=== PATIENT | female | born 1985 | race African-American/Black ===

== ENCOUNTER 2016-08-03 21:44 | Observation (INO) | payer OTHER ==
[2016-08-03] MEDS ORDERED: ALBUTEROL NEBULIZED 2.5 MG/3 ML INHALATION STA (22:07)
[2016-08-03] MEDS ORDERED: methylPREDNISolone SOD SUCCI 125 MG/2 ML VIAL IV STA (22:07)
--- NOTE | 2016-08-03 23:44 | XR ---
EXAMINATION TYPE: XR chest 2V DATE OF EXAM: 08/03/2016 11:31 PM COMPARISON: 06/16/2016 HISTORY: Difficulty breathing TECHNIQUE: Frontal and lateral views of the chest are obtained. FINDINGS: Exam is limited due to positioning. As best as one can tell the lungs are clear. There is no heart failure. There is a thoracic scoliotic deformity. There is no sign of pleural effusion. Trac heostomy tube is noted. IMPRESSION: No active cardiopulmonary disease. No change.
[2016-08-04 00:16] LABS: Anisocytosis Moderate; Basophils # (A) 0.1 k/uL (0-0.2); Basophils % (A) 1 %; CH 30.4; CHCM 34.6; Eosinophils # (A) 0.2 k/uL (0-0.7); Eosinophils % (A) 2 %; HCT 42.4 % (34.0-46.0); HDW 2.98; HGB 15.4 gm/dL (11.4-16.0); Luc # (Auto) 0.17; Luc % (Auto) 2; Lymphocytes # (A) 2.1 k/uL (1.0-4.8); Lymphocytes % (A) 24 %; MCH 32.1 pg (25.0-35.0); MCHC 36.2 g/dL (31.0-37.0); MCV 88.5 fL (80.0-100.0); Mean Platelet Volume 9.2; Monocytes # (A) 0.6 k/uL (0-1.0); Monocytes % (A) 7 %; Neutrophils # (A) 5.6 k/uL (1.3-7.7); Neutrophils % (A) 65 %; RBC 4.79 m/uL (3.80-5.40); RDW 23.1 % (11.5-15.5); WBC 8.6 k/uL (3.8-10.6); WBC (Perox) 8.64
[2016-08-04 00:21] LABS: Anion Gap 19 mmol/L; Calcium 9.8 mg/dL (8.4-10.2); Carbon Dioxide 17 mmol/L (22-30); Chloride 110 mmol/L (98-107); Glucose 101 mg/dL (74-99); Non-African American GFR(MDRD) >60 (>60 ml/min/1.73 sqM); Sodium 146 mmol/L (137-145); Total Bilirubin 0.7 mg/dL (0.2-1.3)
[2016-08-04 00:27] LABS: Blood Urea Nitrogen 8 mg/dL (7-17); Potassium 4.7 mmol/L (3.5-5.1)
[2016-08-04 00:28] LABS: ALT 27 U/L (9-52); AST 29 U/L (14-36); Alkaline Phosphatase 108 U/L (38-126); Total Protein 7.7 g/dL (6.3-8.2)
--- NOTE | 2016-08-04 01:16 | ED ---
SOB HPI - General Chief Complaint: Shortness of Breath Stated Complaint: ANTHONY Time Seen by Provider: 08/03/16 22:01 Source: patient, family, EMS Mode of arrival: EMS Limitations: physical limitation - History of Present Illness Initial Comments: Down being short winded she is trach dependent been breathing faster and mom feels that maybe she has a lung infection and she is concerned that she goes down real fast if there is some sort of infection somewhere him a no fever as such. Denies any runny nose and denies any recent episodes of flu a or flu B area denies any chest pain no pleuritic chest pain eyes any abdominal pain no frequency urgency dysuria - Related Data Home Medications Medication Instructions Recorded Confirmed No Known Home Medications [No 06/15/16 06/16/16 Known Home Medications] Allergies Allergy/AdvReac Type Severity Reaction Status Date / Time No Known Allergies Allergy Verified 06/16/16 14:31 Review of Systems ROS Statement: Those systems with pertinent positive or pertinent negative responses have been documented in the HPI. ROS Other: All systems not noted in ROS Statement are negative. Past Medical History Past Medical History: Asthma, Musculoskeletal Disorder Additional Past Medical History / Comment(s): spina bifida History of Any Multi-Drug Resistant Organisms: None Reported Past Surgical History: Back Surgery Additional Past Surgical History / Comment(s): trach Past Psychological History: No Psychological Hx Reported Smoking Status: Never smoker Past Alcohol Use History: None Reported Past Drug Use History: None Reported General Exam - General Exam Comments Initial Comments: General: The patient is awake and alert, in no distress, and does not appear acutely ill. Skin: Skin is warm and dry and no rashes or lesions are noted. Eye: Pupils are equal, round and reactive to light, extra-ocular movements are intact; there is normal conjunctiva bilaterally. Ears, nose, mouth and throat: There are moist mucous membranes and no oral lesions. Neck: The neck is supple, there is no tenderness , she has a permanent trach Cardiovascular: There is a regular rate and rhythm. No murmur, rub or gallop is appreciated., She has the tachycardia is around [id number]-lpi EKG but when I examine her she was about 150 Respiratory: To auscultation bilateral, no wheezing no rhonchi no distress respiratory maldonado noticed Gastrointestinal: Soft, non-distended, non-tender abdomen without masses or organomegaly noted. There is no rebound or guarding present. Bowel sounds are unremarkable. Back: There is no tenderness to palpation in the midline. There is no obvious deformity. Musculoskeletal: Normal ROM, she is congenitally hand Neurological: CN II-XII intact, Cranial nerves III through XII are intact. There are no obvious motor or sensory deficits. Coordination appears grossly intact. Speech is normal. Psychiatric: Cooperative, appropriate mood & affect, normal judgment. Limitations: physical limitation Course Vital Signs 08/03/16 08/03/16 08/03/16 21:48 22:54 23:02 Temperature 97.9 F Pulse Rate 118 H 121 H 120 H Respiratory 22 Rate Blood Pressure O2 Sat by Pulse 100 Oximetry 08/03/16 23:26 Temperature Pulse Rate 122 H Respiratory 18 Rate Blood Pressure 130/80 O2 Sat by Pulse Oximetry Medical Decision Making - Lab Data Result diagrams: 08/03/16 00:00 08/03/16 00:00 Lab Results 08/03/16 08/03/16 Range/Units 00:00 00:00 WBC 8.6 (3.8-10.6) k/uL RBC 4.79 (3.80-5.40) m/uL Hgb 15.4 (11.4-16.0) gm/dL Hct 42.4 (34.0-46.0) % MCV 88.5 (80.0-100.0) fL MCH 32.1 (25.0-35.0) pg MCHC 36.2 (31.0-37.0) g/dL RDW 23.1 H (11.5-15.5) % Plt Count 295 (150-450) k/uL Neutrophils % 65 % Lymphocytes % 24 % Monocytes % 7 % Eosinophils % 2 % Basophils % 1 % Neutrophils # 5.6 (1.3-7.7) k/uL Lymphocytes # 2.1 (1.0-4.8) k/uL Monocytes # 0.6 (0-1.0) k/uL Eosinophils # 0.2 (0-0.7) k/uL Basophils # 0.1 (0-0.2) k/uL Anisocytosis Moderate Sodium 146 H (137-145) mmol/L Potassium 4.7 (3.5-5.1) mmol/L Chloride 110 H (98-107) mmol/L Carbon Dioxide 17 L (22-30) mmol/L Anion Gap 19 mmol/L BUN 8 (7-17) mg/dL Creatinine 0.30 L (0.52-1.04) mg/dL Est GFR (MDRD) Af Amer >60 (>60 ml/min/1.73 sqM) Est GFR (MDRD) Non-Af >60 (>60 ml/min/1.73 sqM) Glucose 101 H (74-99) mg/dL Calcium 9.8 (8.4-10.2) mg/dL Total Bilirubin 0.7 (0.2-1.3) mg/dL AST 29 (14-36) U/L ALT 27 (9-52) U/L Alkaline Phosphatase 108 (38-126) U/L Total Protein 7.7 (6.3-8.2) g/dL Albumin 4.4 (3.5-5.0) g/dL Disposition Clinical Impression: Tachycardia, Metabolic acidosis Disposition: ADMITTED IP TO THIS HOSP
[2016-08-04] MEDS ORDERED: SODIUM CHLORIDE 0.9% 1,000 ML IV ONE (01:17)
[2016-08-04 01:18] LABS: Creatine Kinase 132 U/L (30-135)
[2016-08-04 02:53] LABS: Glucose,Whole Blood 102 mg/dL (75-99)
[2016-08-04] MEDS: IPRATROPIUM-ALBUTEROL 3 ML NEB INHALATION SCH ×3 (03:11→11:53)
[2016-08-04 03:48] VITALS: BMI 44.7
[2016-08-04] MEDS ORDERED: BUDESONIDE 0.5 MG/2 ML NEBU INHALATION SCH (08:00)
[2016-08-04] MEDS ORDERED: methylPREDNISolone SOD SUCCI 125 MG/2 ML VIAL IV SCH (09:00)
[2016-08-04] MEDS ORDERED: FAMOTIDINE 20 MG/2 ML VIAL IV SCH (09:30)
[2016-08-04] MEDS ORDERED: PNEUMOCOCCAL VACC-PNEUMOVAX 23 25 MCG/0.5 ML VIAL IM ONE (12:00)
--- NOTE | 2016-08-04 12:06 | P.DS ---
Providers Date of admission: 08/04/16 01:16 Expected date of discharge: 08/04/16 Attending physician: Evin Arevalo Consults: 08/04/16 09:05 Consult Physician Routine Consulting Provider: Misa Bear Consult Reason/Comments: Vent mangement Do you want consulting provider notified?: Yes Primary care physician: Evin Arevalo [facility] Course: 30-year-old female who has a history of spina bifida limited mobility wheelchair bedbound presented to the emergency room to be evaluated for a chief complaint of developing shortness of breath different from baseline. Patient has a permanent trach and is vent dependent. Poor historian. Health history has been obtained from talking to the mother and reviewing the emergency room computerized record in the emergency room patient was noted in the emergency room to be tachycardic. Subsequently the patient was admitted a pulmonology consultation obtained patient mother indicated that the patient does have an appointment tomorrow at [facility] with ears nose and throat to be evaluated and worked up unclear of the details the patient reportedly has a home visiting physician and a nurse practitioner that sees the patient. According to the mother the patient was seen by a nurse practitioner last Thursday at home was noted to be a little congested. Patient was initiated on antibiotic and Medrol Dosepak.. Subsequent the patient was admitted placed on mechanical vent support. Pulmonology indicated there is no further pulmonology workup and that the patient would be appropriate to be discharged to keep scheduled appointment at [facility] tomorrow. The tachycardia had resolved the time of discharge patient' s heart rate was in the 110s 120s Impression discharge diagnosis Present on admission shortness of breath with chest x-ray showing no evidence of pneumonia Chronic hypoxic respiratory failure vent dependent suspect due to chronic illness history of spina bifida Permanent tracheotomy Physical debility chronic due to chronic illness spina bifida limited mobility Sinus tachycardic resolving The above dictated assessment and findings were discussed with dr susanne Caro and the plan of care have been dictated as directed. Ivette Ga nurse practitioner acting as a scribe for dr arevalo Plan - Discharge Summary Discharge Medication List Albuterol Sulfate [Accuneb] 1.25 mg INHALATION RT-Q4H PRN 08/04/16 [History] Clarithromycin [Biaxin] 500 mg PO Q12HR 08/04/16 [History] Diltiazem HCl [Cardizem] 90 mg PO TID 08/04/16 [History] Fluticasone Nasal [place] [Flonase Nasal [place]] 2 spr EA NOSTRIL DAILY 08/04/16 [ History] Loratadine [Claritin] 10 mg PO DAILY PRN 08/04/16 [History] Follow up Appointment(s)/Referral(s): Evin Arevalo MD [Primary Care Provider] - 1-2 days Activity/Diet/Wound Care/Special Instructions: Keep scheduled appointment tomorrow on the 05 of August with [facility] clinic Discharge Disposition: HOME SELF-CARE
--- NOTE | 2016-08-04 12:15 | P.CNPUL ---
History of Present Illness Consult date: 08/04/16 Reason for consult: cough Chief complaint: Cough History of present illness: This is a 30-year-old female who has a history of spina bifida and cognitive delay. The patient is chronically on a ventilator at home via tracheostomy. The patient's mother takes care of her and suctions her frequently. The patient 's mother states that she had worsening cough and some sputum production. She also states that the patient refuses to use her cough assist at home. The patient also was refusing to take pills. She had not taken her Cardizem or antibiotics. The patient has been tachycardic in the ICU. The patient will be given her Cardizem. She has an appointment tomorrow at the [facility]. The patient is currently on her baseline ventilator settings. She has not had fevers or chills. Her mental status is at baseline. Review of Systems All systems: negative Past Medical History Past Medical History: Asthma, Musculoskeletal Disorder Additional Past Medical History / Comment(s): spina bifida History of Any Multi-Drug Resistant Organisms: None Reported Past Surgical History: Back Surgery Additional Past Surgical History / Comment(s): trach, urostomy Past Anesthesia/Blood Transfusion Reactions: No Reported Reaction Past Psychological History: No Psychological Hx Reported Smoking Status: Never smoker Past Alcohol Use History: None Reported Past Drug Use History: None Reported Medications and Allergies Home Medications Medication Instructions Recorded Confirmed Type Albuterol Sulfate [Accuneb] 1.25 mg INHALATION RT-Q4H PRN 08/04/16 08/04/16 History Clarithromycin [Biaxin] 500 mg PO Q12HR 08/04/16 08/04/16 History Diltiazem HCl [Cardizem] 90 mg PO TID 08/04/16 08/04/16 History Fluticasone Nasal [place] [Flonase 2 spr EA NOSTRIL DAILY 08/04/16 08/04/16 History Nasal [place]] Loratadine [Claritin] 10 mg PO DAILY PRN 08/04/16 08/04/16 History Allergies Allergy/AdvReac Type Severity Reaction Status Date / Time No Known Allergies Allergy Verified 06/16/16 14:31 Physical Exam Osteopathic Statement: *. No significant issues noted on an osteopathic structural exam other than those noted in the History and Physical/Consult. Vitals: Vital Signs Temp Pulse Resp BP Pulse Ox 08/04/16 11:00 128 H 31 H 138/80 99 08/04/16 10:00 127 H 28 H 130/94 97 08/04/16 09:00 141 H 29 H 104/94 99 08/04/16 08:04 122 H 08/04/16 08:00 98.4 F 132 H 26 H 120/85 99 08/04/16 07:53 118 H 08/04/16 07:00 123 H 20 122/79 98 08/04/16 06:30 124 H 31 H 124/82 98 08/04/16 06:00 118 H 29 H 131/94 98 08/04/16 05:30 126 H 27 H 125/85 97 08/04/16 05:00 122 H 24 118/93 98 08/04/16 04:30 129 H 30 H 139/87 98 08/04/16 04:00 134 H 28 H 113/85 99 08/04/16 03:30 122 H 23 139/110 99 08/04/16 03:18 132 H 08/04/16 03:07 135 H 08/04/16 03:00 99.0 F 121 H 27 H 133/84 97 08/04/16 02:54 108 H 16 128/80 100 Intake and Output 08/03/16 08/04/16 08/04/16 22:59 06:59 14:59 Intake Total 90 30 Balance 90 30 Intake: Oral 90 30 Other: Voiding Method Diaper Diaper Incontinent Incontinent # Voids 1 1 Weight 63.8 kg Gen.: Patient is alert, cognitive delay, pleasant mood Cardiovascular: Tachycardic, regular rate and rhythm Lungs: Scattered expiratory wheezing Abdomen: Soft nontender nondistended positive bowel sounds Extremities no edema Results - Laboratory Findings CBC and BMP: 08/03/16 00:00 08/03/16 00:00 Abnormal lab findings: Abnormal Labs 08/04/16 02:52 POC Glucose (mg/dL) 102 H - Diagnostic Findings Chest x-ray: report reviewed, image reviewed Assessment and Plan Plan: Chronic respiratory failure secondary to musculoskeletal disorder Spina bifida Tracheobronchitis Asthma, unknown type and severity Permanent tracheostomy Physical debility Sinus tachycardia Medical noncompliance Continue patient on home ventilator settings Patient is encouraged to use her cough assist and she states she will do so Okay to discharge with Biaxin and prednisone taper Patient has breathing treatments at home Tracheostomy care with frequent suctioning Patient has an appointment at the [facility] tomorrow Restart patient's home Cardizem for tachycardia
[2016-08-04 13:30] VITALS: BP 140/94; PULSE 124; RESP 25; TEMP 98.1
--- NOTE | 2016-08-04 19:34 | PN ---
DATE OF SERVICE: 08/04/2016 CHIEF COMPLAINT: Shortness of breath. HISTORY OF PRESENT ILLNESS: This is the first known ( ) admission for this 30-year-old mentally and physically debilitated -[place] female. She was brought to the hospital by her mother with concern that she may not be able to breathe. She has had a chronic trach and she has been told that there may need to be a revision around her trach. She was brought in because there was concern that it was not functioning properly. She is severely mentally incapacitated. Review of systems is not obtainable from the patient, but apparently she has had no trouble other than shortness of breath. She has had no fever, cough, vomiting, diarrhea, etc. Past medical history, family history, and personal and social histories reveal that she is NOT ALLERGIC TO ANY MEDICATION. She has had a procedure on her eyes as well as intracardiac shunt revisions. There is no other history available. She had a decompression procedure on her neck in the past and 6 ( ) surgeries and 2 on her eyes. PHYSICAL EXAMINATION: Blood pressure is 106/70 with a pulse of 84. She is afebrile. In general she appears to be overweight and small-statured. 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 Head, ears, eyes, nose, mouth and throat were normal except for the presence of tracheostomy. She is awake and alert. Chest demonstrates good breath sounds on both sides. The cardiac exam seems to be normal. The abdomen is soft and non-tender without any visceromegaly or masses except for PEG tube. She is admitted to the hospital with the diagnoses: 1. Respiratory failure. 2. ? tracheal obstruction or narrowing. 3. Mental disability. PLAN: Consult with ENT. In the meantime keep her on a ventilator until it is sure that she is safe and stable.
--- NOTE | 2016-08-04 19:55 | PN ---
Patient was seen by the nurse practitioner and decision was made that she could be discharged home to her mother's care. She will follow up with her physician in [place]. All of this will be arranged by the nurse practitioner.
[2016-08-04] MEDS ORDERED: FAMOTIDINE 20 MG TAB PO SCH (21:00)
== END 2016-08-04 14:26 | disposition home or self-care (01) ==
LOC: EC 21:44 → 3OBS 08-04 01:16 → 6ICU 08-04 01:52
PROVIDERS: ADMIT Family Medicine; ATTEND Family Medicine
DX: J96.11 Chronic respiratory failure with hypoxia (principal); Q05.9 Spina bifida, unspecified; R00.0 Tachycardia, unspecified; J45.909 Unspecified asthma, uncomplicated; E87.2 Acidosis; J40 Bronchitis, not specified as acute or chronic; Z23 Encounter for immunization; Z93.0 Tracheostomy status; Z99.3 Dependence on wheelchair; Z99.11 Dependence on respirator [ventilator] status; Z95.1 Presence of aortocoronary bypass graft; Z79.899 Other long term (current) drug therapy; Z91.14 Patient's other noncompliance with medication regimen
CPT/HCPCS: 36415; 94640 ×2; 94002; 93005; 80053; 82550; 82553; 85025; 71020; 90732; 99285; 96365; 96375; G0378; G0009; J2930; J0696

== ENCOUNTER → 2017-01-14 | Outpatient (CLI) | payer OTHER ==
[2017-01-14 12:18] LABS: Anisocytosis Moderate; Basophils % (A) 1 %; CH 30.2; CHCM 32.8; Eosinophils # (A) 0.2 k/uL (0-0.7); Eosinophils % (A) 3 %; HCT 48.2 % (34.0-46.0); HDW 2.56; Luc # (Auto) 0.11; Luc % (Auto) 2; Lymphocytes # (A) 2.1 k/uL (1.0-4.8); Lymphocytes % (A) 35 %; MCH 30.7 pg (25.0-35.0); MCHC 33.2 g/dL (31.0-37.0); MCV 92.6 fL (80.0-100.0); Mean Platelet Volume 7.6; Monocytes # (A) 0.3 k/uL (0-1.0); Monocytes % (A) 4 %; Neutrophils # (A) 3.4 k/uL (1.3-7.7); Neutrophils % (A) 56 %; RBC 5.21 m/uL (3.80-5.40); RDW 20.8 % (11.5-15.5); WBC (Perox) 5.75
[2017-01-14 12:37] LABS: ALT 28 U/L (9-52); AST 18 U/L (14-36); Alkaline Phosphatase 116 U/L (38-126); Anion Gap 14 mmol/L; Blood Urea Nitrogen 7 mg/dL (7-17); C Reactive Protein 11.4 mg/L (<10.0); Calcium 9.7 mg/dL (8.4-10.2); Carbon Dioxide 23 mmol/L (22-30); Chloride 106 mmol/L (98-107); Cholesterol 189 mg/dL (<200); Creatine Kinase 90 U/L (30-135); Glucose 70 mg/dL (74-99); HDL Cholesterol 59 mg/dL (40-60); Magnesium 1.8 mg/dL (1.6-2.3); Non-African American GFR(MDRD) >60 (>60 ml/min/1.73 sqM); Phosphorous 3.7 mg/dL (2.5-4.5); Potassium 4.8 mmol/L (3.5-5.1); Sodium 143 mmol/L (137-145); Total Bilirubin 0.5 mg/dL (0.2-1.3); Total Protein 7.4 g/dL (6.3-8.2); Triglycerides 58 mg/dL (<150)
[2017-01-14 13:09] LABS: Erythrocyte Sedimentation Rate 7 mm/hr (0-20)
[2017-01-14 21:53] LABS: Hemoglobin A1C 5.4 % (4.2-6.1)
== END | disposition home or self-care (01) ==
LOC: LABWHC1 11:03
PROVIDERS: ATTEND Internal Medicine
DX: Z00.00 Encounter for general adult medical examination without abnormal findings (principal); E78.5 Hyperlipidemia, unspecified; I10 Essential (primary) hypertension; E55.9 Vitamin D deficiency, unspecified; R32 Unspecified urinary incontinence; D64.9 Anemia, unspecified; Q05.9 Spina bifida, unspecified
CPT/HCPCS: 36415; 80053; 80061; 82306; 82550; 83036; 83735; 83970; 84100; 84439; 84443; 85025; 85652; 86140

== ENCOUNTER → 2017-02-02 | Outpatient (CLI) | payer OTHER ==
--- NOTE | 2017-02-03 10:10 | ECHOF ---
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 This was a technically difficult study with suboptimal views. The left ventricular size is normal. Left ventricular wall thickness is normal. Overall left ventricular systolic function is normal with, an EF between 55 - 60 %. The right ventricle is normal in size and function. The left atrial size is normal. The right atrium was not well visualized. The aortic valve was not well visualized. Mild mitral annular calcification present. Mild mitral regurgitation is present. The tricuspid valve was not well visualized. The pulmonic valve was not well visualized. There is no pulmonic regurgitation present. The aortic root size is normal. There is no pericardial effusion. CONCLUSIONS -------- 1. Sinus rhythm. 2. There is no pulmonic regurgitation present. 3. The aortic root size is normal. 4. There is no pericardial effusion. 5. This was a technically difficult study with suboptimal views. 6. Left ventricular wall thickness is normal. 7. Overall left ventricular systolic function is normal with, an EF between 55 - 60 %. 8. The left atrial size is normal. 9. The right atrium was not well visualized. 10. The aortic valve was not well visualized. 11. Mild mitral regurgitation is present. 12. The tricuspid valve was not well visualized. PROGRAM TECHNICIAN: Alyce Goldsmith RDCS
== END | disposition home or self-care (01) ==
LOC: RADECHMAIN 14:30
PROVIDERS: ATTEND Internal Medicine
DX: I34.0 Nonrheumatic mitral (valve) insufficiency (principal)
CPT/HCPCS: 93306

== ENCOUNTER 2017-10-07 08:56 | Inpatient (IN) | payer OTHER ==
[2017-10-07] MEDS ORDERED: DEXAMETHASONE SOD PHOSPHATE 10 MG/ML 1 ML VIAL IV STA (09:18)
--- NOTE | 2017-10-07 10:06 | XR ---
EXAMINATION TYPE: XR chest 1V portable DATE OF EXAM: 10/07/2017 COMPARISON: 06/16/2016 HISTORY: Concern for pneumonia. TECHNIQUE: Single frontal view of the chest is obtained. FINDINGS: Exam is markedly limited due to distortion by scoliosis and pectus excavatum. The lungs ar e hypoventilatory and cardiomediastinal silhouette is entirely obscured and cannot be evaluated. Midl ine tracheostomy and left ventricular shunt are again seen. The lungs are nearly entirely opacified, left greater than right. This is a change in comparison to the prior of 06/08/2016. Probable skinfold overlies the left lateral hemithorax near the costophrenic angle in a vertical direction with no dis crete pneumothorax. IMPRESSION: Suboptimal exam. Extensive distortion and low lung volumes although the lungs are nearly completely opacified which represents a change from the prior of 06/16/2016. Multifocal pneumonia, e ndobronchial obstruction/mucus plugging, or less likely pleural effusions should be considered.
[2017-10-07 11:00] LABS: Basophils % (A) 0 %; Eosinophils # (A) 0.3 k/uL (0-0.7); Eosinophils % (A) 3 %; HCT 43.1 % (34.0-46.0); HGB 14.7 gm/dL (11.4-16.0); Lymphocytes # (A) 1.1 k/uL (1.0-4.8); Lymphocytes % (A) 14 %; MCHC 34.1 g/dL (31.0-37.0); Mean Platelet Volume 8.5; Monocytes # (A) 0.5 k/uL (0-1.0); Monocytes % (A) 6 %; Neutrophils % (A) 75 %; Platelet Count 225 k/uL (150-450); WBC 8.1 k/uL (3.8-10.6)
[2017-10-07 11:01] LABS: Anion Gap 15 mmol/L; Blood Urea Nitrogen 6 mg/dL (7-17); Calcium 9.5 mg/dL (8.4-10.2); Carbon Dioxide 20 mmol/L (22-30); Chloride 104 mmol/L (98-107); Glucose 107 mg/dL (74-99); Potassium 4.4 mmol/L (3.5-5.1); Sodium 139 mmol/L (137-145)
[2017-10-07] MEDS ORDERED: AZITHROMYCIN 500 MG in SODIUM CHLORIDE 0.9% 250 ML IVPB STA (12:16)
[2017-10-07] MEDS ORDERED: cefTRIAXone IN SWFI 2,000 MG/20 ML SYRINGE IVP STA (12:16)
--- NOTE | 2017-10-07 12:28 | ED ---
General Adult HPI - General Chief complaint: Upper Respiratory Infection Stated complaint: COUGH, CONGESTION, ANTHONY Time Seen by Provider: 10/07/17 09:06 Source: patient, family, EMS Mode of arrival: EMS Limitations: no limitations - History of Present Illness Initial comments: 32 years old male presented with the chronic respiratory problems and congenital deformities she is on a fentanyl at home and she has a trach in place she has been coughing for 2 days and now there was a lot of urine mucus coming out of for a trach and now that caused her shortness of breath he is to cough any sputum no fever no chills she been eating well she been drinking well she denies any chest pain no pleuritic chest pain no abdominal pain no other complaints - Related Data Home Medications Medication Instructions Recorded Confirmed Diltiazem HCl [Cardizem] 90 mg PO BID 08/04/16 10/07/17 Albuterol Nebulized [Ventolin 2.5 mg INHALATION RT-Q4H PRN 10/07/17 10/07/17 Nebulized] Allergies Allergy/AdvReac Type Severity Reaction Status Date / Time No Known Allergies Allergy Verified 10/07/17 09:28 Review of Systems ROS Statement: Those systems with pertinent positive or pertinent negative responses have been documented in the HPI. ROS Other: All systems not noted in ROS Statement are negative. Past Medical History Past Medical History: Asthma, Musculoskeletal Disorder Additional Past Medical History / Comment(s): spina bifida History of Any Multi-Drug Resistant Organisms: None Reported Past Surgical History: Back Surgery Additional Past Surgical History / Comment(s): trach, urostomy Past Anesthesia/Blood Transfusion Reactions: No Reported Reaction Past Psychological History: No Psychological Hx Reported Smoking Status: Never smoker Past Alcohol Use History: None Reported Past Drug Use History: None Reported General Exam - General Exam Comments Initial Comments: General: The patient is awake and alert, in no distress, and does not appear acutely ill. GCS is 15 Skin: Skin is warm and dry and no rashes or lesions are noted. Eye: Pupils are equal, round and reactive to light, extra-ocular movements are intact; there is normal conjunctiva bilaterally. Ears, nose, mouth and throat: There are moist mucous membranes and no oral lesions. Neck: The neck is supple, there is no tenderness or JVD. Cardiovascular: There is a regular rate and rhythm. No murmur, rub or gallop is appreciated. Respiratory: To auscultation bilateral, no wheezing no rhonchi no distress respiratory maldonado noticed Gastrointestinal: Soft, non-distended, non-tender abdomen without masses or organomegaly noted. There is no rebound or guarding present. Bowel sounds are unremarkable. Back: There is no tenderness to palpation in the midline. There is no obvious deformity. Musculoskeletal: Normal ROM, no tenderness, There is no pedal edema. There is no calf tenderness or swelling. No cords were appreciated. Neurological: CN II-XII intact, Cranial nerves III through XII are intact. There are no obvious motor or sensory deficits. Coordination appears grossly intact. Speech is normal. Psychiatric: Cooperative, appropriate mood & affect, normal judgment. Limitations: no limitations Course Vital Signs 10/07/17 10/07/17 10/07/17 08:59 10:53 12:00 Temperature 99.3 F Pulse Rate 118 H 118 H Respiratory 28 H 28 H 28 H Rate Blood Pressure 133/89 143/85 O2 Sat by Pulse 100 100 Oximetry She was reassessed at term 1159, CBC is normal d-dimer is normal, BS metabolic panel is normal she is negative for flu a and B tests x-rays positive for pneumonia, spoke with the Dr. Alvarez staff E he is her primary care doctor and now he said the CT has very complex history as well as complex medical issues she is on a fentanyl 24 hours a day and is chronic and she has a trach in place a pulmonary care has been tried on at [facility] and he preferred to be transferred and [facility] because are most of her pulmonary care has been there, I spoke with the patient she wants me to talk to her mom she's not in the room he was trying to get hold of mom and then will make arrangements for transfer I spoke with the Dr. Gtz at [facility] she is planning to get hold the pulmonary team at the [facility] and then she will call me back, she stated patient would need ICU care considering its is Atrovent at home , and waiting to hear back from her, [facility] from the call me back stating that to the ICU is full and they are unable to help her., Because Dr. Goodson again and Dr. Mancilla electric dolly operator Dr. Scott's accepting her care should be admitted to ICU and [facility] Medical Decision Making - Lab Data Result diagrams: 10/07/17 10:10 10/07/17 10:32 Lab Results 10/07/17 10/07/17 10/07/17 Range/Units 09:45 10:10 10:32 WBC 8.1 (3.8-10.6) k/uL RBC 4.90 (3.80-5.40) m/uL Hgb 14.7 (11.4-16.0) gm/dL Hct 43.1 (34.0-46.0) % MCV 88.0 (80.0-100.0) fL MCH 30.0 (25.0-35.0) pg MCHC 34.1 (31.0-37.0) g/dL RDW 15.0 (11.5-15.5) % Plt Count 225 (150-450) k/uL Neutrophils % 75 % Lymphocytes % 14 % Monocytes % 6 % Eosinophils % 3 % Basophils % 0 % Neutrophils # 6.0 (1.3-7.7) k/uL Lymphocytes # 1.1 (1.0-4.8) k/uL Monocytes # 0.5 (0-1.0) k/uL Eosinophils # 0.3 (0-0.7) k/uL Basophils # 0.0 (0-0.2) k/uL D-Dimer 0.40 (<0.60) mg/L FEU Sodium (137-145) mmol/L Potassium (3.5-5.1) mmol/L Chloride (98-107) mmol/L Carbon Dioxide (22-30) mmol/L Anion Gap mmol/L BUN (7-17) mg/dL Creatinine (0.52-1.04) mg/dL Est GFR (CKD-EPI)AfAm (>60 ml/min/1.73 sqM) Est GFR (CKD-EPI)NonAf (>60 ml/min/1.73 sqM) Glucose (74-99) mg/dL Calcium (8.4-10.2) mg/dL Influenza Type A RNA Not Detected (Not Detectd) Influenza Type B (PCR) Not Detected (Not Detectd) 10/07/17 Range/Units 10:32 WBC (3.8-10.6) k/uL RBC (3.80-5.40) m/uL Hgb (11.4-16.0) gm/dL Hct (34.0-46.0) % MCV (80.0-100.0) fL MCH (25.0-35.0) pg MCHC (31.0-37.0) g/dL RDW (11.5-15.5) % Plt Count (150-450) k/uL Neutrophils % % Lymphocytes % % Monocytes % % Eosinophils % % Basophils % % Neutrophils # (1.3-7.7) k/uL Lymphocytes # (1.0-4.8) k/uL Monocytes # (0-1.0) k/uL Eosinophils # (0-0.7) k/uL Basophils # (0-0.2) k/uL D-Dimer (<0.60) mg/L FEU Sodium 139 (137-145) mmol/L Potassium 4.4 (3.5-5.1) mmol/L Chloride 104 (98-107) mmol/L Carbon Dioxide 20 L (22-30) mmol/L Anion Gap 15 mmol/L BUN 6 L (7-17) mg/dL Creatinine 0.39 L (0.52-1.04) mg/dL Est GFR (CKD-EPI)AfAm >90 (>60 ml/min/1.73 sqM) Est GFR (CKD-EPI)NonAf >90 (>60 ml/min/1.73 sqM) Glucose 107 H (74-99) mg/dL Calcium 9.5 (8.4-10.2) mg/dL Influenza Type A RNA (Not Detectd) Influenza Type B (PCR) (Not Detectd) Disposition Clinical Impression: Pneumonia Disposition: ADMITTED IP TO THIS HOSP Condition: Good Referrals: Isaac Goodson MD [Primary Care Provider] - 1-2 days
[2017-10-07] MEDS ORDERED: PIPERACILLIN-TAZOBACTAM 3.375 GM in DEXTROSE/WATER 1 50ML.BAG IVPB STA (13:30)
[2017-10-07] MEDS ORDERED: VANCOMYCIN IV PER PHARMACY 1 EACH MISC MISCELLANE PRN (13:40)
[2017-10-07] MEDS ORDERED: VANCOMYCIN 750 MG in SODIUM CHLORIDE 0.9% 250 ML IVPB ONE (14:00)
[2017-10-07] MEDS ORDERED: NALOXONE 0.4 MG/ML 1 ML VIAL IV PRN (14:19)
--- NOTE | 2017-10-07 20:23 | P.CNPUL ---
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 Due to absence of a bad in ICU patient is being bordered and emergency department not much data can be opted from the patient and review of the data reveals that patient is on nebulizer therapy at home along with chronic ventilator support, patient has a significant history of spina bifid a multiple spine surgery history of tracheostomy and urostomy Review of Systems ROS unobtainable: due to endotracheal tube (Due to tracheostomy) All systems: negative Past Medical History Past Medical History: Asthma, Musculoskeletal Disorder Additional Past Medical History / Comment(s): spina bifida History of Any Multi-Drug Resistant Organisms: None Reported Past Surgical History: Back Surgery Additional Past Surgical History / Comment(s): trach, urostomy Past Anesthesia/Blood Transfusion Reactions: No Reported Reaction Past Psychological History: No Psychological Hx Reported Smoking Status: Never smoker Past Alcohol Use History: None Reported Past Drug Use History: None Reported Medications and Allergies Home Medications Medication Instructions Recorded Confirmed Type Diltiazem HCl [Cardizem] 90 mg PO BID 08/04/16 10/07/17 History Albuterol Nebulized [Ventolin 2.5 mg INHALATION RT-Q4H PRN 10/07/17 10/07/17 History Nebulized] Allergies Allergy/AdvReac Type Severity Reaction Status Date / Time No Known Allergies Allergy Verified 10/07/17 09:28 Physical Exam Vitals: Vital Signs Temp Pulse Resp BP Pulse Ox 10/07/17 19:24 133 H 30 H 128/85 98 10/07/17 18:16 112 H 28 H 147/99 98 10/07/17 17:45 110 H 126/83 98 10/07/17 17:01 114 H 20 138/97 97 10/07/17 15:21 98.8 F 114 H 28 H 132/89 98 10/07/17 12:00 118 H 28 H 143/85 100 10/07/17 10:53 28 H 10/07/17 08:59 99.3 F 118 H 28 H 133/89 100 Intake and Output 10/07/17 10/07/17 10/07/17 06:59 14:59 22:59 Other: Weight 45.359 kg General: The patient is awake and alert, in mild respiratory distress, and does not appear acutely ill. GCS is 15, patient does make simple answers and gestures Skin: Skin is warm and dry and no rashes or lesions are noted. Eye: Pupils are equal, round and reactive to light, extra-ocular movements are intact; there is normal conjunctiva bilaterally. Ears, nose, mouth and throat: There are moist mucous membranes and no oral lesions. Neck: The neck is supple, there is no tenderness or JVD. Tracheostomy stoma intact Cardiovascular: There is a regular rate and rhythm. No murmur, rub or gallop is appreciated. Respiratory: To auscultation bilateral, no wheezing no rhonchi no distress respiratory maldonado noticed, few scattered bilateral crackles are present Gastrointestinal: Soft, non-distended, fecal to examine given severe degree or deformities. Musculoskeletal: Limited ROM, no tenderness, There is no pedal edema. There is no calf tenderness or swelling. No cords were appreciated. Neurological: Patient is awake and does respond to simple comments unable to perform detailed neurological examination Psychiatric: Cooperative, appropriate mood & affect, normal judgment. Results - Laboratory Findings CBC and BMP: 10/07/17 10:10 10/07/17 10:32 PT/INR, D-dimer D-Dimer 0.40 mg/L FEU (<0.60) 10/07/17 10:32 Abnormal lab findings: Abnormal Labs 10/07/17 10:32 Carbon Dioxide 20 L BUN 6 L Creatinine 0.39 L Glucose 107 H - Diagnostic Findings Chest x-ray: report reviewed, image reviewed (Very difficult exam due to scoliosis and pectus deformity tracheostomy however is intact, but lungs are opacified, may be significant cardiomegaly) Assessment and Plan Assessment: Bilateral pneumonia versus mucus plugging Chronic hypoxic and hypercapnic respiratory failure with acute worsening Ventilator dependent chronic respiratory failure Severe degree of kyphoscoliosis and pectus deformity with spina bifida Plan: We will add IV Zosyn Add Solu-Medrol Continue breathing treatments and pulmonary toilet and suctioning Patient would benefit from computed tomography scan to look into extent of mucus plugging and may need pulmonary toilet will monitor observe for now may need bronchoscopy Continue same ventilator setting as she seems to be tolerating fairly well Repeat labs and x-ray tomorrow Time with Patient: Greater than 30
[2017-10-07] MEDS: DILTIAZEM ORAL 30 MG TAB PO SCH (21:53)
[2017-10-07] MEDS: methylPREDNISolone SOD SUCCI 40 MG/ML 1 ML VIAL IV SCH (21:54)
--- NOTE | 2017-10-07 22:36 | CT ---
EXAMINATION TYPE: CT chest wo con DATE OF EXAM: 10/07/2017 COMPARISON: NONE HISTORY: Bilateral pneumonia. History of spina bifida. CT DLP: 210.20 mGycm. Automated Exposure Control for Dose Reduction was Utilized. TECHNIQUE: CT scan of the thorax is performed without IV contrast. FINDINGS: There is a tracheostomy tube noted in good position. There is no evidence of mediastinal adenopathy. Exam is limited by the obesity. There is no pericardial effusion. There is no pleural effusion. There is thoracic deformity and thoracolumbar levoscoliosis. The lungs appear clear of consolidation. There is no evidence of a pulmonary mass. I see no mediastin al adenopathy. IMPRESSION: There is bony thorax deformity. No evidence of any active cardiopulmonary disease. Heart appears slightly enlarged. No evidence of bronchopneumonia.
[2017-10-07] MEDS: VANCOMYCIN 750 MG in SODIUM CHLORIDE 0.9% 250 ML IVPB SCH (22:46)
--- NOTE | 2017-10-07 23:32 | P.HPIM ---
History of Present Illness H&P Date: 10/07/17 (dictated on phone) Chief Complaint: sob withexcessive seceartion trachiostomy vent dependent dictated on 10/07/17 by MD MIRA FACP . Past Medical History Past Medical History: Asthma, Musculoskeletal Disorder Additional Past Medical History / Comment(s): spina bifida History of Any Multi-Drug Resistant Organisms: None Reported Past Surgical History: Back Surgery Additional Past Surgical History / Comment(s): trach, urostomy Past Anesthesia/Blood Transfusion Reactions: No Reported Reaction Past Psychological History: No Psychological Hx Reported Smoking Status: Never smoker Past Alcohol Use History: None Reported Past Drug Use History: None Reported Medications and Allergies Home Medications Medication Instructions Recorded Confirmed Type Diltiazem HCl [Cardizem] 90 mg PO BID 08/04/16 10/07/17 History Albuterol Nebulized [Ventolin 2.5 mg INHALATION RT-Q4H PRN 10/07/17 10/07/17 History Nebulized] Allergies Allergy/AdvReac Type Severity Reaction Status Date / Time No Known Allergies Allergy Verified 10/07/17 09:28 Physical Exam Vitals: Vital Signs Temp Pulse Resp BP Pulse Ox 10/07/17 22:48 120 H 30 H 141/73 98 10/07/17 21:59 128 H 30 H 145/79 100 10/07/17 20:24 132 H 31 H 123/93 98 10/07/17 19:24 133 H 30 H 128/85 98 10/07/17 18:16 112 H 28 H 147/99 98 10/07/17 17:45 110 H 126/83 98 10/07/17 17:01 114 H 20 138/97 97 10/07/17 15:21 98.8 F 114 H 28 H 132/89 98 10/07/17 12:00 118 H 28 H 143/85 100 10/07/17 10:53 28 H 10/07/17 08:59 99.3 F 118 H 28 H 133/89 100 Intake and Output 10/07/17 10/07/17 10/08/17 14:59 22:59 06:59 Other: Weight 45.359 kg Results CBC & Chem 7: 10/07/17 10:10 10/07/17 10:32 Labs: Abnormal Lab Results - Last 24 Hours (Table) 10/07/17 Range/Units 10:32 Carbon Dioxide 20 L (22-30) mmol/L BUN 6 L (7-17) mg/dL Creatinine 0.39 L (0.52-1.04) mg/dL Glucose 107 H (74-99) mg/dL Microbiology - Last 24 Hours (Table) 10/07/17 09:08 Sputum Culture - Preliminary Sputum
[2017-10-08 04:52] LABS: Glucose,Whole Blood 136 mg/dL (75-99)
--- NOTE | 2017-10-08 05:56 | HP ---
HISTORY AND PHYSICAL DATE OF ADMISSION: 10/07/2017 She will be in ICU. Currently seen in the emergency room, module 18 Age [age] years old, . CHIEF COMPLAINT: The patient brought to the emergency room because of the severe shortness of breath at home and had shortness of breath associated with cough and excessive sputum production. HISTORY OF PRESENT ILLNESS: Ms Flores Cárdenas who is a 32-year-old female that she has underlying spina bifida deformity who has been with the problem with chronic lung and she has a tracheostomy and was on BiPAP also at home. She has been treated by [facility] since childhood and continues to be followed there. Patient subsequently recently became my patient and found that she has underlying development deformity as well as she has been on the BiPAP and tracheostomy continuously. She is dependent on respirator and she had spina bifida and she has also spinal fluid drainage continuous. She has history of asthma. Never smoked. Today she came from home with the severe shortness of breath and subsequently she had a chest x-ray in the emergency room and found that she had multifocal pneumonia and endobronchial obstruction with mucus plugging. The patient supposedly admitted to the ICU; however, there is no bed available and she is bordered in the emergency room until patient room is available. PAST MEDICAL HISTORY: She had past medical history of CSF shunt system. She had strabismus of the eye. She had release and resection of the hamstring proximal muscle in [facility], [place]. She had a tracheostomy dated in 2008. She had decompression of the neck, cervical, in [facility], [place]. She had cervical decompression. She had cystostomy with drainage in [facility]. She had also tracheostomy tube and prior fistula tract. She had a back surgery of a spina bifida and also bladder surgery . SOCIAL HISTORY: She is single, never smoked and low-calorie diet. FAMILY HISTORY: She has a brother and a sister. Her mother and father were normal. Her father has asthma. Grandmother has arthritis. Her aunt glaucoma. Her mother has diabetes, high cholesterol. Hypertension uncle, aunt, sister and mother and grandmother. Stroke was in the grandmother. ALLERGY: She has unknown allergies. MEDICATIONS: Her medications are: 1. She was on albuterol in addition nebulizer. 2. She is also on Atrovent HFA 17 mcg 2 puffs 4 times a day. 3. She is on Qvar with dose counter 80 mcg per inhalation and she was taking 2 puffs twice a day. 4. She was taken vitamin D with supplement. 5. She was taking diltiazem 90 mg tablet 3 times a day. 6. Vitamin D 50,000 one a day. 7. She has dry skin and she used ammonium lactate 12% on the skin topical twice a day. 8. She also using nasal spray, flunisolide nasal 25 mcg per nasal spray. Her blood pressure in the past was controlled. REVIEW OF SYSTEMS: Currently on reviewing of the system: NEURO: She is able to communicate, but short of breath. The chest x-ray looks like leonel out and acute respiratory distress syndrome. Allergies is unknown. On reviewing of the system, the patient could not express more than she is short of breath and she could not give us detailed history and her mom is not present. She went home to her work. PHYSICAL EXAM: The patient was seen in the emergency room. Her vital signs: Temperature was 98.8. The pulse rate was tachycardiac from 133 to 110, average. Pulse ox 98. The blood pressure was between 128/85 to 143/85 Her weight was 45.359 kg. In general examination, the patient was alert, but short of breath with respiratory distress and she is on the ventilator, the portable that had been used at home through that tracheostomy. Her skin was dry and deformed lower extremities as short as well. Neck was supple. 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 The eyes were normal, reactive. The ears, she has normal hearing. The chest was deformed with severe kyphoscoliosis with the underlying underneath spina bifida with deformity of the lower extremities. She always had a special chair and wheelchair was motorized as she is nonambulatory. Her heart is PMI in the fifth intercostal space outside midclavicular line, tachycardiac. Do not appreciate murmur at the time. On auscultation of the lungs, there is scattered rhonchi bilateral and wheezing at the time of the examination in the ER and coughing. The gastrointestinal, the abdomen is soft, positive bowel sounds. The extremities, no edema. Neurologically, she is awake, alert, and unable to answer questions. Psychiatric is cooperative. THE LABS: Her white count was 8.1, hemoglobin 14.7 with hematocrit 43.1, and the platelet count 225 and her D-dimer was normal at 0.40. Her carbon dioxide slightly below the normal range 20 and BUN of 6, creatinine 0.39 and glucose is 107. Her chest x-ray, she has significant scoliosis, pectus excavatum and tracheostomy in the neck. Her x-ray was leonel out with the questionable acute respiratory distress. THE ASSESSMENT: 1. Underlying tracheostomy with possible secretion and mucus plug. 2. History of chronic hypoxic and hypercapnic with respiratory failure with the acute exacerbation and worsening. 3. Ventilator dependent. 4. Severe degree of kyphoscoliosis with pectus deformity and spina bifida and patient not mobile and she has used a wheelchair with the help of her mother for transfer. Patient seen by Dr. Caden Scott, the Pulmonary and Critical Care, started on steroid and antibiotic and ordered the CT scan of the chest. Continue the ventilator setting. Repeat the x-ray tomorrow. Patient will be in the ICU until clarification when the bed is available. DATE OF SERVICE: 10/07/2017 NIALL / NIKUNJN: [id number] / CHRISSY
[2017-10-08 05:57] LABS: Anisocytosis Moderate; Basophils % (A) 0 %; Eosinophils % (A) 1 %; HCT 40.4 % (34.0-46.0); Lymphocytes # (A) 0.9 k/uL (1.0-4.8); Lymphocytes % (A) 13 %; MCH 31.5 pg (25.0-35.0); MCHC 34.7 g/dL (31.0-37.0); Mean Platelet Volume 7.8; Monocytes # (A) 0.2 k/uL (0-1.0); Monocytes % (A) 2 %; Neutrophils # (A) 6.1 k/uL (1.3-7.7); Neutrophils % (A) 84 %; Platelet Count 334 k/uL (150-450); RBC 4.44 m/uL (3.80-5.40); RDW 22.3 % (11.5-15.5); WBC 7.2 k/uL (3.8-10.6)
[2017-10-08 06:27] LABS: ALT 23 U/L (9-52); AST 14 U/L (14-36); Albumin 4.1 g/dL (3.5-5.0); Alkaline Phosphatase 116 U/L (38-126); Anion Gap 12 mmol/L; Blood Urea Nitrogen 9 mg/dL (7-17); Calcium 9.7 mg/dL (8.4-10.2); Carbon Dioxide 19 mmol/L (22-30); Chloride 107 mmol/L (98-107); Glucose 157 mg/dL (74-99); Potassium 4.7 mmol/L (3.5-5.1); Sodium 138 mmol/L (137-145); Total Bilirubin 0.4 mg/dL (0.2-1.3); Total Protein 7.2 g/dL (6.3-8.2)
[2017-10-08] MEDS: VANCOMYCIN 750 MG in SODIUM CHLORIDE 0.9% 250 ML IVPB SCH ×3 (06:43→22:14)
--- NOTE | 2017-10-08 08:21 | XR ---
EXAMINATION TYPE: XR chest 1V portable DATE OF EXAM: 10/08/2017 COMPARISON: Prior chest x-ray and chest CT 10/07/2017 HISTORY: Pneumonia TECHNIQUE: Single frontal view of the chest is obtained. FINDINGS: The exam is markedly limited by patient body habitus. Rotated expiratory exam noted. Trach eostomy tube is seen and thought to be overlying the tracheal air column. No evident pneumothorax or sizable effusion. Heart size is likely stable. Left-sided ventriculoperitoneal shunt tubing is noted. Suspect airspace disease right middle lobe IMPRESSION: Exam is markedly limited. Airspace disease likely present right middle lobe, consistent with pneumonia.
[2017-10-08] MEDS: PIPERACILLIN-TAZOBACTAM 3.375 GM in DEXTROSE/WATER 1 50ML.BAG IVPB SCH ×2 (09:07→17:57)
[2017-10-08] MEDS: methylPREDNISolone SOD SUCCI 40 MG/ML 1 ML VIAL IV SCH ×2 (09:10→20:05)
[2017-10-08] MEDS: DILTIAZEM ORAL 30 MG TAB PO SCH ×2 (09:19→20:04)
[2017-10-08] MEDS: ALBUTEROL NEBULIZED 2.5 MG/3 ML INHALATION PRN (09:39)
--- NOTE | 2017-10-08 10:42 | P.PN ---
Subjective Progress Note Date: 10/08/17 (Critical care as time spent 35 minutes) Principal diagnosis: Right lower lobe pneumonia, purulent tracheobronchitis, acute on chronic hypoxic and hypercapnic respiratory failure, severe degree of kyphoscoliosis a spina bifid and thoracoabdominal abnormality 10/08/2017, patient seen and evaluated examined during the rounds clinically patient is a not much change from baseline but the respiratory standpoint she is feeling better her respirator secretions are still significant she is been suctioned 3-4 time every hour she has been on broad-spectrum antibiotics with Levaquin and Zosyn tolerating very well, her sputum culture studies are positive for gram-positive cocci, she had a computed tomography scan of the chest performed which I reviewed it there is right lower lobe infiltrates are present with peribronchial thickening suggestive of right lower lobe pneumonia, severe degree of kyphoscoliosis seen labs have been reviewed care plan discussed with the mother present at bedside and patient at length as well as staff, patient does have a urostomy which is open and she is incontinent mother expresses that there is a recommendation of surgery to be performed at a tertiary care center and putting a bag but however if she is holding onto it Patient is on the passive pressure control ventilation with PIP of 30 cm water PEEP of 5 she is not on oxygen and in fact on room air with sats about 98 to 100 % she is tolerating portable went very well, I have discussed with the nursing installation supervisor as per protocol she needs to be kept in ICU 32-year-old female who is chronic vent dependent status post tract has ventilatory failure she is on home respirator 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 Due to absence of a bad in ICU patient is being bordered and emergency department not much data can be opted from the patient and review of the data reveals that patient is on nebulizer therapy at home along with chronic ventilator support, patient has a significant history of spina bifid a multiple spine surgery history of tracheostomy and urostomy Objective - Vital Signs Vital signs: Vital Signs Temp 98.1 F 10/08/17 08:00 Pulse 121 H 10/08/17 10:00 Resp 31 H 10/08/17 10:00 BP 109/85 10/08/17 10:00 Pulse Ox 98 10/08/17 10:00 Intake & Output 10/07/17 10/08/17 10/08/17 18:59 06:59 18:59 Intake Total 20 745.0 Output Total 0 Balance 20 745.0 Weight 45.359 kg Intake: IV 20 270 0.9 20 20 Vancomycin 750 mg In 250 Sodium Chloride 0.9% 250 ml @ 125 mls/hr IVPB Q8H MARILYN Rx#:[id number] Intake, IV Titration 25.0 Amount Piperacillin-Tazobactam 3 25.0 .375 gm In Dextrose/Water 1 50ml.bag @ 12.5 mls/hr IVPB Q12H MARILYN Rx#: [id number] Oral 450 Output: Urine 0 Other: # Voids 1 0 - Exam General: The patient is awake and alert, in mild respiratory distress, and does not appear acutely ill. GCS is 15, patient does make simple answers and gestures Skin: Skin is warm and dry and no rashes or lesions are noted. Eye: Pupils are equal, round and reactive to light, extra-ocular movements are intact; there is normal conjunctiva bilaterally. Ears, nose, mouth and throat: There are moist mucous membranes and no oral lesions. Neck: The neck is supple, there is no tenderness or JVD. Tracheostomy stoma intact Cardiovascular: There is a regular rate and rhythm. No murmur, rub or gallop is appreciated. Respiratory: To auscultation bilateral, no wheezing no rhonchi no distress respiratory maldonado noticed, few scattered bilateral crackles are present Gastrointestinal: Soft, non-distended, fecal to examine given severe degree or deformities. Musculoskeletal: Limited ROM, no tenderness, There is no pedal edema. There is no calf tenderness or swelling. No cords were appreciated. Neurological: Patient is awake and does respond to simple comments unable to perform detailed neurological examination Psychiatric: Cooperative, appropriate mood & affect, normal judgment. - Labs CBC & Chem 7: 10/08/17 05:06 10/08/17 05:06 Labs: Abnormal Lab Results - Last 24 Hours (Table) 10/07/17 10/08/17 10/08/17 Range/Units 10:32 04:50 05:06 RDW 22.3 H (11.5-15.5) % Lymphocytes # 0.9 L (1.0-4.8) k/uL Carbon Dioxide 20 L (22-30) mmol/L BUN 6 L (7-17) mg/dL Creatinine 0.39 L (0.52-1.04) mg/dL Glucose 107 H (74-99) mg/dL POC Glucose (mg/dL) 136 H (75-99) mg/dL 10/08/17 Range/Units 05:06 RDW (11.5-15.5) % Lymphocytes # (1.0-4.8) k/uL Carbon Dioxide 19 L (22-30) mmol/L BUN (7-17) mg/dL Creatinine 0.30 L (0.52-1.04) mg/dL Glucose 157 H (74-99) mg/dL POC Glucose (mg/dL) (75-99) mg/dL Microbiology - Last 24 Hours (Table) 10/07/17 09:08 Gram Stain - Preliminary Sputum Sputum Culture - Preliminary - Imaging and Cardiology CT scan - chest: report reviewed, image reviewed (No evidence of mucus plugging is seen but however noted to have right lower lobe patchy consolidation and peribronchial thickening suggestive of pneumonia in the right lower lobe) Assessment and Plan Assessment: Right lower lobe pneumonia no evidence of mucus plugging is seen, however patient has excessive amount of respiratory secretions requiring frequent suctioning and cleaning Chronic hypoxic and hypercapnic respiratory failure with acute worsening Ventilator dependent chronic respiratory failure Severe degree of kyphoscoliosis and pectus deformity with spina bifida Plan: We will continue IV vancomycin and IV Zosyn Along with Solu-Medrol Continue breathing treatments and pulmonary toilet and suctioning Computed tomography scan of the chest reviewed no plans for bronchoscopy continue supportive care Continue same ventilator setting as she seems to be tolerating fairly well Repeat labs and x-ray tomorrow Time with Patient: Greater than 30 (Critical care time spent 35 minutes)
[2017-10-08] MEDS: HEPARIN SODIUM,PORCINE 5,000 UNIT/ML 1 ML VIAL SQ SCH ×2 (14:30→15:49)
[2017-10-08] MEDS: PANTOPRAZOLE 40 MG TABLET PO SCH (14:31)
--- NOTE | 2017-10-08 14:40 | PN ---
PROGRESS NOTE DATE OF SERVICE: 10/08/17 Patient is a 32 years old female, date of 1985 and currently she is in ICU, room 620, bed 1. DATA: She is a FULL CODE. Her height is 4 feet. The weight 45.359 kg. BSA 1.8 m2, BMI 30.5 kg/m2, allergy is unknown. Patient admitted to the hospital through the emergency room with shortness of breath and patient on home ventilator. She has been seen in the past in the [facility] at [facility] and she had multiple deformities since and several infection and the patient was placed on a ventilator chronic and goes to [place]. On this admission, as patient arrived through the emergency room, Dr. Chaves, the ER physician contacted [facility] and actually they refused to take her and advised to continue the care at [place] because of no beds in the ICU. Subsequently, consultation with Critical Care and Pulmonary, Dr. Caden Scott, who did see the patient and patient has to stay in the emergency room waiting for the ICU bed until this morning where the patient transferred to the ICU bed. The patient has excessive coughing and the initial chest x-ray was indicating underlying. She had extensive distortion with a low lung volume and she had complete opacification and multifocal pneumonia with underlying endobronchial obstruction or mucus plugs. Patient subsequently treated with antibiotic on admission and repeat CT scan of the chest was obtained and the CT scan was indicating that the tracheostomy tube in good position and no evidence of mediastinal adenopathy. No pericardial effusion. No pleural effusion and thoracic deformity with a thoracolumbar levoscoliosis. In this study, the indicated the lung appeared to be clear of consolidation. However, the repeat chest x- ray again showed that there is other pneumonia was present and the visualization of the chest x-ray indicating the underlying acute respiratory distress syndrome. 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 She has been passed through her life to several tertiary institution. She was in [facility], followed by [facility] followed by [facility]. On today's examination, patient is seen in the ICU, discussed with her mother and also Dr. Caden Scott, the Pulmonary and Critical Care did see her this morning as well. With the picture of the lung, he was planning with the impression that she had right lower lobe pneumonia and purulent tracheobronchitis, acute on the top of hypoxemic and hypercapnic and respiratory failure and she has severe degree of kyphoscoliosis, spina bifida, and thoracoabdominal deformity which has been present since . She is chronic ventilator-dependent and extensive congenital abnormality. There were thoughts of bronchoscopy; however, after he did her today, evaluate the x-rays and CAT scans, the plan to continue the antibiotic monitoring in the ICU and he was applied added Solu- Medrol with the IV vancomycin and IV Zosyn. Sputum culture is not available yet. PHYSICAL EXAM: The patient is conscious, alert. Her mom at bedside and she is still on the vent. Her chest bilateral rhonchi and the heart was regular sinus and she is intermittently tachycardiac with the blood pressure 109/85 and a mean blood pressure of 93, pulse ox today on the vent 98 on room air. LABORATORIES: Indicating white count today 7.2 with hemoglobin 14 and hematocrit 40.4. The electrolyte, the sodium 138, potassium 4.7, chloride 107, her carbon dioxide on the low side 19, which is yesterday is 20. Will continue monitoring if she had respiratory acidosis was highly considered; however, the change is minimal. Her estimated glomerular filtration rate for is more than 90. The blood sugar was 137, 136, and her calcium is normal. Bilirubin is normal and AST and ALT within normal limit and albumin 4.1. Her influenza A and B was negative. Again on the exam of the chest, bilateral rhonchi and with the underlying deformity of the thorax with the kyphoscoliosis, the heart was regular sinus with tachycardia. The abdomen was positive bowel sounds. No tenderness. The extremities, he has congenital abnormalities and unable to walk or ambulate with deformity on the lower extremities as short and small. The neurological examination was grossly intact with a history of underlying above abnormalities. ASSESSMENT: 1. Ventilator-dependent with tracheostomy in the neck. 2. Bilateral rhonchi and increased secretions as well as pneumonia, probably bilateral. However, the x-ray showed right middle lobe pneumonia. Underlying chronic respiratory failure with acute exacerbation. Brought her to the hospital with next is a trach, a of bronchitis purulent with the excessive secretion. 3. Congenital abnormalities and with the increased heart rate. PLAN: Will continue the current monitoring and currently she is on methylprednisolone as well pantoprazole sodium and Zosyn, IV piggyback as well as Vancomycin and will see him if future improvement. Patient also placed on heparin subcu q.8 hours for DVT prophylaxis and she is on diltiazem 90 mg twice a day probably for the tachycardia associated with the vent. Will continue the ICU care and will follow with Dr. Caden Scott the critical care recommendation and treatment. MMODL / IJN: [id number] /
[2017-10-08 15:14] LABS: Hemoglobin A1C 5.2 % (4.0-6.0)
[2017-10-08] MEDS: SENNOSIDES 8.6 MG TAB PO SCH (20:05)
[2017-10-09] MEDS: HEPARIN SODIUM,PORCINE 5,000 UNIT/ML 1 ML VIAL SQ SCH ×4 (01:00→23:09)
[2017-10-09] MEDS ORDERED: VANCOMYCIN TROUGH DUE 1 EACH MISC MISCELLANE ONE (05:00)
[2017-10-09 05:12] LABS: Anisocytosis Moderate; Basophils % (A) 0 %; Eosinophils # (A) 0.1 k/uL (0-0.7); Eosinophils % (A) 1 %; HCT 41.9 % (34.0-46.0); HGB 14.3 gm/dL (11.4-16.0); Lymphocytes # (A) 1.4 k/uL (1.0-4.8); Lymphocytes % (A) 13 %; MCH 31.4 pg (25.0-35.0); MCHC 34.2 g/dL (31.0-37.0); MCV 91.7 fL (80.0-100.0); Mean Platelet Volume 7.8; Monocytes # (A) 0.2 k/uL (0-1.0); Monocytes % (A) 2 %; Neutrophils # (A) 9.1 k/uL (1.3-7.7); Neutrophils % (A) 84 %; Platelet Count 326 k/uL (150-450); RBC 4.57 m/uL (3.80-5.40); RDW 22.3 % (11.5-15.5); WBC 10.8 k/uL (3.8-10.6)
[2017-10-09 05:24] LABS: ALT 17 U/L (9-52); AST 16 U/L (14-36); Albumin 4.2 g/dL (3.5-5.0); Alkaline Phosphatase 96 U/L (38-126); Anion Gap 14 mmol/L; Blood Urea Nitrogen 12 mg/dL (7-17); Calcium 9.7 mg/dL (8.4-10.2); Carbon Dioxide 18 mmol/L (22-30); Chloride 108 mmol/L (98-107); Glucose 144 mg/dL (74-99); Magnesium 2.1 mg/dL (1.6-2.3); Phosphorus 3.7 mg/dL (2.5-4.5); Potassium 4.7 mmol/L (3.5-5.1); Sodium 140 mmol/L (137-145); Total Bilirubin 0.4 mg/dL (0.2-1.3); Total Protein 7.4 g/dL (6.3-8.2)
[2017-10-09] MEDS: VANCOMYCIN 750 MG in SODIUM CHLORIDE 0.9% 250 ML IVPB SCH ×3 (06:05→23:05)
[2017-10-09] MEDS: ALBUTEROL NEBULIZED 2.5 MG/3 ML INHALATION PRN ×4 (07:57→20:08)
[2017-10-09] MEDS ORDERED: PIPERACILLIN-TAZOBACTAM 3.375 GM in DEXTROSE/WATER 1 50ML.BAG IVPB SCH (08:00)
--- NOTE | 2017-10-09 08:04 | XR ---
EXAMINATION TYPE: XR chest 1V portable DATE OF EXAM: 10/09/2017 COMPARISON: 10/08/2017 HISTORY: Tube placement TECHNIQUE: Single frontal view of the chest is obtained. FINDINGS: Tracheostomy tube noted there is chronic rib deformities. PAN[employer] shunt tubing noted. Could not exclude perihilar subsegmental areas of consolidation or venous congestion. IMPRESSION: Markedly limited exam. Perihilar congestion versus subsegmental infiltrate not excluded correlate clinically.
[2017-10-09] MEDS: methylPREDNISolone SOD SUCCI 40 MG/ML 1 ML VIAL IV SCH ×2 (09:10→21:24)
[2017-10-09] MEDS: SENNOSIDES 8.6 MG TAB PO SCH ×2 (09:10→22:34)
[2017-10-09] MEDS: PANTOPRAZOLE 40 MG TABLET PO SCH (09:10)
[2017-10-09] MEDS: DILTIAZEM ORAL 30 MG TAB PO SCH ×2 (09:10→21:24)
[2017-10-09] MEDS: busPIRone HCl 5 MG TAB PO SCH ×2 (11:26→21:25)
--- NOTE | 2017-10-09 12:50 | P.PN ---
Subjective Progress Note Date: 10/09/17 Principal diagnosis: Right lower lobe pneumonia, purulent tracheobronchitis, acute on chronic hypoxic and hypercapnic respiratory failure, severe degree of kyphoscoliosis a spina bifid and thoracoabdominal abnormality 10/09/2017, patient seen and evaluated examined during the rounds she is awake and alert breathing comfortably continued to have intermittent this secretions which are being suctioned from the tracheostomy tube respiratory status standpoint doing well she remains on same vent setting on room air with the home ventilator tolerating well, chest x-ray and labs are reviewed culture results and reports are reviewed patient has some gram-positive cocci growing along with normal respiratory lisa, for now we'll maintain patient on Zosyn and vancomycin 10/08/2017, patient seen and evaluated examined during the rounds clinically patient is a not much change from baseline but the respiratory standpoint she is feeling better her respirator secretions are still significant she is been suctioned 3-4 time every hour she has been on broad-spectrum antibiotics with Levaquin and Zosyn tolerating very well, her sputum culture studies are positive for gram-positive cocci, she had a computed tomography scan of the chest performed which I reviewed it there is right lower lobe infiltrates are present with peribronchial thickening suggestive of right lower lobe pneumonia, severe degree of kyphoscoliosis seen labs have been reviewed care plan discussed with the mother present at bedside and patient at length as well as staff, patient does have a urostomy which is open and she is incontinent mother expresses that there is a recommendation of surgery to be performed at a tertiary care center and putting a bag but however if she is holding onto it Patient is on the passive pressure control ventilation with PIP of 30 cm water PEEP of 5 she is not on oxygen and in fact on room air with sats about 98 to 100 % she is tolerating portable went very well, I have discussed with the nursing supervisor uranium processing as per protocol she needs to be kept in ICU 32-year-old female who is chronic vent dependent status post tract has ventilatory failure she is on home respirator 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 Due to absence of a bad in ICU patient is being bordered and emergency department not much data can be opted from the patient and review of the data reveals that patient is on nebulizer therapy at home along with chronic ventilator support, patient has a significant history of spina bifid a multiple spine surgery history of tracheostomy and urostomy Objective - Vital Signs Vital signs: Vital Signs Temp 98.1 F 10/09/17 08:00 Pulse 136 H 10/09/17 12:22 Resp 19 10/09/17 10:00 BP 109/81 10/09/17 10:00 Pulse Ox 99 10/09/17 10:00 Intake & Output 10/08/17 10/09/17 10/09/17 18:59 06:59 18:59 Intake Total 1277.5 817.5 80 Output Total 0 0 Balance 1277.5 817.5 80 Weight 56.6 kg Intake: IV 640 755 80 0.9 Normal Saline @ KVO 140 205 30 10ml/hr Piperacillin-Tazobactam 3 50 50 .375 gm In Dextrose/Water 1 50ml.bag @ 12.5 mls/hr IVPB Q12H [facility] Rx#: [id number] Vancomycin 750 mg In 500 500 Sodium Chloride 0.9% 250 ml @ 125 mls/hr IVPB Q8H [facility] Rx#:[id number] Intake, IV Titration 37.5 12.5 Amount Piperacillin-Tazobactam 3 37.5 12.5 .375 gm In Dextrose/Water 1 50ml.bag @ 12.5 mls/hr IVPB Q12H [facility] Rx#: [id number] Oral 600 50 Output: Urine 0 0 Other: Voiding Method Diaper Diaper Diaper Incontinent Incontinent # Voids 1 1 1 - Exam General: The patient is awake and alert, in mild respiratory distress, and does not appear acutely ill. GCS is 15, patient does make simple answers and gestures Skin: Skin is warm and dry and no rashes or lesions are noted. Eye: Pupils are equal, round and reactive to light, extra-ocular movements are intact; there is normal conjunctiva bilaterally. Ears, nose, mouth and throat: There are moist mucous membranes and no oral lesions. Neck: The neck is supple, there is no tenderness or JVD. Tracheostomy stoma intact Cardiovascular: There is a regular rate and rhythm. No murmur, rub or gallop is appreciated. Respiratory: To auscultation bilateral, no wheezing no rhonchi no distress respiratory maldonado noticed, few scattered bilateral crackles are present Gastrointestinal: Soft, non-distended, fecal to examine given severe degree or deformities. Musculoskeletal: Limited ROM, no tenderness, There is no pedal edema. There is no calf tenderness or swelling. No cords were appreciated. Neurological: Patient is awake and does respond to simple comments unable to perform detailed neurological examination Psychiatric: Cooperative, appropriate mood & affect, normal judgment. - Labs CBC & Chem 7: 10/09/17 04:50 10/09/17 04:50 Labs: Abnormal Lab Results - Last 24 Hours (Table) 10/09/17 10/09/17 Range/Units 04:50 04:50 WBC 10.8 H (3.8-10.6) k/uL RDW 22.3 H (11.5-15.5) % Neutrophils # 9.1 H (1.3-7.7) k/uL Chloride 108 H (98-107) mmol/L Carbon Dioxide 18 L (22-30) mmol/L Creatinine 0.30 L (0.52-1.04) mg/dL Glucose 144 H (74-99) mg/dL Microbiology - Last 24 Hours (Table) 10/07/17 09:08 Gram Stain - Final Sputum Sputum Culture - Final Assessment and Plan Assessment: Right lower lobe pneumonia no evidence of mucus plugging is seen, however patient has excessive amount of respiratory secretions requiring frequent suctioning and cleaning Chronic hypoxic and hypercapnic respiratory failure with acute worsening Ventilator dependent chronic respiratory failure Severe degree of kyphoscoliosis and pectus deformity with spina bifida Plan: We will continue IV vancomycin and IV Zosyn Along with Solu-Medrol Continue breathing treatments and pulmonary toilet and suctioning Computed tomography scan of the chest reviewed no plans for bronchoscopy continue supportive care Continue same ventilator setting as she seems to be tolerating fairly well Repeat labs and x-ray tomorrow Follow-up on the culture results in case if patient developed MRSA than likely will need a PICC line and 2 weeks of therapy on outpatient setting otherwise antibiotics in next 48 hours to 72 hours can be switched to oral like Augmentin suspension for 7-10 days Time with Patient: Greater than 30
[2017-10-09] MEDS: PIPERACILLIN-TAZOBACTAM 3.375 GM in DEXTROSE/WATER 1 50ML.BAG IVPB SCH (16:48)
--- NOTE | 2017-10-09 18:02 | PN ---
PROGRESS NOTE DATE OF SERVICE: 10/09/2017 She is on FULL CODE. DATA: She is 4 feet height, weight 56.6 kg. BSA 1.30 m2, BMI 38.1 kg/m2. ALLERGIES: Unknown. The patient is seen today [id number] in the ICU and discussed with her. She is currently on home ventilator, which was brought with her to the hospital and she has chronic ventilation with the tracheostomy tube. Today she just complains about constipation, but otherwise she is able to eat and swallow. Her complaint of the lungs, still short of breath, and she has been seen by Dr. Caden Scott, the Pulmonary and Critical Care. On the examination today, her vital sign indicating that her temperature was 98.3 oral and her pulse rate was 104, and her respiratory rate was 14 on the ventilator machine. Her blood pressure was 117/76 and a pulse ox saturation is 96 on room air. Her mean blood pressure 89. Her laboratory today indicating that her white count is 10.8 and the hemoglobin 14.3 with hematocrit 41.9. Her MCV 91.7. These laboratories done on 10/09/2017 today. Her sodium is 140, potassium 4.7, chloride 108, carbon dioxide on the low side 18, and anion gap was 14. BUN of 12, creatinine 0.30 with a estimated glomerular filtration rate for more than 90. Her blood glucose was 144 secondary to the steroid and the patient covered with the steroid with insulin to scale. Her calcium is 9.7 and phosphorus 3.7, magnesium 2.1. Total bilirubin 0.4. Her AST 16, ALT 17, alkaline phosphatase 96, and total protein 7.4. Her albumin is 4.2. She had tracheobronchitis with excessive secretion and we thought also that she has a plug in the respiratory passages in the bronchi. However, she is able to pass through and the sputum was only polymorphonuclear leukocytes and gram-positive cocci. And they stated that is a normal lisa. She had also had x-ray of the chest and chest x-ray was indicating markedly limited exam and perihilar hilar congestion versus subsegmental infiltrate. Because of the chronic rib deformity and she had a ventricular peritoneal shunt was on the left side and she had also a disc treatment on the center of the back in the cervical area and could not rule out consultation because of the deformity of the chest and the congenital abnormality. She also had Dr. Scott did see her today and his impression that she had a right lower lobe pneumonia and no evidence of mucus plug with excessive amount of respiratory secretion required frequent suction and cleaning. She had chronic hypoxic and hypercapnic respiratory failure with acute worsening ventilator dependent chronic respiratory failure. She had a severe degree of kyphoscoliosis and pectus deformity with spina bifida and he had advised to continue the IV vancomycin as well as Zosyn as well as the Solu-Medrol and frequent pulmonary toilette and suction and no plan for bronchoscopy. However, repeat the chest x-ray tomorrow with the plan for continuing current medication. Patient will be staying through the weekend in the ICU for her acute problem and if she is stable by Thursday, she will be transferred to the floor. EXAMINATION: Examination face to face, patient is having tracheostomy and urostomy connected to the catheter bag closed system. HEENT was no change. She has a neck tracheostomy and connected to the home ventilator. The chest is bilateral rhonchi and wheezes and deformity of the chest. The heart: PMI in the 5th with the normal regular sinus rhythm. She had a pectus excavatum. ABDOMEN: Soft, positive bowel sounds and she had a constipation. EXTREMITIES: No edema. However, the puffing of the leg and the leg is deformed and short with the underlying congenital deformity. ASSESSMENT: The patient is currently with: 1. Pneumonia. 2. Atelectasis. 3. Chronic ventilator dependent. 4. Severe acute exacerbation with hypoxia and chronic respiratory failure. PLAN: Continue the same medication and monitoring and continue the antibiotic and as well as continuing the inhalation therapy. MMODL / IJN: [id number] /
[2017-10-10] MEDS: PIPERACILLIN-TAZOBACTAM 3.375 GM in DEXTROSE/WATER 1 50ML.BAG IVPB SCH ×3 (00:22→16:40)
[2017-10-10 04:58] LABS: Anisocytosis Moderate; Basophils % (A) 0 %; Eosinophils % (A) 1 %; HCT 39.8 % (34.0-46.0); HGB 14.3 gm/dL (11.4-16.0); Lymphocytes # (A) 1.1 k/uL (1.0-4.8); Lymphocytes % (A) 15 %; MCH 32.1 pg (25.0-35.0); MCV 89.2 fL (80.0-100.0); Mean Platelet Volume 7.7; Monocytes # (A) 0.2 k/uL (0-1.0); Monocytes % (A) 2 %; Neutrophils # (A) 6.1 k/uL (1.3-7.7); Neutrophils % (A) 81 %; Platelet Count 331 k/uL (150-450); RBC 4.47 m/uL (3.80-5.40); RDW 23.1 % (11.5-15.5); WBC 7.5 k/uL (3.8-10.6)
[2017-10-10 05:41] LABS: Anion Gap 12 mmol/L; Blood Urea Nitrogen 18 mg/dL (7-17); Calcium 9.7 mg/dL (8.4-10.2); Carbon Dioxide 20 mmol/L (22-30); Chloride 108 mmol/L (98-107); Glucose 155 mg/dL (74-99); Magnesium 1.9 mg/dL (1.6-2.3); Potassium 5.3 mmol/L (3.5-5.1); Sodium 140 mmol/L (137-145)
--- NOTE | 2017-10-10 06:50 | XR ---
EXAMINATION TYPE: XR chest 1V portable DATE OF EXAM: 10/10/2017 HISTORY: Tube placement, PNEUMONIA. REFERENCE: Previous study dated 10/09/2017. FINDINGS: There is a marked deformity of the chest. The patient's head and neck projects over the upp er chest. Very little of the chest is visualized. The patient's tracheostomy tube is not visualized. There appears to be some vascular congestion. IMPRESSION: VIRTUALLY NONDIAGNOSTIC EXAMINATION DEMONSTRATING VASCULAR CONGESTION.
[2017-10-10] MEDS: ALBUTEROL NEBULIZED 2.5 MG/3 ML INHALATION PRN ×2 (08:00→11:29)
--- NOTE | 2017-10-10 08:53 | P.PN ---
Subjective Progress Note Date: 10/10/17 Principal diagnosis: Right lower lobe pneumonia, purulent tracheobronchitis, acute on chronic hypoxic and hypercapnic respiratory failure, severe degree of kyphoscoliosis a spina bifid and thoracoabdominal abnormality 10/10/2017, patient seen and evaluated examined during the rounds clinically doing well awake and alert she remains on her basal home ventilator setting on room air amount of secretions that has been suctioned from the tracheostomy has improved though as less often sections are being performed is mostly clear with good light yellow tinge no blood has been noted patient remains on broad- spectrum antibiotics with Zosyn and vancomycin, and does Zosyn has been adjusted , and labs and chest x-ray has been reviewed potassium is slightly on the higher side 5.3, white cell count is down to 7500, chest x-ray from today reviewed as well no significant change has been noted 10/09/2017, patient seen and evaluated examined during the rounds she is awake and alert breathing comfortably continued to have intermittent this secretions which are being suctioned from the tracheostomy tube respiratory status standpoint doing well she remains on same vent setting on room air with the home ventilator tolerating well, chest x-ray and labs are reviewed culture results and reports are reviewed patient has some gram-positive cocci growing along with normal respiratory lisa, for now we'll maintain patient on Zosyn and vancomycin 10/08/2017, patient seen and evaluated examined during the rounds clinically patient is a not much change from baseline but the respiratory standpoint she is feeling better her respirator secretions are still significant she is been suctioned 3-4 time every hour she has been on broad-spectrum antibiotics with Levaquin and Zosyn tolerating very well, her sputum culture studies are positive for gram-positive cocci, she had a computed tomography scan of the chest performed which I reviewed it there is right lower lobe infiltrates are present with peribronchial thickening suggestive of right lower lobe pneumonia, severe degree of kyphoscoliosis seen labs have been reviewed care plan discussed with the mother present at bedside and patient at length as well as staff, patient does have a urostomy which is open and she is incontinent mother expresses that there is a recommendation of surgery to be performed at a tertiary care center and putting a bag but however if she is holding onto it Patient is on the passive pressure control ventilation with PIP of 30 cm water PEEP of 5 she is not on oxygen and in fact on room air with sats about 98 to 100 % she is tolerating portable went very well, I have discussed with the nursing maintenance service supervisor as per protocol she needs to be kept in ICU 32-year-old female who is chronic vent dependent status post tract has ventilatory failure she is on home respirator 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 Due to absence of a bad in ICU patient is being bordered and emergency department not much data can be opted from the patient and review of the data reveals that patient is on nebulizer therapy at home along with chronic ventilator support, patient has a significant history of spina bifid a multiple spine surgery history of tracheostomy and urostomy Objective - Vital Signs Vital signs: Vital Signs Temp 98.2 F 10/10/17 04:00 Pulse 95 10/10/17 08:48 Resp 14 10/10/17 08:00 BP 137/91 10/10/17 08:00 Pulse Ox 98 10/10/17 08:00 Intake & Output 10/09/17 10/10/17 10/10/17 18:59 06:59 18:59 Intake Total 570 412.5 10 Balance 570 412.5 10 Weight 56.6 kg Intake: IV 570 412.5 10 0.9 Normal Saline @ KVO 220 125 10 10ml/hr Piperacillin-Tazobactam 3 100 37.5 .375 gm In Dextrose/Water 1 50ml.bag @ 12.5 mls/hr IVPB Q12H [facility] Rx#: [id number] Vancomycin 750 mg In 250 250 Sodium Chloride 0.9% 250 ml @ 125 mls/hr IVPB Q8H [facility] Rx#:[id number] Other: Voiding Method Diaper Diaper Incontinent Incontinent # Voids 1 1 - Exam General: The patient is awake and alert, in mild respiratory distress, and does not appear acutely ill. GCS is 15, patient does make simple answers and gestures Skin: Skin is warm and dry and no rashes or lesions are noted. Eye: Pupils are equal, round and reactive to light, extra-ocular movements are intact; there is normal conjunctiva bilaterally. Ears, nose, mouth and throat: There are moist mucous membranes and no oral lesions. Neck: The neck is supple, there is no tenderness or JVD. Tracheostomy stoma intact Cardiovascular: There is a regular rate and rhythm. No murmur, rub or gallop is appreciated. Respiratory: To auscultation bilateral, no wheezing no rhonchi no distress respiratory maldonado noticed, few scattered bilateral crackles are present Gastrointestinal: Soft, non-distended, fecal to examine given severe degree or deformities. Musculoskeletal: Limited ROM, no tenderness, There is no pedal edema. There is no calf tenderness or swelling. No cords were appreciated. Neurological: Patient is awake and does respond to simple comments unable to perform detailed neurological examination Psychiatric: Cooperative, appropriate mood & affect, normal judgment. - Labs CBC & Chem 7: 10/10/17 04:35 10/10/17 04:35 Labs: Abnormal Lab Results - Last 24 Hours (Table) 10/10/17 10/10/17 Range/Units 04:35 04:35 RDW 23.1 H (11.5-15.5) % Potassium 5.3 H (3.5-5.1) mmol/L Chloride 108 H (98-107) mmol/L Carbon Dioxide 20 L (22-30) mmol/L BUN 18 H (7-17) mg/dL Creatinine 0.40 L (0.52-1.04) mg/dL Glucose 155 H (74-99) mg/dL Microbiology - Last 24 Hours (Table) 10/07/17 09:08 Gram Stain - Final Sputum Sputum Culture - Final Assessment and Plan Assessment: Right lower lobe pneumonia no evidence of mucus plugging is seen, however patient has excessive amount of respiratory secretions requiring frequent suctioning and cleaning Chronic hypoxic and hypercapnic respiratory failure with acute worsening Ventilator dependent chronic respiratory failure Severe degree of kyphoscoliosis and pectus deformity with spina bifida Plan: We will continue IV vancomycin and IV Zosyn, in next 24 to 48 hours will change antibiotics to oral Along with Solu-Medrol, in next 48 hours we will change it to oral as well Continue breathing treatments and pulmonary toilet and suctioning Computed tomography scan of the chest reviewed no plans for bronchoscopy continue supportive care Continue same ventilator setting as she seems to be tolerating fairly well Repeat labs and x-ray tomorrow Follow-up on the culture results in case if patient developed MRSA than likely will need a PICC line and 2 weeks of therapy on outpatient setting otherwise antibiotics in next 48 hours to 72 hours can be switched to oral like Augmentin suspension for 7-10 days Time with Patient: Greater than 30
[2017-10-10] MEDS: VANCOMYCIN 750 MG in SODIUM CHLORIDE 0.9% 250 ML IVPB SCH ×3 (09:24→21:37)
[2017-10-10] MEDS: PANTOPRAZOLE 40 MG TABLET PO SCH (09:25)
[2017-10-10] MEDS: HEPARIN SODIUM,PORCINE 5,000 UNIT/ML 1 ML VIAL SQ SCH ×2 (09:25→16:40)
[2017-10-10] MEDS: busPIRone HCl 5 MG TAB PO SCH ×2 (09:25→21:27)
[2017-10-10] MEDS: SENNOSIDES 8.6 MG TAB PO SCH ×2 (09:26→21:27)
[2017-10-10] MEDS: methylPREDNISolone SOD SUCCI 40 MG/ML 1 ML VIAL IV SCH ×2 (09:26→21:27)
[2017-10-10] MEDS: DILTIAZEM ORAL 30 MG TAB PO SCH ×2 (09:26→21:31)
--- NOTE | 2017-10-10 12:09 | P.PN ---
Subjective Progress Note Date: 10/10/17 (ICU) Dictation progress note Date of service 10/06/[address] [facility] Patient seen today in ICU [id number], discussed with the patient and her mother. Patient is a chronic ventilator dependent, seen by Dr. Caden Scott pulmonary and critical care. Patient admitted with underlying pneumonia and COPD exacerbation with the underlying ventilator dependent. Patient with a history mental retardation, genetic abnormality, patient with the ventricular peritoneal shunt. And several surgery on her short lower extremities, pectus excavated, cervical spine surgery, permanent tracheostomy. Patient currently feeling improved able to eat her mother at bedside. On exam: HEENT negative. Neck was supple she had the tracheostomy with the connected with the home ventilator in the ICU. The chest lung auscultation with inspiratory expiratory wheezes bilateral with severe kyphoscoliosis and deformity. Heart regular sinus. Abdomen positive bowel sounds extremities she had severe shortness of extremities with inability to walk with the underlying spinal . Bifida. On review the laboratory she is on the acidotic site with the carbon dioxide 19. And potassium mildly elevated. Assessment and plan Continue the antibiotic for the pneumonia, continue bronchodilator, continue steroid, start her on small dose of sodium bicarb 325 mg twice a day as well as Lasix 20 mg as patient appeared to be increase the volume with the IV piggybacks. And obtain laboratory in the morning for assessing the potassium and the carbon dioxide.,(We expected that white count to increase with that D margination of the leukocyte with the event of steroid. Objective - Vital Signs Vital signs: Vital Signs Temp 98.5 F 10/10/17 09:00 Pulse 100 10/10/17 11:54 Resp 26 H 10/10/17 11:00 BP 134/81 10/10/17 11:00 Pulse Ox 97 10/10/17 11:00 Intake & Output 10/09/17 10/10/17 10/10/17 18:59 06:59 18:59 Intake Total 570 412.5 300 Balance 570 412.5 300 Weight 56.6 kg Intake: IV 570 412.5 300 0.9 Normal Saline @ KVO 220 125 50 10ml/hr Piperacillin-Tazobactam 3 100 37.5 .375 gm In Dextrose/Water 1 50ml.bag @ 12.5 mls/hr IVPB Q12H [facility] [place] Rx#: [id number] Vancomycin 750 mg In 250 250 250 Sodium Chloride 0.9% 250 ml @ 125 mls/hr IVPB Q8H [facility] [place] Rx#:[id number] Other: Voiding Method Diaper Diaper Diaper Incontinent Incontinent Incontinent # Voids 1 1 1 - Labs CBC & Chem 7: 10/10/17 04:35 10/10/17 04:35 Labs: Abnormal Lab Results - Last 24 Hours (Table) 10/10/17 10/10/17 Range/Units 04:35 04:35 RDW 23.1 H (11.5-15.5) % Potassium 5.3 H (3.5-5.1) mmol/L Chloride 108 H (98-107) mmol/L Carbon Dioxide 20 L (22-30) mmol/L BUN 18 H (7-17) mg/dL Creatinine 0.40 L (0.52-1.04) mg/dL Glucose 155 H (74-99) mg/dL Microbiology - Last 24 Hours (Table) 10/07/17 09:08 Gram Stain - Final Sputum Sputum Culture - Final
[2017-10-10] MEDS: SODIUM BICARBONATE TAB 650 MG TAB PO SCH ×2 (13:07→21:27)
[2017-10-10] MEDS: FUROSEMIDE 20 MG TAB PO SCH (13:08)
[2017-10-11] MEDS: PIPERACILLIN-TAZOBACTAM 3.375 GM in DEXTROSE/WATER 1 50ML.BAG IVPB SCH ×3 (00:24→15:34)
[2017-10-11] MEDS: HEPARIN SODIUM,PORCINE 5,000 UNIT/ML 1 ML VIAL SQ SCH ×3 (00:24→15:34)
[2017-10-11 05:02] LABS: Anisocytosis Moderate; Basophils % (A) 0 %; Eosinophils # (A) 0.1 k/uL (0-0.7); Eosinophils % (A) 1 %; HCT 40.7 % (34.0-46.0); HGB 13.7 gm/dL (11.4-16.0); Lymphocytes # (A) 1.2 k/uL (1.0-4.8); Lymphocytes % (A) 17 %; MCHC 33.6 g/dL (31.0-37.0); MCV 92.2 fL (80.0-100.0); Mean Platelet Volume 7.5; Monocytes # (A) 0.2 k/uL (0-1.0); Monocytes % (A) 3 %; Neutrophils # (A) 5.4 k/uL (1.3-7.7); Neutrophils % (A) 78 %; Platelet Count 296 k/uL (150-450); RBC 4.41 m/uL (3.80-5.40); RDW 22.1 % (11.5-15.5); WBC 6.9 k/uL (3.8-10.6)
[2017-10-11 05:41] LABS: Anion Gap 10 mmol/L; Blood Urea Nitrogen 18 mg/dL (7-17); Calcium 9.3 mg/dL (8.4-10.2); Carbon Dioxide 25 mmol/L (22-30); Chloride 105 mmol/L (98-107); Glucose 174 mg/dL (74-99); Phosphorus 3.9 mg/dL (2.5-4.5); Potassium 4.8 mmol/L (3.5-5.1); Sodium 140 mmol/L (137-145)
[2017-10-11] MEDS: VANCOMYCIN 750 MG in SODIUM CHLORIDE 0.9% 250 ML IVPB SCH ×3 (06:20→21:53)
--- NOTE | 2017-10-11 06:58 | XR ---
EXAMINATION TYPE: XR chest 1V portable DATE OF EXAM: 10/11/2017 HISTORY: ICU, Pneumonia. REFERENCE: Previous study dated 10/10/2017. FINDINGS: There is a severe deformity of the thorax. The patient's chin and neck projects over the th orax. Very little of the actual lungs are visualized. There appears to BE vascular congestion. No def inite consolidation is seen. IMPRESSION: VIRTUALLY NONDIAGNOSTIC EXAMINATION DEMONSTRATING VASCULAR CONGESTION.
[2017-10-11] MEDS: ALBUTEROL NEBULIZED 2.5 MG/3 ML INHALATION PRN ×2 (07:32→11:16)
[2017-10-11] MEDS: PANTOPRAZOLE 40 MG TABLET PO SCH (08:43)
[2017-10-11] MEDS: busPIRone HCl 5 MG TAB PO SCH ×2 (08:43→20:39)
[2017-10-11] MEDS: DILTIAZEM ORAL 30 MG TAB PO SCH ×2 (08:44→20:39)
[2017-10-11] MEDS: FUROSEMIDE 20 MG TAB PO SCH (08:44)
[2017-10-11] MEDS: methylPREDNISolone SOD SUCCI 40 MG/ML 1 ML VIAL IV SCH ×2 (08:45→20:40)
[2017-10-11] MEDS: SENNOSIDES 8.6 MG TAB PO SCH ×2 (08:45→20:40)
[2017-10-11] MEDS: SODIUM BICARBONATE TAB 650 MG TAB PO SCH (08:47)
--- NOTE | 2017-10-11 13:13 | P.PN ---
Subjective Progress Note Date: 10/11/17 This is a progress note date of service 10/11/[address] Mary Torres FACP. Patient and ICU 620 bed 1. Patient is home ventilator dependent, presented to the emergency room with severe shortness of breath and acute respiratory distress, and the underlying pneumonia. Patient has been and [place] the ventilator clinic, we tried to contact the [facility] to accept the patient through the emergency room as she has been followed there but they refused. Patient placed in our ICU with the critical care and pulmonary follow her Dr. Caden Scott. Patient started on steroids and IV antibiotic, with development of mild hyperglycemia covered with insulin to scale. Patient has also underlying acidosis was a possibility respiratory versus metabolic however consideration of also volume overload. And the carbon dioxide was 19 and her potassium was elevated as well 5.3 with these finding we started her on Lasix 20 mg once a day as well as sodium bicarb 325 mg twice a day. Today is corrected her carbon dioxide 25 and her potassium 4.3. We'll decrease the current sodium bicarb to only once a day and check tomorrow the BMP and if it stable we will discontinue the bicarb. Because of the fluid status patient continued on the Lasix 20 mg once a day hopefully tomorrow can be also discontinued. [id number] examination patient on the portable events from home. And she had a catheter with the underlying incontinent to bowel and bladder chronically. She is awake alert oriented. Neck was supple she had a tracheostomy tube in chronically present Her chest is severe deformity was kyphoscoliosis and she had inspiratory and expiratory wheezes and rhonchi's still not completely resolved. Heart was regular sinus rhythm. Abdomen was soft positive bowel sounds. Extremities no pitting edema but soft tissue edema. Assessment: #1 ventilator-dependent #2 acute respiratory failure with underlying pneumonia # 3 tracheobronchitis with excessive secretion. #4 congenital abnormalities with multiple deformities thoracolumbar and lower extremities. #5 mild acidosis corrected probably respiratory. Plan: #1 will continue Lasix for today and probably tomorrow will be discontinued. #2 bicarb DECREASED to only once a day and probably tomorrow will be discontinued after reviewing the laboratories. #3 if patient continued to be improved plan for discharge home with her continued the home ventilator. Objective - Vital Signs Vital signs: Vital Signs Temp 97.4 F L 10/11/17 08:00 Pulse 106 H 10/11/17 11:55 Resp 28 H 10/11/17 10:00 BP 116/72 10/11/17 10:00 Pulse Ox 96 10/11/17 10:00 Intake & Output 10/10/17 10/11/17 10/11/17 18:59 06:59 18:59 Intake Total 1420 640 80 Output Total 0 Balance 1420 640 80 Weight 57.1 kg Intake: IV 680 640 80 0.9 Normal Saline @ KVO 130 90 30 10ml/hr Piperacillin-Tazobactam 3 50 .375 gm In Dextrose/Water 1 50ml.bag @ 12.5 mls/hr IVPB Q12H [facility] Rx#: [id number] Piperacillin-Tazobactam 3 50 50 .375 gm In Dextrose/Water 1 50ml.bag @ 12.5 mls/hr IVPB Q8HR [facility] Rx#: [id number] Vancomycin 750 mg In 500 500 Sodium Chloride 0.9% 250 ml @ 125 mls/hr IVPB Q8H [facility] Rx#:[id number] Oral 740 Output: Urine 0 Other: Voiding Method Diaper Diaper Diaper Incontinent Incontinent Incontinent # Voids 1 1 1 - Labs CBC & Chem 7: 10/11/17 04:49 10/11/17 04:49 Labs: Abnormal Lab Results - Last 24 Hours (Table) 10/11/17 10/11/17 Range/Units 04:49 04:49 RDW 22.1 H (11.5-15.5) % BUN 18 H (7-17) mg/dL Creatinine 0.50 L (0.52-1.04) mg/dL Glucose 174 H (74-99) mg/dL
[2017-10-11 17:33] LABS: Glucose,Whole Blood 225 mg/dL (75-99)
[2017-10-11] MEDS: INSULIN ASPART 100 UNIT/ML 1 ML 10 ML VIAL SQ SCH ×2 (17:54→20:39)
[2017-10-11 20:17] LABS: Glucose,Whole Blood 196 mg/dL (75-99)
[2017-10-12] MEDS: HEPARIN SODIUM,PORCINE 5,000 UNIT/ML 1 ML VIAL SQ SCH ×2 (00:27→07:47)
[2017-10-12] MEDS: PIPERACILLIN-TAZOBACTAM 3.375 GM in DEXTROSE/WATER 1 50ML.BAG IVPB SCH ×2 (00:27→07:47)
[2017-10-12] MEDS ORDERED: VANCOMYCIN TROUGH DUE 1 EACH MISC MISCELLANE ONE (05:00)
[2017-10-12 05:46] LABS: Anisocytosis Moderate; Basophils % (A) 0 %; Eosinophils # (A) 0.1 k/uL (0-0.7); Eosinophils % (A) 1 %; HCT 40.3 % (34.0-46.0); HGB 13.5 gm/dL (11.4-16.0); Lymphocytes # (A) 1.6 k/uL (1.0-4.8); Lymphocytes % (A) 16 %; MCH 30.2 pg (25.0-35.0); MCHC 33.5 g/dL (31.0-37.0); MCV 90.4 fL (80.0-100.0); Mean Platelet Volume 7.4; Monocytes # (A) 0.3 k/uL (0-1.0); Monocytes % (A) 3 %; Neutrophils # (A) 7.5 k/uL (1.3-7.7); Neutrophils % (A) 78 %; Platelet Count 296 k/uL (150-450); RBC 4.46 m/uL (3.80-5.40); RDW 21.9 % (11.5-15.5); WBC 9.5 k/uL (3.8-10.6)
[2017-10-12 06:19] LABS: Anion Gap 12 mmol/L; Blood Urea Nitrogen 20 mg/dL (7-17); Calcium 9.2 mg/dL (8.4-10.2); Carbon Dioxide 24 mmol/L (22-30); Chloride 105 mmol/L (98-107); Glucose 143 mg/dL (74-99); Magnesium 2.1 mg/dL (1.6-2.3); Phosphorus 3.8 mg/dL (2.5-4.5); Potassium 4.5 mmol/L (3.5-5.1); Sodium 141 mmol/L (137-145)
[2017-10-12] MEDS: VANCOMYCIN 750 MG in SODIUM CHLORIDE 0.9% 250 ML IVPB SCH (06:30)
[2017-10-12 07:30] LABS: Glucose,Whole Blood 110 mg/dL (75-99)
[2017-10-12] MEDS: INSULIN ASPART 100 UNIT/ML 1 ML 10 ML VIAL SQ SCH ×2 (07:39→12:23)
[2017-10-12] MEDS: ALBUTEROL NEBULIZED 2.5 MG/3 ML INHALATION PRN ×2 (07:41→11:35)
[2017-10-12] MEDS: PANTOPRAZOLE 40 MG TABLET PO SCH (07:47)
[2017-10-12] MEDS: FUROSEMIDE 20 MG TAB PO SCH (08:17)
[2017-10-12] MEDS: SENNOSIDES 8.6 MG TAB PO SCH (08:17)
[2017-10-12] MEDS: DILTIAZEM ORAL 30 MG TAB PO SCH (08:17)
[2017-10-12] MEDS: busPIRone HCl 5 MG TAB PO SCH (08:17)
[2017-10-12] MEDS: methylPREDNISolone SOD SUCCI 40 MG/ML 1 ML VIAL IV SCH (08:18)
[2017-10-12] MEDS ORDERED: SODIUM BICARBONATE TAB 650 MG TAB PO SCH (09:00)
--- NOTE | 2017-10-12 10:18 | XR ---
EXAMINATION TYPE: XR chest 1V portable DATE OF EXAM: 10/12/2017 COMPARISON: Prior chest 10/11/2017 HISTORY: Pneumonia, tracheostomy TECHNIQUE: Single frontal view of the chest is obtained. FINDINGS: Exam is limited by patient body habitus. Tracheostomy tube is overlying the tracheal air c olumn. Patient is rotated. Difficult to exclude airspace disease. Heart is not well seen. No evident pneumothorax or pleural effusion IMPRESSION: Exam is limited by patient body habitus.
[2017-10-12 12:17] VITALS: TEMP 99.5
[2017-10-12 12:19] LABS: Glucose,Whole Blood 186 mg/dL (75-99)
--- NOTE | 2017-10-12 12:54 | P.PN ---
Subjective Progress Note Date: 10/11/17 (Late entry note) Principal diagnosis: Right lower lobe pneumonia, purulent tracheobronchitis, acute on chronic hypoxic and hypercapnic respiratory failure, severe degree of kyphoscoliosis a spina bifid and thoracoabdominal abnormality 10/11/2017, patient seen and evaluated examined during the rounds clinically doing well awake and alert breathing comfortably wheezing cuff congestion is improved amount of respiratory secretions from the tracheostomy remains stable and in fact has improved she is breathing more comfortably she remains on same ventilator setting from home on room air, laboratory data radiographic studies and medicines reviewed 10/10/2017, patient seen and evaluated examined during the rounds clinically doing well awake and alert she remains on her basal home ventilator setting on room air amount of secretions that has been suctioned from the tracheostomy has improved though as less often sections are being performed is mostly clear with good light yellow tinge no blood has been noted patient remains on broad- spectrum antibiotics with Zosyn and vancomycin, and does Zosyn has been adjusted , and labs and chest x-ray has been reviewed potassium is slightly on the higher side 5.3, white cell count is down to 7500, chest x-ray from today reviewed as well no significant change has been noted 10/09/2017, patient seen and evaluated examined during the rounds she is awake and alert breathing comfortably continued to have intermittent this secretions which are being suctioned from the tracheostomy tube respiratory status standpoint doing well she remains on same vent setting on room air with the home ventilator tolerating well, chest x-ray and labs are reviewed culture results and reports are reviewed patient has some gram-positive cocci growing along with normal respiratory lisa, for now we'll maintain patient on Zosyn and vancomycin 10/08/2017, patient seen and evaluated examined during the rounds clinically patient is a not much change from baseline but the respiratory standpoint she is feeling better her respirator secretions are still significant she is been suctioned 3-4 time every hour she has been on broad-spectrum antibiotics with Levaquin and Zosyn tolerating very well, her sputum culture studies are positive for gram-positive cocci, she had a computed tomography scan of the chest performed which I reviewed it there is right lower lobe infiltrates are present with peribronchial thickening suggestive of right lower lobe pneumonia, severe degree of kyphoscoliosis seen labs have been reviewed care plan discussed with the mother present at bedside and patient at length as well as staff, patient does have a urostomy which is open and she is incontinent mother expresses that there is a recommendation of surgery to be performed at a tertiary care center and putting a bag but however if she is holding onto it Patient is on the passive pressure control ventilation with PIP of 30 cm water PEEP of 5 she is not on oxygen and in fact on room air with sats about 98 to 100 % she is tolerating portable went very well, I have discussed with the nursing supervisor pigment making as per protocol she needs to be kept in ICU 32-year-old female who is chronic vent dependent status post tract has ventilatory failure she is on home respirator 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 Due to absence of a bad in ICU patient is being bordered and emergency department not much data can be opted from the patient and review of the data reveals that patient is on nebulizer therapy at home along with chronic ventilator support, patient has a significant history of spina bifid a multiple spine surgery history of tracheostomy and urostomy Objective - Vital Signs Vital signs: Vital Signs Temp 99.5 F 10/12/17 12:00 Pulse 87 10/12/17 12:00 Resp 22 10/12/17 12:00 BP 139/78 10/12/17 12:00 Pulse Ox 98 10/12/17 12:00 Intake & Output 10/11/17 10/12/17 10/12/17 18:59 06:59 18:59 Intake Total 700 670 50 Output Total 0 0 0 Balance 700 670 50 Weight 56.5 kg Intake: IV 220 670 50 0.9 Normal Saline @ KVO 120 120 50 10ml/hr Piperacillin-Tazobactam 3 100 50 .375 gm In Dextrose/Water 1 50ml.bag @ 12.5 mls/hr IVPB Q8HR [facility] Rx#: [id number] Vancomycin 750 mg In 500 Sodium Chloride 0.9% 250 ml @ 125 mls/hr IVPB Q8H [facility] Rx#:[id number] Oral 480 Output: Urine 0 0 0 Other: Voiding Method Diaper Diaper Diaper Incontinent Incontinent Incontinent # Voids 1 0 1 # Bowel Movements 1 - Exam General: The patient is awake and alert, in mild respiratory distress, and does not appear acutely ill. GCS is 15, patient does make simple answers and gestures Skin: Skin is warm and dry and no rashes or lesions are noted. Eye: Pupils are equal, round and reactive to light, extra-ocular movements are intact; there is normal conjunctiva bilaterally. Ears, nose, mouth and throat: There are moist mucous membranes and no oral lesions. Neck: The neck is supple, there is no tenderness or JVD. Tracheostomy stoma intact Cardiovascular: There is a regular rate and rhythm. No murmur, rub or gallop is appreciated. Respiratory: To auscultation bilateral, no wheezing no rhonchi no distress respiratory maldonado noticed, few scattered bilateral crackles are present Gastrointestinal: Soft, non-distended, fecal to examine given severe degree or deformities. Musculoskeletal: Limited ROM, no tenderness, There is no pedal edema. There is no calf tenderness or swelling. No cords were appreciated. Neurological: Patient is awake and does respond to simple comments unable to perform detailed neurological examination Psychiatric: Cooperative, appropriate mood & affect, normal judgment. - Labs CBC & Chem 7: 10/12/17 05:31 10/12/17 05:31 Labs: Abnormal Lab Results - Last 24 Hours (Table) 10/11/17 10/11/17 10/12/17 Range/Units 17:31 20:15 05:31 RDW (11.5-15.5) % BUN 20 H (7-17) mg/dL Creatinine 0.44 L (0.52-1.04) mg/dL Glucose 143 H (74-99) mg/dL POC Glucose (mg/dL) 225 H 196 H (75-99) mg/dL 10/12/17 10/12/17 10/12/17 Range/Units 05:31 07:28 12:16 RDW 21.9 H (11.5-15.5) % BUN (7-17) mg/dL Creatinine (0.52-1.04) mg/dL Glucose (74-99) mg/dL POC Glucose (mg/dL) 110 H 186 H (75-99) mg/dL Assessment and Plan Assessment: Right lower lobe pneumonia no evidence of mucus plugging is seen, however patient has excessive amount of respiratory secretions requiring frequent suctioning and cleaning, continue to improve progressively Chronic hypoxic and hypercapnic respiratory failure with acute worsening Ventilator dependent chronic respiratory failure with acute exacerbation and acute respiratory failure Severe degree of kyphoscoliosis and pectus deformity with spina bifida Plan: We will continue IV vancomycin and IV Zosyn, in next 24 to 48 hours will change antibiotics to oral Along with Solu-Medrol, in next 48 hours we will change it to oral as well Continue breathing treatments and pulmonary toilet and suctioning Computed tomography scan of the chest reviewed no plans for bronchoscopy continue supportive care Continue same ventilator setting as she seems to be tolerating fairly well Repeat labs and x-ray tomorrow Follow-up on the culture results in case if patient developed MRSA than likely will need a PICC line and 2 weeks of therapy on outpatient setting otherwise antibiotics in next 48 hours to 72 hours can be switched to oral like Augmentin suspension for 7-10 days Time with Patient: Greater than 30
--- NOTE | 2017-10-12 12:56 | P.PN ---
Subjective Progress Note Date: 10/12/17 Principal diagnosis: Right lower lobe pneumonia, purulent tracheobronchitis, acute on chronic hypoxic and hypercapnic respiratory failure, severe degree of kyphoscoliosis a spina bifid and thoracoabdominal abnormality 10/12/2017, patient seen eval examined during the rounds mother is present at bedside patient is breathing comfortably tolerating antibiotics well culture results and reports are reviewed normal respiratory lisa has been noted 10/11/2017, patient seen and evaluated examined during the rounds clinically doing well awake and alert breathing comfortably wheezing cuff congestion is improved amount of respiratory secretions from the tracheostomy remains stable and in fact has improved she is breathing more comfortably she remains on same ventilator setting from home on room air, laboratory data radiographic studies and medicines reviewed 10/10/2017, patient seen and evaluated examined during the rounds clinically doing well awake and alert she remains on her basal home ventilator setting on room air amount of secretions that has been suctioned from the tracheostomy has improved though as less often sections are being performed is mostly clear with good light yellow tinge no blood has been noted patient remains on broad- spectrum antibiotics with Zosyn and vancomycin, and does Zosyn has been adjusted , and labs and chest x-ray has been reviewed potassium is slightly on the higher side 5.3, white cell count is down to 7500, chest x-ray from today reviewed as well no significant change has been noted 10/09/2017, patient seen and evaluated examined during the rounds she is awake and alert breathing comfortably continued to have intermittent this secretions which are being suctioned from the tracheostomy tube respiratory status standpoint doing well she remains on same vent setting on room air with the home ventilator tolerating well, chest x-ray and labs are reviewed culture results and reports are reviewed patient has some gram-positive cocci growing along with normal respiratory lisa, for now we'll maintain patient on Zosyn and vancomycin 10/08/2017, patient seen and evaluated examined during the rounds clinically patient is a not much change from baseline but the respiratory standpoint she is feeling better her respirator secretions are still significant she is been suctioned 3-4 time every hour she has been on broad-spectrum antibiotics with Levaquin and Zosyn tolerating very well, her sputum culture studies are positive for gram-positive cocci, she had a computed tomography scan of the chest performed which I reviewed it there is right lower lobe infiltrates are present with peribronchial thickening suggestive of right lower lobe pneumonia, severe degree of kyphoscoliosis seen labs have been reviewed care plan discussed with the mother present at bedside and patient at length as well as staff, patient does have a urostomy which is open and she is incontinent mother expresses that there is a recommendation of surgery to be performed at a tertiary care center and putting a bag but however if she is holding onto it Patient is on the passive pressure control ventilation with PIP of 30 cm water PEEP of 5 she is not on oxygen and in fact on room air with sats about 98 to 100 % she is tolerating portable went very well, I have discussed with the nursing leather products supervisor as per protocol she needs to be kept in ICU 32-year-old female who is chronic vent dependent status post tract has ventilatory failure she is on home respirator 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 Due to absence of a bad in ICU patient is being bordered and emergency department not much data can be opted from the patient and review of the data reveals that patient is on nebulizer therapy at home along with chronic ventilator support, patient has a significant history of spina bifid a multiple spine surgery history of tracheostomy and urostomy Objective - Vital Signs Vital signs: Vital Signs Temp 99.5 F 10/12/17 12:00 Pulse 87 10/12/17 12:00 Resp 22 10/12/17 12:00 BP 139/78 10/12/17 12:00 Pulse Ox 98 10/12/17 12:00 Intake & Output 10/11/17 10/12/17 10/12/17 18:59 06:59 18:59 Intake Total 700 670 50 Output Total 0 0 0 Balance 700 670 50 Weight 56.5 kg Intake: IV 220 670 50 0.9 Normal Saline @ KVO 120 120 50 10ml/hr Piperacillin-Tazobactam 3 100 50 .375 gm In Dextrose/Water 1 50ml.bag @ 12.5 mls/hr IVPB Q8HR PENDING SALE TO [facility] Rx#: [id number] Vancomycin 750 mg In 500 Sodium Chloride 0.9% 250 ml @ 125 mls/hr IVPB Q8H PENDING SALE TO [facility] Rx#:[id number] Oral 480 Output: Urine 0 0 0 Other: Voiding Method Diaper Diaper Diaper Incontinent Incontinent Incontinent # Voids 1 0 1 # Bowel Movements 1 - Exam General: The patient is awake and alert, in mild respiratory distress, and does not appear acutely ill. GCS is 15, patient does make simple answers and gestures Skin: Skin is warm and dry and no rashes or lesions are noted. Eye: Pupils are equal, round and reactive to light, extra-ocular movements are intact; there is normal conjunctiva bilaterally. Ears, nose, mouth and throat: There are moist mucous membranes and no oral lesions. Neck: The neck is supple, there is no tenderness or JVD. Tracheostomy stoma intact Cardiovascular: There is a regular rate and rhythm. No murmur, rub or gallop is appreciated. Respiratory: To auscultation bilateral, no wheezing no rhonchi no distress respiratory maldonado noticed, few scattered bilateral crackles are present Gastrointestinal: Soft, non-distended, fecal to examine given severe degree or deformities. Musculoskeletal: Limited ROM, no tenderness, There is no pedal edema. There is no calf tenderness or swelling. No cords were appreciated. Neurological: Patient is awake and does respond to simple comments unable to perform detailed neurological examination Psychiatric: Cooperative, appropriate mood & affect, normal judgment. - Labs CBC & Chem 7: 10/12/17 05:31 10/12/17 05:31 Labs: Abnormal Lab Results - Last 24 Hours (Table) 10/11/17 10/11/17 10/12/17 Range/Units 17:31 20:15 05:31 RDW (11.5-15.5) % BUN 20 H (7-17) mg/dL Creatinine 0.44 L (0.52-1.04) mg/dL Glucose 143 H (74-99) mg/dL POC Glucose (mg/dL) 225 H 196 H (75-99) mg/dL 10/12/17 10/12/17 10/12/17 Range/Units 05:31 07:28 12:16 RDW 21.9 H (11.5-15.5) % BUN (7-17) mg/dL Creatinine (0.52-1.04) mg/dL Glucose (74-99) mg/dL POC Glucose (mg/dL) 110 H 186 H (75-99) mg/dL Assessment and Plan Assessment: Right lower lobe pneumonia no evidence of mucus plugging is seen, however patient has excessive amount of respiratory secretions requiring frequent suctioning and cleaning, continue to improve progressively Chronic hypoxic and hypercapnic respiratory failure with acute worsening Ventilator dependent chronic respiratory failure with acute exacerbation and acute respiratory failure Severe degree of kyphoscoliosis and pectus deformity with spina bifida Plan: We will discontinue IV vancomycin and IV Zosyn, prescription provided for oral Augmentin as well as prednisone, patient can be discharged home with follow-up on outpatient setting Continue breathing treatments and pulmonary toilet and suctioning Computed tomography scan of the chest reviewed no plans for bronchoscopy continue supportive care Continue same ventilator setting as she seems to be tolerating fairly well Time with Patient: Greater than 30
[2017-10-12 13:09] VITALS: BP 138/97; PULSE 86; RESP 18
--- NOTE | 2017-10-12 13:22 | P.DS ---
Providers Date of admission: 10/07/17 14:20 Expected date of discharge: 10/12/17 Attending physician: Isaac Goodson Consults: 10/07/17 14:19 Consult Physician Stat Consulting Provider: Caden Scott Reason/Comments: Ch respiratory failure on Vent at home Do you want consulting provider notified?: Yes Primary care physician: Isaac Goodson This is dictation discharge summary date of service 10/12/2017. Final diagnosis: #1 acute right lower lobe pneumonia with no evidence of mucous plug. Excessive amount of respiratory secretions requiring frequent suctioning and cleaning. #2 chronic hypoxemia and hypercapnia respiratory failure with acute worsening. #3 ventilator-dependent chronic respiratory failure with acute exacerbation and acute respiratory failure. #4 severe degree of kyphoscoliosis and pectus deformity with spina bifida. Next number and anxiety neurosis next number tachycardia. Patient presented to the emergency room with shortness of breath and chronic ventricular use at home with the underlying shortness of breath and respiratory failure acute on the top of chronic the ER physician called [facility] call did not accepted the patient. Subsequently patient was placed to the [facility] ICU and Dr. Caden Scott critical and pulmonary seen the patient evaluated and treated. Hospital course: Patient admitted to the ICU monitored by Dr. Caden Scott pulmonary and critical as well as myself and with the antibiotic steroids and bronchodilator patient did very well and subsequently is planned to be discharged home today with follow- up with Dr. Caden Scott as well as with myself in the office. Patient will be discharged with follow-up visiting nurse as well and her diagnoses added to it and anxiety as she was explicitly shown that being anxious and BuSpar was added to her medication and prescription was given. On discharge patient stable general condition her laboratory was satisfactory no leukocytosis and her chemistry also was was satisfied with normal renal function. And her blood pressure is stable. On the examination patient is conscious alert oriented comfortable however still have a respiratory expiratory wheezes and Datz was a baseline for her. Her lung was irrigated she is on the home ventilator with tracheostomy the expiratory expectoration has been improved. Abdomen soft positive bowel sounds no nausea no vomiting. Extremities no edema and she is not ambulatory and with the underlying congenital abnormality and could not ambulate or walk. She had her motorized chair. Assessment and plan she will be continuing her her home medication added to prescription from Dr. Caden Scott forearm Augmentin 500 mg twice a day as well as the steroid 10 mg tablet she taken 2 tablets for 5 days then 1 tablet for 5 days. Added to 5 mg twice a day and I left prescription for that. Her mother is at bedside and discussed with the continuation of the treatment. Patient stable for discharge Patient Condition at Discharge: Good Plan - Discharge Summary Discharge Rx Participant: Yes New Discharge Prescriptions: New busPIRone HCl [Buspar] 5 mg PO BID #60 tab No Action Diltiazem HCl [Cardizem] 90 mg PO BID Albuterol Nebulized [Ventolin Nebulized] 2.5 mg INHALATION RT-Q4H PRN PRN Reason: sob Discharge Medication List Diltiazem HCl [Cardizem] 90 mg PO BID 08/04/16 [History] Albuterol Nebulized [Ventolin Nebulized] 2.5 mg INHALATION RT-Q4H PRN 10/07/17 [ History] busPIRone HCl [Buspar] 5 mg PO BID #60 tab 10/12/17 [Rx] Follow up Appointment(s)/Referral(s): Caden Scott MD [STAFF PHYSICIAN] - 1 Week Isaac Goodson MD [Primary Care Provider] - 1-2 days
== END 2017-10-12 14:00 | disposition home or self-care (01) | DRG 207 ==
LOC: SUPCPDRO 08:56 → EC 08:56 → 6ICU 14:20
PROVIDERS: ADMIT Internal Medicine; ATTEND Internal Medicine
PROC: 5A1955Z Respiratory Ventilation, Greater than 96 Consecutive Hours (ICD-10-PCS; principal; 2017-10-08)
DX: J18.9 Pneumonia, unspecified organism (principal); J96.21 Acute and chronic respiratory failure with hypoxia; E87.2 Acidosis; J96.22 Acute and chronic respiratory failure with hypercapnia; Z99.11 Dependence on respirator [ventilator] status; Q67.5 Congenital deformity of spine; J98.11 Atelectasis; J44.0 Chronic obstructive pulmonary disease with (acute) lower respiratory infection; J44.1 Chronic obstructive pulmonary disease with (acute) exacerbation; Z93.0 Tracheostomy status; M41.9 Scoliosis, unspecified; R15.9 Full incontinence of feces; J40 Bronchitis, not specified as acute or chronic; R73.9 Hyperglycemia, unspecified; T38.0X5A Adverse effect of glucocorticoids and synthetic analogues, initial encounter; F41.1 Generalized anxiety disorder; Q05.9 Spina bifida, unspecified; Q68.8 Other specified congenital musculoskeletal deformities; F79 Unspecified intellectual disabilities; Q67.6 Pectus excavatum; R32 Unspecified urinary incontinence; K59.00 Constipation, unspecified; R40.2362 Coma scale, best motor response, obeys commands, at arrival to emergency department; R40.2142 Coma scale, eyes open, spontaneous, at arrival to emergency department; R40.2252 Coma scale, best verbal response, oriented, at arrival to emergency department; H50.9 Unspecified strabismus; Z79.899 Other long term (current) drug therapy; Z79.51 Long term (current) use of inhaled steroids; Z93.6 Other artificial openings of urinary tract status; Z98.2 Presence of cerebrospinal fluid drainage device
CPT/HCPCS: 36415; 71045; 71250; 80048; 80053; 80202; 83036; 83735; 84100; 85025; 85379; 87070; 87205; 87502; 94640; 96365; 96366; 96367; 96375; 99285

== ENCOUNTER → 2018-04-23 | Outpatient (CLI) | payer OTHER ==
[2018-04-23 14:40] LABS: Anisocytosis Moderate; Basophils # (A) 0.1 k/uL (0-0.2); Basophils % (A) 2 %; Eosinophils # (A) 0.2 k/uL (0-0.7); Eosinophils % (A) 4 %; HCT 46.1 % (34.0-46.0); HGB 15.3 gm/dL (11.4-16.0); Lymphocytes # (A) 2.2 k/uL (1.0-4.8); Lymphocytes % (A) 37 %; MCH 32.8 pg (25.0-35.0); MCHC 33.3 g/dL (31.0-37.0); MCV 98.6 fL (80.0-100.0); Macrocytosis Slight; Mean Platelet Volume 14.1; Monocytes # (A) 0.2 k/uL (0-1.0); Monocytes % (A) 4 %; Neutrophils % (A) 51 %; RBC 4.67 m/uL (3.80-5.40); RDW 21.2 % (11.5-15.5)
[2018-04-23 15:48] LABS: Poikilocytosis (M) Present
[2018-04-23 15:49] LABS: Platelet Count 194 k/uL (150-450)
[2018-04-23 16:16] LABS: ALT 20 U/L (9-52); AST 23 U/L (14-36); Albumin 4.6 g/dL (3.5-5.0); Alkaline Phosphatase 114 U/L (38-126); Anion Gap 14 mmol/L; Blood Urea Nitrogen 10 mg/dL (7-17); C Reactive Protein 7.4 mg/L (<10.0); Calcium 9.7 mg/dL (8.4-10.2); Carbon Dioxide 19 mmol/L (22-30); Chloride 111 mmol/L (98-107); Cholesterol 209 mg/dL (<200); Creatine Kinase 97 U/L (30-135); Glucose 66 mg/dL (74-99); HDL Cholesterol 54 mg/dL (40-60); LDL Cholesterol,Calculated 139 mg/dL (0-99); Potassium 4.8 mmol/L (3.5-5.1); Sodium 144 mmol/L (137-145); Total Bilirubin 0.6 mg/dL (0.2-1.3); Total Protein 7.9 g/dL (6.3-8.2); Triglycerides 79 mg/dL (<150)
[2018-04-23 16:41] LABS: Erythrocyte Sedimentation Rate 5 mm/hr (0-20)
[2018-04-23 22:58] LABS: Hemoglobin A1C 5.3 % (4.0-6.0)
== END | disposition home or self-care (01) ==
LOC: LABWHC1 11:51
PROVIDERS: ATTEND Internal Medicine
DX: E78.5 Hyperlipidemia, unspecified (principal); E11.9 Type 2 diabetes mellitus without complications; E03.9 Hypothyroidism, unspecified; J96.10 Chronic respiratory failure, unspecified whether with hypoxia or hypercapnia; Q05.9 Spina bifida, unspecified; M41.9 Scoliosis, unspecified; F71 Moderate intellectual disabilities; Z99.89 Dependence on other enabling machines and devices
CPT/HCPCS: 36415; 80053; 80061; 82306; 82550; 83036; 84439; 84443; 85025; 85652; 86140

== ENCOUNTER → 2018-07-22 | Outpatient (CLI) | payer OTHER | END | disposition home or self-care (01) | LOC: LABWHC1 15:48 | PROVIDERS: ATTEND Internal Medicine | DX: E55.9 Vitamin D deficiency, unspecified (principal) | CPT/HCPCS: 36415; 82306 ==

== ENCOUNTER → 2019-01-19 | Outpatient (CLI) | payer OTHER ==
[2019-01-19 11:21] LABS: Anisocytosis Moderate; Basophils % (A) 1 %; Eosinophils # (A) 0.4 k/uL (0-0.7); Eosinophils % (A) 6 %; HCT 41.5 % (34.0-46.0); HGB 14.5 gm/dL (11.4-16.0); Lymphocytes # (A) 2.1 k/uL (1.0-4.8); Lymphocytes % (A) 37 %; MCH 32.7 pg (25.0-35.0); MCHC 35.1 g/dL (31.0-37.0); MCV 93.4 fL (80.0-100.0); Macrocytosis Slight; Mean Platelet Volume 7.7; Monocytes # (A) 0.3 k/uL (0-1.0); Monocytes % (A) 5 %; Neutrophils # (A) 2.8 k/uL (1.3-7.7); Neutrophils % (A) 50 %; Platelet Count 295 k/uL (150-450); RBC 4.44 m/uL (3.80-5.40); RDW 22.8 % (11.5-15.5); WBC 5.6 k/uL (3.8-10.6)
[2019-01-19 12:49] LABS: Erythrocyte Sedimentation Rate 8 mm/hr (0-20)
[2019-01-19 16:31] LABS: African American GFR (CKD) 158.6 (60.0-200.0); Albumin 4.8 g/dL (3.80-4.90); Albumin/Globulin Ratio 2.4 (1.60-3.17); Anion Gap 12.2 mmol/L (4.00-12.00); BUN/Creat Ratio 32.5 Ratio (12.00-20.00); Calcium 9.8 mg/dL (8.7-10.3); Carbon Dioxide 21.8 mmol/L (21.6-31.8); LDL Cholesterol,Calculated 119.2 mg/dL (0.0-131.0); Potassium 4.5 mmol/L (3.5-5.5); Total Bilirubin 0.3 mg/dL (0.2-1.2); Total Protein 6.8 g/dL (6.2-8.2); VLDL Calculation 14.8 mg/dL (5.00-40.00)
== END | disposition home or self-care (01) ==
LOC: LABWHC1 09:33
PROVIDERS: ATTEND Internal Medicine
DX: J44.9 Chronic obstructive pulmonary disease, unspecified (principal); E87.2 Acidosis; E55.9 Vitamin D deficiency, unspecified; E78.5 Hyperlipidemia, unspecified; Z99.11 Dependence on respirator [ventilator] status; Z93.0 Tracheostomy status
CPT/HCPCS: 36415; 80053; 80061; 82306; 82550; 82652; 85025; 85652

== ENCOUNTER 2019-06-13 17:10 | Emergency (ER) | payer OTHER ==
[2019-06-13] MEDS ORDERED: methylPREDNISolone SOD SUCCI 125 MG/2 ML VIAL IV STA (17:26)
[2019-06-13] MEDS ORDERED: IPRATROPIUM-ALBUTEROL 3 ML NEB INHALATION STA ×2 (17:26→19:17)
--- NOTE | 2019-06-13 17:27 | ED ---
SOB HPI - General Chief Complaint: Shortness of Breath Stated Complaint: ANTHONY Time Seen by Provider: 06/13/19 17:12 Source: EMS, RN notes reviewed, old records reviewed Mode of arrival: EMS Limitations: no limitations - History of Present Illness Initial Comments: This is a 33 female, in good spirits, presents for some sob and cough. Patient has a trach, and mom states that she had a foul smell from her trach which made and had her concerned. Patient is currently without complaint. MD Complaint: shortness of breath, cough -: days(s) Radiation: other (none) Severity: mild Severity scale (1-10): 2 Consistency: intermittent, now resolved Improves With: bronchodilators Worsens With: nothing Known History Of: COPD, asthma Context: recent URI Associated Symptoms: pain with inspiration, cough Treatments Prior to Arrival: oxygen, bronchodilator - Related Data Home Medications Medication Instructions Recorded Confirmed Albuterol Nebulized [Ventolin 2.5 mg INHALATION RT-Q4H PRN 10/07/17 06/13/19 Nebulized] Cholecalciferol [Vitamin D3 (25 5,000 unit PO DAILY 06/13/19 06/13/19 Mcg = 1000 Iu)] Diltiazem HCl 60 mg PO TID 06/13/19 06/13/19 Metoprolol Succinate [Toprol XL] 25 mg PO DAILY 06/13/19 06/13/19 Previous Rx's Medication Instructions Recorded Amoxic-Pot Clav 875-125Mg 1 tab PO Q12HR #20 tablet 06/13/19 [Augmentin 875-125] Sulfamethox-Tmp 800-160Mg [Bactrim 2 tab PO BID #40 tab 06/13/19 DS 800-160 mg] Allergies Allergy/AdvReac Type Severity Reaction Status Date / Time No Known Allergies Allergy Verified 10/07/17 09:28 Review of Systems ROS Statement: Those systems with pertinent positive or pertinent negative responses have been documented in the HPI. ROS Other: All systems not noted in ROS Statement are negative. Past Medical History Past Medical History: Asthma, GERD/Reflux, Musculoskeletal Disorder Additional Past Medical History / Comment(s): Spina bifida with spina bifida deformities, paralyzed waist down, mentality approximately 6yr old, severe kyphoscoliosis with pectus deformity, chronic lung disease with chronic respiratory hypoxia/hypercpnia, trach/chronic vent, pneumonias, bronchospasms, cervical compression with surgery, nephrolithiasis, urostomy-wears depends, UTIs, constipation. History of Any Multi-Drug Resistant Organisms: None Reported Past Surgical History: Back Surgery, Orthopedic Surgery Additional Past Surgical History / Comment(s): 2009 trach, urostomy, [employer] shunt, bilateral release/resection hamstrings proximal muscle, cervical decompression, surgery for "lazy eye." Past Anesthesia/Blood Transfusion Reactions: No Reported Reaction Past Psychological History: No Psychological Hx Reported Smoking Status: Never smoker - Past Family History Father Family Medical History: Asthma Mother Family Medical History: Diabetes Mellitus, Hyperlipidemia, Hypertension General Exam - General Exam Comments Initial Comments: trach w no drainage Limitations: no limitations General appearance: alert, in no apparent distress Head exam: Present: atraumatic, normocephalic, normal inspection Eye exam: Present: normal appearance, PERRL, EOMI. Absent: scleral icterus, conjunctival injection, periorbital swelling ENT exam: Present: normal exam, mucous membranes moist Neck exam: Present: normal inspection. Absent: tenderness, meningismus, lymphadenopathy Respiratory exam: Present: normal lung sounds bilaterally. Absent: respiratory distress, wheezes, rales, rhonchi, stridor Cardiovascular Exam: Present: regular rate, normal rhythm, normal heart sounds. Absent: systolic murmur, diastolic murmur, rubs, gallop, clicks GI/Abdominal exam: Present: soft, normal bowel sounds. Absent: distended, tenderness, guarding, rebound, rigid Extremities exam: Present: normal inspection, full ROM, normal capillary refill. Absent: tenderness, pedal edema, joint swelling, calf tenderness Back exam: Present: normal inspection Neurological exam: Present: alert, oriented X3, CN II-XII intact Psychiatric exam: Present: normal affect, normal mood Skin exam: Present: warm, dry, intact, normal color. Absent: rash Course Vital Signs 06/13/19 06/13/19 06/13/19 17:17 17:38 18:12 Temperature 99.1 F Pulse Rate 108 H 112 H Respiratory 16 16 Rate Blood Pressure 132/115 O2 Sat by Pulse 100 Oximetry 06/13/19 06/13/19 06/13/19 18:20 19:58 20:14 Temperature Pulse Rate 115 H 114 H 115 H Respiratory Rate Blood Pressure O2 Sat by Pulse Oximetry - Reevaluation(s) Reevaluation #1: 06/13/19 20:16 medical record is reviewed Reevaluation #2: 06/13/19 20:16 patient is feeling great, happy for discharge Medical Decision Making - Medical Decision Making 33 female to the ED w SOB, foul smell from trach, patient symptoms are improved and have been since arrival will treat w Abx and patient can be discharged home. - Lab Data Result diagrams: 06/13/19 17:34 06/13/19 17:34 Lab Results 06/13/19 06/13/19 06/13/19 Range/Units 17:34 17:34 17:34 WBC 12.8 H (3.8-10.6) k/uL RBC 4.75 (3.80-5.40) m/uL Hgb 14.7 (11.4-16.0) gm/dL Hct 43.2 (34.0-46.0) % MCV 90.9 (80.0-100.0) fL MCH 30.9 (25.0-35.0) pg MCHC 34.0 (31.0-37.0) g/dL RDW 20.2 H (11.5-15.5) % Plt Count 316 (150-450) k/uL Neutrophils % 71 % Lymphocytes % 17 % Monocytes % 5 % Eosinophils % 3 % Basophils % 2 % Neutrophils # 9.1 H (1.3-7.7) k/uL Lymphocytes # 2.2 (1.0-4.8) k/uL Monocytes # 0.7 (0-1.0) k/uL Eosinophils # 0.4 (0-0.7) k/uL Basophils # 0.2 (0-0.2) k/uL Anisocytosis Moderate PT (9.0-12.0) sec INR (<1.2) APTT (22.0-30.0) sec Sodium 137 (137-145) mmol/L Potassium 4.5 (3.5-5.1) mmol/L Chloride 106 (98-107) mmol/L Carbon Dioxide 19 L (22-30) mmol/L Anion Gap 12 mmol/L BUN 10 (7-17) mg/dL Creatinine 0.33 L (0.52-1.04) mg/dL Est GFR (CKD-EPI)AfAm >90 (>60 ml/min/1.73 sqM) Est GFR (CKD-EPI)NonAf >90 (>60 ml/min/1.73 sqM) Glucose 82 (74-99) mg/dL Calcium 9.4 (8.4-10.2) mg/dL Magnesium 1.8 (1.6-2.3) mg/dL Total Bilirubin 0.5 (0.2-1.3) mg/dL AST 18 (14-36) U/L ALT 17 (9-52) U/L Alkaline Phosphatase 113 (38-126) U/L Troponin I (0.000-0.034) ng/mL NT-Pro-B Natriuret Pep 45 pg/mL Total Protein 7.2 (6.3-8.2) g/dL Albumin 4.2 (3.5-5.0) g/dL 06/13/19 06/13/19 Range/Units 17:34 17:34 WBC (3.8-10.6) k/uL RBC (3.80-5.40) m/uL Hgb (11.4-16.0) gm/dL Hct (34.0-46.0) % MCV (80.0-100.0) fL MCH (25.0-35.0) pg MCHC (31.0-37.0) g/dL RDW (11.5-15.5) % Plt Count (150-450) k/uL Neutrophils % % Lymphocytes % % Monocytes % % Eosinophils % % Basophils % % Neutrophils # (1.3-7.7) k/uL Lymphocytes # (1.0-4.8) k/uL Monocytes # (0-1.0) k/uL Eosinophils # (0-0.7) k/uL Basophils # (0-0.2) k/uL Anisocytosis PT 11.3 (9.0-12.0) sec INR 1.1 (<1.2) APTT 26.5 (22.0-30.0) sec Sodium (137-145) mmol/L Potassium (3.5-5.1) mmol/L Chloride (98-107) mmol/L Carbon Dioxide (22-30) mmol/L Anion Gap mmol/L BUN (7-17) mg/dL Creatinine (0.52-1.04) mg/dL Est GFR (CKD-EPI)AfAm (>60 ml/min/1.73 sqM) Est GFR (CKD-EPI)NonAf (>60 ml/min/1.73 sqM) Glucose (74-99) mg/dL Calcium (8.4-10.2) mg/dL Magnesium (1.6-2.3) mg/dL Total Bilirubin (0.2-1.3) mg/dL AST (14-36) U/L ALT (9-52) U/L Alkaline Phosphatase (38-126) U/L Troponin I <0.012 (0.000-0.034) ng/mL NT-Pro-B Natriuret Pep pg/mL Total Protein (6.3-8.2) g/dL Albumin (3.5-5.0) g/dL - EKG Data -: EKG Interpreted by Me (EKG shows sinus taachycardia rate 115 OR 148 QRS 56 QTc 428) - Radiology Data Radiology results: report reviewed (CXR negative for acute disease), image reviewed Disposition Clinical Impression: Tachycardia, Asthma with acute exacerbation Disposition: HOME SELF-CARE Condition: Good Instructions (If sedation given, give patient instructions): Asthma (ED) Prescriptions: Amoxic-Pot Clav 875-125Mg [Augmentin 875-125] 1 tab PO Q12HR #20 tablet Sulfamethox-Tmp 800-160Mg [Bactrim DS 800-160 mg] 2 tab PO BID #40 tab Is patient prescribed a controlled substance at d/c from ED?: No Referrals: None,Stated [REFERRING] - 1-2 days
[2019-06-13 17:48] LABS: Anisocytosis Moderate; Basophils # (A) 0.2 k/uL (0-0.2); Basophils % (A) 2 %; Eosinophils # (A) 0.4 k/uL (0-0.7); Eosinophils % (A) 3 %; HCT 43.2 % (34.0-46.0); HGB 14.7 gm/dL (11.4-16.0); Lymphocytes # (A) 2.2 k/uL (1.0-4.8); Lymphocytes % (A) 17 %; MCH 30.9 pg (25.0-35.0); MCV 90.9 fL (80.0-100.0); Mean Platelet Volume 7.2; Monocytes # (A) 0.7 k/uL (0-1.0); Monocytes % (A) 5 %; Neutrophils # (A) 9.1 k/uL (1.3-7.7); Neutrophils % (A) 71 %; Platelet Count 316 k/uL (150-450); RBC 4.75 m/uL (3.80-5.40); RDW 20.2 % (11.5-15.5); WBC 12.8 k/uL (3.8-10.6)
[2019-06-13 17:58] LABS: ALT 17 U/L (9-52); AST 18 U/L (14-36); African American GFR (CKD) >90 (>60 ml/min/1.73 sqM); Albumin 4.2 g/dL (3.5-5.0); Alkaline Phosphatase 113 U/L (38-126); Anion Gap 12 mmol/L; Blood Urea Nitrogen 10 mg/dL (7-17); Calcium 9.4 mg/dL (8.4-10.2); Carbon Dioxide 19 mmol/L (22-30); Chloride 106 mmol/L (98-107); Glucose 82 mg/dL (74-99); Magnesium 1.8 mg/dL (1.6-2.3); Non-African American GFR(CKD) >90 (>60 ml/min/1.73 sqM); Potassium 4.5 mmol/L (3.5-5.1); Sodium 137 mmol/L (137-145); Total Bilirubin 0.5 mg/dL (0.2-1.3); Total Protein 7.2 g/dL (6.3-8.2)
[2019-06-13 17:59] LABS: INR 1.1 (<1.2); Partial Thromboplastin Time 26.5 sec (22.0-30.0); Prothrombin Time 11.3 sec (9.0-12.0)
--- NOTE | 2019-06-13 18:08 | XR ---
EXAMINATION TYPE: XR chest 2V DATE OF EXAM: 06/13/2019 COMPARISON: 10/12/2017 HISTORY: Short of breath TECHNIQUE: Frontal and lateral views of the chest are obtained. FINDINGS: Exam is limited due to kyphotic deformity of the spine and scoliosis. There is tracheostom y tube. As best as one can tell the lungs are clear of infiltrate and there is no heart failure. Ther e is no sign of pleural effusion. IMPRESSION: No active cardiopulmonary disease. No change.
[2019-06-13 20:14] VITALS: PULSE 115
[2019-06-13] MEDS ORDERED: SULFAMETHOX-TMP 800-160MG 1 EACH TAB PO STA (20:14)
[2019-06-13] MEDS ORDERED: SULFAMETH-TMP DS STARTER PACK 2 TAB BTL PO STA (20:14)
[2019-06-13 20:20] VITALS: BP 134/87; RESP 30; TEMP 99.4
== END 2019-06-13 20:43 | disposition home or self-care (01) ==
LOC: EC 17:10
DX: J45.901 Unspecified asthma with (acute) exacerbation (principal); R00.0 Tachycardia, unspecified; J95.09 Other tracheostomy complication; J44.9 Chronic obstructive pulmonary disease, unspecified; J96.12 Chronic respiratory failure with hypercapnia; J96.11 Chronic respiratory failure with hypoxia; Z79.899 Other long term (current) drug therapy; Z93.6 Other artificial openings of urinary tract status; Z87.76 Personal history of (corrected) congenital malformations of integument, limbs and musculoskeletal system; Z82.49 Family history of ischemic heart disease and other diseases of the circulatory system; Z82.5 Family history of asthma and other chronic lower respiratory diseases
CPT/HCPCS: 36415; 94640 ×2; 93005; 83880; 80053; 83735; 84484; 85025; 85610; 85730; 87040; 71046; 99285; 96374; J2930

== ENCOUNTER 2019-09-06 08:01 | Inpatient (IN) | payer OTHER ==
[2019-09-06] MEDS ORDERED: IPRATROPIUM-ALBUTEROL 3 ML NEB INHALATION STA (08:29)
[2019-09-06] MEDS ORDERED: METOPROLOL SUCCINATE (ER) 25 MG TAB.ER.24H PO STA (08:31)
[2019-09-06] MEDS ORDERED: DILTIAZEM ORAL 60 MG TAB PO STA (08:31)
--- NOTE | 2019-09-06 08:53 | ED ---
General Adult HPI - General Chief complaint: Chest Pain Stated complaint: tachycardia Time Seen by Provider: 09/06/19 08:05 Source: EMS Mode of arrival: EMS Limitations: no limitations - History of Present Illness Initial comments: The patient is a 33-year-old female with past history of spina bifida, trach with vent dependence who presents to the emergency department a couple the by her mother. The mother does provide history. She states that the patient has had increased green sputum production from her trach. She also reports that it has had a foul odor. The patient has been more tachypneic and is complaining of chest pain. States this previously happened in 2018 where she required hospitalization. Mother states that she has felt warm. She has had an elevated heart rate. The patient does have a history of tachycardia and takes Cardizem and Toprol at home. Patient did not take her medications prior to EMS picking her up. The remainder of the HPI is limited because the patient cannot provide a history - Related Data Home Medications Medication Instructions Recorded Confirmed Albuterol Nebulized [Ventolin 2.5 mg INHALATION RT-Q4H PRN 10/07/17 09/06/19 Nebulized] Cholecalciferol [Vitamin D3 (25 5,000 unit PO DAILY 06/13/19 09/06/19 Mcg = 1000 Iu)] Previous Rx's Medication Instructions Recorded Diltiazem Oral [Cardizem*] 90 mg PO TID #90 tab 09/10/19 Levofloxacin [Levaquin] 250 mg PO BID 7 Days #14 tab 09/10/19 Metoprolol Tartrate [Lopressor] 25 mg PO BID #60 tab 09/10/19 methylPREDNISolone Dose Pack 4 mg PO DIRECTED 6 Days #1 tab 09/10/19 [Medrol Dose Pack] Allergies Allergy/AdvReac Type Severity Reaction Status Date / Time No Known Allergies Allergy Verified 09/06/19 09:03 Review of Systems ROS Statement: Those systems with pertinent positive or pertinent negative responses have been documented in the HPI. ROS Other: All systems not noted in ROS Statement are negative. Past Medical History Past Medical History: Asthma, GERD/Reflux, Musculoskeletal Disorder Additional Past Medical History / Comment(s): Spina bifida with spina bifida deformities, paralyzed waist down, mentality approximately 6yr old, severe kyphoscoliosis with pectus deformity, chronic lung disease with chronic respiratory hypoxia/hypercpnia, trach/chronic vent, pneumonias, bronchospasms, cervical compression with surgery, nephrolithiasis, urostomy-wears depends, UTIs, constipation. History of Any Multi-Drug Resistant Organisms: None Reported Past Surgical History: Back Surgery, Orthopedic Surgery Additional Past Surgical History / Comment(s): 2009 trach, urostomy, ELECTRONIC SPECIALIST shunt, bilateral release/resection hamstrings proximal muscle, cervical decompression, surgery for "lazy eye." Past Anesthesia/Blood Transfusion Reactions: No Reported Reaction Past Psychological History: No Psychological Hx Reported Smoking Status: Never smoker - Past Family History Father Family Medical History: Asthma Mother Family Medical History: Diabetes Mellitus, Hyperlipidemia, Hypertension General Exam Limitations: physical limitation General appearance: alert Head exam: Present: atraumatic, normocephalic Eye exam: Present: PERRL ENT exam: Present: other (trach site c/d - no bleeding - mild secretions noted in tubing) Respiratory exam: Present: wheezes, accessory muscle use Cardiovascular Exam: Present: normal rhythm, tachycardia GI/Abdominal exam: Present: soft. Absent: distended, tenderness, guarding, rebound, rigid Extremities exam: Present: other (Paralyzed bilateral lower extremities due to spina bifida. Equal strength bilateral upper extremities. ) Neurological exam: Present: alert Psychiatric exam: Present: normal affect, normal mood Skin exam: Present: warm, dry, intact Course Vital Signs 09/06/19 09/06/19 09/06/19 08:05 08:10 08:49 Temperature 98.7 F Pulse Rate 150 H 135 H Pulse Rate [ 140 H Information And Data Architect Analyst ] Respiratory 24 24 Rate Blood Pressure 126/88 128/73 Blood Pressure [Left Arm] O2 Sat by Pulse 100 98 Oximetry 09/06/19 09/06/19 09/06/19 09:00 09:29 09:42 Temperature Pulse Rate 138 H 147 H 146 H Pulse Rate [ Information And Data Architect Analyst ] Respiratory 24 33 H Rate Blood Pressure 128/73 Blood Pressure [Left Arm] O2 Sat by Pulse 98 Oximetry 09/06/19 09/06/19 09/06/19 10:00 11:00 12:00 Temperature 98.7 F Pulse Rate 144 H 133 H 122 H Pulse Rate [ Information And Data Architect Analyst ] Respiratory 24 24 24 Rate Blood Pressure 105/85 100/76 Blood Pressure [Left Arm] O2 Sat by Pulse 8 L 98 97 Oximetry 09/06/19 09/06/19 09/06/19 13:01 15:56 18:17 Temperature 98.6 F 97.4 F L Pulse Rate 100 Pulse Rate [ 124 H 116 H Information And Data Architect Analyst ] Respiratory 20 20 Rate Blood Pressure Blood Pressure 107/75 122/97 [Left Arm] O2 Sat by Pulse 95 95 Oximetry 09/06/19 09/06/19 18:35 22:12 Temperature 98.6 F Pulse Rate 100 118 H Pulse Rate [ Information And Data Architect Analyst ] Respiratory 15 Rate Blood Pressure 118/68 Blood Pressure [Left Arm] O2 Sat by Pulse 98 Oximetry EKG Findings - EKG Comments: EKG Findings:: EKG demonstrates a sinus tachycardia with a ventricular rate of 150. LA interval 126. QRS 62. QTC of 511. There is some minimal ST depression in lead 3. No acute ST segment elevations. Medical Decision Making - Medical Decision Making Upon arrival the patient was placed into room 6. Thorough history and physical exam is performed. Peripheral IV was established using ultrasound guidance. Laboratory studies were conducted. She was given a 30 mL per KG fluid bolus. White blood cell count is 17.2. Glucose 69, creatinine 0.3, lactic acid 1.8. Influenza A and B are negative. X-rays performed however suboptimal because of the patient's body habitus. I did obtain blood cultures and initiated the patient on Zosyn as I am concerned for pseudomonas. I did recommend hospital admission. I did dose the patient's home medications for heart rate and she does have improvement in her heart rate. She is reassessed and is resting comfortably in the exam room. She is requesting food which she does take by mouth. I discussed diagnosis, differential and treatment options. The patient did agree to hospital admission. I called and discussed the case with Dr. Goodson who is requesting that Dr. Scott be placed on consult. He is also requesting a CT of the patient's chest. The patient is over for CT after a second peripheral IV was established using ultrasound guidance. She did require 2 mg of Versed for sedation. We are currently awaiting CT study results. The patient is also awaiting a bed on the floor - Lab Data Result diagrams: 09/10/19 05:37 09/10/19 05:37 Lab Results 09/06/19 09/06/19 09/06/19 Range/Units 08:45 08:50 09:12 WBC 17.2 H (3.8-10.6) k/uL RBC 5.24 (3.80-5.40) m/uL Hgb 15.8 (11.4-16.0) gm/dL Hct 47.8 H (34.0-46.0) % MCV 91.3 (80.0-100.0) fL MCH 30.2 (25.0-35.0) pg MCHC 33.1 (31.0-37.0) g/dL RDW 15.3 (11.5-15.5) % Plt Count 260 (150-450) k/uL Neutrophils % 86 % Lymphocytes % 6 % Monocytes % 6 % Eosinophils % 1 % Basophils % 0 % Neutrophils # 14.8 H (1.3-7.7) k/uL Lymphocytes # 1.0 (1.0-4.8) k/uL Monocytes # 1.1 H (0-1.0) k/uL Eosinophils # 0.2 (0-0.7) k/uL Basophils # 0.0 (0-0.2) k/uL PT 12.2 H (9.0-12.0) sec INR 1.2 H (<1.2) APTT 26.4 (22.0-30.0) sec Sodium (137-145) mmol/L Potassium (3.5-5.1) mmol/L Chloride (98-107) mmol/L Carbon Dioxide (22-30) mmol/L Anion Gap mmol/L BUN (7-17) mg/dL Creatinine (0.52-1.04) mg/dL Est GFR (CKD-EPI)AfAm (>60 ml/min/1.73 sqM) Est GFR (CKD-EPI)NonAf (>60 ml/min/1.73 sqM) Glucose (74-99) mg/dL Plasma Lactic Acid Anson (0.7-2.0) mmol/L Calcium (8.4-10.2) mg/dL Magnesium (1.6-2.3) mg/dL Total Bilirubin (0.2-1.3) mg/dL AST (14-36) U/L ALT (4-34) U/L Alkaline Phosphatase (38-126) U/L Troponin I (0.000-0.034) ng/mL Total Protein (6.3-8.2) g/dL Albumin (3.5-5.0) g/dL TSH (0.465-4.680) mIU/L Influenza Type A RNA Not Detected (Not Detectd) Influenza Type B (PCR) Not Detected (Not Detectd) 09/06/19 09/06/19 09/06/19 Range/Units 09:12 09:12 11:00 WBC (3.8-10.6) k/uL RBC (3.80-5.40) m/uL Hgb (11.4-16.0) gm/dL Hct (34.0-46.0) % MCV (80.0-100.0) fL MCH (25.0-35.0) pg MCHC (31.0-37.0) g/dL RDW (11.5-15.5) % Plt Count (150-450) k/uL Neutrophils % % Lymphocytes % % Monocytes % % Eosinophils % % Basophils % % Neutrophils # (1.3-7.7) k/uL Lymphocytes # (1.0-4.8) k/uL Monocytes # (0-1.0) k/uL Eosinophils # (0-0.7) k/uL Basophils # (0-0.2) k/uL PT (9.0-12.0) sec INR (<1.2) APTT (22.0-30.0) sec Sodium 137 (137-145) mmol/L Potassium 5.0 (3.5-5.1) mmol/L Chloride 103 (98-107) mmol/L Carbon Dioxide 18 L (22-30) mmol/L Anion Gap 16 mmol/L BUN 7 (7-17) mg/dL Creatinine 0.35 L (0.52-1.04) mg/dL Est GFR (CKD-EPI)AfAm >90 (>60 ml/min/1.73 sqM) Est GFR (CKD-EPI)NonAf >90 (>60 ml/min/1.73 sqM) Glucose 69 L (74-99) mg/dL Plasma Lactic Acid Anson 1.8 (0.7-2.0) mmol/L Calcium 9.4 (8.4-10.2) mg/dL Magnesium 1.9 (1.6-2.3) mg/dL Total Bilirubin 1.0 (0.2-1.3) mg/dL AST 27 (14-36) U/L ALT 12 (4-34) U/L Alkaline Phosphatase 112 (38-126) U/L Troponin I <0.012 (0.000-0.034) ng/mL Total Protein 7.5 (6.3-8.2) g/dL Albumin 4.3 (3.5-5.0) g/dL TSH 1.030 (0.465-4.680) mIU/L Influenza Type A RNA (Not Detectd) Influenza Type B (PCR) (Not Detectd) Disposition Clinical Impression: Tachycardia, Tracheobronchitis, Tracheostomy dependence Disposition: ADMITTED IP TO THIS [facility] Condition: Stable Is patient prescribed a controlled substance at d/c from ED?: No Decision to Admit Reason: Admit from EC Decision Date: 09/06/19 Decision Time: 11:19
[2019-09-06 09:04] LABS: Basophils % (A) 0 %; Eosinophils # (A) 0.2 k/uL (0-0.7); Eosinophils % (A) 1 %; HCT 47.8 % (34.0-46.0); HGB 15.8 gm/dL (11.4-16.0); Lymphocytes % (A) 6 %; MCH 30.2 pg (25.0-35.0); MCHC 33.1 g/dL (31.0-37.0); MCV 91.3 fL (80.0-100.0); Mean Platelet Volume 8.4; Monocytes # (A) 1.1 k/uL (0-1.0); Monocytes % (A) 6 %; Neutrophils # (A) 14.8 k/uL (1.3-7.7); Neutrophils % (A) 86 %; Platelet Count 260 k/uL (150-450); RBC 5.24 m/uL (3.80-5.40); RDW 15.3 % (11.5-15.5); WBC 17.2 k/uL (3.8-10.6)
[2019-09-06] MEDS ORDERED: PIPERACILLIN-TAZOBACTAM 3.375 GM in SODIUM CHLORIDE 0.9% 100 ML IVPB STA (09:23)
--- NOTE | 2019-09-06 09:45 | XR ---
EXAMINATION TYPE: XR chest 2V DATE OF EXAM: 09/06/2019 COMPARISON: Prior chest x-ray 06/13/2019 HISTORY: Chest pain TECHNIQUE: Frontal and lateral views of the chest are obtained. FINDINGS: Exam is markedly limited by patient body habitus. Lung volumes are low. Tracheostomy tube is overlying the tracheal air column. Difficult to exclude airspace disease. No evident pneumothorax or pleural effusion. IMPRESSION: Limited exam due to patient body habitus.
[2019-09-06 10:01] LABS: INR 1.2 (<1.2); Partial Thromboplastin Time 26.4 sec (22.0-30.0); Prothrombin Time 12.2 sec (9.0-12.0)
[2019-09-06 10:04] LABS: ALT 12 U/L (4-34); AST 27 U/L (14-36); African American GFR (CKD) >90 (>60 ml/min/1.73 sqM); Albumin 4.3 g/dL (3.5-5.0); Alkaline Phosphatase 112 U/L (38-126); Anion Gap 16 mmol/L; Blood Urea Nitrogen 7 mg/dL (7-17); Calcium 9.4 mg/dL (8.4-10.2); Carbon Dioxide 18 mmol/L (22-30); Chloride 103 mmol/L (98-107); Glucose 69 mg/dL (74-99); Magnesium 1.9 mg/dL (1.6-2.3); Non-African American GFR(CKD) >90 (>60 ml/min/1.73 sqM); Sodium 137 mmol/L (137-145); Total Protein 7.5 g/dL (6.3-8.2)
[2019-09-06] MEDS ORDERED: SODIUM CHLORIDE 0.9% 2,000 ML IV ONE (10:52)
[2019-09-06] MEDS ORDERED: NALOXONE 0.4 MG/ML 1 ML VIAL IV PRN (11:19)
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
[2019-09-06] MEDS: DEXTROSE 5%-0.9% NACL 1,000 ML IV SCH (14:15)
[2019-09-06] MEDS: PIPERACILLIN-TAZOBACTAM 3.375 GM in SODIUM CHLORIDE 0.9% 100 ML IVPB SCH (15:43)
[2019-09-06] MEDS ORDERED: MIDAZOLAM 2 MG/2 ML VIAL IV STA (16:39)
--- NOTE | 2019-09-06 17:16 | CT ---
EXAMINATION TYPE: CT chest angio for PE DATE OF EXAM: 09/06/2019 COMPARISON: None HISTORY: COUGH, congestion, discharge from trach, difficulty breathing CT DLP: 850.6 mGycm Automated exposure control for dose reduction was used. CONTRAST: Performed with IV Contrast, patient injected with 100 mL of Isovue 370. There are 3-D post processed images. There is thoracic and lumbar scoliotic deformity. There is pulmonary interstitial and alveolar edema. Heart appears enlarged. There is airspace consolidation in the posterior aspect right upper lobe and also right middle lobe. There is no pleural effusion. There is no pericardial effusion. I see no evelyn ling defects in the pulmonary arteries. Thoracic aorta shows no aneurysm or dissection. Tracheostomy tube is noted. IMPRESSION: No evidence of pulmonary embolism. Bilateral pulmonary interstitial and alveolar edema with coalescen t infiltrate right upper lobe and right middle lobe and to a lesser extent right lower lobe consisten t with pneumonia.
[2019-09-06 18:08] LABS: Bacteria,Urine Rare /hpf; Mucus,Urine Rare /hpf; RBC,Urine 19 /hpf (0-5); Squamous Epithelial Cell,Urine 3 /hpf (0-4); WBC,Urine 12 /hpf (0-5)
[2019-09-06 18:13] LABS: Appearance,Urine Slightly Cloudy (Clear); Color,Urine Yellow; Glucose,Urine (UA) Negative (Negative); Ketones,Urine Negative (Negative); Protein,Urine Negative (Negative); Specific Gravity,Urine 1.005 (1.001-1.035)
[2019-09-06 18:14] LABS: Bilirubin,Urine Negative (Negative); Blood,Urine Large (Negative); Leukocyte Esterase,Urine Large (Negative); Nitrite,Urine Negative (Negative); Urobilinogen,Urine <2.0 mg/dL (<2.0)
[2019-09-06] MEDS: ALBUTEROL NEBULIZED 2.5 MG/3 ML INHALATION PRN (18:17)
[2019-09-06] MEDS: BUDESONIDE 0.5 MG/2 ML NEBU INHALATION SCH (21:57)
[2019-09-06 23:08] LABS: Glucose,Whole Blood 102 mg/dL (75-99)
[2019-09-07] MEDS: PIPERACILLIN-TAZOBACTAM 3.375 GM in SODIUM CHLORIDE 0.9% 100 ML IVPB SCH ×3 (00:55→16:51)
[2019-09-07 05:57] LABS: Anisocytosis Slight; Basophils # (A) 0.1 k/uL (0-0.2); Basophils % (A) 0 %; Eosinophils # (A) 0.5 k/uL (0-0.7); Eosinophils % (A) 5 %; HCT 40.6 % (34.0-46.0); HGB 13.9 gm/dL (11.4-16.0); Lymphocytes # (A) 1.5 k/uL (1.0-4.8); Lymphocytes % (A) 13 %; MCH 31.2 pg (25.0-35.0); MCHC 34.3 g/dL (31.0-37.0); Mean Platelet Volume 9.1; Monocytes % (A) 9 %; Neutrophils # (A) 8.1 k/uL (1.3-7.7); Neutrophils % (A) 71 %; Platelet Count 298 k/uL (150-450); RBC 4.46 m/uL (3.80-5.40); RDW 19.1 % (11.5-15.5); WBC 11.4 k/uL (3.8-10.6)
[2019-09-07 06:06] LABS: African American GFR (CKD) >90 (>60 ml/min/1.73 sqM); Anion Gap 9 mmol/L; Blood Urea Nitrogen 10 mg/dL (7-17); Calcium 9.3 mg/dL (8.4-10.2); Carbon Dioxide 18 mmol/L (22-30); Chloride 109 mmol/L (98-107); Glucose 125 mg/dL (74-99); Non-African American GFR(CKD) >90 (>60 ml/min/1.73 sqM); Potassium 4.9 mmol/L (3.5-5.1); Sodium 136 mmol/L (137-145)
[2019-09-07] MEDS: ALBUTEROL NEBULIZED 2.5 MG/3 ML INHALATION PRN ×3 (08:23→21:07)
[2019-09-07] MEDS: BUDESONIDE 0.5 MG/2 ML NEBU INHALATION SCH ×2 (08:23→20:56)
[2019-09-07] MEDS: CHOLECALCIFEROL 1,000 UNIT TAB PO SCH (08:36)
--- NOTE | 2019-09-07 09:43 | XR ---
EXAMINATION TYPE: XR chest 1V portable DATE OF EXAM: 09/07/2019 COMPARISON: Prior chest x-ray 09/06/2019 HISTORY: Chest pain TECHNIQUE: Single frontal view of the chest is obtained. FINDINGS: There is no significant interval change. Perihilar increased attenuation is suspected. Tra cheostomy tube is overlying the tracheal air column. Marked body habitus deformity is present. There is overlying artifact, cardiac leads. Question shunt tubing over the left chest. Heart size not well evaluated. IMPRESSION: Difficult to exclude pneumonia. Exam is limited.
--- NOTE | 2019-09-07 12:07 | P.CNPUL ---
History of Present Illness Consult date: 09/06/19 Reason for consult: dyspnea, cough, obstructive sleep apnea Chief complaint: Cough with creamy sputum production with increased shortness of breath History of present illness: Patient is seen eval reexamined the emergency department data obtained from the mother This is a 33-year-old female with predor villi syndrome also has history of spina bifida, trach with vent dependence who presents to the emergency department a couple the by her mother. The mother does provide history. She states that the patient has had increased green sputum production from her trach. She also reports that it has had a foul odor. The patient has been more tachypneic and is complaining of chest pain with increased wheezing cough and congestion. States this previously happened previously in 2018, where she required hospitalization. Mother states that she has felt warm. She has had an elevated heart rate. The patient does have a history of tachycardia and takes Cardizem and Toprol at home. She has a blood culture and urine culture both are pending, white cell count is 17,000 both influenza A and B were negative, her chest x-ray reveals significant kyphoscoliosis stable tracheostomy tube, computed tomography scan of the chest negative for pulmonary embolism however does show bilateral pulmonary interstitial alveolar infiltrate predominantly in the right upper and middle lobe Review of Systems All systems: negative Past Medical History Past Medical History: Asthma, GERD/Reflux, Musculoskeletal Disorder Additional Past Medical History / Comment(s): Spina bifida with spina bifida deformities, paralyzed waist down, mentality approximately 6yr old, severe kyphoscoliosis with pectus deformity, chronic lung disease with chronic respiratory hypoxia/hypercpnia, trach/chronic vent, pneumonias, bronchospasms, cervical compression with surgery, nephrolithiasis, urostomy-wears depends, UTIs, constipation. History of Any Multi-Drug Resistant Organisms: None Reported Past Surgical History: Back Surgery, Orthopedic Surgery Additional Past Surgical History / Comment(s): 2009 trach, urostomy, [employer] shunt, bilateral release/resection hamstrings proximal muscle, cervical decompression, surgery for "lazy eye." Past Anesthesia/Blood Transfusion Reactions: No Reported Reaction Past Psychological History: No Psychological Hx Reported Additional Psychological History / Comment(s): Pt resides with her mother who is her caregiver. Pt has trach and is vent dependent. Mother transfers pt to wheelchair. Getting to follow up appts (follow for vent at [facility]) is chall enging-mother sets up thru pt's insurance and they use vendors to transport- vendors can opt out and have done so in the past. Mother states they have also been stranded at [facility] with no return ride home. No vendor available for last [facility] appointment so pt missed that appt. Smoking Status: Never smoker Past Alcohol Use History: None Reported Past Drug Use History: None Reported - Past Family History Father Family Medical History: Asthma Mother Family Medical History: Diabetes Mellitus, Hyperlipidemia, Hypertension Medications and Allergies Home Medications Medication Instructions Recorded Confirmed Type Albuterol Nebulized [Ventolin 2.5 mg INHALATION RT-Q4H PRN 10/07/17 09/06/19 History Nebulized] Cholecalciferol [Vitamin D3 (25 5,000 unit PO DAILY 06/13/19 09/06/19 History Mcg = 1000 Iu)] Diltiazem HCl 60 mg PO TID 06/13/19 09/06/19 History Metoprolol Succinate [Toprol XL] 25 mg PO DAILY 06/13/19 09/06/19 History Allergies Allergy/AdvReac Type Severity Reaction Status Date / Time No Known Allergies Allergy Verified 09/06/19 09:03 Physical Exam Vitals: Vital Signs Temp Pulse Pulse Resp BP BP Pulse Ox 09/06/19 13:01 98.6 F 124 H 20 107/75 95 09/06/19 12:00 98.7 F 122 H 24 100/76 97 09/06/19 11:00 133 H 24 105/85 98 09/06/19 10:00 144 H 24 8 L 09/06/19 09:42 146 H 09/06/19 09:29 147 H 33 H 09/06/19 09:00 138 H 24 128/73 98 09/06/19 08:49 135 H 24 128/73 98 09/06/19 08:10 140 H 09/06/19 08:05 98.7 F 150 H 24 126/88 100 Intake and Output 09/05/19 09/06/19 09/06/19 22:59 06:59 14:59 Other: Weight 67.585 kg - Constitutional General appearance: cooperative, disheveled, mild distress, morbidly obese - EENT Eyes: anicteric sclerae, EOMI, PERRLA, poor dentition ENT: normal oropharynx Ears: bilateral: normal - Neck Neck: normal ROM Carotids: bilateral: upstroke normal - Respiratory Respiratory: bilateral: wheezing (Bilateral respiratory extreme wheezing and rhonchi), other (Severe kyphoscoliosis) - Cardiovascular Rhythm: regular Heart sounds: normal: S1, S2 - Gastrointestinal General gastrointestinal: normal bowel sounds - Neurologic Neurologic: CNII-XII intact - Musculoskeletal Musculoskeletal: generalized weakness, strength equal bilaterally - Psychiatric Psychiatric: A&O x's 3, appropriate affect, intact judgment & insight Results - Laboratory Findings CBC and BMP: 09/07/19 05:14 09/07/19 05:14 PT/INR, D-dimer PT 12.2 sec (9.0-12.0) H 09/06/19 09:12 INR 1.2 (<1.2) H 09/06/19 09:12 Abnormal lab findings: Abnormal Labs 09/06/19 09/06/19 09/06/19 08:45 09:12 09:12 WBC 17.2 H Hct 47.8 H Neutrophils # 14.8 H Monocytes # 1.1 H PT 12.2 H INR 1.2 H Carbon Dioxide 18 L Creatinine 0.35 L Glucose 69 L - Diagnostic Findings Chest x-ray: report reviewed, image reviewed CT scan - chest: report reviewed, image reviewed (Finding as noted above) Assessment and Plan Assessment: Right upper lobe and middle lobe pneumonia due to presence of tracheostomy and compromised airway likely gram-negative pneumonia/Ms. bacterial pneumonia Acute on chronic respiratory failure Sepsis Prader-Willi syndrome Obstructive sleep apnea status post tracheostomy Severe kyphoscoliosis Ventilator dependent History of paroxysmal supraventricular tachycardia Morbid obesity Plan: Will obtain a sputum for Gram stain and culture Continue breathing treatments with albuterol and Pulmicort Continue vent management keep on same setting as home Continue IV Zosyn Further recommendations pending plan of care as per clinical response of the patient Time with Patient: Greater than 30
--- NOTE | 2019-09-07 12:10 | P.PN ---
Subjective Progress Note Date: 09/07/19 Principal diagnosis: Right upper lobe and middle lobe pneumonia due to presence of tracheostomy and compromised airway likely gram-negative pneumonia/Ms. 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 The mother does provide history. She states that the patient has had increased green sputum production from her trach. She also reports that it has had a foul odor. The patient has been more tachypneic and is complaining of chest pain with increased wheezing cough and congestion. States this previously happened previously in 2018, where she required hospitalization. Mother states that she has felt warm. She has had an elevated heart rate. The patient does have a history of tachycardia and takes Cardizem and Toprol at home. She has a blood culture and urine culture both are pending, white cell count is 17,000 both influenza A and B were negative, her chest x-ray reveals significant kyphoscoliosis stable tracheostomy tube, computed tomography scan of the chest negative for pulmonary embolism however does show bilateral pulmonary interstitial alveolar infiltrate predominantly in the right upper and middle lobe Objective - Vital Signs Vital signs: Vital Signs Temp 98.1 F 09/07/19 12:00 Pulse 107 H 09/07/19 12:00 Resp 15 09/07/19 12:00 BP 115/88 09/07/19 12:00 Pulse Ox 98 09/07/19 12:00 Intake & Output 09/06/19 09/07/19 09/07/19 18:59 06:59 18:59 Intake Total 100 80 Output Total 200 125 Balance -100 -45 Weight 67.585 kg 69.4 kg Intake: IV 100 80 Dextrose 5%-0.9% NaCl 1, 100 80 000 ml @ 20 mls/hr IV . Q24H [facility] Rx#:[id number] Output: Urine 200 125 Other: Voiding Method Diaper Diaper - Exam - Constitutional General appearance: cooperative, disheveled, mild distress, morbidly obese - EENT Eyes: anicteric sclerae, EOMI, PERRLA, poor dentition ENT: normal oropharynx Ears: bilateral: normal - Neck Neck: normal ROM Carotids: bilateral: upstroke normal - Respiratory Respiratory: bilateral: wheezing (Bilateral respiratory extreme wheezing and rhonchi), other (Severe kyphoscoliosis), using home ventilator - Cardiovascular Rhythm: regular Heart sounds: normal: S1, S2 - Gastrointestinal General gastrointestinal: normal bowel sounds - Neurologic Neurologic: CNII-XII intact - Musculoskeletal Musculoskeletal: generalized weakness, strength equal bilaterally - Psychiatric Psychiatric: A&O x's 3, appropriate affect, intact judgment & insight - Labs CBC & Chem 7: 09/07/19 05:14 09/07/19 05:14 Labs: Abnormal Lab Results - Last 24 Hours (Table) 09/06/19 09/06/19 09/07/19 Range/Units 17:15 22:48 05:14 WBC 11.4 H (3.8-10.6) k/uL RDW 19.1 H (11.5-15.5) % Neutrophils # 8.1 H (1.3-7.7) k/uL Sodium (137-145) mmol/L Chloride (98-107) mmol/L Carbon Dioxide (22-30) mmol/L Creatinine (0.52-1.04) mg/dL Glucose (74-99) mg/dL POC Glucose (mg/dL) 102 H (75-99) mg/dL Urine Appearance Slightly Cloudy H (Clear) Urine RBC 19 H (0-5) /hpf Urine WBC 12 H (0-5) /hpf Urine Bacteria Rare H (None) /hpf Urine Mucus Rare H (None) /hpf 09/07/19 Range/Units 05:14 WBC (3.8-10.6) k/uL RDW (11.5-15.5) % Neutrophils # (1.3-7.7) k/uL Sodium 136 L (137-145) mmol/L Chloride 109 H (98-107) mmol/L Carbon Dioxide 18 L (22-30) mmol/L Creatinine 0.34 L (0.52-1.04) mg/dL Glucose 125 H (74-99) mg/dL POC Glucose (mg/dL) (75-99) mg/dL Urine Appearance (Clear) Urine RBC (0-5) /hpf Urine WBC (0-5) /hpf Urine Bacteria (None) /hpf Urine Mucus (None) /hpf Microbiology - Last 24 Hours (Table) 09/06/19 09:12 Blood Culture - Preliminary Blood No Growth after 24 hours 09/06/19 17:15 Urine Culture - Preliminary Urine,Clean Catch Assessment and Plan Assessment: Right upper lobe and middle lobe pneumonia due to presence of tracheostomy and compromised airway likely gram-negative pneumonia/Ms. bacterial pneumonia Acute on chronic respiratory failure Sepsis Prader-Willi syndrome Obstructive sleep apnea status post tracheostomy Severe kyphoscoliosis Ventilator dependent History of paroxysmal supraventricular tachycardia Morbid obesity Plan: Will obtain a sputum for Gram stain and culture Continue breathing treatments with albuterol and Pulmicort Continue vent management keep on same setting as home Continue IV Zosyn Further recommendations pending plan of care as per clinical response of the patient Time with Patient: Greater than 30
--- NOTE | 2019-09-07 14:35 | P.PN ---
Subjective Progress Note Date: 09/07/19 (Right upper lobe and middle lobe pneumonia) Principal diagnosis: Diagnoses: #1 right upper lobe and middle lobe pneumonia with probable aspiration. By computed tomography scan of the chest. Possible gram-negative. #2 ventilatory dependent, tracheostomy tube, #3 chronic respiratory failure on permanent oxygen. #4 tachycardia. #5 leukocytosis probably secondary to the pneumonia, rule out sepsis. #6 UTI culture and sensitivity is pending. With the large leukocyte esterase. #7 hypoglycemia unknown etiology could be associated with sepsis. #8 renal function and hepatic function is stable. #9 obstructive sleep apnea #10 history of paroxysmal supraventricular tachycardia. #10 acute on chronic respiratory failure. 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 #13 abnormalities. This is a dictation on the progress note by Dr. Hamzah Torres FACP. Patient seen and evaluated in the ICU, patient has possible respiratory and tracheostomy, oxygen dependent, respiratory dependent Computed tomography scan of the chest indicating right upper lobe pneumonia in the middle lobe pneumonia with the possibility of aspiration and gram-negative. Patient seen by Dr. Caden Scott pulmonary and critical care and continue the current treatment. Patient is conscious alert oriented however unable to give a detailed history which obtained yesterday from her mother. Urine culture is pending. We'll obtain lactic acid with her carbon dioxide is 18 and then we will check on lactic acid. The head was normocephalic and atraumatic pupils equal reactive oropharynx natural teeth however with a congenital abnormalities she had that. Teeth and uvula midline no fascial asymmetry she has deformity of the spine with spina bifida as well as the paralysis below the waist with not optimal development could not stand or walk was February dependent. Neck she had a tracheostomy collar with oxygen connected. The chest she had inspiratory and expiratory rhonchi's and pneumonia as mentioned by the computed tomography scan of the right upper lung and the middle lung lobe was questionable with the tracheostomy aspiration and a gram-negative. The heart was tachycardic with regular sinus rhythm. I could not hear a gallop appeared to be compensated. The abdomen is soft positive bowel sounds no tenderness, and she stated that she had able to urinate or having bowel movement. 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 And urine analysis indicating large leukocyte esterase RBCs 19 and WBCs at 12. Assessment: #1 acute right upper lobe and middle lobe pneumonia with possible aspiration. #2 tracheobronchitis #3 exacerbation of COPD. #4 underlying acute respiratory failure on the top of chronic #5 obstructive sleep apnea #6 syndrome of Pradhanwill be syndrome Ventilatory dependent. Chronic Lamar catheter due to her abnormalities with a possible UTI associated with that. Plan We will continue with the current treatment with inhalation therapy and antibiotic and bronchodilator. Continue the ICU with the respirator and transferred treatment depend on the patient progression. Objective - Vital Signs Vital signs: Vital Signs Temp 98.1 F 09/07/19 12:00 Pulse 124 H 09/07/19 12:30 Resp 15 09/07/19 12:00 BP 115/88 09/07/19 12:00 Pulse Ox 98 09/07/19 12:00 Intake & Output 09/06/19 09/07/19 09/07/19 18:59 06:59 18:59 Intake Total 100 80 Output Total 200 125 Balance -100 -45 Weight 67.585 kg 69.4 kg Intake: IV 100 80 Dextrose 5%-0.9% NaCl 1, 100 80 000 ml @ 20 mls/hr IV . Q24H [facility] Rx#:[id number] Output: Urine 200 125 Other: Voiding Method Diaper Diaper - Labs CBC & Chem 7: 09/07/19 05:14 09/07/19 05:14 Labs: Abnormal Lab Results - Last 24 Hours (Table) 09/06/19 09/06/19 09/07/19 Range/Units 17:15 22:48 05:14 WBC 11.4 H (3.8-10.6) k/uL RDW 19.1 H (11.5-15.5) % Neutrophils # 8.1 H (1.3-7.7) k/uL Sodium (137-145) mmol/L Chloride (98-107) mmol/L Carbon Dioxide (22-30) mmol/L Creatinine (0.52-1.04) mg/dL Glucose (74-99) mg/dL POC Glucose (mg/dL) 102 H (75-99) mg/dL Urine Appearance Slightly Cloudy H (Clear) Urine RBC 19 H (0-5) /hpf Urine WBC 12 H (0-5) /hpf Urine Bacteria Rare H (None) /hpf Urine Mucus Rare H (None) /hpf 09/07/19 Range/Units 05:14 WBC (3.8-10.6) k/uL RDW (11.5-15.5) % Neutrophils # (1.3-7.7) k/uL Sodium 136 L (137-145) mmol/L Chloride 109 H (98-107) mmol/L Carbon Dioxide 18 L (22-30) mmol/L Creatinine 0.34 L (0.52-1.04) mg/dL Glucose 125 H (74-99) mg/dL POC Glucose (mg/dL) (75-99) mg/dL Urine Appearance (Clear) Urine RBC (0-5) /hpf Urine WBC (0-5) /hpf Urine Bacteria (None) /hpf Urine Mucus (None) /hpf Microbiology - Last 24 Hours (Table) 09/06/19 09:12 Blood Culture - Preliminary Blood No Growth after 24 hours 09/06/19 17:15 Urine Culture - Preliminary Urine,Clean Catch
[2019-09-07 16:49] LABS: Glucose,Whole Blood 156 mg/dL (75-99)
[2019-09-07] MEDS: SODIUM CHLORIDE 0.9% 1,000 ML IV SCH (16:51)
[2019-09-07] MEDS: DILTIAZEM ORAL 60 MG TAB PO SCH ×2 (16:52→22:03)
[2019-09-07 21:34] LABS: Glucose,Whole Blood 109 mg/dL (75-99)
[2019-09-08] MEDS: PIPERACILLIN-TAZOBACTAM 3.375 GM in SODIUM CHLORIDE 0.9% 100 ML IVPB SCH ×4 (00:53→23:39)
[2019-09-08 05:42] LABS: Anisocytosis Slight; Basophils # (A) 0.1 k/uL (0-0.2); Basophils % (A) 1 %; Eosinophils # (A) 0.4 k/uL (0-0.7); Eosinophils % (A) 4 %; HCT 40.8 % (34.0-46.0); HGB 13.4 gm/dL (11.4-16.0); Lymphocytes # (A) 1.4 k/uL (1.0-4.8); Lymphocytes % (A) 14 %; MCH 30.7 pg (25.0-35.0); MCHC 32.9 g/dL (31.0-37.0); MCV 93.4 fL (80.0-100.0); Mean Platelet Volume 8.1; Monocytes # (A) 0.5 k/uL (0-1.0); Monocytes % (A) 5 %; Neutrophils # (A) 6.9 k/uL (1.3-7.7); Neutrophils % (A) 73 %; Platelet Count 293 k/uL (150-450); RBC 4.36 m/uL (3.80-5.40); RDW 18.7 % (11.5-15.5); WBC 9.5 k/uL (3.8-10.6)
[2019-09-08 05:59] LABS: African American GFR (CKD) >90 (>60 ml/min/1.73 sqM); Anion Gap 10 mmol/L; Blood Urea Nitrogen 8 mg/dL (7-17); Calcium 9.3 mg/dL (8.4-10.2); Carbon Dioxide 21 mmol/L (22-30); Chloride 106 mmol/L (98-107); Glucose 193 mg/dL (74-99); Non-African American GFR(CKD) >90 (>60 ml/min/1.73 sqM); Potassium 4.2 mmol/L (3.5-5.1); Sodium 137 mmol/L (137-145)
[2019-09-08] MEDS: SODIUM CHLORIDE 0.9% 1,000 ML IV SCH (06:44)
[2019-09-08 06:55] LABS: Glucose,Whole Blood 160 mg/dL (75-99)
[2019-09-08] MEDS: ALBUTEROL NEBULIZED 2.5 MG/3 ML INHALATION PRN ×3 (07:55→22:13)
[2019-09-08] MEDS: BUDESONIDE 0.5 MG/2 ML NEBU INHALATION SCH ×2 (07:55→22:14)
[2019-09-08] MEDS: CHOLECALCIFEROL 1,000 UNIT TAB PO SCH (08:23)
[2019-09-08] MEDS: DILTIAZEM ORAL 60 MG TAB PO SCH (08:25)
[2019-09-08 11:19] LABS: Glucose,Whole Blood 87 mg/dL (75-99)
--- NOTE | 2019-09-08 11:57 | P.CRDCN ---
History of Present Illness Consult date: 09/08/19 History of present illness: This is a very pleasant 33-year-old female patient who is unfortunate with a past medical history significant for spina bifida, chronic respiratory failure with tracheostomy, as well as history of supraventricular tachycardia, was admitted to the hospital with increasing shortness of breath. The patient was seen by the intensive care team and she was diagnosed with sepsis along with acute on chronic respiratory failure related to bilateral pneumonia. We get involved in the care of the patient because off tachycardia. The patient is in sinus rhythm and sinus tachycardia. No prior cardiac history. No history of coronary artery disease or congestive heart failure but there is history of supraventricular tachycardia. The patient currently is on Cardizem at 60 mg by mouth 3 times a day. Her resting heart rate has been between 100 210 beats per minutes. At this point I am going to increase the dose of Cardizem to 90 mg by mouth 3 times a day. Her blood pressure has been within normal limits and the patient is not hypertensive nor requiring any vasopressors. I do feel that the sinus tachycardia is likely related to her bilateral pneumonia as well as his sepsis. But at this point I'm going to rule out any thyroid disorder by performing a TSH/free T4. Beside that I Y to obtain an echocardiogram was Doppler. Her last echo from 2016 revealed normal left ventricular systolic function without any significant valvular abnormalities. Past Medical History Past Medical History: Asthma, GERD/Reflux, Musculoskeletal Disorder Additional Past Medical History / Comment(s): Spina bifida with spina bifida deformities, paralyzed waist down, mentality approximately 6yr old, severe kyphoscoliosis with pectus deformity, chronic lung disease with chronic respirat ory hypoxia/hypercpnia, trach/chronic vent, pneumonias, bronchospasms, cervical compression with surgery, nephrolithiasis, urostomy-wears depends, UTIs, constipation. History of Any Multi-Drug Resistant Organisms: None Reported Past Surgical History: Back Surgery, Orthopedic Surgery Additional Past Surgical History / Comment(s): 2009 trach, urostomy, [employer] shunt, bilateral release/resection hamstrings proximal muscle, cervical decompression, surgery for "lazy eye." Past Anesthesia/Blood Transfusion Reactions: No Reported Reaction Past Psychological History: No Psychological Hx Reported Additional Psychological History / Comment(s): Pt resides with her mother who is her caregiver. Pt has trach and is vent dependent. Mother transfers pt to [facility]. Getting to follow up appts (follow for vent at [facility]) is challenging-mother sets up thru pt's insurance and they use vendors to transport-vendors can opt out and have done so in the past. Mother states they have also been stranded at [facility] with no return ride home. No vendor available for last [facility] appointment so pt missed that appt. Smoking Status: Never smoker Past Alcohol Use History: None Reported Past Drug Use History: None Reported - Past Family History Father Family Medical History: Asthma Mother Family Medical History: Diabetes Mellitus, Hyperlipidemia, Hypertension Medications and Allergies Home Medications Medication Instructions Recorded Confirmed Type Albuterol Nebulized [Ventolin 2.5 mg INHALATION RT-Q4H PRN 10/07/17 09/06/19 History Nebulized] Cholecalciferol [Vitamin D3 (25 5,000 unit PO DAILY 06/13/19 09/06/19 History Mcg = 1000 Iu)] Diltiazem HCl 60 mg PO TID 06/13/19 09/06/19 History Metoprolol Succinate [Toprol XL] 25 mg PO DAILY 06/13/19 09/06/19 History Allergies Allergy/AdvReac Type Severity Reaction Status Date / Time No Known Allergies Allergy Verified 09/06/19 09:03 Physical Exam Vitals: Vital Signs Temp Pulse Resp BP Pulse Ox 09/08/19 11:52 111 H 09/08/19 11:15 108 H 09/08/19 10:00 97.9 F 115 H 17 135/60 98 09/08/19 08:05 114 H 09/08/19 08:00 98.1 F 112 H 11 L 118/88 100 09/08/19 07:56 112 H 09/08/19 06:00 114 H 17 133/90 98 09/08/19 04:00 98.4 F 120 H 15 133/90 98 09/08/19 00:00 98 F 122 H 14 128/51 98 09/07/19 21:07 123 H 09/07/19 20:00 97.7 F 124 H 16 137/119 99 09/07/19 16:00 97.9 F 123 H 12 124/98 100 09/07/19 12:30 124 H 09/07/19 12:17 116 H 09/07/19 12:00 98.1 F 107 H 15 115/88 98 Intake and Output 09/07/19 09/08/19 09/08/19 22:59 06:59 14:59 Intake Total 80 600 Output Total 150 200 Balance -70 400 Intake: IV 80 600 Dextrose 5%-0.9% NaCl 1, 80 600 000 ml @ 20 mls/hr IV . Q24H [facility] Rx#:[id number] Output: Urine 150 200 Other: Voiding Method Diaper Weight 72.9 kg - Constitutional General appearance: no acute distress - Respiratory Respiratory: bilateral: diminished - Cardiovascular Rhythm: regular Heart sounds: normal: S1, S2 Results 09/08/19 05:23 09/08/19 05:23 CBC 09/08/19 Range/Units 05:23 WBC 9.5 (3.8-10.6) k/uL RBC 4.36 (3.80-5.40) m/uL Hgb 13.4 (11.4-16.0) gm/dL Hct 40.8 (34.0-46.0) % Plt Count 293 (150-450) k/uL Comprehensive Metabolic Panel 09/08/19 Range/Units 05:23 Sodium 137 (137-145) mmol/L Potassium 4.2 (3.5-5.1) mmol/L Chloride 106 (98-107) mmol/L Carbon Dioxide 21 L (22-30) mmol/L BUN 8 (7-17) mg/dL Creatinine 0.33 L (0.52-1.04) mg/dL Glucose 193 H (74-99) mg/dL Calcium 9.3 (8.4-10.2) mg/dL Current Medications Generic Name Dose Route Start Last Admin Trade Name Freq PRN Reason Stop Dose Admin Albuterol Sulfate 2.5 mg 09/06/19 11:23 09/08/19 11:20 Ventolin Nebulized INHALATION 2.5 mg RT-Q4H PRN Administration sob Budesonide 0.5 mg 09/06/19 20:00 09/08/19 07:55 Pulmicort INHALATION 0.5 mg RT-BID [facility] Administration Cholecalciferol 5,000 unit 09/07/19 09:00 09/08/19 08:23 Vitamin D3 (25 Mcg = 1000 Iu) PO 5,000 unit DAILY [facility] Administration Diltiazem HCl 90 mg 09/08/19 16:00 Cardizem Oral PO TID [facility]N Piperacillin Sod/Tazobactam 100 mls @ 25 mls/hr 09/06/19 16:00 09/08/19 08:25 Sod 3.375 gm/ Sodium Chloride IVPB 25 mls/hr Q8HR [facility] Administration Sodium Chloride 1,000 mls @ 75 mls/hr 09/07/19 15:45 09/08/19 06:44 Saline 0.9% IV 75 mls/hr .[id number] [facility] Administration Insulin Aspart 2 - 10 unit 09/08/19 12:30 Novolog SQ AC-TID PRN HYPERGLYCEMIA Protocol Naloxone HCl 0.2 mg 09/06/19 11:19 Narcan IV Q2M PRN Opioid Reversal Intake and Output 09/07/19 09/08/19 09/08/19 22:59 06:59 14:59 Intake Total 80 600 Output Total 150 200 Balance -70 400 Intake: IV 80 600 Dextrose 5%-0.9% NaCl 1, 80 600 000 ml @ 20 mls/hr IV . Q24H [facility] Rx#:[id number] Output: Urine 150 200 Other: Voiding Method Diaper Weight 72.9 kg 09/08/19 05:23 09/08/19 05:23 Assessment and Plan Assessment: Assessment #1 bilateral pneumonia #2 chronic hypoxic respiratory failure #3 history of spina bifida #4 history of SVT #5 sinus tachycardia #7 obesity #8 multiple comorbid conditions Plan #1 increase the dose of Cardizem to 90 mg by mouth 3 times a day #2 rule out thyroid disease by performing free T4 and TSH #3 obtain an echocardiogram was Doppler #4 follow-up with the patient Thank you for allowing us participate in her care
--- NOTE | 2019-09-08 12:00 | PN ---
PROGRESS NOTE DATE OF SERVICE: 09/08/2019 The patient is 33 years old female with congenital abnormalities. She is a FULL CODE. Her height is 3 feet 11 inches and weight 72.9 kg. Her BMI 51.2 kg/meter square with obesity. Her BSA 1.42 meter square. ALLERGIES: Unknown. The patient is seen today, evaluated and her mother on her side. The patient has underlying congenital anomaly and she admitted initially with tracheobronchitis. However, CT scan of the chest was indicating right upper lobe and right middle lobe pneumonia and patient was started on IV antibiotic as well as inhalation nebulizers which she has been at home. The patient also had Prader-Willi syndrome as well as she had underlying tracheostomy and she is on permanently ventilator portable and as well as has chronic acute respiratory failure and as well as has spina bifida. She has also generalized weakness as well as below the waist she has atrophic and undeveloped lower extremities with his contraction as well as she has genitalia abnormalities. She had for urination a suprapubic catheter permanently and was done by [facility]. She has also intellectual abnormalities since . PHYSICAL EXAMINATION: Current physical exam, as discussion with her mother. Her temperature today is 98.1, pulse rate 112 to 114 with tachycardia. She had respiratory rate 11 and her blood pressure 118/88 with the mean pressure of 98. Her oxygen saturation with the tracheostomy collar and saturation 100%. On physical examination, she is conscious. She is alert. She is able to communicate with her mother. Her neck with the tracheostomy collar. Her heart is tachycardia persistently and we will be consulting Cardiology, Dr. Uma Phillips, with the underlying possibility of congenital abnormality and we will order echocardiogram as well and still her heart rate is persistent tachycardia. Chest and the chest is still markedly improving. However, she had bilateral rhonchi present at this time and she has morbid obesity. The extremities: She has flexion and also unable to ambulate and she is bedridden and the caregiver her mother. LABORATORIES: With the current laboratories indicating that her white count now normalized to 9.5 with hemoglobin 13.4 and hematocrit was 40.8. Her chemistry has been with a change of IV, her sodium 137, potassium 4.2, chloride 106 carbon dioxide has been improved to 21. The patient found that she had lactic acidosis with the lactic acid venous 2.4. However, the repeat with the IV increase the rate and change the IV went down to 1.9. She has good glomerular filtration rate more than 90 and creatinine 0.33. 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 POC glucose in the morning on a.m. was 160. She has calcium 9.3 and otherwise the urinalysis came back normal lisa. However, she had the suprapubic catheter for draining of the urine with anomaly. ASSESSMENT UNDERLYIN. Pneumonia, right upper lobe and middle lobe. 2. Underlying tracheobronchitis. 3. Chronic obstructive pulmonary disease. 4. Respiratory acute on the top of chronic failure. 5. Underlying chronic ventilator as well as spina bifida and obesity and we ruling out diabetes and we will be checking her serum insulin and serum C-peptide. Otherwise we will be continuing the current treatment and Dr. Caden Scott following the patient, the Critical and Pulmonary as well and we consulting the Cardiology to evaluate with an echocardiogram with the persistent tachycardia. MMODL / IJN: [id number] /
[2019-09-08] MEDS ORDERED: INSULIN ASPART (NovoLOG) 100 UNIT/ML VIAL SQ PRN (12:30)
[2019-09-08] MEDS: DILTIAZEM ORAL 30 MG TAB PO SCH ×2 (16:21→21:40)
[2019-09-08 16:41] LABS: Glucose,Whole Blood 107 mg/dL (75-99)
[2019-09-08 17:13] LABS: Glucose,Whole Blood 136 mg/dL (75-99)
--- NOTE | 2019-09-08 20:00 | ECHOF ---
Referral Reason:Persistent sinus tach MEASUREMENTS -------- HEIGHT: 119.4 cm WEIGHT: 72.6 kg BP: 118/88 IVSd: 1.0 cm (0.6 - 1.1) LVIDd: 3.0 cm (3.9 - 5.3) LVPWd: 1.1 cm (0.6 - 1.1) IVSs: 1.1 cm LVIDs: 1.5 cm LVPWs: 1.4 cm LA Diam: 2.6 cm (2.7 - 3.8) RVIDd: 1.9 cm (< 3.3) Ao Diam: 2.3 cm (2.0 - 3.7) AV Cusp: 1.9 cm (1.5 - 2.6) EPSS: 0.2 cm RAP: 5.00 mmHg RVSP: 45.65 mmHg MV EF SLOPE: 133.22 mm/s (70 - 150) MV EXCURSION: 16.40 mm (> 18.000) FINDINGS -------- Resting tachycardia (HR>100bpm). This was a technically difficult study with suboptimal views. The left ventricular size is normal. There is borderline concentric left ventricular hypertrophy. Overall left ventricular systolic function is normal with, an EF between 65 - 70 %. The right ventricle is normal in size. The left atrial size is normal. The right atrium was not well visualized. Interatrial and interventricular septum intact. The aortic valve was not well visualized. Mild mitral regurgitation is present. Mild tricuspid regurgitation present. There is mild to moderate pulmonary hypertension. The right ventricular systolic pressure, as measured by Doppler, is 45.65mmHg. The pulmonic valve was not well visualized. The aortic root size is normal. There is no pericardial effusion. CONCLUSIONS -------- 1. Resting tachycardia (HR>100bpm). 2. This was a technically difficult study with suboptimal views. 3. The left ventricular size is normal. 4. There is borderline concentric left ventricular hypertrophy. 5. Overall left ventricular systolic function is normal with, an EF between 65 - 70 %. 6. The right ventricle is normal in size. 7. The left atrial size is normal. 8. The right atrium was not well visualized. 9. Interatrial and interventricular septum intact. 10. The aortic valve was not well visualized. 11. Mild mitral regurgitation is present. 12. Mild tricuspid regurgitation present. 13. There is mild to moderate pulmonary hypertension. 14. The right ventricular systolic pressure, as measured by Doppler, is 45.65mmHg. 15. The pulmonic valve was not well visualized. 16. The aortic root size is normal. 17. There is no pericardial effusion. HR RECEPTIONIST: Alyce Goldsmith RDCS
[2019-09-08 20:24] LABS: Glucose,Whole Blood 97 mg/dL (75-99)
[2019-09-08 22:56] LABS: Hemoglobin A1C 5.4 % (4.0-6.0)
[2019-09-09 05:57] LABS: Anisocytosis Moderate; Basophils # (A) 0.1 k/uL (0-0.2); Basophils % (A) 1 %; Eosinophils # (A) 0.5 k/uL (0-0.7); Eosinophils % (A) 5 %; HCT 39.2 % (34.0-46.0); HGB 13.1 gm/dL (11.4-16.0); Lymphocytes # (A) 2.1 k/uL (1.0-4.8); Lymphocytes % (A) 18 %; MCH 31.7 pg (25.0-35.0); MCHC 33.5 g/dL (31.0-37.0); MCV 94.6 fL (80.0-100.0); Mean Platelet Volume 7.9; Monocytes # (A) 0.7 k/uL (0-1.0); Monocytes % (A) 6 %; Neutrophils # (A) 8.1 k/uL (1.3-7.7); Neutrophils % (A) 69 %; Platelet Count 278 k/uL (150-450); RBC 4.15 m/uL (3.80-5.40); RDW 21.4 % (11.5-15.5); WBC 11.8 k/uL (3.8-10.6)
[2019-09-09 06:09] LABS: African American GFR (CKD) >90 (>60 ml/min/1.73 sqM); Anion Gap 11 mmol/L; Blood Urea Nitrogen 4 mg/dL (7-17); Carbon Dioxide 20 mmol/L (22-30); Chloride 107 mmol/L (98-107); Glucose 96 mg/dL (74-99); Non-African American GFR(CKD) >90 (>60 ml/min/1.73 sqM); Sodium 138 mmol/L (137-145)
[2019-09-09 07:15] LABS: Glucose,Whole Blood 84 mg/dL (75-99)
[2019-09-09] MEDS: BUDESONIDE 0.5 MG/2 ML NEBU INHALATION SCH ×2 (07:51→20:52)
[2019-09-09] MEDS: ALBUTEROL NEBULIZED 2.5 MG/3 ML INHALATION PRN ×4 (07:51→20:52)
[2019-09-09] MEDS: SODIUM CHLORIDE 0.9% 1,000 ML IV SCH ×2 (08:03→08:16)
[2019-09-09] MEDS: PIPERACILLIN-TAZOBACTAM 3.375 GM in SODIUM CHLORIDE 0.9% 100 ML IVPB SCH (08:04)
[2019-09-09] MEDS: DILTIAZEM ORAL 30 MG TAB PO SCH ×3 (08:04→20:38)
[2019-09-09] MEDS: CHOLECALCIFEROL 1,000 UNIT TAB PO SCH (08:04)
[2019-09-09] MEDS: METOPROLOL SUCCINATE (ER) 25 MG TAB.ER.24H PO SCH (08:04)
--- NOTE | 2019-09-09 08:50 | P.PN ---
Subjective Progress Note Date: 09/09/19 Principal diagnosis: Sinus tachycardia This is a very pleasant 33-year-old female patient who is unfortunate with a past medical history significant for spina bifida, chronic respiratory failure with tracheostomy, as well as history of supraventricular tachycardia, was admitted to the hospital with increasing shortness of breath. The patient was seen by the intensive care team and she was diagnosed with sepsis along with acute on chronic respiratory failure related to bilateral pneumonia. We get involved in the care of the patient because off tachycardia. The patient is in sinus rhythm and sinus tachycardia. No prior cardiac history. No history of coronary artery disease or congestive heart failure but there is history of supraventricular tachycardia. The patient currently is on Cardizem at 60 mg by mouth 3 times a day. Her resting heart rate has been between 100 210 beats per minutes. At this point I am going to increase the dose of Cardizem to 90 mg by mouth 3 times a day. Her blood pressure has been within normal limits and the patient is not hypertensive nor requiring any vasopressors. I do feel that the sinus tachycardia is likely related to her bilateral pneumonia as well as his sepsis. But at this point I'm going to rule out any thyroid disorder by performing a TSH/free T4. Beside that I Y to obtain an echocardiogram was Doppler. Her last echo from 2016 revealed normal left ventricular systolic function without any significant valvular abnormalities. The patient was seen today. She is feeling better in terms of shortness of breath. No symptoms of chest pain or chest discomfort. I am going to increase the dose of Cardizem and also restart the patient on her home dose of beta anca with metoprolol. We'll follow-up on the echocardiogram. Objective - Vital Signs Vital signs: Vital Signs Temp 97.9 F 09/09/19 08:00 Pulse 111 H 09/09/19 08:11 Resp 17 09/09/19 08:00 BP 119/91 09/09/19 08:00 Pulse Ox 99 09/09/19 08:00 Intake & Output 09/08/19 09/09/19 09/09/19 18:59 06:59 18:59 Intake Total 325 700 Output Total 500 Balance 325 200 Weight 71.6 kg Intake: IV 600 Sodium Chloride 0.9% 1, 600 000 ml @ 75 mls/hr IV . [id number] [facility] Rx#:[id number] Intake, IV Titration 325 100 Amount Piperacillin-Tazobactam 3 100 100 .375 gm In Sodium Chloride 0.9% 100 ml @ 25 mls/hr IVPB Q8HR [facility] Rx# :[id number] Sodium Chloride 0.9% 1, 225 000 ml @ 75 mls/hr IV . [id number] [facility] Rx#:[id number] Output: Urine 500 Other: Voiding Method Diaper Diaper - Constitutional General appearance: Present: no acute distress - Respiratory Respiratory: bilateral: dullness - Cardiovascular Rhythm: regular Heart sounds: normal: S1, S2 - Labs CBC & Chem 7: 09/09/19 05:34 09/09/19 05:34 Labs: Abnormal Lab Results - Last 24 Hours (Table) 09/08/19 09/08/19 09/08/19 Range/Units 05:43 16:39 17:12 WBC (3.8-10.6) k/uL RDW (11.5-15.5) % Neutrophils # (1.3-7.7) k/uL Carbon Dioxide (22-30) mmol/L BUN (7-17) mg/dL Creatinine (0.52-1.04) mg/dL POC Glucose (mg/dL) 107 H 136 H (75-99) mg/dL C-Peptide 4.12 H (0.81-3.85) ng/mL 09/09/19 09/09/19 Range/Units 05:34 05:34 WBC 11.8 H (3.8-10.6) k/uL RDW 21.4 H (11.5-15.5) % Neutrophils # 8.1 H (1.3-7.7) k/uL Carbon Dioxide 20 L (22-30) mmol/L BUN 4 L (7-17) mg/dL Creatinine 0.29 L (0.52-1.04) mg/dL POC Glucose (mg/dL) (75-99) mg/dL C-Peptide (0.81-3.85) ng/mL Microbiology - Last 24 Hours (Table) 09/06/19 09:12 Blood Culture - Preliminary Blood No Growth after 48 hours 09/07/19 21:10 Gram Stain - Preliminary Sputum Sputum Culture - Preliminary Assessment and Plan Assessment: Assessment #1 bilateral pneumonia #2 chronic hypoxic respiratory failure #3 history of spina bifida #4 history of SVT #5 sinus tachycardia #7 obesity #8 multiple comorbid conditions Plan #1 continue the current medical regimen #2 restart the patient on the home dose of metoprolol #3 follow-up on the echocardiogram
[2019-09-09 11:34] LABS: Glucose,Whole Blood 78 mg/dL (75-99)
--- NOTE | 2019-09-09 13:33 | CDI ---
Documentation Clarification Form Date: 09/09/2019 12:56:13 PM From: Alondra Hawkins RN CCDS Admit Date: 09/06/2019 11:20:00 AM Patient Name: Flores Cárdenas Visit Number: [id number] Discharge Date: ATTENTION: The Clinical Documentation Specialists (CDI) and [facility] Coding Staff appreciate your assistance in clarifying documentation. Please respond to the clarification below the line at the bottom and electronically sign. The CDI & [facility] Coding staff will review the response and follow-up if needed. Please note: Queries are made part of the Legal Health Record. If you have any questions, please contact the author of this message via ITS. Dr. Isaac Goodson 33-year-old female presents to the ED via EMS for increased green sputum from her trach and tachypneic and chest pain. History/Risk Factors: Spina Bifida, Bed ridden, chronic respiratory failure with ventilator and tracheostomy, severe kyphoscoliosis. Clinical Indicators: Per your PN 09/07 Acute Right upper lobe and middle lobe pneumonia with possible aspiration Per your PN 09/07 Leukocytosis probably secondary to pneumonia, rule out sepsis Per Pulmonary PN 09/07 Sepsis Labs 09/06 Wbc 17.2, Neutrophils 14.8; 09/07 Lactic acid 2.4 Sputum Culture Gram Positive Bacilli; Vitals signs on admission: 09/06 45255 150 98.7 24 100% Trach Collar Treatment: Antibiotics: 09/06 Zosyn Ivpb Q 8 Hrs. IV Bolus: 09/06 2L 0.9ns IV bolus In your professional opinion, please clarify if these findings signify one of the following conditions, whether the condition is POA, and cause, if known: * Sepsis POA * Sepsis ruled out * Other, please specify * Unable to determine SIRS Criteria (2 or more of the following may indicate SIRS): -Temperature < 96.8F (36C) or > 101.0F (38.3C) -Heart Rate > 90 bpm -Respiratory Rate > 20 breaths/min or PaCO2 < 32 mmHg -White Blood Cell Count > 12,000 or < 4,000 cells/mm3 or > 10% bands -Lactate >2.0 mmol/L (>4.0 is equivalent to septic shock) (Last Revision: October 2017) With 2 mean by POA MTDD
--- NOTE | 2019-09-09 15:08 | P.PN ---
Subjective Progress Note Date: 09/09/19 Principal diagnosis: Right upper lobe and middle lobe pneumonia due to presence of tracheostomy and compromised airway likely gram-negative pneumonia/Ms. bacterial pneumonia Acute on chronic respiratory failure Sepsis Prader-Willi syndrome Obstructive sleep apnea status post tracheostomy Severe kyphoscoliosis Ventilator dependent History of paroxysmal supraventricular tachycardia Morbid obesity 09/08/2019, patient seen eval examined during the rounds cuff congestion s hortness of breath and wheezing has improved labs reviewed, patient has been doing well patient lost one of the peripheral IVs midline cannot be done still there is one IVs present, we'll continue antibiotics now along with steroids, 09/07/2019, patient seen eval examined during the rounds labs reviewed medications reviewed sitting upright on the bed seen in the ICU patient is breathing pattern is improved mother is present at bedside wheezing have significantly improved now, sputum cultures not able to obtain, white cell count is down from 17,200-11,400 This is a 33-year-old female with predor villi syndrome also has history of spina bifida, trach with vent dependence who presents to the emergency department a couple the by her mother. The mother does provide history. She states that the patient has had increased green sputum production from her trach. She also reports that it has had a foul odor. The patient has been more tachypneic and is complaining of chest pain with increased wheezing cough and congestion. States this previously happened previously in 2018, where she re quired hospitalization. Mother states that she has felt warm. She has had an elevated heart rate. The patient does have a history of tachycardia and takes Cardizem and Toprol at home. She has a blood culture and urine culture both are pending, white cell count is 17,000 both influenza A and B were negative, her chest x-ray reveals significant kyphoscoliosis stable tracheostomy tube, computed tomography scan of the chest negative for pulmonary embolism however does show bilateral pulmonary interstitial alveolar infiltrate predominantly in the right upper and middle lobe Objective - Vital Signs Vital signs: Vital Signs Temp 98.4 F 09/09/19 12:00 Pulse 105 H 09/09/19 12:00 Resp 32 H 09/09/19 12:00 BP 132/93 09/09/19 12:00 Pulse Ox 96 09/09/19 12:00 Intake & Output 09/08/19 09/09/19 09/09/19 18:59 06:59 18:59 Intake Total 325 700 300 Output Total 500 250 Balance 325 200 50 Weight 71.6 kg Intake: IV 600 300 Sodium Chloride 0.9% 1, 600 300 000 ml @ 75 mls/hr IV . [id number] [facility] Rx#:[id number] Intake, IV Titration 325 100 Amount Piperacillin-Tazobactam 3 100 100 .375 gm In Sodium Chloride 0.9% 100 ml @ 25 mls/hr IVPB Q8HR [facility] Rx# :[id number] Sodium Chloride 0.9% 1, 225 000 ml @ 75 mls/hr IV . [id number] [facility] Rx#:[id number] Output: Urine 500 250 Other: Voiding Method Diaper Diaper - Exam - Constitutional General appearance: cooperative, disheveled, mild distress, morbidly obese - EENT Eyes: anicteric sclerae, EOMI, PERRLA, poor dentition ENT: normal oropharynx Ears: bilateral: normal - Neck Neck: normal ROM Carotids: bilateral: upstroke normal - Respiratory Respiratory: bilateral: wheezing (Bilateral respiratory extreme wheezing and rhonchi), other (Severe kyphoscoliosis), using home ventilator - Cardiovascular Rhythm: regular Heart sounds: normal: S1, S2 - Gastrointestinal General gastrointestinal: normal bowel sounds - Neurologic Neurologic: CNII-XII intact - Musculoskeletal Musculoskeletal: generalized weakness, strength equal bilaterally - Psychiatric Psychiatric: A&O x's 3, appropriate affect, intact judgment & insight - Labs CBC & Chem 7: 09/09/19 05:34 09/09/19 05:34 Labs: Abnormal Lab Results - Last 24 Hours (Table) 09/08/19 09/08/19 09/08/19 Range/Units 05:43 16:39 17:12 WBC (3.8-10.6) k/uL RDW (11.5-15.5) % Neutrophils # (1.3-7.7) k/uL Carbon Dioxide (22-30) mmol/L BUN (7-17) mg/dL Creatinine (0.52-1.04) mg/dL POC Glucose (mg/dL) 107 H 136 H (75-99) mg/dL C-Peptide 4.12 H (0.81-3.85) ng/mL 09/09/19 09/09/19 Range/Units 05:34 05:34 WBC 11.8 H (3.8-10.6) k/uL RDW 21.4 H (11.5-15.5) % Neutrophils # 8.1 H (1.3-7.7) k/uL Carbon Dioxide 20 L (22-30) mmol/L BUN 4 L (7-17) mg/dL Creatinine 0.29 L (0.52-1.04) mg/dL POC Glucose (mg/dL) (75-99) mg/dL C-Peptide (0.81-3.85) ng/mL Microbiology - Last 24 Hours (Table) 09/07/19 21:10 Gram Stain - Preliminary Sputum Sputum Culture - Preliminary Pseudomonas spec 09/06/19 09:12 Blood Culture - Preliminary Blood No Growth after 72 hours Assessment and Plan Assessment: Right upper lobe and middle lobe pneumonia due to presence of tracheostomy and compromised airway likely gram-negative pneumonia/Ms. bacterial pneumonia Acute on chronic respiratory failure Sepsis Prader-Willi syndrome Obstructive sleep apnea status post tracheostomy Severe kyphoscoliosis Ventilator dependent History of paroxysmal supraventricular tachycardia Morbid obesity Plan: Will obtain a sputum for Gram stain and culture Continue breathing treatments with albuterol and Pulmicort Continue vent management keep on same setting as home Continue IV Zosyn Further recommendations pending plan of care as per clinical response of the patient Time with Patient: Greater than 30
--- NOTE | 2019-09-09 15:10 | P.PN ---
Subjective Progress Note Date: 09/08/19 Principal diagnosis: Right upper lobe and middle lobe pneumonia due to presence of tracheostomy and compromised airway likely gram-negative pneumonia/Ms. bacterial pneumonia Acute on chronic respiratory failure Sepsis Prader-Willi syndrome Obstructive sleep apnea status post tracheostomy Severe kyphoscoliosis Ventilator dependent History of paroxysmal supraventricular tachycardia Morbid obesity 09/08/2019, patient seen and examined care plan discussed continue antibiotics and breathing treatment and further recommendations pending 09/07/2019, patient seen eval examined during the rounds labs reviewed medications reviewed sitting upright on the bed seen in the ICU patient is breathing pattern is improved mother is present at bedside wheezing have significantly improved now, sputum cultures not able to obtain, white cell count is down from 17,200-11,400 This is a 33-year-old female with predor villi syndrome also has history of spina bifida, trach with vent dependence who presents to the emergency department a couple the by her mother. The mother does provide history. She states that the patient has had increased green sputum production from her trach . She also reports that it has had a foul odor. The patient has been more tachypneic and is complaining of chest pain with increased wheezing cough and congestion. States this previously happened previously in 2018, where she required hospitalization. Mother states that she has felt warm. She has had an elevated heart rate. The patient does have a history of tachycardia and takes Cardizem and Toprol at home. She has a blood culture and urine culture both are pending, white cell count is 17,000 both influenza A and B were negative, her chest x-ray reveals significant kyphoscoliosis stable tracheostomy tube, computed tomography scan of the chest negative for pulmonary embolism however d oes show bilateral pulmonary interstitial alveolar infiltrate predominantly in the right upper and middle lobe Objective - Vital Signs Vital signs: Vital Signs Temp 98.3 F 09/08/19 14:00 Pulse 117 H 09/08/19 14:00 Resp 19 09/08/19 14:00 BP 141/105 09/08/19 14:00 Pulse Ox 96 09/08/19 14:00 Intake & Output 09/07/19 09/08/19 09/08/19 18:59 06:59 18:59 Intake Total 80 680 Output Total 125 350 Balance -45 330 Weight 72.9 kg Intake: IV 80 680 Dextrose 5%-0.9% NaCl 1, 80 680 000 ml @ 20 mls/hr IV . Q24H [facility] Rx#:[id number] Output: Urine 125 350 Other: Voiding Method Diaper - Exam - Constitutional General appearance: cooperative, disheveled, mild distress, morbidly obese - EENT Eyes: anicteric sclerae, EOMI, PERRLA, poor dentition ENT: normal oropharynx Ears: bilateral: normal - Neck Neck: normal ROM Carotids: bilateral: upstroke normal - Respiratory Respiratory: bilateral: wheezing (Bilateral respiratory extreme wheezing and rhonchi), other (Severe kyphoscoliosis), using home ventilator - Cardiovascular Rhythm: regular Heart sounds: normal: S1, S2 - Gastrointestinal General gastrointestinal: normal bowel sounds - Neurologic Neurologic: CNII-XII intact - Musculoskeletal Musculoskeletal: generalized weakness, strength equal bilaterally - Psychiatric Psychiatric: A&O x's 3, appropriate affect, intact judgment & insight - Labs CBC & Chem 7: 09/09/19 05:34 09/09/19 05:34 Labs: Abnormal Lab Results - Last 24 Hours (Table) 09/07/19 09/07/19 09/08/19 Range/Units 16:47 21:32 05:23 RDW 18.7 H (11.5-15.5) % Carbon Dioxide (22-30) mmol/L Creatinine (0.52-1.04) mg/dL Glucose (74-99) mg/dL POC Glucose (mg/dL) 156 H 109 H (75-99) mg/dL 09/08/19 09/08/19 Range/Units 05:23 06:53 RDW (11.5-15.5) % Carbon Dioxide 21 L (22-30) mmol/L Creatinine 0.33 L (0.52-1.04) mg/dL Glucose 193 H (74-99) mg/dL POC Glucose (mg/dL) 160 H (75-99) mg/dL Microbiology - Last 24 Hours (Table) 09/06/19 09:12 Blood Culture - Preliminary Blood No Growth after 48 hours 09/07/19 21:10 Gram Stain - Preliminary Sputum Sputum Culture - Preliminary 09/06/19 17:15 Urine Culture - Final Urine,Clean Catch Assessment and Plan Assessment: Right upper lobe and middle lobe pneumonia due to presence of tracheostomy and compromised airway likely gram-negative pneumonia/Ms. bacterial pneumonia Acute on chronic respiratory failure Sepsis Prader-Willi syndrome Obstructive sleep apnea status post tracheostomy Severe kyphoscoliosis Ventilator dependent History of paroxysmal supraventricular tachycardia Morbid obesity Plan: Will obtain a sputum for Gram stain and culture Continue breathing treatments with albuterol and Pulmicort Continue vent management keep on same setting as home Continue IV Zosyn Further recommendations pending plan of care as per clinical response of the patient Time with Patient: Greater than 30
[2019-09-09 17:01] LABS: Glucose,Whole Blood 87 mg/dL (75-99)
[2019-09-09] MEDS: AMOXIC-POT CLAV 500-125 MG 1 EACH TAB PO SCH (20:38)
[2019-09-09 21:08] LABS: Glucose,Whole Blood 95 mg/dL (75-99)
--- NOTE | 2019-09-09 22:03 | P.PN ---
Subjective Progress Note Date: 09/09/19 Principal diagnosis: Diagnoses: #1 right upper lobe and middle lobe pneumonia with probable aspiration. By computed tomography scan of the chest. Possible gram-negative. #2 ventilatory dependent, tracheostomy tube, #3 chronic respiratory failure on permanent oxygen. #4 tachycardia. #5 leukocytosis probably secondary to the pneumonia, rule out sepsis. #6 UTI culture and sensitivity is pending. With the large leukocyte esterase. #7 hypoglycemia unknown etiology could be associated with sepsis. #8 renal function and hepatic function is stable. #9 obstructive sleep apnea #10 history of paroxysmal supraventricular tachycardia. #10 acute on chronic respiratory failure. 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 #13 abnormalities. Progress note date of service 09/09/[address] Laina Hernandez. Patient seen and evaluated today in ICU she is on ventilator dependent her white count is 11.8. And her hemoglobin is 613.1 normal platelet count and that was done on 09/08/19. Her electrolytes also was in the same date was indicating of sodium 138 potassium 4 chloride 107 carbon dioxide 20 which with mild acidemia probably secondary to the respiratory failure her home creatinine 0.9 with the BUN of 4 and blood sugar was stable she had fluctuation upper and lower however the hemoglobin A1c was negative and on she was covered with insulin intermittently but no evidence of clear diabetes her troponin was normal as well on admission and normal thyroid function. She has actually low blood sugar on admission. On the On examination patient is conscious alert she is a oriented however she had mental abnormalities with the congenital abnormality and she had excessive hunger and the otherwise stable she her severe inspiratory expiratory crackle and cough and rhonchi has been progressively improved despite that might minimal elevation of the leukocyte On the physical exam patient's conscious alert and she had natural decrease able to eat and swallow she is obese and the with a BMI 50.2 kg/m. Her blood pressure 124/108 with the pulse rate has been improved with the current treatment by the cardiology. Her pulse ox 93 with the room air but she is on the ventilator and oxygen permanently. Head was normocephalic and atraumatic and pupil was equal reactive oropharynx was normal and natural teeth neck was supple no JVD no thyromegaly no lymphadenopathy. The chest was markedly improved on the inspiration expiration and the minimal rhonchi left she feeling much better. The heart was regular sinus and did not have any arrhythmia and the tachycardia has been improved the abdomen is soft positive bowel sounds extremities no edema and she had decreased tone of the lower extremities and from the Bobo down is atrophic with the short legs and short was small feet and she had fungals infection and nail dystrophies and the her mom has been taken to manager manufacturing and also she has been taking her to the [facility] for the ventilator clinic as well the urology clinic patient has only opening from suprapubic to the bladder and that she has been put in for drainage has been removed now and she is on pads and diapers to avoid any infection. And that has been taking care of by urology in [facility]. 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 #4 obesity with the craving food and that syndrome as well. Plan patient will be changing her medication to oral. And plan to discharge her tomorrow we'll obtain CBC with differential and BMP in a.m. Objective - Vital Signs Vital signs: Vital Signs Temp 98.8 F 09/09/19 20:00 Pulse 108 H 09/09/19 21:08 Resp 20 09/09/19 20:00 BP 124/108 09/09/19 20:00 Pulse Ox 93 L 09/09/19 20:00 Intake & Output 09/09/19 09/09/19 09/10/19 06:59 18:59 06:59 Intake Total 700 300 Output Total 500 250 Balance 200 50 Weight 71.6 kg Intake: IV 600 300 Sodium Chloride 0.9% 1, 600 300 000 ml @ 75 mls/hr IV . [id number] [facility] Rx#:[id number] Intake, IV Titration 100 Amount Piperacillin-Tazobactam 3 100 .375 gm In Sodium Chloride 0.9% 100 ml @ 25 mls/hr IVPB Q8HR [facility] Rx# :[id number] Output: Urine 500 250 Other: Voiding Method Diaper Diaper # Voids 1 - Labs CBC & Chem 7: 09/09/19 05:34 09/09/19 05:34 Labs: Abnormal Lab Results - Last 24 Hours (Table) 09/09/19 09/09/19 Range/Units 05:34 05:34 WBC 11.8 H (3.8-10.6) k/uL RDW 21.4 H (11.5-15.5) % Neutrophils # 8.1 H (1.3-7.7) k/uL Carbon Dioxide 20 L (22-30) mmol/L BUN 4 L (7-17) mg/dL Creatinine 0.29 L (0.52-1.04) mg/dL Microbiology - Last 24 Hours (Table) 09/07/19 21:10 Gram Stain - Preliminary Sputum Sputum Culture - Preliminary Pseudomonas spec 09/06/19 09:12 Blood Culture - Preliminary Blood No Growth after 72 hours
[2019-09-10] MEDS: DEXTROSE 5%-0.9% NACL 1,000 ML IV SCH (00:01)
[2019-09-10 06:12] LABS: Anisocytosis Moderate; Basophils # (A) 0.1 k/uL (0-0.2); Basophils % (A) 1 %; Eosinophils # (A) 0.4 k/uL (0-0.7); Eosinophils % (A) 3 %; HGB 12.9 gm/dL (11.4-16.0); Lymphocytes # (A) 2.7 k/uL (1.0-4.8); Lymphocytes % (A) 23 %; MCH 30.9 pg (25.0-35.0); MCHC 33.1 g/dL (31.0-37.0); MCV 93.5 fL (80.0-100.0); Monocytes # (A) 0.7 k/uL (0-1.0); Monocytes % (A) 6 %; Neutrophils # (A) 7.6 k/uL (1.3-7.7); Neutrophils % (A) 65 %; Platelet Count 334 k/uL (150-450); RBC 4.17 m/uL (3.80-5.40); RDW 20.1 % (11.5-15.5); WBC 11.8 k/uL (3.8-10.6)
[2019-09-10 06:15] LABS: African American GFR (CKD) >90 (>60 ml/min/1.73 sqM); Anion Gap 8 mmol/L; Blood Urea Nitrogen 3 mg/dL (7-17); Calcium 9.1 mg/dL (8.4-10.2); Carbon Dioxide 22 mmol/L (22-30); Chloride 108 mmol/L (98-107); Glucose 82 mg/dL (74-99); Non-African American GFR(CKD) >90 (>60 ml/min/1.73 sqM); Potassium 4.3 mmol/L (3.5-5.1); Sodium 138 mmol/L (137-145)
[2019-09-10 06:46] LABS: Glucose,Whole Blood 75 mg/dL (75-99)
[2019-09-10] MEDS: BUDESONIDE 0.5 MG/2 ML NEBU INHALATION SCH (07:40)
[2019-09-10] MEDS: ALBUTEROL NEBULIZED 2.5 MG/3 ML INHALATION PRN (07:40)
--- NOTE | 2019-09-10 08:11 | P.PN ---
Subjective Progress Note Date: 09/10/19 Principal diagnosis: Sinus tachycardia This is a very pleasant 33-year-old female patient who is unfortunate with a past medical history significant for spina bifida, chronic respiratory failure with tracheostomy, as well as history of supraventricular tachycardia, was admitted to the hospital with increasing shortness of breath. The patient was seen by the intensive care team and she was diagnosed with sepsis along with acute on chronic respiratory failure related to bilateral pneumonia. We get involved in the care of the patient because off tachycardia. The patient is in sinus rhythm and sinus tachycardia. No prior cardiac history. No history of coronary artery disease or congestive heart failure but there is history of supraventricular tachycardia. The patient currently is on Cardizem at 60 mg by mouth 3 times a day. Her resting heart rate has been between 100 210 beats per minutes. At this point I am going to increase the dose of Cardizem to 90 mg by mouth 3 times a day. Her blood pressure has been within normal limits and the patient is not hypertensive nor requiring any vasopressors. I do feel that the sinus tachycardia is likely related to her bilateral pneumonia as well as his sepsis. But at this point I'm going to rule out any thyroid disorder by performing a TSH/free T4. Beside that I Y to obtain an echocardiogram was Doppler. Her last echo from 2016 revealed normal left ventricular systolic function without any significant valvular abnormalities. The patient was seen today, September 102019. Overall she's feeling better in terms of shortness of breath and she denies any symptoms of chest pain or chest discomfort. She continues to be on beta anca as well as calcium channel anca. The heart rate has been between 80s to 90s in sinus rhythm. I will continue the current medical regimen. The echocardiogram revealed normal LV function Objective - Vital Signs Vital signs: Vital Signs Temp 98.1 F 09/10/19 04:00 Pulse 120 H 09/10/19 07:55 Resp 22 09/10/19 04:00 BP 136/94 09/10/19 04:00 Pulse Ox 92 L 09/10/19 04:00 Intake & Output 09/09/19 09/10/19 09/10/19 18:59 06:59 18:59 Intake Total 300 Output Total 250 Balance 50 Intake: IV 300 Sodium Chloride 0.9% 1, 300 000 ml @ 75 mls/hr IV . [id number] [facility] Rx#:[id number] Output: Urine 250 Other: Voiding Method Diaper Diaper # Voids 1 1 - Constitutional General appearance: Present: no acute distress - Respiratory Respiratory: bilateral: CTA - Cardiovascular Rhythm: regular Heart sounds: normal: S1, S2 - Labs CBC & Chem 7: 09/10/19 05:37 09/10/19 05:37 Labs: Abnormal Lab Results - Last 24 Hours (Table) 09/10/19 09/10/19 Range/Units 05:37 05:37 WBC 11.8 H (3.8-10.6) k/uL RDW 20.1 H (11.5-15.5) % Chloride 108 H (98-107) mmol/L BUN 3 L (7-17) mg/dL Creatinine 0.31 L (0.52-1.04) mg/dL Microbiology - Last 24 Hours (Table) 09/07/19 21:10 Gram Stain - Preliminary Sputum Sputum Culture - Preliminary Pseudomonas spec 09/06/19 09:12 Blood Culture - Preliminary Blood No Growth after 72 hours Assessment and Plan Assessment: Assessment #1 bilateral pneumonia #2 chronic hypoxic respiratory failure #3 history of spina bifida #4 history of SVT #5 sinus tachycardia #7 obesity #8 multiple comorbid conditions Plan #1 continue the current medical regimen #2 follow-up with the patient
[2019-09-10] MEDS ORDERED: methylPREDNISolone 4 MG TAB TAPER PO SCH (09:00)
[2019-09-10] MEDS: AMOXIC-POT CLAV 500-125 MG 1 EACH TAB PO SCH (09:06)
[2019-09-10] MEDS: DILTIAZEM ORAL 30 MG TAB PO SCH (09:07)
[2019-09-10] MEDS: METOPROLOL SUCCINATE (ER) 25 MG TAB.ER.24H PO SCH (09:08)
[2019-09-10] MEDS: CHOLECALCIFEROL 1,000 UNIT TAB PO SCH (09:09)
[2019-09-10 09:54] VITALS: TEMP 97.4
[2019-09-10] MEDS ORDERED: METOPROLOL TARTRATE 12.5 MG TAB PO SCH ×2 (12:00→21:00)
[2019-09-10 12:08] LABS: Glucose,Whole Blood 128 mg/dL (75-99)
[2019-09-10 12:15] VITALS: BP 136/93; PULSE 124; RESP 23
--- NOTE | 2019-09-10 13:34 | P.DS ---
Providers Date of admission: 09/06/19 11:20 Expected date of discharge: 09/10/19 (Sputum pseudomonas aeruginosa) Attending physician: Isaac Goodson Consults: 09/06/19 11:32 Consult Physician Stat Consulting Provider: Loren Phillips Consult Reason/Comments: persistent sinus tachycardia Do you want consulting provider notified?: Yes 09/08/19 12:48 Consult Physician Routine Consulting Provider: Caden Scott Consult Reason/Comments: ICU management Do you want consulting provider notified?: Already Contacted Primary care physician: Isaac Goodson Dictation on the discharge summary date of service 09/10/[address] Goodson. Admission date 09/06/2019. Final diagnosis #1 no evidence of PE of the lung #2 bilateral pulmonary interstitial and alveolar edema. Right upper lobe and right middle lobe pneumonia and lesser extent the right lower lobe consistent with pneumonia. By computed tomography scan of the chest. #2 tachycardia persistent. #3 congenital abnormalities probably associated with PraderWillie syndrome. #4 obesity with a BMI 50. 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 #6 no evidence of diabetes mellitus so far insulin testing has been ordered and results his unavailable probably because it's and out. #7 COPD #8 tracheobronchitis. #9 respiratory failure acute on the top of chronic #10 patient on ventilator portable with the tracheostomy. #11 she had abnormal genitalia and discussed with her mother needs to be gynecological evaluation. #12 she had supra pubic hold for urination in the bladder with the underlying atresia of the [facility]ra [facility] [place] [facility] the underlying congenital anomalies but the records not available. #14 she is bed ridden, walking disability, congestion and 30 lower extremities none developed with underlying impairment of the muscle tone. And atrophic lower extremities. #15 she had mental impairment and decreased intellectual and we don't have her brain actual age but she behaved as 10-12 years old. Emergency room presentation: 33 years old -[place] female with the history of spina bifida and tracheostomy dependent and presented to the ER physician with the her with the patient and the mother or the providing the history and she stated that she had increased to green pro-sputum production from the trach and she had reports foul odor and patient to Think and complaining of chest pain In that before and she needed to be hospitalized last what her mother stated and she had elevated heart rate at the time of admission patient to have a history of tachycardia and she was on Toprol and Cardizem but is not helping at this time. With the patient could not provide the history. Hospital course: Patient admitted to the ICU with the underlying pneumonia of the right lung upper middle and probably the lower, consultation with pulmonary Dr. Caden Scott and subsequent continuation of the antibiotic which is Zosyn every 8 hour period and care of the respiratory floor or the ventilator by Dr. Caden Scott as well. With the tachycardia resistant consultation with the cardiology Dr. Leon. And adjusted medication. Patient also started on the nebulizers and steroid and subsequently she did well and improved the symptoms of coughing and bilateral rhonchi's and wheezes has been resolved with the inhalation therapy. Patient was started on Pulmicort as well however insurance refused to pay for the Pulmicort on discharge. Sputum culture was indicating Pseudomonas, initially patient was on Zosyn which is covering the Pseudomonas, when the change in the antibiotic was changes to Augmentin, which she discontinued and started on Levaquin 250 mg twice a day for 7 days because of patient could not swallow small pills and needs to be crushed. Also her tachycardia medication has been adjusted and currently she is on metoprolol tartrate 25 mg twice a day because possibility to be crushed and discontinue the Toprol XL. Dr. Leon also adjust the cardiac to 90 mg by mouth 3 times a day and the pill is 30 mg she will be taken 3 pills 3 times a day. Patient stable general condition to be discharged today with the current medication and follow-up with Dr. Caden Scott pulmonary and critical and, [facility] and will see her in one week in the office. Assessment stable. And plan to be discharged home today Physical exam on discharge: Patient conscious alert, head was normocephalic atraumatic pupil was equal reactive oropharynx normal was natural teeth and uvula midline. Neck was supple no JVD no thyromegaly no lymphadenopathy and short neck which is covered with tracheostomy, and she is permanently on portable ventilator. Which patient goes to [facility] for the ventilator clinic The heart sinus regular with tachycardia and medication adjusted. The chest improved significantly. Patient of the lung and breath sound. Bilateral. Abdomen soft positive bowel sounds. Genitourinary she has the hole in the suprapubic for urination and she wearing diapers no catheters, lower extremities no edema and positive pulses and atrophic genetically. Patient stable for discharge Laboratory on discharge Laboratory on discharge: WBC 11.8, hemoglobin 12.9, sodium 138, potassium 4.3, her GFR more than 90 glucose 82 and POC glucose was 75-128. Temperature 97.4 and heart rate 120s to 124 medication adjusted, blood pressure 136/93 with a mean 107 and respiratory rate is 1923. Her she is on ventilator and and pulse ox is 98 on the room air. Her echocardiogram done in the hospital date of service 09/08/2019, resting tachycardia borderline left ventricular hypertrophy, ejection fraction 65-70% internal atrial abdomen and ventricular septum is intact, mitral regurg present, tricuspid regurg present, pulmonary hypertension moderate, right ventricular systolic pressure measured 45.65 mmHg, no pericardial effusion and aortic root size is normal. Patient Condition at Discharge: Stable Plan - Discharge Summary Discharge Rx Participant: No New Discharge Prescriptions: New Amoxic-Pot Clav 500-125 mg [Augmentin 500-125 mg] 1 each PO BID #20 tab Diltiazem Oral [Cardizem*] 90 mg PO TID #90 tab Metoprolol Tartrate [Lopressor] 25 mg PO BID #60 tab methylPREDNISolone Dose Pack [Medrol Dose Pack] 4 mg PO DIRECTED 6 Days #1 tab Budesonide [Pulmicort] 0.5 mg INHALATION RT-BID #60 ml Continue Albuterol Nebulized [Ventolin Nebulized] 2.5 mg INHALATION RT-Q4H PRN PRN Reason: sob Cholecalciferol [Vitamin D3 (25 Mcg = 1000 Iu)] 5,000 unit PO DAILY Discontinued Diltiazem HCl 60 mg PO TID Metoprolol Succinate [Toprol XL] 25 mg PO DAILY Discharge Medication List Albuterol Nebulized [Ventolin Nebulized] 2.5 mg INHALATION RT-Q4H PRN 10/07/17 [History] Cholecalciferol [Vitamin D3 (25 Mcg = 1000 Iu)] 5,000 unit PO DAILY 06/13/19 [History] Amoxic-Pot Clav 500-125 mg [Augmentin 500-125 mg] 1 each PO BID #20 tab 09/10/19 [Rx] Budesonide [Pulmicort] 0.5 mg INHALATION RT-BID #60 ml 09/10/19 [Rx] Diltiazem Oral [Cardizem*] 90 mg PO TID #90 tab 09/10/19 [Rx] Metoprolol Tartrate [Lopressor] 25 mg PO BID #60 tab 09/10/19 [Rx] methylPREDNISolone Dose Pack [Medrol Dose Pack] 4 mg PO DIRECTED 6 Days #1 tab 09/10/19 [Rx] Follow up Appointment(s)/Referral(s): Caden Scott MD [STAFF PHYSICIAN] - 1 Week Isaac Goodson MD [Primary Care Provider] - 1-2 days Activity/Diet/Wound Care/Special Instructions: Pulmicort require a prior authorization through [facility] which has been filled. Contact physician office regarding medication post discharge. Discharge Disposition: HOME SELF-CARE
[2019-09-10] MEDS ORDERED: METOPROLOL TARTRATE 25 MG TAB PO SCH (21:00)
[2019-09-10] MEDS ORDERED: LEVOFLOXACIN 250 MG TAB PO SCH (21:00)
[2019-09-12 21:29] LABS: Insulin Antibodies <0.4 U/mL (0.0-0.4)
== END 2019-09-10 14:47 | disposition home or self-care (01) | DRG 870 ==
LOC: EC 08:01 → 3SCARD 11:20 → 2SICU 23:04
PROVIDERS: ADMIT Internal Medicine; ATTEND Internal Medicine
PROC: 5A1955Z Respiratory Ventilation, Greater than 96 Consecutive Hours (ICD-10-PCS; principal; 2019-09-06)
DX: A41.52 Sepsis due to Pseudomonas (principal); J15.1 Pneumonia due to Pseudomonas; J96.21 Acute and chronic respiratory failure with hypoxia; Z68.43 Body mass index [BMI] 50.0-59.9, adult; E87.2 Acidosis; J44.0 Chronic obstructive pulmonary disease with (acute) lower respiratory infection; J44.1 Chronic obstructive pulmonary disease with (acute) exacerbation; N39.0 Urinary tract infection, site not specified; Q64.39 Other atresia and stenosis of urethra and bladder neck; Q87.11 Prader-Willi syndrome; Z99.11 Dependence on respirator [ventilator] status; E16.2 Hypoglycemia, unspecified; F71 Moderate intellectual disabilities; G47.33 Obstructive sleep apnea (adult) (pediatric); G83.9 Paralytic syndrome, unspecified; I08.1 Rheumatic disorders of both mitral and tricuspid valves; I27.20 Pulmonary hypertension, unspecified; M41.9 Scoliosis, unspecified; Z79.899 Other long term (current) drug therapy; Z82.49 Family history of ischemic heart disease and other diseases of the circulatory system; Z82.5 Family history of asthma and other chronic lower respiratory diseases; Z83.3 Family history of diabetes mellitus; Q07.01 Arnold-Chiari syndrome with spina bifida; Z87.442 Personal history of urinary calculi; Z93.0 Tracheostomy status; Z98.2 Presence of cerebrospinal fluid drainage device; Z99.3 Dependence on wheelchair; Q99.8 Other specified chromosome abnormalities; Z87.01 Personal history of pneumonia (recurrent); Z87.440 Personal history of urinary (tract) infections; K59.00 Constipation, unspecified
CPT/HCPCS: 36415; 71045; 71046; 71275; 80048; 80053; 81001; 83036; 83605; 83735; 84305; 84443; 84484; 84681; 85025; 85610; 85730; 86337; 87040; 87070; 87077; 87086; 87186; 87205; 87502; 93005; 93306; 94640; 96361; 96365; 96366; 96375; 99285

== ENCOUNTER 2020-03-14 16:09 | Emergency (ER) | payer OTHER ==
[2020-03-14 16:16] VITALS: BP 102/88; PULSE 88; RESP 20; TEMP 99
--- NOTE | 2020-03-14 16:44 | ED ---
Extremity Problem HPI - General Chief complaint: Extremity Problem,Nontraumatic Stated complaint: Leg Drainage Time Seen by Provider: 03/14/20 16:15 Source: EMS Mode of arrival: EMS Limitations: physical limitation - History of Present Illness Initial comments: Patient is a 34-year-old female, history/spina bifida with extremity deformities, currently with a trach and vent, presenting to the emergency department with her mother with concerns of swelling of her left lower extremity. Mother also noticed that the leg has been weeping. There is no sig ns of an obvious infection. Patient does have numbness from the waist down. She denies history of blood clots. There've been no falls. She denies any chest pain, shortness of breath. Patient denies any fever, chills, nausea, vomiting. There are no further complaints at this time. Upon arrival to the ER, vital signs are stable. - Related Data Home Medications Medication Instructions Recorded Confirmed Albuterol Nebulized [Ventolin 2.5 mg INHALATION RT-Q4H PRN 10/07/17 09/06/19 Nebulized] Cholecalciferol [Vitamin D3 (25 5,000 unit PO DAILY 06/13/19 09/06/19 Mcg = 1000 Iu)] Previous Rx's Medication Instructions Recorded Diltiazem Oral [Cardizem*] 90 mg PO TID #90 tab 09/10/19 Levofloxacin [Levaquin] 250 mg PO BID 7 Days #14 tab 09/10/19 Metoprolol Tartrate [Lopressor] 25 mg PO BID #60 tab 09/10/19 methylPREDNISolone Dose Pack 4 mg PO DIRECTED 6 Days #1 tab 09/10/19 [Medrol Dose Pack] Allergies Allergy/AdvReac Type Severity Reaction Status Date / Time No Known Allergies Allergy Verified 03/14/20 16:12 Review of Systems ROS Statement: Those systems with pertinent positive or pertinent negative responses have been documented in the HPI. ROS Other: All systems not noted in ROS Statement are negative. Past Medical History Past Medical History: Asthma, GERD/Reflux, Musculoskeletal Disorder Additional Past Medical History / Comment(s): Spina bifida with spina bifida deformities, paralyzed waist down, mentality approximately 6yr old, severe kyphoscoliosis with pectus deformity, chronic lung disease with chronic re spiratory hypoxia/hypercpnia, trach/chronic vent, pneumonias, bronchospasms, cervical compression with surgery, nephrolithiasis, urostomy-wears depends, UTIs, constipation. 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, bilateral release/resection hamstrings proximal muscle, cervical decompression, surgery for "lazy eye." Shunt placed in brain 2020 Past Anesthesia/Blood Transfusion Reactions: No Reported Reaction Past Psychological History: No Psychological Hx Reported Smoking Status: Never smoker Past Alcohol Use History: None Reported Past Drug Use History: None Reported - Past Family History Father Family Medical History: Asthma Mother Family Medical History: Diabetes Mellitus, Hyperlipidemia, Hypertension General Exam - General Exam Comments Initial Comments: GENERAL: Patient is well-developed and well-nourished. Patient is nontoxic and in no acute distress. HEAD: Atraumatic, normocephalic. EYES: Pupils equal round and reactive to light, extraocular movements intact, sclera anicteric, conjunctiva are normal. Eyelids were unremarkable. ENT: TMs normal, nares patent, oropharynx clear without exudates. Moist mucous membranes. NECK: Normal range of motion, supple without lymphadenopathy or JVD. Trach present. LUNGS: Unlabored respirations. Breath sounds clear to auscultation bilaterally and equal. No wheezes rales or rhonchi. HEART: Regular rate and rhythm without murmurs, rubs or gallops. ABDOMEN: Soft, nontender, normoactive bowel sounds. No guarding, no rebound. No masses appreciated. : Deferred MUSCULOSKELETAL: History of spina bifida with deformities of all 4 extremities. Patient has no feeling from the waist down. Patient has moderate amount of swelling of the left lower extremity compared to the right. There is no obvious sores or signs of an infection. NEUROLOGICAL: Patient is alert and oriented x 3. Motor and sensory are also intact. Cranial nerves II through XII grossly intact. Symmetrical smile. Normal speech. PSYCH: Normal mood, normal affect. SKIN: Warm, Dry, normal turgor, no rashes or lesions noted. Limitations: physical limitation Course Vital Signs 03/14/20 16:12 Temperature 99.0 F Pulse Rate 88 Respiratory 20 Rate Blood Pressure 102/88 O2 Sat by Pulse 98 Oximetry Medical Decision Making - Medical Decision Making Patient is a 34-year-old female history of spina bifida, deformities all 4 extremities, currently with trach and vent, resenting for one day of swelling to the left lower extremity which has been weeping. There is no obvious signs of infection, there is no erythema. We did do an ultrasound of the left lower extremity that did not reveal a DVT although it was slightly limited in the upper portion of the leg. I discussed with the mother that there doesn't seem to be a DVT or a source of infection at this time. I recommended following up with their PCP in the next few days. I also recommend gentle massage to the leg as well as Roe wraps for compression. Also recommended elevation. Mother is in agreement with that plan of care. Patient is stable for discharge. Return parameters were discussed with the mother and they verbalized understanding. Case discussed with Dr. Dye. Disposition Clinical Impression: Left leg swelling Disposition: HOME SELF-CARE Condition: Stable Instructions (If sedation given, give patient instructions): Leg Edema (ED) Additional Instructions: Please return to the Emergency Department if symptoms worsen or any other concerns. Follow-up with PCP in the next 1-3 days. Is patient prescribed a controlled substance at d/c from ED?: No Referrals: Isaac Goodson MD [Primary Care Provider] - 1-2 days
--- NOTE | 2020-03-14 17:31 | US ---
EXAMINATION TYPE: US venous doppler duplex LE LT DATE OF EXAM: 03/14/2020 5:12 PM COMPARISON: NONE CLINICAL HISTORY: swelling. SIDE PERFORMED: Left TECHNIQUE: The lower extremity deep venous system is examined utilizing real time linear array sonog austen with graded compression, doppler sonography and color-flow sonography. VESSELS IMAGED: External Iliac Vein (EIV) Common Femoral Vein Deep Femoral Vein Greater Saphenous Vein * Femoral Vein Popliteal Vein Small Saphenous Vein * Proximal Calf Veins (* superficial vessels) Morbidly obese patient has spina bifida, is unable to move in any way to cooperate with examiner. Emma ble to see in groin due to patients panus and sitting upright. Unable to move probe to see in sagitta l plane behind knee due to patients body habitus and mobility. Left Leg: Appears negative but visualized in a very limited capacity. IMPRESSION: 1. Extremely limited due to nondiagnostic examination. See above. 2. In the small portion of the left lower extremity venous system visualized no obvious thrombus is i dentified.
== END 2020-03-14 18:33 | disposition home or self-care (01) ==
LOC: EC 16:09
DX: M79.89 Other specified soft tissue disorders (principal); R20.0 Anesthesia of skin; J45.909 Unspecified asthma, uncomplicated; Z98.2 Presence of cerebrospinal fluid drainage device
CPT/HCPCS: 99284

== ENCOUNTER → 2020-03-23 | Outpatient (CLI) | payer OTHER ==
[2020-03-23 14:27] LABS: ALT 17 U/L (4-34); African American GFR (CKD) >90 (>60 ml/min/1.73 sqM); Albumin 4.2 g/dL (3.5-5.0); Albumin/Globulin Ratio 1.4; Anion Gap 7 mmol/L; Blood Urea Nitrogen 7 mg/dL (7-17); Calcium 9.2 mg/dL (8.4-10.2); Carbon Dioxide 23 mmol/L (22-30); Chloride 106 mmol/L (98-107); Cholesterol 180 mg/dL (<200); Globulin 2.9 g/dL; Glucose 70 mg/dL (74-99); HDL Cholesterol 45 mg/dL (40-60); LDL Cholesterol,Calculated 121 mg/dL (0-99); Non-African American GFR(CKD) >90 (>60 ml/min/1.73 sqM); Sodium 136 mmol/L (137-145); Total Bilirubin 0.6 mg/dL (0.2-1.3); Total Protein 7.1 g/dL (6.3-8.2); Triglycerides 72 mg/dL (<150)
[2020-03-23 14:28] LABS: Basophils % (A) 1 %; Eosinophils # (A) 0.3 k/uL (0-0.7); Eosinophils % (A) 5 %; HCT 47.1 % (34.0-46.0); HGB 15.4 gm/dL (11.4-16.0); Lymphocytes % (A) 28 %; MCH 29.2 pg (25.0-35.0); MCHC 32.8 g/dL (31.0-37.0); MCV 89.1 fL (80.0-100.0); Mean Platelet Volume 9.2; Monocytes # (A) 0.5 k/uL (0-1.0); Monocytes % (A) 6 %; Neutrophils # (A) 4.3 k/uL (1.3-7.7); Neutrophils % (A) 60 %; Platelet Count 327 k/uL (150-450); RBC 5.28 m/uL (3.80-5.40); RDW 15.9 % (11.5-15.5); WBC 7.2 k/uL (3.8-10.6)
[2020-03-23 14:29] LABS: AST 28 U/L (14-36); Alkaline Phosphatase 100 U/L (38-126)
== END | disposition home or self-care (01) ==
LOC: LABWHC1 11:26
PROVIDERS: ATTEND Internal Medicine
DX: J44.9 Chronic obstructive pulmonary disease, unspecified (principal); E87.8 Other disorders of electrolyte and fluid balance, not elsewhere classified; E78.5 Hyperlipidemia, unspecified; N31.9 Neuromuscular dysfunction of bladder, unspecified; I10 Essential (primary) hypertension; Q05.4 Unspecified spina bifida with hydrocephalus; Z99.11 Dependence on respirator [ventilator] status
CPT/HCPCS: 36415; 80053; 80061; 82550; 84443; 85025

== ENCOUNTER → 2021-04-26 | Outpatient (CLI) | payer OTHER | END | disposition home or self-care (01) | LOC: LABWHC1 12:40 | PROVIDERS: ATTEND Internal Medicine | DX: Z20.822 Contact with and (suspected) exposure to COVID-19 (principal); E87.8 Other disorders of electrolyte and fluid balance, not elsewhere classified | CPT/HCPCS: 84132; 84165; 36415; U0003; U0005 ==

== ENCOUNTER 2021-05-07 16:05 | Emergency (ER) | payer OTHER ==
[2021-05-07 16:40] VITALS: BP 103/65; PULSE 100; RESP 18; TEMP 98.9
--- NOTE | 2021-05-07 17:07 | ED ---
General Adult HPI - General Chief complaint: Recheck/Abnormal Lab/Rx Stated complaint: rectal problems Time Seen by Provider: 05/07/21 16:51 Source: patient, EMS, RN notes reviewed, old records reviewed Mode of arrival: EMS Limitations: no limitations - History of Present Illness Initial comments: This is a 35-year-old white female alert female presents to the emergency room via EMS for possible prolapsed rectum. Patient states that she has no pain when she does not believe that it is out at this time. Per the nurse the patient was sent by her mother for evaluation. Patient is vent dependant, spina bifida, constipation, and asthma. -: days(s) (1) Severity scale (1-10): 0 Consistency: now resolved - Related Data Home Medications Medication Instructions Recorded Confirmed Albuterol Nebulized [Ventolin 2.5 mg INHALATION RT-BID PRN 10/07/17 05/07/21 Nebulized] Cholecalciferol [Vitamin D3 (25 5,000 unit PO DAILY 06/13/19 05/07/21 Mcg = 1000 Iu)] Budesonide [Pulmicort] 1 mg INHALATION RT-BID PRN 05/07/21 05/07/21 dilTIAZem HCL 90 mg PO TID 05/07/21 05/07/21 Previous Rx's Medication Instructions Recorded Metoprolol Tartrate [Lopressor] 25 mg PO BID #60 tab 09/10/19 Allergies Allergy/AdvReac Type Severity Reaction Status Date / Time No Known Allergies Allergy Verified 03/14/20 16:12 Review of Systems ROS Statement: Those systems with pertinent positive or pertinent negative responses have been documented in the HPI. ROS Other: All systems not noted in ROS Statement are negative. Past Medical History Past Medical History: Asthma, GERD/Reflux, Musculoskeletal Disorder Additional Past Medical History / Comment(s): Spina bifida with spina bifida deformities, paralyzed waist down, mentality approximately 6yr old, severe kyphoscoliosis with pectus deformity, chronic lung disease with chronic respiratory hypoxia/hypercpnia, trach/chronic vent, pneumonias, bronchospasms, cervical compression with surgery, nephrolithiasis, urostomy-wears depends, UTIs, constipation. 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 Past Anesthesia/Blood Transfusion Reactions: No Reported Reaction Past Psychological History: No Psychological Hx Reported Smoking Status: Never smoker Past Alcohol Use History: None Reported Past Drug Use History: None Reported - Past Family History Father Family Medical History: Asthma Mother Family Medical History: Diabetes Mellitus, Hyperlipidemia, Hypertension General Exam Limitations: physical limitation (Spina bifida, paralyzed, and dependent) General appearance: alert, in no apparent distress Head exam: Present: atraumatic, normocephalic, normal inspection ENT exam: Present: normal exam, normal oropharynx, mucous membranes moist Respiratory exam: Present: wheezes Cardiovascular Exam: Present: regular rate, normal rhythm, normal heart sounds. Absent: systolic murmur, diastolic murmur, rubs, gallop, clicks GI/Abdominal exam: Present: soft, normal bowel sounds. Absent: tenderness Rectal exam: Present: other (Patient actively having a bowel movement, no rectal prolapse, hard stool being expressed.) Neurological exam: Present: alert, oriented X3 Psychiatric exam: Present: normal affect, normal mood Skin exam: Present: warm, dry, intact, normal color. Absent: rash Course Vital Signs 05/07/21 16:07 Temperature 98.9 F Pulse Rate 100 Respiratory 18 Rate Blood Pressure 103/65 O2 Sat by Pulse 99 Oximetry Medical Decision Making - Medical Decision Making Upon exam patient is having an active hard formed stool. There is no evidence of rectal prolapse. There is no evidence of rectal bleeding. Patient denies any pain. Mother at bedside was adviced to follow up with primary care as n eeded and continue her MiraLAX daily. Case discussed with Dr. Quinn Disposition Clinical Impression: Constipation Disposition: HOME SELF-CARE Condition: Good Additional Instructions: Continue your MiraLAX daily. Follow-up the primary care doctor is needed. Return to emergency room with any new or worsening symptoms. Is patient prescribed a controlled substance at d/c from ED?: No Referrals: Isaac Goodson MD [Primary Care Provider] - 1-2 days Time of Disposition: 17:20
== END 2021-05-07 18:25 | disposition home or self-care (01) ==
LOC: EC 16:05
DX: K59.00 Constipation, unspecified (principal); J45.909 Unspecified asthma, uncomplicated; K21.9 Gastro-esophageal reflux disease without esophagitis; Z87.440 Personal history of urinary (tract) infections
CPT/HCPCS: 99283

== ENCOUNTER 2021-10-18 03:34 | Inpatient (IN) | payer OTHER ==
[2021-10-18] MEDS ORDERED: MORPHINE SULFATE 2 MG/ML SYRINGE IV STA (04:32)
--- NOTE | 2021-10-18 04:36 | XR ---
EXAMINATION TYPE: XR chest 1V portable DATE OF EXAM: 10/18/2021 COMPARISON: 09/07/2019 HISTORY: Irregular heartbeat TECHNIQUE: Single view FINDINGS: Exam limited by levoscoliotic deformity and kyphotic deformity. There is tracheostomy tube. Lungs appear clear of consolidation. No definite pleural effusion. IMPRESSION: Limited exam by positioning. No definite heart failure or pulmonary consolidation. No sig nificant change.
--- NOTE | 2021-10-18 06:45 | ED ---
Chest Pain HPI - General Stated Complaint: Chest Pain Time Seen by Provider: 10/18/21 03:38 Source: family, EMS Mode of arrival: EMS - History of Present Illness Initial Comments: This patient is 36-year-old woman with history of spina bifida who is brought by ambulance to be evaluated for pain in the chest. Patient had awakened around 2 AM and complained to family that she was having pain. She indicates the upper left chest. Patient not able to characterize the pain well. She has not noted worsening or relieving factors. Patient not able to state any other complaints. MD Complaint: chest pain -: hour(s) Onset: during rest Pain Location: left chest Pain Radiation: none Quality: other (Unable to characterize) Consistency: constant Improves With: nothing Worsens With: nothing - Related Data Home Medications Medication Instructions Recorded Confirmed Albuterol Nebulized [Ventolin 2.5 mg INHALATION RT-BID PRN 10/07/17 10/18/21 Nebulized] Budesonide [Pulmicort] 1 mg INHALATION RT-BID 05/07/21 10/18/21 Allergies Allergy/AdvReac Type Severity Reaction Status Date / Time No Known Allergies Allergy Verified 10/18/21 06:47 Review of Systems ROS Statement: Those systems with pertinent positive or pertinent negative responses have been documented in the HPI. ROS Other: All systems not noted in ROS Statement are negative. Limitations: ROS unobtainable due to patients medical condition (Some degree of developmental delay) Respiratory: Reports: cough. Denies: dyspnea Cardiovascular: Reports: as per HPI, chest pain. Denies: syncope Gastrointestinal: Denies: abdominal pain, vomiting, diarrhea Genitourinary: Reports: other (Urostomy) Musculoskeletal: Denies: back pain Skin: Denies: rash Neurological: Denies: headache EKG Findings - EKG Results: EKG: interpreted by ERMD, sinus rhythm, normal axis, normal QRS, normal ST/T EKG shows: tachycardia (Rate 160 bpm) Past Medical History Past Medical History: Asthma, GERD/Reflux, Musculoskeletal Disorder Additional Past Medical History / Comment(s): Spina bifida with spina bifida deformities, paralyzed waist down, mentality approximately 6yr old, severe kyphoscoliosis with pectus deformity, chronic lung disease with chronic respiratory hypoxia/hypercpnia, trach/chronic vent, pneumonias, bronchospasms, cervical compression with surgery, nephrolithiasis, urostomy-wears depends, UTIs, constipation. 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 Absent: tenderness, meningismus Respiratory exam: Present: respiratory distress (Mild tachypnea), rhonchi. Absent: wheezes, rales Cardiovascular Exam: Present: tachycardia, normal heart sounds. Absent: systolic murmur, diastolic murmur, rubs, gallop GI/Abdominal exam: Present: soft, other (There is a urostomy which is uncovered. There does appear to be some fibrinous exudate on the skin which is approximating the urostomy). Absent: distended, tenderness, guarding, rebound, rigid, mass Extremities exam: Present: pedal edema (Bilateral). Absent: calf tenderness Back exam: Present: normal inspection Neurological exam: Present: alert Skin exam: Present: warm, dry, intact, normal color. Absent: rash Course Vital Signs 10/18/21 10/18/21 10/18/21 04:17 04:26 07:43 Temperature 99.0 F Pulse Rate 161 H 160 H 138 H Respiratory 24 20 34 H Rate Blood Pressure 167/98 147/91 O2 Sat by Pulse 95 95 Oximetry 10/18/21 10/18/21 10/18/21 07:53 11:10 11:21 Temperature Pulse Rate 134 H 133 H 131 H Respiratory 38 H 31 H 31 H Rate Blood Pressure O2 Sat by Pulse Oximetry 10/18/21 10/18/21 10/18/21 11:23 12:55 13:00 Temperature 100.1 F H Pulse Rate 131 H 133 H 138 H Respiratory 34 H Rate Blood Pressure 136/96 O2 Sat by Pulse 98 98 Oximetry 10/18/21 10/18/21 10/18/21 13:10 13:20 13:30 Temperature 99.4 F Pulse Rate 137 H 137 H 137 H Respiratory 30 H 30 H Rate Blood Pressure 135/85 O2 Sat by Pulse 97 96 96 Oximetry 10/18/21 10/18/21 10/18/21 13:40 14:00 15:00 Temperature Pulse Rate 138 H 135 H 137 H Respiratory 30 H 30 H 25 H Rate Blood Pressure O2 Sat by Pulse 96 95 97 Oximetry 10/18/21 10/18/21 10/18/21 16:00 17:00 18:00 Temperature 97.6 F Pulse Rate 133 H 121 H 122 H Respiratory 29 H 30 H 14 Rate Blood Pressure 128/97 128/97 O2 Sat by Pulse 97 97 96 Oximetry 10/18/21 10/18/21 10/18/21 19:00 20:00 21:00 Temperature Pulse Rate 120 H 124 H 122 H Respiratory 19 16 14 Rate Blood Pressure 134/103 134/103 140/99 O2 Sat by Pulse 99 99 99 Oximetry Chest Pain [facility] 's patient is a 36-year-old woman with history of spina bifida and developmental delay brought here after she acutely developed chest pain this morning. Patient also having cough with productive todd of a bit of sputum from the tracheostomy. On arrival patient is markedly tachycardic. IV is started an IV fluid and dose of antibiotics is given his precaution against possible pneumonia/sepsis. We're unable to draw any labs and these are pending at the time of physician waste/materials exchange specialist. I have discussed the case with the admitting service with the laboratories pending. Patient is beginning to have improvement in the heart rate with IV fluids. Disposition Clinical Impression: Tachycardia, Pneumonia Disposition: ADMITTED IP TO THIS HOSP Condition: Serious Is patient prescribed a controlled substance at d/c from ED?: No
[2021-10-18] MEDS ORDERED: AZITHROMYCIN 500 MG in SODIUM CHLORIDE 0.9% 250 ML IVPB STA (07:29)
[2021-10-18] MEDS ORDERED: PNEUMONIA PROTOCOL UTILIZED 1 EACH MISC PO PRN (07:29)
[2021-10-18] MEDS: ALBUTEROL NEBULIZED 2.5 MG/3 ML INHALATION SCH ×3 (07:35→15:20)
[2021-10-18 09:42] LABS: Anisocytosis Slight; Basophils # (A) 0.1 k/uL (0-0.2); Basophils % (A) 1 %; Eosinophils # (A) 0.1 k/uL (0-0.7); Eosinophils % (A) 2 %; HCT 43.2 % (34.0-46.0); Lymphocytes # (A) 1.3 k/uL (1.0-4.8); Lymphocytes % (A) 18 %; MCH 29.4 pg (25.0-35.0); MCHC 32.4 g/dL (31.0-37.0); MCV 90.6 fL (80.0-100.0); Mean Platelet Volume 7.7; Monocytes # (A) 0.4 k/uL (0-1.0); Monocytes % (A) 5 %; Neutrophils # (A) 5.2 k/uL (1.3-7.7); Neutrophils % (A) 72 %; Platelet Count 232 k/uL (150-450); RBC 4.76 m/uL (3.80-5.40); RDW 16.1 % (11.5-15.5); WBC 7.2 k/uL (3.8-10.6)
[2021-10-18 09:52] LABS: ALT 15 U/L (4-34); AST 31 U/L (14-36); African American GFR (CKD) >90 (>60 ml/min/1.73 sqM); Albumin 3.7 g/dL (3.5-5.0); Alkaline Phosphatase 86 U/L (38-126); Anion Gap 9 mmol/L; Blood Urea Nitrogen 6 mg/dL (7-17); Calcium 7.9 mg/dL (8.4-10.2); Carbon Dioxide 19 mmol/L (22-30); Chloride 105 mmol/L (98-107); Glucose 71 mg/dL (74-99); Magnesium 1.5 mg/dL (1.6-2.3); Non-African American GFR(CKD) >90 (>60 ml/min/1.73 sqM); Potassium 4.1 mmol/L (3.5-5.1); Sodium 133 mmol/L (137-145); Total Bilirubin 0.6 mg/dL (0.2-1.3); Total Protein 7.1 g/dL (6.3-8.2)
[2021-10-18 09:54] LABS: INR 1.1 (<1.2); Partial Thromboplastin Time 25.6 sec (22.0-30.0); Prothrombin Time 11.8 sec (9.0-12.0)
[2021-10-18] MEDS: SODIUM CHLORIDE 0.9% 1,000 ML IV SCH ×2 (10:12→18:33)
[2021-10-18 12:55] LABS: Glucose,Whole Blood 65 mg/dL (75-99)
[2021-10-18] MEDS ORDERED: DEXTROSE 50% SYRINGE 50 ML IVP ONE (12:58)
[2021-10-18 13:37] LABS: Glucose,Whole Blood 132 mg/dL (75-99)
--- NOTE | 2021-10-18 14:08 | P.CNPUL ---
History of Present Illness Consult date: 10/18/21 Requesting physician: Aron Narayanan Reason for consult: dyspnea, chest pain, abnormal CXR/CT Chief complaint: Chest pain, shortness of breath. History of present illness: Pulmonary consult dated 10/18/2021. 36-year-old black female, who I'm asked to see, for possible pneumonia. The patient did test positive for coronavirus. She typically is taken care of by her mother. She apparently lives at home with her mother. Her agency director is Dr. Scott. The patient presented to the emergency department with complaints of chest pressure, and shortness of breath. It apparently started 2:00 in the morning early on October 18. The patient denied any fever or chills. She denied any cough. She's not coughing up any phlegm. The patient has had a tracheostomy in place since 2008. She's currently on a Triogy ventilator. She has a #6 uncuffed Shiley tracheostomy tube. She apparently is on the ventilator she is on 3 L. She has been vaccinated against coronavirus. She did test positive for coronavirus. Chest x-ray is of poor quality, and is hard to say whether or not there are any new infiltrates. Currently, she is getting saline at 100 mL an hour. Her O2 sats up to 4 L, her normal doses 3. She was given Rocephin and Zithromax. 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 She is [facility] at [facility]. White count 7.2, hemoglobin 14, hematocrit 43.2, platelet count 232,000. PT 11.8, INR 1.1, PTT 25.6. Sodium 133, potassium 4.1, chlorides 105, CO2 19, anion gap 9, B UN 6, creatinine 0.31. Calcium 7.9. Magnesium 1.5. Testing for perez virus was positive. Her blood sugar was 132. Chest x-ray difficult to interpret. Review of Systems REVIEW OF SYSTEMS: CONSTITUTIONAL: [Negative.] NEUROLOGIC: [ Negative.] HEENT: [ Negative.] CARDIAC: Chest hurting/pain. PULMONARY: Shortness of breath. GI: [Negative.] : [Negative.] RHEUMATOLOGIC: [ Negative.] IMMUNOLOGIC: [ Negative.] ENDOCRINE: [Negative. ] DERMATOLOGIC: [Negative.] Past Medical History Past Medical History: Asthma, GERD/Reflux, Musculoskeletal Disorder Additional Past Medical History / Comment(s): Spina bifida with spina bifida deformities, paralyzed waist down, mentality approximately 6yr old, severe kyphoscoliosis with pectus deformity, chronic lung disease with chronic respiratory hypoxia/hypercpnia, trach/chronic vent, pneumonias, bronchospasms, cervical compression with surgery, nephrolithiasis, urostomy-wears depends, UTIs, constipation. 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 Past Anesthesia/Blood Transfusion Reactions: No Reported Reaction Past Psychological History: No Psychological Hx Reported Smoking Status: Never smoker Past Alcohol Use History: None Reported Past Drug Use History: None Reported - Past Family History Father Family Medical History: Asthma Mother Family Medical History: Diabetes Mellitus, Hyperlipidemia, Hypertension Medications and Allergies Home Medications Medication Instructions Recorded Confirmed Type Albuterol Nebulized [Ventolin 2.5 mg INHALATION RT-BID PRN 10/07/17 10/18/21 History Nebulized] Budesonide [Pulmicort] 1 mg INHALATION RT-BID 05/07/21 10/18/21 History Allergies Allergy/AdvReac Type Severity Reaction Status Date / Time No Known Allergies Allergy Verified 10/18/21 06:47 Physical Exam Osteopathic Statement: *. No significant issues noted on an osteopathic structural exam other than those noted in the History and Physical/Consult. Vitals: Vital Signs Temp Pulse Resp BP Pulse Ox 10/18/21 13:40 138 H 30 H 96 10/18/21 13:30 137 H 30 H 96 10/18/21 13:20 99.4 F 137 H 30 H 135/85 96 10/18/21 13:10 137 H 97 10/18/21 13:00 138 H 98 10/18/21 12:55 133 H 10/18/21 11:23 100.1 F H 131 H 34 H 136/96 98 04/01/22 11:21 131 H 31 H 10/18/21 11:10 133 H 31 H 10/18/21 07:53 134 H 38 H 10/18/21 07:43 138 H 34 H 10/18/21 04:26 160 H 20 147/91 95 10/18/21 04:17 99.0 F 161 H 24 167/98 95 Intake and Output 10/17/21 10/18/21 10/18/21 22:59 06:59 14:59 Intake Total 350 Balance 350 Intake: IV 100 .9 100 100 Intake, IV Titration 250 Amount Azithromycin 500 mg In 250 Sodium Chloride 0.9% 250 ml @ 250 mls/hr IVPB ONCE STA Rx#:[id number] Other: # Voids 1 # Bowel Movements 1 Weight 66.224 kg No acute distress, oriented 3, not a particularly good historian. HEENT examination is grossly unremarkable. Neck supple. Full range of motion. No adenopathy thyromegaly or neck vein distention. A midline tracheostomy tube is noted. Cardiovascular examination reveals regular rhythm rate. S1-S2 normal. No S3 or S4. No discernible murmur noted. Heart rate about 130 bpm. It is regular. Heart sounds are distant. Lungs reveal scattered bilateral rhonchi. No wheezes or crackles. Breath sounds equal. Saturations are 96%. Abdomen is difficult to examine. No tenderness. Extremities are intact. No cyanosis clubbing or edema. Skin is without rash or lesion. Neurologic examination is brief but nonfocal. She is paralyzed from the waist down. Results - Laboratory Findings CBC and BMP: 10/18/21 09:29 10/18/21 09:29 PT/INR, D-dimer PT 11.8 sec (9.0-12.0) 10/18/21 09:29 INR 1.1 (<1.2) 10/18/21 09:29 Abnormal lab findings: Abnormal Labs 10/18/21 10/18/21 10/18/21 09:29 09:29 12:15 RDW 16.1 H Sodium 133 L Carbon Dioxide 19 L BUN 6 L Creatinine 0.31 L Glucose 71 L POC Glucose (mg/dL) Calcium 7.9 L Magnesium 1.5 L Coronavirus (PCR) Detected A 04/01/22 04/01/22 12:54 13:35 RDW Sodium Carbon Dioxide BUN Creatinine Glucose POC Glucose (mg/dL) 65 L 132 H Calcium Magnesium Coronavirus (PCR) - Diagnostic Findings Chest x-ray: image reviewed Assessment and Plan Assessment: Acute coronavirus infection, and possible coronavirus associated pneumonia. Patient has been previously vaccinated. Status post tracheostomy, 2008, with chronic respiratory failure, currently srini ntained on a Trilogy ventilator. History of spina bifida. 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 Paraplegia. History of UTIs. History of GERD. BARREL LINE OPERATOR shunt. History of constipation. Plan: Plan dated 10/18/2021. Currently, the patient's on Zithromax and Rocephin. In addition, we added vitamin C, vitamin D3, and zinc. It's unclear to me how long the patient has been sick. We will hold off on giving her REM for the time being. We do had Decadron, 6 mg, and Lovenox 40 mg subcu daily. Additional recommendations and suggestions are forthcoming. Prognosis is certainly guarded. Additional recommendations will be made once additional history is obtained. Time with Patient: Greater than 30
[2021-10-18 14:19] LABS: C Reactive Protein 8.5 mg/dL (<1.0)
[2021-10-18] MEDS: ENOXAPARIN 40 MG/0.4 ML SYRINGE SQ SCH (14:40)
[2021-10-18] MEDS: DEXAMETHASONE SOD PHOSPHATE 10 MG/ML 1 ML VIAL IVP SCH (14:40)
[2021-10-18] MEDS: ALBUTEROL HFA INHALER INHALATION SCH ×2 (16:30→21:22)
[2021-10-18 18:58] LABS: Appearance,Urine Cloudy (Clear); Bilirubin,Urine Negative (Negative); Blood,Urine Moderate (Negative); Budding Yeast,Urine Rare /hpf; Color,Urine Yellow; Glucose,Urine (UA) Negative (Negative); Leukocyte Esterase,Urine Moderate (Negative); Mucus,Urine Few /hpf; Nitrite,Urine Negative (Negative); Protein,Urine 3+ (Negative); RBC,Urine 92 /hpf (0-5); Specific Gravity,Urine 1.026 (1.001-1.035); Squamous Epithelial Cell,Urine 6 /hpf (0-4); WBC,Urine 66 /hpf (0-5)
[2021-10-18 18:59] LABS: Ketones,Urine 4+ (Negative)
[2021-10-19] MEDS: SODIUM CHLORIDE 0.9% 1,000 ML IV SCH ×3 (08:16→16:34)
[2021-10-19 08:20] LABS: Basophils # (A) 0.1 k/uL (0-0.2); Basophils % (A) 2 %; Eosinophils % (A) 0 %; HCT 45.2 % (34.0-46.0); HGB 13.4 gm/dL (11.4-16.0); Hypochromasia Marked; Lymphocytes % (A) 16 %; MCH 27.9 pg (25.0-35.0); MCHC 29.7 g/dL (31.0-37.0); Mean Platelet Volume 7.9; Monocytes # (A) 0.4 k/uL (0-1.0); Monocytes % (A) 6 %; Neutrophils # (A) 4.8 k/uL (1.3-7.7); Neutrophils % (A) 73 %; Platelet Count 235 k/uL (150-450); RBC 4.81 m/uL (3.80-5.40); RDW 14.4 % (11.5-15.5); WBC 6.6 k/uL (3.8-10.6)
[2021-10-19 08:26] LABS: ALT 16 U/L (4-34); AST 33 U/L (14-36); African American GFR (CKD) >90 (>60 ml/min/1.73 sqM); Albumin 3.8 g/dL (3.5-5.0); Alkaline Phosphatase 82 U/L (38-126); Anion Gap 10 mmol/L; Blood Urea Nitrogen 4 mg/dL (7-17); Calcium 8.1 mg/dL (8.4-10.2); Carbon Dioxide 20 mmol/L (22-30); Chloride 107 mmol/L (98-107); Glucose 128 mg/dL (74-99); LDH 1070 U/L (313-618); Non-African American GFR(CKD) >90 (>60 ml/min/1.73 sqM); Potassium 4.6 mmol/L (3.5-5.1); Sodium 137 mmol/L (137-145); Total Bilirubin 0.5 mg/dL (0.2-1.3); Total Protein 7.2 g/dL (6.3-8.2)
[2021-10-19 08:36] LABS: C Reactive Protein 18.5 mg/dL (<1.0)
[2021-10-19] MEDS: ALBUTEROL HFA INHALER INHALATION SCH ×4 (08:39→20:42)
[2021-10-19] MEDS: CHOLECALCIFEROL 125 MCG (5000 IU) TABLET PO SCH (08:52)
[2021-10-19] MEDS: DEXAMETHASONE SOD PHOSPHATE 10 MG/ML 1 ML VIAL IVP SCH (08:52)
[2021-10-19] MEDS: ZINC SULFATE 220 MG CAP PO SCH (08:52)
[2021-10-19] MEDS: AZITHROMYCIN 500 MG TAB PO SCH (08:52)
[2021-10-19] MEDS: ASCORBIC ACID 500 MG TAB PO SCH (08:52)
[2021-10-19] MEDS: ENOXAPARIN 40 MG/0.4 ML SYRINGE SQ SCH (08:52)
--- NOTE | 2021-10-19 09:11 | XR ---
EXAMINATION TYPE: XR chest 1V DATE OF EXAM: 10/19/2021 CLINICAL HISTORY: Difficulty breathing progress study. TECHNIQUE: Single AP portable upright view of the chest is obtained. COMPARISON: Chest x-ray from one day earlier and older studies. CTA chest September 06, 2019 FINDINGS: Evaluation remains limited due to patient's underlying marked rotary scoliosis. Tracheosto my tube redemonstrated. Persistent bilateral increased opacities along with low lung volumes and card iomegaly. IMPRESSION: Suboptimal study. Low lung volumes and mild cardiomegaly with bilateral multifocal opacit ies redemonstrated. No significant change from one day earlier. Correlate for COVID-19 infection.
--- NOTE | 2021-10-19 11:13 | P.HPIM ---
History of Present Illness H&P Date: 10/18/21 Chief Complaint: Chest pain 36-year-old woman with history of spina bifida who is brought by ambulance to be evaluated for pain in the chest. Patient had awakened around 2 AM and complained to family that she was having pain. She indicates the upper left chest. Patient not able to characterize the pain well. She has not noted worsening or relieving factors. Patient not able to state any other complaints. White count 7.2, hemoglobin 14, hematocrit 43.2, platelet count 232,000. PT 11.8, INR 1.1, PTT 25.6. Sodium 133, potassium 4.1, chlorides 105, CO2 19, anion gap 9, BUN 6, creatinine 0.31. Calcium 7.9. Magnesium 1.5. Testing for perez virus was positive. Her blood sugar was 132. Chest x-ray bilateral multi focal opacities, correlate for COVID 19 infection Review of Systems REVIEW OF SYSTEMS: CONSTITUTIONAL: No fever, no malaise, no fatigue. HEENT: No recent visual problems or hearing problems. Denied any sore throat. CARDIOVASCULAR: No chest pain, orthopnea, PND, no palpitations, no syncope. PULMONARY: No shortness of breath, no cough, no hemoptysis. GASTROINTESTINAL: No diarrhea, no nausea, no vomiting, no abdominal pain. NEUROLOGICAL: No headaches, no weakness, no numbness. HEMATOLOGICAL: Denies any bleeding or petechiae. GENITOURINARY: Denies any burning micturition, frequency, or urgency. MUSCULOSKELETAL/RHEUMATOLOGICAL: Denies any joint pain, swelling, or any muscle pain. ENDOCRINE: Denies any polyuria or polydipsia. The rest of the 14-point review of systems is negative. Past Medical History Past Medical History: Asthma, GERD/Reflux, Musculoskeletal Disorder Additional Past Medical History / Comment(s): Spina bifida with spina bifida deformities, paralyzed waist down, mentality approximately 6yr old, severe kyphoscoliosis with pectus deformity, chronic lung disease with chronic resp iratory hypoxia/hypercpnia, trach/chronic vent, pneumonias, bronchospasms, cervical compression with surgery, nephrolithiasis, urostomy-wears depends, UTIs, constipation. 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, bilateral release/resection hamstrings proximal muscle, cervical decompression, surgery for "lazy eye." Shunt placed in brain 2020 Past Anesthesia/Blood Transfusion Reactions: No Reported Reaction Past Psychological History: No Psychological Hx Reported Smoking Status: Never smoker Past Alcohol Use History: None Reported Past Drug Use History: None Reported - Past Family History Father Family Medical History: Asthma Mother Family Medical History: Diabetes Mellitus, Hyperlipidemia, Hypertension Medications and Allergies Home Medications Medication Instructions Recorded Confirmed Type Albuterol Nebulized [Ventolin 2.5 mg INHALATION RT-BID PRN 10/07/17 10/18/21 History Nebulized] Budesonide [Pulmicort] 1 mg INHALATION RT-BID 05/07/21 10/18/21 History Allergies Allergy/AdvReac Type Severity Reaction Status Date / Time No Known Allergies Allergy Verified 10/18/21 06:47 Physical Exam Vitals: Vital Signs Temp Pulse Resp BP Pulse Ox 10/18/21 11:23 100.1 F H 131 H 34 H 136/96 98 10/18/21 11:21 131 H 31 H 10/18/21 11:10 133 H 31 H 10/18/21 07:53 134 H 38 H 10/18/21 07:43 138 H 34 H 10/18/21 04:26 160 H 20 147/91 95 10/18/21 04:17 99.0 F 161 H 24 167/98 95 Intake and Output 10/17/21 10/18/21 10/18/21 22:59 06:59 14:59 Other: Weight 66.224 kg PHYSICAL EXAMINATION: GENERAL: The patient is alert and oriented x3, not in any acute distress. Well developed, well nourished. HEENT: Pupils are round and equally reacting to light. EOMI. No scleral icterus. No conjunctival pallor. Normocephalic, atraumatic. No pharyngeal erythema. No thyromegaly. CARDIOVASCULAR: S1 and S2 present. No murmurs, rubs, or gallops. PULMONARY: Chest is clear to auscultation, no wheezing or crackles. ABDOMEN: Soft, nontender, nondistended, normoactive bowel sounds. No palpable organomegaly. MUSCULOSKELETAL: No joint swelling or deformity. EXTREMITIES: No cyanosis, clubbing, or pedal edema. NEUROLOGICAL: Gross neurological examination did not reveal any focal deficits. SKIN: No rashes. Results CBC & Chem 7: 10/19/21 07:21 10/19/21 07:21 Labs: Abnormal Lab Results - Last 24 Hours (Table) 10/18/21 10/18/21 Range/Units 09:29 09:29 RDW 16.1 H (11.5-15.5) % Sodium 133 L (137-145) mmol/L Carbon Dioxide 19 L (22-30) mmol/L BUN 6 L (7-17) mg/dL Creatinine 0.31 L (0.52-1.04) mg/dL Glucose 71 L (74-99) mg/dL Calcium 7.9 L (8.4-10.2) mg/dL Magnesium 1.5 L (1.6-2.3) mg/dL Assessment and Plan Assessment: 1. Possible COVID 19 Viral Pneumonia -- Patient has been vaccinated per records. - Patient has been evaluated by Pulmonary service and added vitamin C, vitamin D3, and zinc; Decadron, 6 mg daily and Lovenox 40 mg subcu daily; No indication for Remdesivir at this time -- Patient placed on IV Rocephin and Azithromycin for superimposed bacterial PNA 2. Chronic respiratory failure//Status post tracheostomy; -- maintained on ventilator; Critical care on board for Vent management 3. History of spina bifida/ Paraplegia/ CASUALTY CLAIMS SUPERVISOR shunt; patient follows up at [facility]. DVT Prophylaxis; SCDs CODE STATUS; Full Code
--- NOTE | 2021-10-19 14:21 | P.PN ---
Subjective Progress Note Date: 10/19/21 Principal diagnosis: Respiratory failure. Pulmonary consult dated 10/18/2021. 36-year-old black female, who I'm asked to see, for possible pneumonia. The patient did test positive for coronavirus. She typically is taken care of by her mother. She apparently lives at home with her mother. Her employment interviewer is Dr. Scott. The patient presented to the emergency department with complaints of chest pressure, and shortness of breath. It apparently started 2:00 in the morning early on October 18. The patient denied any fever or chills. She denied any cough. She's not coughing up any phlegm. The patient has had a tracheostomy in place since 2008. She's currently on a Triogy ventilator. She has a #6 uncuffed Shiley tracheostomy tube. She apparently is on the ventilator she is on 3 L. She has been vaccinated against coronavirus. She did test positive for coronavirus. Chest x-ray is of poor quality, and is hard to say whether or not there are any new infiltrates. Currently, she is getting saline at 100 mL an hour. Her O2 sats up to 4 L, her normal doses 3. She was given Rocephin and Zithromax. 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 She is followed at [facility]. White count 7.2, hemoglobin 14, hematocrit 43.2, platelet count 232,000. PT 11.8, INR 1.1, PTT 25.6. Sodium 133, potassium 4.1, chlorides 105, CO2 19, anion gap 9, BUN 6, creatinine 0.31. Calcium 7.9. Magnesium 1.5. Testing for perez virus was positive. Her blood sugar was 132. Chest x-ray difficult to interpret. Progress note dated 10/19/2021. 36-year-old black female with a history of multiple medical problems including developmental delay, and spina bifida. The patient required a tracheostomy back in 2008. She was admitted to the intensive care unit, and I saw her in consultation yesterday. Please see the note above. Currently, she is getting saline at 100 mL an hour, oxygen at 4 L, and she remains on the Trilogy ventilator, in the pressure support mode. She feels better today than she did yesterday. Current labs include a white count of 6.6, hemoglobin 13.4, hematocrit 45.2, and platelet count 235,000. Sodium 137, potassium 4.6, chlorides 107, CO2 20, anion gap 10, BUN 4, and creatinine 0.25. The patient's C-reactive protein is 18.5. The patient's chest x-ray is suboptimal. There are low lung volumes and mild cardiomegaly, with bilateral multifocal opacities. Objective - Vital Signs Vital signs: Vital Signs Temp 98.4 F 10/19/21 08:00 Pulse 101 H 10/19/21 12:00 Resp 26 H 10/19/21 12:00 BP 122/103 10/19/21 12:00 Pulse Ox 98 10/19/21 12:00 Intake & Output 10/18/21 10/19/21 10/19/21 18:59 06:59 18:59 Intake Total 850 1200 600 Output Total 15 200 Balance 835 1000 600 Weight 66.224 kg 66.2 kg Intake: IV 600 1200 600 .9 238 037 9792 600 Intake, IV Titration 250 Amount Azithromycin 500 mg In 250 Sodium Chloride 0.9% 250 ml @ 250 mls/hr IVPB ONCE STA Rx#:[id number] Output: Urine 15 200 Other: # Voids 1 1 1 # Bowel Movements 1 - Exam No acute distress, oriented 3, not a particularly good historian. HEENT examination is grossly unremarkable. Neck supple. Full range of motion. No adenopathy thyromegaly or neck vein distention. A midline tracheostomy tube is noted. Cardiovascular examination reveals regular rhythm rate. S1-S2 normal. No S3 or S4. No discernible murmur noted. Heart rate about 101 bpm. It is regular. Heart sounds are distant. Lungs reveal scattered bilateral rhonchi. No wheezes or crackles. Breath sounds equal. Saturations are 98%. Abdomen is difficult to examine. No tenderness. Extremities are intact. No cyanosis clubbing or edema. Skin is without rash or lesion. Neurologic examination is brief but nonfocal. She is paralyzed from the waist down. - Labs CBC & Chem 7: 10/19/21 07:21 10/19/21 07:21 Labs: Abnormal Lab Results - Last 24 Hours (Table) 10/18/21 10/18/21 10/18/21 Range/Units 03:40 09:29 09:29 MCHC (31.0-37.0) g/dL Carbon Dioxide (22-30) mmol/L BUN (7-17) mg/dL Creatinine (0.52-1.04) mg/dL Glucose (74-99) mg/dL Calcium (8.4-10.2) mg/dL Lactate Dehydrogenase 994 H (313-618) U/L C-Reactive Protein 8.5 H (<1.0) mg/dL Procalcitonin 0.15 H (0.02-0.09) ng/mL Urine Appearance Cloudy H (Clear) Urine Protein 3+ H (Negative) Urine Ketones 4+ H (Negative) Urine Blood Moderate H (Negative) Ur Leukocyte Esterase Moderate H (Negative) Urine RBC 92 H (0-5) /hpf Urine WBC 66 H (0-5) /hpf Ur Squamous Epith Cells 6 H (0-4) /hpf Urine Mucus Few H (None) /hpf Urine Yeast (Budding) Rare H (None) /hpf 10/19/21 10/19/21 Range/Units 07:21 07:21 MCHC 29.7 L (31.0-37.0) g/dL Carbon Dioxide 20 L (22-30) mmol/L BUN 4 L (7-17) mg/dL Creatinine 0.25 L (0.52-1.04) mg/dL Glucose 128 H (74-99) mg/dL Calcium 8.1 L (8.4-10.2) mg/dL Lactate Dehydrogenase 1070 H (313-618) U/L C-Reactive Protein 18.5 H (<1.0) mg/dL Procalcitonin (0.02-0.09) ng/mL Urine Appearance (Clear) Urine Protein (Negative) Urine Ketones (Negative) Urine Blood (Negative) Ur Leukocyte Esterase (Negative) Urine RBC (0-5) /hpf Urine WBC (0-5) /hpf Ur Squamous Epith Cells (0-4) /hpf Urine Mucus (None) /hpf Urine Yeast (Budding) (None) /hpf Microbiology - Last 24 Hours (Table) 10/18/21 06:34 Blood Culture Gram Stain - Preliminary Blood Blood Culture - Preliminary Proteus mirabilis 10/18/21 03:40 Urine Culture - Preliminary Urine,Voided 10/18/21 06:34 Blood Culture - Final Blood Assessment and Plan Assessment: Acute coronavirus infection, and possible coronavirus associated pneumonia. Patient has been previously vaccinated. Status post tracheostomy, 2008, with chronic respiratory failure, currently maintained on a Trilogy ventilator. History of spina bifida. 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 Paraplegia. History of UTIs. History of GERD. 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 History of constipation. Plan: Plan dated 10/18/2021. Currently, the patient's on Zithromax and Rocephin. In addition, we added vitamin C, vitamin D3, and zinc. It's unclear to me how long the patient has been sick. We will hold off on giving her REM for the time being. We do had Decadron, 6 mg, and Lovenox 40 mg subcu daily. Additional recommendations and suggestions are forthcoming. Prognosis is certainly guarded. Additional recommendations will be made once additional history is obtained. Plan dated 10/19/2021. The patient currently remains on antibiotics in the form of azithromycin and R ocephin. The patient also remains on vitamin C, vitamin D3, and zinc. We also have the patient on Decadron 6 mg daily, and Lovenox 40 mg subcu daily. It's unclear how long she has been sick, and therefore, I hold off on giving her REM. The patient is not sick enough to receive and monoclonal antibody against interleukin-6. We will continue to follow the patient and make recommendations where appropriate. Prognosis is guarded. Additional recommendations and suggestions are forthcoming. Time with Patient: Greater than 30
--- NOTE | 2021-10-19 22:54 | P.PN ---
Subjective Progress Note Date: 10/19/21 36-year-old woman with history of spina bifida who is brought by ambulance to be evaluated for pain in the chest. Patient had awakened around 2 AM and complained to family that she was having pain. She indicates the upper left chest. Patient not able to characterize the pain well. She has not noted worsening or relieving factors. Patient not able to state any other complaints. White count 7.2, hemoglobin 14, hematocrit 43.2, platelet count 232,000. PT 11.8, INR 1.1, PTT 25.6. Sodium 133, potassium 4.1, chlorides 105, CO2 19, anion gap 9, BUN 6, creatinine 0.31. Calcium 7.9. Magnesium 1.5. Testing for perez virus was positive. Her blood sugar was 132. Chest x-ray bilateral multi focal opacities, correlate for COVID 19 infection 10/19/2021 Patient is seen and evaluated in follow-up continues to be closely monitored in the ICU for pneumonia with pulmonary following closely. Patient is maintained on Zithromax and ceftriaxone and will continue. Patient was also found to be positive for Covid 19. Patient chronically on a T piece with an FiO2 of 36% currently and is normally maintained on 3-4 L of oxygen. Patient started on IV dexamethasone along with vitamin and zinc supplements and will continue. Patient also to continue on subcutaneous Lovenox. Chest x-ray ordered for this morning. Inflammatory markers continue to be elevated related. Per medical records patient was vaccinated for COVID-19. blood cultures are positive for proteus and will consult infectious disease and repeat blood cultures. Review of systems: Unable to obtain as patient has t-collar and lethargic Active Medications Albuterol Sulfate (Albuterol Hfa Inhaler) 2 puff INHALATION RT-QID [facility] Last Admin: 10/19/21 11:54 Dose: 2 puff Documented by: Ascorbic Acid (Ascorbic Acid 500 Mg Tab) 1,000 mg PO DAILY [facility] Last Admin: 10/19/21 08:52 Dose: 1,000 mg Documented by: Azithromycin (Azithromycin 500 Mg Tab) 500 mg PO DAILY [facility]; Protocol Stop: 10/20/21 09:01 Last Admin: 10/19/21 08:52 Dose: 500 mg Documented by: Cholecalciferol (Cholecalciferol 125 Mcg (5000 Iu) Tablet) 125 mcg PO DAILY [facility] Last Admin: 10/19/21 08:52 Dose: 125 mcg Documented by: Dexamethasone Sodium Phosphate (Dexamethasone Sod Phosphate 10 Mg/Ml 1 Ml Vial) 6 mg IVP DAILY [facility] Last Admin: 10/19/21 08:52 Dose: 6 mg Documented by: Enoxaparin Sodium (Enoxaparin 40 Mg/0.4 Ml Syringe) 40 mg SQ DAILY [facility] Last Admin: 10/19/21 08:52 Dose: 40 mg Documented by: Sodium Chloride (Saline 0.9%) 1,000 mls @ 100 mls/hr IV .Q10H [facility] Last Admin: 10/19/21 08:16 Dose: Not Given Documented by: Ceftriaxone Sodium 2 gm/ (Sodium Chloride) 50 mls @ 100 mls/hr IVPB Q24HR [facility]; Protocol Stop: 10/22/21 09:29 Last Admin: 10/19/21 08:52 Dose: 100 mls/hr Documented by: Miscellaneous Information (Pneumonia Protocol Utilized 1 Each Misc) 1 each PO ONCE PRN PRN Reason: Per Protocol Zinc Sulfate (Zinc Sulfate 220 Mg Cap) 220 mg PO DAILY [facility] Last Admin: 10/19/21 08:52 Dose: 220 mg Documented by: Physical exam: GENERAL: The patient is alert and oriented x3, not in any acute distress. Well developed, well nourished. FiO2 currently 36% on T collar HEENT: Pupils are round and equally reacting to light. EOMI. No scleral icterus. No conjunctival pallor. Normocephalic, atraumatic. No pharyngeal erythema. No thyromegaly. CARDIOVASCULAR: S1 and S2 present. No murmurs, rubs, or gallops. PULMONARY: Diminished breath sounds bilaterally with some scattered rhonchi and crackles noted ABDOMEN: Soft, nontender, nondistended, normoactive bowel sounds. No palpable organomegaly. MUSCULOSKELETAL: No joint swelling or deformity. EXTREMITIES: No cyanosis, clubbing, or pedal edema. NEUROLOGICAL: Gross neurological examination did not reveal any focal deficits. SKIN: No rashes. Assessment: Possible COVID-19 viral pneumonia Chronic respiratory failure status post tracheostomy from 2008, uses trilogy ventilator positive blood cultures showing proteus species Hyponatremia Gastroesophageal reflux disease History of spina bifida with paraplegia and BLOWER MECHANIC shunt, patient follows at the [facility] DVT prophylaxis GI prophylaxis Full code Plan: Recommend to continue with vitamin along with zinc and patient was started on dexamethasone and will continue on subcutaneous Lovenox. Patient is not a candidate for Remdesivir. Patient is continued on IV antibiotics in the form of Zithromax and ceftriaxone and will continue.Blood cultures are positive for pr oteus and will consult infectious disease. Repeat cultures ordered. Pulmonary following closely. Chest x-ray today shows suboptimal study with low lung volumes and mild cardiomegaly with bilateral multifocal opacities are redemonstrated with no significant change from one day previous and correlate for COVID-19 infection. Prognosis guarded recommend follow-up labs and will continue to monitor closely. Repeat chest x-ray in the morning. The impression and plan of care has been dictated by Shweta Rubio, Nurse Practitioner as directed. Dr. Abida MD I have performed a history and examination and MDM of this patient, discussed the same with the dictator, and agree with the dictator's assessment and plan as written ,documented as a scribe. Based on total visit time, I have performed more than 50% of the visit. Objective - Vital Signs Vital signs: Vital Signs Temp 97.8 F 10/19/21 00:00 Pulse 112 H 10/19/21 06:00 Resp 18 10/19/21 06:00 BP 133/55 10/19/21 06:00 Pulse Ox 99 10/19/21 06:00 Intake & Output 10/18/21 10/19/21 10/19/21 18:59 06:59 18:59 Intake Total 850 1200 100 Output Total 15 200 Balance 835 1000 100 Weight 66.224 kg 66.2 kg Intake: IV 600 1200 100 .9 878 932 1998 100 Intake, IV Titration 250 Amount Azithromycin 500 mg In 250 Sodium Chloride 0.9% 250 ml @ 250 mls/hr IVPB ONCE STA Rx#:[id number] Output: Urine 15 200 Other: # Voids 1 1 # Bowel Movements 1 - Labs CBC & Chem 7: 10/19/21 07:21 10/19/21 07:21 Labs: Abnormal Lab Results - Last 24 Hours (Table) 10/18/21 10/18/21 10/18/21 Range/Units 03:40 09:29 09:29 MCHC (31.0-37.0) g/dL RDW 16.1 H (11.5-15.5) % Sodium 133 L (137-145) mmol/L Carbon Dioxide 19 L (22-30) mmol/L BUN 6 L (7-17) mg/dL Creatinine 0.31 L (0.52-1.04) mg/dL Glucose 71 L (74-99) mg/dL POC Glucose (mg/dL) (75-99) mg/dL Calcium 7.9 L (8.4-10.2) mg/dL Magnesium 1.5 L (1.6-2.3) mg/dL Lactate Dehydrogenase (313-618) U/L C-Reactive Protein (<1.0) mg/dL Procalcitonin (0.02-0.09) ng/mL Urine Appearance Cloudy H (Clear) Urine Protein 3+ H (Negative) Urine Ketones 4+ H (Negative) Urine Blood Moderate H (Negative) Ur Leukocyte Esterase Moderate H (Negative) Urine RBC 92 H (0-5) /hpf Urine WBC 66 H (0-5) /hpf Ur Squamous Epith Cells 6 H (0-4) /hpf Urine Mucus Few H (None) /hpf Urine Yeast (Budding) Rare H (None) /hpf Coronavirus (PCR) (Not Detectd) 10/18/21 10/18/21 10/18/21 Range/Units 09:29 09:29 12:15 MCHC (31.0-37.0) g/dL RDW (11.5-15.5) % Sodium (137-145) mmol/L Carbon Dioxide (22-30) mmol/L BUN (7-17) mg/dL Creatinine (0.52-1.04) mg/dL Glucose (74-99) mg/dL POC Glucose (mg/dL) (75-99) mg/dL Calcium (8.4-10.2) mg/dL Magnesium (1.6-2.3) mg/dL Lactate Dehydrogenase 994 H (313-618) U/L C-Reactive Protein 8.5 H (<1.0) mg/dL Procalcitonin 0.15 H (0.02-0.09) ng/mL Urine Appearance (Clear) Urine Protein (Negative) Urine Ketones (Negative) Urine Blood (Negative) Ur Leukocyte Esterase (Negative) Urine RBC (0-5) /hpf Urine WBC (0-5) /hpf Ur Squamous Epith Cells (0-4) /hpf Urine Mucus (None) /hpf Urine Yeast (Budding) (None) /hpf Coronavirus (PCR) Detected A (Not Detectd) 10/18/21 10/18/21 10/19/21 Range/Units 12:54 13:35 07:21 MCHC (31.0-37.0) g/dL RDW (11.5-15.5) % Sodium (137-145) mmol/L Carbon Dioxide 20 L (22-30) mmol/L BUN 4 L (7-17) mg/dL Creatinine 0.25 L (0.52-1.04) mg/dL Glucose 128 H (74-99) mg/dL POC Glucose (mg/dL) 65 L 132 H (75-99) mg/dL Calcium 8.1 L (8.4-10.2) mg/dL Magnesium (1.6-2.3) mg/dL Lactate Dehydrogenase 1070 H (313-618) U/L C-Reactive Protein 18.5 H (<1.0) mg/dL Procalcitonin (0.02-0.09) ng/mL Urine Appearance (Clear) Urine Protein (Negative) Urine Ketones (Negative) Urine Blood (Negative) Ur Leukocyte Esterase (Negative) Urine RBC (0-5) /hpf Urine WBC (0-5) /hpf Ur Squamous Epith Cells (0-4) /hpf Urine Mucus (None) /hpf Urine Yeast (Budding) (None) /hpf Coronavirus (PCR) (Not Detectd) 10/19/21 Range/Units 07:21 MCHC 29.7 L (31.0-37.0) g/dL RDW (11.5-15.5) % Sodium (137-145) mmol/L Carbon Dioxide (22-30) mmol/L BUN (7-17) mg/dL Creatinine (0.52-1.04) mg/dL Glucose (74-99) mg/dL POC Glucose (mg/dL) (75-99) mg/dL Calcium (8.4-10.2) mg/dL Magnesium (1.6-2.3) mg/dL Lactate Dehydrogenase (313-618) U/L C-Reactive Protein (<1.0) mg/dL Procalcitonin (0.02-0.09) ng/mL Urine Appearance (Clear) Urine Protein (Negative) Urine Ketones (Negative) Urine Blood (Negative) Ur Leukocyte Esterase (Negative) Urine RBC (0-5) /hpf Urine WBC (0-5) /hpf Ur Squamous Epith Cells (0-4) /hpf Urine Mucus (None) /hpf Urine Yeast (Budding) (None) /hpf Coronavirus (PCR) (Not Detectd) Microbiology - Last 24 Hours (Table) 10/18/21 06:34 Blood Culture Gram Stain - Preliminary Blood Blood Culture - Preliminary Proteus mirabilis 10/18/21 03:40 Urine Culture - Preliminary Urine,Voided 10/18/21 06:34 Blood Culture - Final Blood
--- NOTE | 2021-10-20 06:36 | XR ---
EXAMINATION TYPE: XR chest 1V DATE OF EXAM: 10/20/2021 CLINICAL HISTORY: Difficulty breathing progress study. TECHNIQUE: Single AP portable upright view of the chest is obtained. COMPARISON: Chest x-ray from one day earlier and older studies. FINDINGS: Evaluation remains significantly suboptimal due to patient's underlying marked rotary scol iosis. Current study shows additional obscuring from tracheostomy. Tracheostomy tube redemonstrated. Persistent bilateral increased opacities along with low lung volumes. Cardiac silhouette size is not well assessed. IMPRESSION: Significantly Suboptimal study. Low lung volumes with bilateral multifocal opacities red emonstrated. No significant change from one day earlier.
[2021-10-20] MEDS ORDERED: IPRATROPIUM-ALBUTEROL 3 ML NEB INHALATION PRN (08:30)
[2021-10-20] MEDS ORDERED: HYDROmorphone 0.5 MG/0.5 ML SYRINGE IVP PRN (08:33)
[2021-10-20] MEDS ORDERED: CISATRACURIUM 2 MG/ML 5 ML VIAL IV ONE (08:34)
--- NOTE | 2021-10-20 09:16 | XR ---
EXAMINATION TYPE: XR chest 1V portable DATE OF EXAM: 10/20/2021 CLINICAL HISTORY: Tube placement. TECHNIQUE: Single AP portable frontal view of the chest is obtained. COMPARISON: Chest x-ray from earlier today and older studies FINDINGS: Evaluation remains significantly suboptimal due to patient's underlying marked rotary scol iosis distorting the anatomy. Current study shows more central tracheostomy tube terminating at level of taty. Persistent bilater al increased opacities along with low lung volumes. Cardiac silhouette size is likely within normal l imits. IMPRESSION: As above.
[2021-10-20] MEDS: ALBUTEROL HFA INHALER INHALATION SCH ×4 (09:31→20:08)
[2021-10-20 09:52] LABS: Basophils # (A) 0.2 k/uL (0-0.2); Basophils % (A) 2 %; Eosinophils # (A) 0.2 k/uL (0-0.7); Eosinophils % (A) 2 %; HCT 42.1 % (34.0-46.0); HGB 12.8 gm/dL (11.4-16.0); Hypochromasia Moderate; Lymphocytes % (A) 9 %; MCH 28.4 pg (25.0-35.0); MCHC 30.3 g/dL (31.0-37.0); MCV 93.6 fL (80.0-100.0); Mean Platelet Volume 7.8; Monocytes # (A) 0.4 k/uL (0-1.0); Monocytes % (A) 3 %; Neutrophils # (A) 9.5 k/uL (1.3-7.7); Neutrophils % (A) 81 %; Platelet Count 282 k/uL (150-450); RDW 15.9 % (11.5-15.5); WBC 11.8 k/uL (3.8-10.6)
[2021-10-20] MEDS: CISATRACURIUM 200 MG in SODIUM CHLORIDE 0.9% 180 ML IV SCH (09:55)
[2021-10-20 10:01] LABS: ALT 17 U/L (4-34); AST 33 U/L (14-36); African American GFR (CKD) >90 (>60 ml/min/1.73 sqM); Albumin 3.7 g/dL (3.5-5.0); Alkaline Phosphatase 79 U/L (38-126); Anion Gap 7 mmol/L; Blood Urea Nitrogen 8 mg/dL (7-17); Calcium 8.5 mg/dL (8.4-10.2); Carbon Dioxide 22 mmol/L (22-30); Chloride 113 mmol/L (98-107); Glucose 124 mg/dL (74-99); Non-African American GFR(CKD) >90 (>60 ml/min/1.73 sqM); Potassium 4.4 mmol/L (3.5-5.1); Sodium 142 mmol/L (137-145); Total Bilirubin 0.5 mg/dL (0.2-1.3)
[2021-10-20 10:04] LABS: C Reactive Protein 5.2 mg/dL (<1.0)
[2021-10-20 10:26] LABS: ABG Base Excess -2.3 mmol/L; ABG HCO3 24 mmol/L (21-25); ABG Oxygen Saturation 99.5 % (94-97); ABG PCO2 51 mmHg (35-45); ABG PH 7.29 (7.35-7.45); ABG PO2 158 mmHg (83-108); ABG TCO2 26 mmol/L (19-24)
[2021-10-20 10:31] LABS: Allen Test Performed? no
--- NOTE | 2021-10-20 10:33 | PCN ---
PROCEDURE NOTE FIRST PROCEDURE: Placement of left radial arterial line. PREOPERATIVE DIAGNOSIS: Frequent blood draws and blood gas monitoring. POSTOPERATIVE DIAGNOSIS: Frequent blood draws and blood gas monitoring. OPERATORS: 1. Dr. Engle. 2. Dr. Guevara. PROCEDURE DESCRIPTION: A time-out was completed verifying correct patient, procedure, site, positioning, and implant(s) or special equipment if applicable. Donavan's test was performed to ensure adequate perfusion. The patient's left wrist was prepped and draped in sterile fashion. 1% Lidocaine was used to anesthetize the area. An 18G Arrow arterial line was introduced into the left radial artery. The catheter was threaded over the guide wire and the needle was removed with appropriate pulsatile blood return. There was good waveform and blood pressure reading. Blood loss was minimal. The catheter was then sutured in place to the skin and a sterile dressing applied by the nurse. Perfusion to the extremity distal to the point of catheter insertion was checked and found to be adequate. The patient tolerated the procedure well and there were no immediate complications. SECOND PROCEDURE: Tracheostomy tube change. PREOPERATIVE DIAGNOSIS: Respiratory failure. POSTOPERATIVE DIAGNOSIS: Respiratory failure. OPERATORS: 1. Dr. Engle. 2. Dr. Guevara. PROCEDURE DESCRIPTION: The patient previously had a #6 Shiley uncuffed tracheostomy tube. The patient needed a cuffed tube. The old tracheostomy tube was removed. The #6 Shiley tracheostomy tube was inserted without difficulty. The trochar was removed. The inner cannula was placed. The tube was secured. There was no immediate complication. The patient was connected to the mechanical ventilator. THIRD PROCEDURE: Bronchoscopy, airway examination, therapeutic lavage, PREOPERATIVE DIAGNOSIS: Respiratory failure and airway secretions. POSTOPERATIVE DIAGNOSIS: Respiratory failure and airway secretions. OPERATORS: 1. Dr. Engle. 2. Dr. Guevara. PROCEDURE DESCRIPTION: There was universal timeout. After the tracheostomy tube was changed, the bronchoscope was inserted through the bronchoscope adapter connected to the new tracheostomy tube. The secretions in the airways were significant and they were suctioned. There was some tissue material also removed from the airway. The airways were otherwise patent. There was some erythema and hyperemia. The patient tolerated the procedure well. No samples were taken. The bronchoscope was withdrawn. There was no immediate complication. The patient tolerated the procedure well. MMODL / IJN: [id number] / [facility]
[2021-10-20] MEDS: CHOLECALCIFEROL 125 MCG (5000 IU) TABLET PO SCH (10:43)
[2021-10-20] MEDS: ZINC SULFATE 220 MG CAP PO SCH (10:43)
[2021-10-20] MEDS: ASCORBIC ACID 500 MG TAB PO SCH (10:43)
[2021-10-20] MEDS: AZITHROMYCIN 500 MG TAB PO SCH (10:45)
[2021-10-20] MEDS: ENOXAPARIN 40 MG/0.4 ML SYRINGE SQ SCH (10:53)
[2021-10-20] MEDS: DEXAMETHASONE SOD PHOSPHATE 10 MG/ML 1 ML VIAL IVP SCH (10:53)
[2021-10-20] MEDS: SODIUM CHLORIDE 0.9% 1,000 ML IV SCH ×2 (10:53→19:55)
[2021-10-20] MEDS: CHLORHEXIDINE GLUCONATE 15 ML CUP MUCOUS MEM SCH ×2 (10:53→20:05)
--- NOTE | 2021-10-20 10:53 | PCN ---
PROCEDURE NOTE PULMONARY/CRITICAL CARE PROCEDURE NOTE: Placement of left internal jugular triple-lumen catheter. PREOPERATIVE DIAGNOSIS: Administration of fluids and pressors. POSTOPERATIVE DIAGNOSIS: Administration of fluids and pressors. OPERATORS: 1. Dr. Engle. 2. Dr. Guevara. PROCEDURE DESCRIPTION: [place] time-out was completed verifying correct patient, procedure, site, positioning, and implant(s) or special equipment if applicable. There was informed consent. The patient was placed in a dependent position appropriate for triple lumen catheter placement based on the vein to be cannulated. The patient's left neck was prepped and draped in sterile fashion. 1% Lidocaine was used to anesthetize the surrounding skin area. A triple lumen 9F Cordis catheter was introduced into the left internal jugular vein using Seldinger technique via the posterior approach. The catheter was threaded smoothly over the guide wire and appropriate blood return was obtained. There was good blood return from all three ports. Each lumen of the catheter was evacuated of air and flushed with sterile saline. The catheter was then sutured in place to the skin and a sterile dressing applied by the nurse. Perfusion to the extremity distal to the point of catheter insertion was checked and found to be adequate. The patient tolerated the procedure well. There was no immediate complication. A chest x-ray was ordered to check placement and rule out pneumothorax. MMODL / IJN: [id number] /
--- NOTE | 2021-10-20 11:13 | P.PN ---
Subjective Progress Note Date: 10/20/21 Principal diagnosis: Respiratory failure. Pulmonary consult dated 10/18/2021. 36-year-old black female, who I'm asked to see, for possible pneumonia. The patient did test positive for coronavirus. She typically is taken care of by her mother. She apparently lives at home with her mother. Her retail department reset is Dr. Scott. The patient presented to the emergency department with complaints of chest pressure, and shortness of breath. It apparently started 2:00 in the morning early on October 18. The patient denied any fever or chills. She denied any cough. She's not coughing up any phlegm. The patient has had a tracheostomy in place since 2008. She's currently on a Triogy ventilator. She has a #6 uncuffed Shiley tracheostomy tube. She apparently is on the ventilator she is on 3 L. She has been vaccinated against coronavirus. She did test positive for coronavirus. Chest x-ray is of poor quality, and is hard to say whether or not there are any new infiltrates. Currently, she is getting saline at 100 mL an hour. Her O2 sats up to 4 L, her normal doses 3. She was given Rocephin and Zithromax. 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 She is followed at [facility]. White count 7.2, hemoglobin 14, hematocrit 43.2, platelet count 232,000. PT 11.8, INR 1.1, PTT 25.6. Sodium 133, potassium 4.1, chlorides 105, CO2 19, anion gap 9, BUN 6, creatinine 0.31. Calcium 7.9. Magnesium 1.5. Testing for perez virus was positive. Her blood sugar was 132. Chest x-ray difficult to interpret. Progress note dated 10/19/2021. 36-year-old black female with a history of multiple medical problems including developmental delay, and spina bifida. The patient required a tracheostomy back in 2008. She was admitted to the intensive care unit, and I saw her in consultation yesterday. Please see the note above. Currently, she is getting saline at 100 mL an hour, oxygen at 4 L, and she remains on the Trilogy ventilator, in the pressure support mode. She feels better today than she did yesterday. Current labs include a white count of 6.6, hemoglobin 13.4, hematocrit 45.2, and platelet count 235,000. Sodium 137, potassium 4.6, chlorides 107, CO2 20, anion gap 10, BUN 4, and creatinine 0.25. The patient's C-reactive protein is 18.5. The patient's chest x-ray is suboptimal. There are low lung volumes and mild cardiomegaly, with bilateral multifocal opacities. Progress note dated 10/20/2021. 36-year-old black female seen again in room 254. She has a history of multiple medical problems including developmental delay and spina bifida. Sometime early this morning, she started developing increasing respiratory distress, increasing respiratory rates, lower saturations, and increasing oxygen requirements. It was not brought to my attention before I saw the patient this morning in the intensive care unit. The patient when I saw her this morning was in significant distress. Her respiratory rate was in the 35-40 range. Her saturations were in the low 80s. Her heart rate was 155-160. At that point, we decided to sedate her, and paralyzed her, and I changed a tracheostomy tube actually cuffed #6 Shiley tube. Also, we placed a left radial arterial line, and a left internal jugular triple-lumen catheter. During this. A time, she had some hemoptysis. A bronchoscope was placed down her tracheostomy tube, and though there was blood in the airway, there is no active bleeding. In addition, he had some difficulty in ventilating her, until we were able to reposition her. We did ensure that the tracheostomy tube was in the lumen of the airway. Laboratory data includes a white count 11.8, hemoglobin 12.8, hematocrit 42.1, and platelet count 282,000. D-dimer was 1.15. Blood gases show a PaO2 of 158, pCO2 of 51, pH is 7.29. Settings included a volume assist control mode, rate of 30, tidal volume 250, FiO2 100%, PEEP of 5. The rate was bumped up to 34 breaths per minute. The FiO2 will be slowly weaned. Previously, she was on the Trilogy ventilator. Sodium 142, potassium 4.4, chlorides 113, CO2 22, BUN 8, creatinine 0.3. Pro- calcitonin level is 0.11. LDH is 983. C-reactive protein is 5.2. Chest x-ray shows persistent bilateral infiltrates. Objective - Vital Signs Vital signs: Vital Signs Temp 97.8 F 10/20/21 00:00 Pulse 105 H 10/20/21 06:00 Resp 11 L 10/20/21 06:00 BP 119/86 10/20/21 06:00 Pulse Ox 100 10/20/21 06:00 Intake & Output 10/19/21 10/20/21 10/20/21 18:59 06:59 18:59 Intake Total 1300 1200 104.071 Balance 1300 1200 104.071 Intake: IV 1300 1100 100 .9 100 1300 1100 100 Intake, IV Titration 4.071 Amount propofoL 1,000 mg In 4.071 Empty Bag 1 bag @ 5 MCG/ KG/MIN 1.986 mls/hr IV . Q24H MARILYN Rx#:[id number] Oral 100 Other: # Voids 1 1 1 - Exam Sedated and paralyzed. HEENT examination is grossly unremarkable. Neck supple. Full range of motion. No adenopathy thyromegaly or neck vein distention. A midline tracheostomy tube is noted. Cardiovascular examination reveals regular rhythm rate. S1-S2 normal. No S3 or S4. No discernible murmur noted. Heart rate about 105 bpm. It is regular. Heart sounds are distant. Lungs reveal scattered bilateral rhonchi. No wheezes or crackles. Breath sounds equal. Saturations are 99%. Abdomen is difficult to examine. No tenderness. Extremities are intact. No cyanosis clubbing or edema. Skin is without rash or lesion. Neurologic examination is brief but nonfocal. She is paralyzed from the waist down. - Labs CBC & Chem 7: 10/20/21 09:48 10/20/21 09:48 Labs: Abnormal Lab Results - Last 24 Hours (Table) 10/19/21 10/20/21 10/20/21 Range/Units 07:21 09:48 09:48 WBC 11.8 H (3.8-10.6) k/uL MCHC 30.3 L (31.0-37.0) g/dL RDW 15.9 H (11.5-15.5) % Neutrophils # 9.5 H (1.3-7.7) k/uL D-Dimer (<0.60) mg/L FEU ABG pH (7.35-7.45) ABG pCO2 (35-45) mmHg ABG pO2 (83-108) mmHg ABG Total CO2 (19-24) mmol/L ABG O2 Saturation (94-97) % Chloride 113 H (98-107) mmol/L Creatinine 0.30 L (0.52-1.04) mg/dL Glucose 124 H (74-99) mg/dL Lactate Dehydrogenase (313-618) U/L C-Reactive Protein (<1.0) mg/dL Procalcitonin 0.11 H (0.02-0.09) ng/mL 10/20/21 10/20/21 10/20/21 Range/Units 09:48 09:48 10:24 WBC (3.8-10.6) k/uL MCHC (31.0-37.0) g/dL RDW (11.5-15.5) % Neutrophils # (1.3-7.7) k/uL D-Dimer 1.15 H (<0.60) mg/L FEU ABG pH 7.29 L (7.35-7.45) ABG pCO2 51 H (35-45) mmHg ABG pO2 158 H (83-108) mmHg ABG Total CO2 26 H (19-24) mmol/L ABG O2 Saturation 99.5 H (94-97) % Chloride (98-107) mmol/L Creatinine (0.52-1.04) mg/dL Glucose (74-99) mg/dL Lactate Dehydrogenase 983 H (313-618) U/L C-Reactive Protein 5.2 H (<1.0) mg/dL Procalcitonin (0.02-0.09) ng/mL Microbiology - Last 24 Hours (Table) 10/19/21 16:08 Sputum Culture - Preliminary Sputum 10/18/21 03:40 Urine Culture - Final Urine,Voided 10/18/21 06:34 Blood Culture Gram Stain - Preliminary Blood Blood Culture - Preliminary Proteus mirabilis Assessment and Plan Assessment: Acute coronavirus infection, and possible coronavirus associated pneumonia. Patient has been previously vaccinated. Status post tracheostomy, 2008, with chronic respiratory failure, currently maintained on a Trilogy ventilator. The patient's uncuffed tracheostomy tube was removed, and a cuffed #6 Shiley tube was placed. The patient was placed on a standard mechanical ventilator, on 10/20/2021. Status post bronchoscopy, 10/20/2021, as well as placement of a left radial art line, and a left internal jugular triple-lumen catheter. History of spina bifida. 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 Paraplegia. History of UTIs. History of GERD. DISTRICT REPRESENTATIVE shunt. History of constipation. Plan: Plan dated 10/18/2021. Currently, the patient's on Zithromax and Rocephin. In addition, we added vitamin C, vitamin D3, and zinc. It's unclear to me how long the patient has been sick. We will hold off on giving her REM for the time being. We do had Decadron, 6 mg, and Lovenox 40 mg subcu daily. Additional recommendations and suggestions are forthcoming. Prognosis is certainly guarded. Additional recommendations will be made once additional history is obtained. Plan dated 10/19/2021. The patient currently remains on antibiotics in the form of azithromycin and Rocephin. The patient also remains on vitamin C, vitamin D3, and zinc. We also have the patient on Decadron 6 mg daily, and Lovenox 40 mg subcu daily. It's unclear how long she has been sick, and therefore, I hold off on giving her REM. The patient is not sick enough to receive and monoclonal antibody against interleukin-6. We will continue to follow the patient and make recommendations where appropriate. Prognosis is guarded. Additional recommendations and suggestions are forthcoming. Plan dated 10/20/2021. Because of the patient's instability and worsening respiratory status. Her tracheostomy tube was changed to a #6 Shiley cuffed tube. In addition, a left radial art line was placed as well as a left internal jugular triple-lumen catheter. The patient was sedated and paralyzed. She did develop some hemoptysis. Bronchoscopy did not reveal any active bleeding. Labs and x-rays are reviewed. The patient's prognosis is guarded. I did speak to the patient's mother, Claudia, and she came in to see her daughter. The patient remains on appropriate medications. We will continue to follow. Time with Patient: Greater than 30
--- NOTE | 2021-10-20 11:48 | XR ---
EXAMINATION TYPE: XR chest 1V portable DATE OF EXAM: 10/20/2021 Comparison: 10/20/2021 Clinical History: 36-year-old female Line Placement Findings: 3 images were repeated due to exposure levels and patient body habitus. There appears to be severe th oracic deformity secondary to underlying scoliosis. Lung volumes are very low. Tracheostomy cannula i s present. Possible patchy bilateral opacities. Exam nearly nondiagnostic. Left CVC tip appears to be within the right atrium region. Again, assessment limited. The cardiomediastinal silhouette, aorta, and pulmonary vasculature are within normal limits. Lungs and pleural spaces are clear. Impression: Marked hypoventilatory changes. Marked thoracic deformity secondary to scoliosis. Bilateral diffuse p atchy and confluent airspace disease. Left CVC tip appears to be in the region of the right atrium.
--- NOTE | 2021-10-20 12:12 | P.PN ---
Subjective Progress Note Date: 10/20/21 36-year-old woman with history of spina bifida who is brought by ambulance to be evaluated for pain in the chest. Patient had awakened around 2 AM and complained to family that she was having pain. She indicates the upper left chest. Patient not able to characterize the pain well. She has not noted worsening or relieving factors. Patient not able to state any other complaints. White count 7.2, hemoglobin 14, hematocrit 43.2, platelet count 232,000. PT 11.8, INR 1.1, PTT 25.6. Sodium 133, potassium 4.1, chlorides 105, CO2 19, anion gap 9, BUN 6, creatinine 0.31. Calcium 7.9. Magnesium 1.5. Testing for perez virus was positive. Her blood sugar was 132. Chest x-ray bilateral multi focal opacities, correlate for COVID 19 infection 10/19/2021 Patient is seen and evaluated in follow-up continues to be closely monitored in the ICU for pneumonia with pulmonary following closely. Patient is maintained on Zithromax and ceftriaxone and will continue. Patient was also found to be positive for Covid 19. Patient chronically on a T piece with an FiO2 of 36% currently and is normally maintained on 3-4 L of oxygen. Patient started on IV dexamethasone along with vitamin and zinc supplements and will continue. Patient also to continue on subcutaneous Lovenox. Chest x-ray ordered for this morning. Inflammatory markers continue to be elevated related. Per medical records patient was vaccinated for COVID-19. blood cultures are positive for proteus and will consult infectious disease and repeat blood cultures. 10/20/2021 Patient is seen and evaluated in follow-up this morning with pulmonary medication aide following closely patient continues in the ICU. Per nursing staff patient had some respiratory distress increasing respirations and low oxygen saturations requiring mechanical ventilation and sedation via tracheostomy and the tracheostomy tube needed to be replaced by pulmonary as well. Per nursing calf there was some significant bleeding around the tube and underwent bronchoscopy with no active bleeding noted. will continue to monitor hemoglobin closely. Chest x-ray today shows nearly nondiagnostic exam although marked hypoventilatory changes with marked thoracic deformity secondary to scoliosis and bilateral diffuse patchy and confluent airspace disease. Patient also required central line and art line to monitor blood pressures and vital signs closely. Hemoglobin is 12.8 today and white blood count mildly elevated at 11.8, d-dimer is 1.15. Inflammatory markers elevated although trending down. Blood culture showing Proteus mirabilis and awaiting repeat blood culture and sputum culture preliminary pending. Review of systems: Unable to obtain as patient is currently on mechanical vent and sedated Active Medications Albuterol Sulfate (Albuterol Hfa Inhaler) 2 puff INHALATION RT-QID [facility] Last Admin: 10/20/21 11:53 Dose: Not Given Documented by: Albuterol/Ipratropium (Ipratropium-Albuterol 3 Ml Neb) 3 ml INHALATION RT-Q2H PRN PRN Reason: Shortness Of Breath Or Wheezing Artificial Tears (Artificial Tears-Hypromellose Drops 15 Ml Btl) 2 drops BOTH EYES Q4HR [facility] Ascorbic Acid (Ascorbic Acid 500 Mg Tab) 1,000 mg PO DAILY [facility] Last Admin: 10/20/21 10:43 Dose: Not Given Documented by: Chlorhexidine Gluconate (Chlorhexidine Gluconate 15 Ml Cup) 15 ml MUCOUS MEM BID [facility] Last Admin: 10/20/21 10:53 Dose: 15 ml Documented by: Cholecalciferol (Cholecalciferol 125 Mcg (5000 Iu) Tablet) 125 mcg PO DAILY [facility] Last Admin: 10/20/21 10:43 Dose: Not Given Documented by: Dexamethasone Sodium Phosphate (Dexamethasone Sod Phosphate 10 Mg/Ml 1 Ml Vial) 6 mg IVP DAILY [facility] Last Admin: 10/20/21 10:53 Dose: 6 mg Documented by: Enoxaparin Sodium (Enoxaparin 40 Mg/0.4 Ml Syringe) 40 mg SQ DAILY [facility] Last Admin: 10/20/21 10:53 Dose: 40 mg Documented by: Hydromorphone HCl (Hydromorphone 0.5 Mg/0.5 Ml Syringe) 0.5 mg IVP Q3HR PRN PRN Reason: Pain Sodium Chloride (Saline 0.9%) 1,000 mls @ 100 mls/hr IV .Q10H [facility] Last Admin: 10/20/21 10:53 Dose: 100 mls/hr Documented by: Ceftriaxone Sodium 2 gm/ (Sodium Chloride) 50 mls @ 100 mls/hr IVPB Q24HR [facility]; Protocol Stop: 10/22/21 09:29 Last Admin: 10/20/21 10:53 Dose: 100 mls/hr Documented by: Propofol 1,000 mg/ IV Solution 100 mls @ 1.986 mls/hr IV .Q24H [facility]ILYN; Protocol Last Titration: 10/20/21 10:45 Dose: 25 mcg/kg/min, 9.93 mls/hr Documented by: Cisatracurium Besylate 200 mg/ (Sodium Chloride) 200 mls @ 1.986 mls/hr IV .Q24H [facility]ILYN; Protocol Last Admin: 10/20/21 09:55 Dose: 0.5 mcg/kg/min, 1.986 mls/hr Documented by: Miscellaneous Information (Pneumonia Protocol Utilized 1 Each [facility] [place] 1 each PO ONCE PRN PRN Reason: Per Protocol Zinc Sulfate (Zinc Sulfate 220 Mg Cap) 220 mg PO DAILY [facility] Last Admin: 10/20/21 10:43 Dose: Not Given Documented by: Physical exam: GENERAL: The patient is currently intubated and sedated via tracheostomy. Well developed, well nourished. FiO2 currently under percent on vent HEENT: Pupils are round and equally reacting to light. EOMI. No scleral icterus. No conjunctival pallor. Normocephalic, atraumatic. No pharyngeal erythema. No thyromegaly. CARDIOVASCULAR: S1 and S2 present. No murmurs, rubs, or gallops. PULMONARY: Diminished breath sounds bilaterally with some scattered rhonchi and crackles noted ABDOMEN: Soft, nontender, nondistended, normoactive bowel sounds. No palpable organomegaly. MUSCULOSKELETAL: No joint swelling or deformity. EXTREMITIES: No cyanosis, clubbing, or pedal edema. NEUROLOGICAL: Gross neurological examination did not reveal any focal deficits. SKIN: No rashes. 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 Patient is not a candidate for Remdesivir. Patient is continued on IV antibiotics in the form of Zithromax and ceftriaxone and will continue.Blood cultures are positive for proteus and will consult infectious disease. Repeat cultures ordered. Sputum culture received in pending at this time. Patient in acute respiratory distress today requiring exchange of her tracheostomy and patient was placed on mechanical vent and currently sedated at this time and received an art line and IJ for venous access and close ICU monitoring. Pulmonary following closely. Chest x-ray as mentioned previously. Patient with some bleeding noted during the tracheostomy tube change and will continue to monitor for any further bleeding. Patient is status post bronchoscopy with no active bleeding noted. Hemoglobin is stable at 12.8. Prognosis guarded recommend follow-up labs and will continue to monitor closely. Repeat chest x-ray in the morning. The impression and plan of care has been dictated by Shweta Rubio, Nurse Practitioner as directed. Dr. Abida MD I have performed a history and examination and MDM of this patient, discussed the same with the dictator, and agree with the dictator's assessment and plan as written ,documented as a scribe. Based on total visit time, I have performed more than 50% of the visit. Objective - Vital Signs Vital signs: Vital Signs Temp 97.8 F 10/20/21 00:00 Pulse 105 H 10/20/21 06:00 Resp 11 L 10/20/21 06:00 BP 119/86 10/20/21 06:00 Pulse Ox 100 10/20/21 06:00 Intake & Output 10/19/21 10/20/21 10/20/21 18:59 06:59 18:59 Intake Total 1300 1200 100 Balance 1300 1200 100 Intake: IV 1300 1100 100 .9 100 1300 1100 100 Oral 100 Other: # Voids 1 1 1 - Labs CBC & Chem 7: 10/20/21 09:48 10/20/21 09:48 Labs: Abnormal Lab Results - Last 24 Hours (Table) 10/19/21 Range/Units 07:21 Procalcitonin 0.11 H (0.02-0.09) ng/mL Microbiology - Last 24 Hours (Table) 10/19/21 16:08 Sputum Culture - Preliminary Sputum 10/18/21 03:40 Urine Culture - Final Urine,Voided 10/18/21 06:34 Blood Culture Gram Stain - Preliminary Blood Blood Culture - Preliminary Proteus mirabilis
[2021-10-20] MEDS: ARTIFICIAL TEARS-HYPROMELLOSE DROPS 15 ML BTL BOTH EYES SCH ×3 (12:21→20:03)
--- NOTE | 2021-10-20 20:39 | P.CONS ---
History of Present Illness - Reason for Consult Consult date: 10/20/21 Positive blood culture, Covid Requesting physician: Shweta Rubio - Chief Complaint shortness of breath x 1 day - History of Present Illness Patient is a 36-year-old -[place] female with a past medical history significant for spina bifida history of asthma chronic respiratory failure status post tracheostomy patient was brought into [facility] ER on 2021 for evaluation of increasing shortness of breath and chest pressure Shoshana symptoms started the day of presentation to the hospital no clear history of any worsening cough or sputum production and no history of any vomiting or diarrhea on presentation to the hospital patient did have a low- grade fever 100.1 F patient has been admitted to ICU and the patient is on the vent continuously positive prior to patient did have a normal white count presentation however did have white count of 9.8 today with a left shift creatinine is normal liver enzymes are normal procalcitonin mild elevated did have a positive UA and the patient does have a positive Covid test blood cultures showing a Proteus mirabilis patient is currently on Rocephin 2 g daily infectious disease was consulted for further management of antibiotic therapy most information has been obtained from review the chart and talking to nursing staff at the patient coordinate history no family members available at the bedside Review of Systems Positive points has been mentioned in HPI complete review could not be obtained because of his underlying mental status Past Medical History Past Medical History: Asthma, GERD/Reflux, Musculoskeletal Disorder Additional Past Medical History / Comment(s): Spina bifida with spina bifida def ormities, paralyzed waist down, mentality approximately 6yr old, severe kyphoscoliosis with pectus deformity, chronic lung disease with chronic respiratory hypoxia/hypercpnia, trach/chronic vent, pneumonias, bronchospasms, cervical compression with surgery, nephrolithiasis, urostomy-wears depends, UTIs, constipation. History of Any Multi-Drug Resistant Organisms: None Reported Past Surgical History: Back Surgery, Orthopedic Surgery Additional Past Surgical History / Comment(s): 2008 trach, urostomy, [employer] shunt, bilateral release/resection hamstrings proximal muscle, cervical decompression, surgery for "lazy eye." Shunt placed in brain 2020 Past Anesthesia/Blood Transfusion Reactions: No Reported Reaction Past Psychological History: No Psychological Hx Reported Smoking Status: Never smoker Past Alcohol Use History: None Reported Past Drug Use History: None Reported - Past Family History Father Family Medical History: Asthma Mother Family Medical History: Diabetes Mellitus, Hyperlipidemia, Hypertension Medications and Allergies Home Medications Medication Instructions Recorded Confirmed Type Albuterol Nebulized [Ventolin 2.5 mg INHALATION RT-BID PRN 10/07/17 10/18/21 History Nebulized] Budesonide [Pulmicort] 1 mg INHALATION RT-BID 05/07/21 10/18/21 History Allergies Allergy/AdvReac Type Severity Reaction Status Date / Time No Known Allergies Allergy Verified 10/18/21 06:47 Physical Exam Vitals: Vital Signs Temp Pulse Resp BP Pulse Ox 10/20/21 12:00 97.2 F L 96 36 H 103/66 99 10/20/21 11:00 105 H 36 H 103/66 99 10/20/21 10:00 94 36 H 103/66 96 10/20/21 09:00 133 H 3 L 114/78 96 10/20/21 08:00 98 F 124 H 21 119/86 98 10/20/21 07:00 98 0 L 119/86 96 10/20/21 06:00 105 H 11 L 119/86 100 10/20/21 04:00 101 H 21 136/101 97 10/20/21 02:00 90 17 94 L 10/20/21 00:00 97.8 F 98 34 H 129/102 96 10/19/21 22:00 17 89 L 10/19/21 20:04 103 H 4 L 97 10/19/21 20:00 97.8 F 103 H 15 136/105 97 10/19/21 18:00 93 27 H 129/103 97 10/19/21 16:00 98.2 F 105 H 17 129/103 94 L Intake and Output 10/19/21 10/20/21 10/20/21 22:59 06:59 14:59 Intake Total 900 800 531.908 Balance 900 800 531.908 Intake: IV 800 800 500 .9 100 800 800 500 Intake, IV Titration 31.908 Amount Cisatracurium 200 mg In 7.977 Sodium Chloride 0.9% 180 ml @ 0.5 MCG/KG/MIN 1.986 mls/hr IV .Q[facility]H [facility] Rx#: [id number] propofoL 1,000 mg In 23.931 Empty Bag 1 bag @ 5 MCG/ KG/MIN 1.986 mls/hr IV . Q[facility] Rx#:[id number] Oral 100 Other: # Voids 1 1 1 ABP, PAP, CO, CI - Last 8 Hours Arterial Blood Pressure 109/79 Arterial Blood Pressure 117/88 Arterial Blood Pressure 102/85 GENERAL DESCRIPTION: Middle-aged female intubated on the vent. No tachypnea or accessory muscle of respiration use. HEENT: Shows Pallor , no scleral icterus. Oral mucous membrane is dry. No pharyngeal erythema or thrush NECK: Trachea central, no thyromegaly. LUNGS: Unlabored breathing. Clear to auscultation anteriorly. No wheeze or crackle. HEART: S1, S2, regular rate and rhythm. No loud murmur ABDOMEN: Soft, no tenderness , guarding or rigidity, no organomegaly EXTREMITIES: Left BKA stump dressed no drainage SKIN: No rash, no masses palpable. NEUROLOGICAL: The patient is sedated on the vent Results CBC & Chem 7: 10/20/21 09:48 10/20/21 09:48 Labs: Abnormal Lab Results - Last 24 Hours (Table) 10/19/21 10/20/21 10/20/21 Range/Units 07:21 09:48 09:48 WBC 11.8 H (3.8-10.6) k/uL MCHC 30.3 L (31.0-37.0) g/dL RDW 15.9 H (11.5-15.5) % Neutrophils # 9.5 H (1.3-7.7) k/uL D-Dimer (<0.60) mg/L FEU ABG pH (7.35-7.45) ABG pCO2 (35-45) mmHg ABG pO2 (83-108) mmHg ABG Total CO2 (19-24) mmol/L ABG O2 Saturation (94-97) % Chloride 113 H (98-107) mmol/L Creatinine 0.30 L (0.52-1.04) mg/dL Glucose 124 H (74-99) mg/dL Lactate Dehydrogenase (313-618) U/L C-Reactive Protein (<1.0) mg/dL Procalcitonin 0.11 H (0.02-0.09) ng/mL 10/20/21 10/20/2110/20/22 Range/Units 09:48 09:48 10:24 WBC (3.8-10.6) k/uL MCHC (31.0-37.0) g/dL RDW (11.5-15.5) % Neutrophils # (1.3-7.7) k/uL D-Dimer 1.15 H (<0.60) mg/L FEU ABG pH 7.29 L (7.35-7.45) ABG pCO2 51 H (35-45) mmHg ABG pO2 158 H (83-108) mmHg ABG Total CO2 26 H (19-24) mmol/L ABG O2 Saturation 99.5 H (94-97) % Chloride (98-107) mmol/L Creatinine (0.52-1.04) mg/dL Glucose (74-99) mg/dL Lactate Dehydrogenase 983 H (313-618) U/L C-Reactive Protein 5.2 H (<1.0) mg/dL Procalcitonin (0.02-0.09) ng/mL Microbiology - Last 24 Hours (Table) 10/19/21 16:08 Gram Stain - Preliminary Sputum Sputum Culture - Preliminary 10/18/21 03:40 Urine Culture - Final Urine,Voided Assessment and Plan (1) Pneumonia Current Visit: Yes Status: Acute Code(s): J18.9 - PNEUMONIA, UNSPECIFIED ORG ANISM SNOMED Code(s): 422453126 Plan: 1patient with a Proteus mirabilis bacteremia source could be likely Unitek infection he did have positive UA however the patient also have a acute respiratory failure and a possible component of pneumonia. 2positive Covid test with exact symptom onset has been about 1 day. 3patient to continue with the Rocephin 2 g daily while waiting for the cultures to be finalized We will follow on clinical condition and cultures to further adjust medication if needed Thank you for this consultation will follow this patient along with you Time with Patient: Greater than 30
[2021-10-21] MEDS: ARTIFICIAL TEARS-HYPROMELLOSE DROPS 15 ML BTL BOTH EYES SCH ×7 (01:09→23:39)
[2021-10-21] MEDS: CISATRACURIUM 200 MG in SODIUM CHLORIDE 0.9% 180 ML IV SCH (05:30)
[2021-10-21] MEDS: SODIUM CHLORIDE 0.9% 1,000 ML IV SCH ×2 (05:32→15:51)
--- NOTE | 2021-10-21 08:31 | XR ---
EXAMINATION TYPE: XR chest 1V DATE OF EXAM: 10/21/2021 COMPARISON: Chest x-ray 10/20/2021, CT 09/06/2019 HISTORY: Shortness of breath TECHNIQUE: Single frontal view of the chest is obtained. FINDINGS: Exam is markedly limited due to patient body habitus. There is an overlying tracheostomy t ube, NG tube is present likely within the stomach. Left jugular central venous catheter is present li lynda coursing to the level of the right atrium. Ventriculoperitoneal shunt tubing noted incidentally. Difficult to exclude pneumonia, edema, effusion. Heart is not well evaluated due to patient body hab itus, technique. There is a marked underlying scoliosis. IMPRESSION: Exam is markedly limited.
[2021-10-21] MEDS: ALBUTEROL HFA INHALER INHALATION SCH ×4 (08:32→20:17)
[2021-10-21 08:35] LABS: Anisocytosis Slight; Basophils % (A) 1 %; Eosinophils # (A) 0.1 k/uL (0-0.7); Eosinophils % (A) 1 %; HCT 36.4 % (34.0-46.0); HGB 11.8 gm/dL (11.4-16.0); Hypochromasia Slight; Lymphocytes # (A) 1.3 k/uL (1.0-4.8); Lymphocytes % (A) 18 %; MCH 29.8 pg (25.0-35.0); MCHC 32.3 g/dL (31.0-37.0); MCV 92.3 fL (80.0-100.0); Mean Platelet Volume 8.1; Monocytes # (A) 0.4 k/uL (0-1.0); Monocytes % (A) 5 %; Neutrophils # (A) 5.2 k/uL (1.3-7.7); Neutrophils % (A) 71 %; Platelet Count 256 k/uL (150-450); RBC 3.94 m/uL (3.80-5.40); RDW 19.5 % (11.5-15.5); WBC 7.3 k/uL (3.8-10.6)
[2021-10-21] MEDS: CHOLECALCIFEROL 125 MCG (5000 IU) TABLET PO SCH (08:51)
[2021-10-21] MEDS: CHLORHEXIDINE GLUCONATE 15 ML CUP MUCOUS MEM SCH ×2 (08:52→20:08)
[2021-10-21] MEDS: DEXAMETHASONE SOD PHOSPHATE 10 MG/ML 1 ML VIAL IVP SCH (08:52)
[2021-10-21] MEDS: ZINC SULFATE 220 MG CAP PO SCH (08:52)
[2021-10-21] MEDS: ASCORBIC ACID 500 MG TAB PO SCH (08:52)
[2021-10-21] MEDS: ENOXAPARIN 40 MG/0.4 ML SYRINGE SQ SCH (08:52)
[2021-10-21 08:54] LABS: ALT 13 U/L (4-34); AST 22 U/L (14-36); African American GFR (CKD) >90 (>60 ml/min/1.73 sqM); Alkaline Phosphatase 71 U/L (38-126); Anion Gap 10 mmol/L; Blood Urea Nitrogen 10 mg/dL (7-17); Calcium 8.1 mg/dL (8.4-10.2); Carbon Dioxide 20 mmol/L (22-30); Chloride 114 mmol/L (98-107); Glucose 83 mg/dL (74-99); Non-African American GFR(CKD) >90 (>60 ml/min/1.73 sqM); Potassium 3.5 mmol/L (3.5-5.1); Sodium 144 mmol/L (137-145); Total Bilirubin 0.7 mg/dL (0.2-1.3); Total Protein 6.3 g/dL (6.3-8.2)
[2021-10-21] MEDS: POTASSIUM CHLORIDE 20 MEQ in WATER FOR INJECTION 1 100ML.BAG IVPB SCH ×2 (11:54→12:18)
[2021-10-21 12:07] LABS: ABG Base Excess -3.8 mmol/L; ABG HCO3 20 mmol/L (21-25); ABG Oxygen Saturation 96.2 % (94-97); ABG PCO2 29 mmHg (35-45); ABG PH 7.45 (7.35-7.45); ABG PO2 73 mmHg (83-108); ABG TCO2 21 mmol/L (19-24); Allen Test Performed? Yes
--- NOTE | 2021-10-21 13:53 | P.PN ---
Subjective Progress Note Date: 10/21/21 36-year-old female patient with known history of spina bifida was currently in the intensive care unit and the patient is currently on a mechanical ventilator due to COVID 90 related pneumonia and respiratory insufficiency. The patient has significant anatomic deformities of the chest spine in lower extremities and the patient has underlying cognitive impairment and developmental delay. She has a permanent tracheostomy tube at home and she has been on the Trilogy ventilator at home that she had been utilizing for many years. I checked her ventilator and I started the patient was on a pressure control mode of mechanical ventilation which urology and her pressure control was at 35 cm of water with a EPAP minimum of 5. I also noted that the patient's tracheostomy tube has been switched to a cuffed #6 Shiley tracheostomy tube during this current hospital stay. The chest x-ray shows significant opacification of both lungs with some minimal sparing of the lung apices. Nevertheless, this is suboptimal chest x-ray because of the patient's impaired body habitus. This morning, I saw this patient in a follow-up on 10/21/2021. The patient is morning is on a motorcycle assist-control mode of mechanical ventilation with a rate of 36 with a tidal volume of 2 50 mL in a patient also has a PEEP of 500 FiO2 of 40%. Blood gases from this morning showed a pH of 7.49 with a pCO2 of 27 and pO2 of 77. The peak airway pressure was 44. Static pressure was 39. The patient was on propofol and the patient was sedated adequately and probable was running at 35 mg/kg per minute and the patient was also on the backs S2 microvascular kilogram per minute. The patient was being treated for COVID 19 pneumonia as the patient checked positive for COVID 19. Her pro-calcitonin level was 0.11. LDH level was 983, d-dimer was 1.15, and the patient is on Decadron 6 mg IV every 24 hours. NG tube is in place for enteral feeding and nutritional support. This will be started today. The patient was quite successful the mechanical ventilator. The white cell count today is at 7.3 with a hemoglobin of 11.8 and the patient also had a sodium level of 144 with a bicarb of 20 and a BUN of 10 and a creatinine of 0.3. Objective - Vital Signs Vital signs: Vital Signs Temp 98 F 10/21/21 12:00 Pulse 51 L 10/21/21 13:00 Resp 36 H 10/21/21 13:00 BP 103/66 10/20/21 20:00 Pulse Ox 99 10/21/21 13:00 Intake & Output 10/20/21 10/21/21 10/21/21 18:59 06:59 18:59 Intake Total 2533.750 3177.023 582.419 Balance 0582.455 9667.023 582.419 Weight 70 kg Intake: IV 1000 1300 500 .9 100 1000 1300 500 Intake, IV Titration 100.822 292.023 82.419 Amount Cisatracurium 200 mg In 7.977 192.023 42.103 Sodium Chloride 0.9% 180 ml @ 0.5 MCG/KG/MIN 1.986 mls/hr IV .Q24H [facility] Rx#: [id number] propofoL 1,000 mg In 92.845 100 40.316 Empty Bag 1 bag @ 5 MCG/ KG/MIN 1.986 mls/hr IV . Q24H [facility] Rx#:[id number] Other: # Voids 1 1 1 ABP, PAP, CO, CI - Last Documented Arterial Blood Pressure 151/83 - Exam Sedated and paralyzed. A very tiny obese -[place] female patient with significant abnormalities in her body habitus due to underlying spina bifida. The patient is a very short limbs in the lower extremity. She has a deformed spine, pelvis and short extremities. The patient was taken to the mechanical ventilator as the patient was sedated and paralyzed this morning. Head exam was generally normal. There was no scleral icterus or corneal arcus. Mucous membranes were moist. Neck was supple and without jugular venous distension, thyromegaly, or carotid bruits. Carotids were easily palpable bilaterally. There was no adenopathy. The patient had a tracheostomy #[address] in [address] and the patient has a left subclavian triple-lumen catheter in place Cardiovascular examination reveals regular rhythm rate. S1-S2 normal. No S3 or S4. No discernible murmur noted. Lungs reveal scattered bilateral rhonchi. No wheezes or crackles. Breath sounds equal. Abdomen is difficult to examine. No tenderness. Extremities are intact. No cyanosis clubbing or edema. Skin Examination of the skin revealed no evidence of significant rashes, suspicious appearing nevi or other concerning lesions. Neurologic examination is brief but nonfocal. She is paralyzed from the waist down. - Labs CBC & Chem 7: 10/21/21 08:15 10/21/21 08:15 Labs: Abnormal Lab Results - Last 24 Hours (Table) 10/21/21 10/21/21 10/21/21 Range/Units 08:15 08:15 11:58 RDW 19.5 H (11.5-15.5) % ABG pCO2 29 L (35-45) mmHg ABG pO2 73 L (83-108) mmHg ABG HCO3 20 L (21-25) mmol/L Chloride 114 H (98-107) mmol/L Carbon Dioxide 20 L (22-30) mmol/L Creatinine 0.31 L (0.52-1.04) mg/dL Calcium 8.1 L (8.4-10.2) mg/dL Albumin 3.0 L (3.5-5.0) g/dL Microbiology - Last 24 Hours (Table) 10/18/21 06:34 Blood Culture Gram Stain - Final Blood Blood Culture - Final Proteus mirabilis Staphylococcus epidermidis Coagulase Negative Staph 10/19/21 16:08 Gram Stain - Final Sputum Sputum Culture - Final Assessment and Plan Plan: Acute coronavirus infection, and possible coronavirus associated pneumonia. Patient has been previously vaccinated. The patient has diffuse but the pulmonary infiltration with apical sparing. Nevertheless, the chest exit findings are quite suboptimal as the patient has spina bifida Acute on chronic hypoxic and hypercapnic respiratory failure. The patient was utilizing a Trilogy ventilator on outpatient basis in a pressure control mode. The patient also has Proteus and coagulase-negative staph epidermidis in the sputum. This could be potentially a colonizer. The patient is currently on IV Rocephin. Status post tracheostomy, 2008, with chronic respiratory failure, currently maintained on a Trilogy ventilator. The patient's uncuffed tracheostomy tube was removed, and a cuffed #6 Shiley tube was placed. The patient was placed on a standard mechanical ventilator, on 10/20/2021. The patient is currently on a volume cycled mechanical ventilation with elevated troponin and static pressures. Status post bronchoscopy, 10/20/2021, as well as placement of a left radial art line, and a left internal jugular triple-lumen catheter. History of spina bifida. 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 Paraplegia. History of UTIs. History of GERD. [employer] shunt. History of constipation Plan Continue ventilator support. Switch this patient to a pressure control mode of mechanical ventilation. I I'm setting her up to a pressure control of 35 and a PEEP of 5 and FiO2 will be titrated to maintain saturation above 90% and the patien will have a follow-up Blood gases Discontinue the paralytics Continue propofol for now Initiate enteral feeding for nutritional support Peak and static pressures are quite elevated and the patient has significant restriction which is a combination of pulmonary adnexa pulmonary restriction secondary to above-mentioned comorbidities. Continue IV Rocephin Continue Decadron Monitor inflammatory markers Continue Lovenox 40 mg subcu 40 prophylaxis We'll continue to follow. Condition is critical and the evaluation was done and morning 30 minutes. Time with Patient: Greater than 30
--- NOTE | 2021-10-21 17:55 | P.PN ---
Subjective Progress Note Date: 10/21/21 Principal diagnosis: Bacteremia Patient is a 36-year-old -[place]gent[place] female with past medical history taken for spina bifida multiple deformities chronic respiratory failure status post tracheostomy and chronic vent at home was brought to the hospital for evaluation of increasing shortness of breath in this patient did have a low-grade fever on presentation hospital or have a positive covid 19 and also having a positive blood culture with Proteus. On today's evaluation that is 10/21/2021, the patient is afebrile, the patient is hemodynamically stable not requiring any pressor support, the patient affect is currently stable at 40%significant purulent secretions through the ET. tube feeds Has not been restarted Objective - Vital Signs Vital signs: Vital Signs Temp 98 F 10/21/21 16:00 Pulse 67 10/21/21 16:00 Resp 14 10/21/21 16:00 BP 103/66 10/20/21 20:00 Pulse Ox 100 10/21/21 16:00 Intake & Output 10/20/21 10/21/21 10/21/21 18:59 06:59 18:59 Intake Total 5706.691 1474.023 1082.419 Balance 7908.570 0318.023 1082.419 Weight 70 kg 80.3 kg Intake: IV 1000 1300 1000 .9 100 1000 1300 1000 Intake, IV Titration 100.822 292.023 82.419 Amount Cisatracurium 200 mg In 7.977 192.023 42.103 Sodium Chloride 0.9% 180 ml @ 0.5 MCG/KG/MIN 1.986 mls/hr IV .Q24H [facility] Rx#: [id number] propofoL 1,000 mg In 92.845 100 40.316 Empty Bag 1 bag @ 5 MCG/ KG/MIN 1.986 mls/hr IV . Q24H [facility] Rx#:[id number] Other: # Voids 1 1 1 ABP, PAP, CO, CI - Last Documented Arterial Blood Pressure 148/87 - Exam GENERAL DESCRIPTION: A middle-aged female intubated on the vent through the trach RESPIRATORY SYSTEM: Unlabored breathing , bilateral rhonchi HEART: S1 S2 regular rate and rhythm , ABDOMEN: Soft , no tenderness EXTREMITIES: No edema feet - Labs CBC & Chem 7: 10/21/21 08:15 10/21/21 08:15 Labs: Abnormal Lab Results - Last 24 Hours (Table) 10/21/21 10/21/21 10/21/21 Range/Units 08:15 08:15 11:58 RDW 19.5 H (11.5-15.5) % ABG pCO2 29 L (35-45) mmHg ABG pO2 73 L (83-108) mmHg ABG HCO3 20 L (21-25) mmol/L Chloride 114 H (98-107) mmol/L Carbon Dioxide 20 L (22-30) mmol/L Creatinine 0.31 L (0.52-1.04) mg/dL Calcium 8.1 L (8.4-10.2) mg/dL Albumin 3.0 L (3.5-5.0) g/dL Microbiology - Last 24 Hours (Table) 10/18/21 06:34 Blood Culture Gram Stain - Final Blood Blood Culture - Final Proteus mirabilis Staphylococcus epidermidis Coagulase Negative Staph 10/19/21 16:08 Gram Stain - Final Sputum Sputum Culture - Final Assessment and Plan (1) Pneumonia Current Visit: Yes Status: Acute Code(s): J18.9 - PNEUMONIA, UNSPECIFIED ORGANISM SNOMED Code(s): 540095318 Plan: 1patient with a Proteus mirabilis bacteremia source could be likely urinary tract infection, the patient did have positive UA however the patient also have a acute respiratory failure and a possible component of pneumonia. 2positive Covid test with exact symptom onset has been about 1 day. 3patient is currently being treated with the Rocephin 2 g daily, blood cultures will be repeated to document clearance of bacteremia Time with Patient: Less than 30
[2021-10-22] MEDS: SODIUM CHLORIDE 0.9% 1,000 ML IV SCH ×2 (04:38→09:03)
[2021-10-22] MEDS: ARTIFICIAL TEARS-HYPROMELLOSE DROPS 15 ML BTL BOTH EYES SCH ×2 (04:38→08:54)
[2021-10-22 05:59] LABS: Anisocytosis Slight; Basophils % (A) 1 %; Eosinophils # (A) 0.1 k/uL (0-0.7); Eosinophils % (A) 1 %; HCT 36.8 % (34.0-46.0); Hypochromasia Slight; Lymphocytes # (A) 1.9 k/uL (1.0-4.8); Lymphocytes % (A) 24 %; MCH 29.4 pg (25.0-35.0); MCHC 32.6 g/dL (31.0-37.0); MCV 90.3 fL (80.0-100.0); Mean Platelet Volume 8.5; Monocytes # (A) 0.5 k/uL (0-1.0); Monocytes % (A) 7 %; Neutrophils # (A) 5.2 k/uL (1.3-7.7); Neutrophils % (A) 66 %; Platelet Count 279 k/uL (150-450); RBC 4.08 m/uL (3.80-5.40); RDW 18.6 % (11.5-15.5); WBC 7.9 k/uL (3.8-10.6)
[2021-10-22 06:09] LABS: African American GFR (CKD) >90 (>60 ml/min/1.73 sqM); Anion Gap 7 mmol/L; Blood Urea Nitrogen 12 mg/dL (7-17); Calcium 8.4 mg/dL (8.4-10.2); Carbon Dioxide 21 mmol/L (22-30); Chloride 114 mmol/L (98-107); Glucose 122 mg/dL (74-99); Non-African American GFR(CKD) >90 (>60 ml/min/1.73 sqM); Potassium 3.9 mmol/L (3.5-5.1); Sodium 142 mmol/L (137-145)
[2021-10-22 06:12] LABS: ABG Base Excess -2.7 mmol/L; ABG HCO3 21 mmol/L (21-25); ABG Oxygen Saturation 99.1 % (94-97); ABG PCO2 30 mmHg (35-45); ABG PH 7.46 (7.35-7.45); ABG PO2 121 mmHg (83-108); ABG TCO2 22 mmol/L (19-24); Allen Test Performed? Yes
[2021-10-22] MEDS ORDERED: Potassium Replacement Protocol 1 EACH MISC MISCELLANE PRN (06:25)
[2021-10-22] MEDS ORDERED: POTASSIUM BICARBONATE/CIT AC 20 MEQ TABLET.EFF NG-TUBE SCH (07:00)
[2021-10-22] MEDS: ALBUTEROL HFA INHALER INHALATION SCH ×4 (07:30→19:16)
--- NOTE | 2021-10-22 08:21 | XR ---
EXAMINATION TYPE: XR chest 1V portable DATE OF EXAM: 10/22/2021 COMPARISON: Chest x-ray 10/21/2021 HISTORY: Tracheostomy tube, tube placement TECHNIQUE: Single frontal view of the chest is obtained. FINDINGS: No significant interval change is evident. Tracheostomy tube is overlying stable position, left jugular catheter shows the distal tip likely in the right atrium, there is an NG tube coursing towards the stomach. There is marked scoliosis, limitation to the exam. There are overlying artifacts . Ventriculoperitoneal shunt tubing partially visualized. Cardiac mediastinal silhouette is obscured. Difficult to exclude pneumonia. IMPRESSION: Exam is limited by patient body habitus
[2021-10-22] MEDS: CHLORHEXIDINE GLUCONATE 15 ML CUP MUCOUS MEM SCH ×2 (08:53→20:15)
[2021-10-22] MEDS: ASCORBIC ACID 500 MG TAB PO SCH (08:53)
[2021-10-22] MEDS: CHOLECALCIFEROL 125 MCG (5000 IU) TABLET PO SCH (08:53)
[2021-10-22] MEDS: ENOXAPARIN 40 MG/0.4 ML SYRINGE SQ SCH (08:53)
[2021-10-22] MEDS: ZINC SULFATE 220 MG CAP PO SCH (08:53)
[2021-10-22] MEDS: DEXAMETHASONE SOD PHOSPHATE 10 MG/ML 1 ML VIAL IVP SCH (08:53)
[2021-10-22] MEDS: CISATRACURIUM 200 MG in SODIUM CHLORIDE 0.9% 180 ML IV SCH ×2 (09:02→09:03)
[2021-10-22 12:17] LABS: ABG Base Excess -2.1 mmol/L; ABG HCO3 23 mmol/L (21-25); ABG Oxygen Saturation 97.2 % (94-97); ABG PCO2 41 mmHg (35-45); ABG PH 7.36 (7.35-7.45); ABG PO2 97 mmHg (83-108); ABG TCO2 25 mmol/L (19-24)
[2021-10-22 12:19] LABS: Allen Test Performed? no
--- NOTE | 2021-10-22 12:27 | P.PN ---
Subjective Progress Note Date: 10/22/21 36-year-old female patient with known history of spina bifida was currently in the intensive care unit and the patient is currently on a mechanical ventilator due to COVID 90 related pneumonia and respiratory insufficiency. The patient has significant anatomic deformities of the chest spine in lower extremities and the patient has underlying cognitive impairment and developmental delay. She has a permanent tracheostomy tube at home and she has been on the Trilogy ventilator at home that she had been utilizing for many years. I checked her ventilator and I started the patient was on a pressure control mode of mechanical ventilation which urology and her pressure control was at 35 cm of water with a EPAP minimum of 5. I also noted that the patient's tracheostomy tube has been switched to a cuffed #6 Shiley tracheostomy tube during this current hospital stay. The chest x-ray shows significant opacification of both lungs with some minimal sparing of the lung apices. Nevertheless, this is suboptimal chest x-ray because of the patient's impaired body habitus. This morning, I saw this patient in a follow-up on 10/21/2021. The patient is morning is on a motorcycle assist-control mode of mechanical ventilation with a rate of 36 with a tidal volume of 2 50 mL in a patient also has a PEEP of 500 FiO2 of 40%. Blood gases from this morning showed a pH of 7.49 with a pCO2 of 27 and pO2 of 77. The peak airway pressure was 44. Static pressure was 39. The patient was on propofol and the patient was sedated adequately and probable was running at 35 mg/kg per minute and the patient was also on the backs S2 microvascular kilogram per minute. The patient was being treated for COVID 19 pneumonia as the patient checked positive for COVID 19. Her pro-calcitonin level was 0.11. LDH level was 983, d-dimer was 1.15, and the patient is on Decadron 6 mg IV every 24 hours. NG tube is in place for enteral feeding and nutritional support. This will be started today. The patient was quite successful the mechanical ventilator. The white cell count today is at 7.3 with a hemoglobin of 11.8 and the patient also had a sodium level of 144 with a bicarb of 20 and a BUN of 10 and a creatinine of 0.3. 10/22/2021, the patient is being seen for a follow-up. The patient this morning is on a low dose of propofol which is running at around 25 microvascular kilogram per minute. Nevertheless, she is arousable and she is following simple commands. She is interactive. She remains on a mechanical ventilator. She is on a pressure control mode of mechanical ventilation. This morning, her pressure control is set at 35 with a rate of 36 with an FiO2 of 40% and a PEEP of 5. Blood gases shows a component of respiratory alkalosis with a pH of 7.46 and a pCO2 of 30 and pO2 of 121. The patient is a #6 Shiley cuffed tracheostomy tube. No evidence of leaks around the tracheostomy tube and no significant secretions. The chest x-rays obviously suboptimal due to an underlying spina b ifida. The patient is not receiving any paralytics for now. The patient's overall fluid balance is +2.7 L over the past 24 hours and a IV fluids are running at the rate of 100 mL an hour. She is also on vitalHP at the rate of 20 mL an hour. The patient otherwise is a white cell count of 7.7 with a hemoglobin of 12 and a platelet count of 279. Sodium is at 142 with a BUN of 12 and a creatinine of 0.28. No nausea. No emesis Charo abdominal distention. The patient has an NG tube in place. She is on Lovenox for DVT prophylaxis. The plan is to gradually wean the patient off sedation. Would also make some changes on a mechanical ventilator as the patient has a component of respiratory alkalosis. She remains on Decadron 6 mg IV every 24 hours. No other significant events otherwise for now. Objective - Vital Signs Vital signs: Vital Signs Temp 98 F 10/22/21 12:00 Pulse 88 10/22/21 12:00 Resp 27 H 10/22/21 12:00 BP 103/66 10/20/21 20:00 Pulse Ox 97 10/22/21 12:00 Intake & Output 10/21/21 10/22/21 10/22/21 18:59 06:59 18:59 Intake Total 6368.965 1654 155.112 Output Total 5 Balance 5237.770 5866 155.112 Weight 80.3 kg 80.5 kg Intake: IV 1100 1200 40 .9 100 1100 1200 40 Intake, IV Titration 82.419 100 115.112 Amount Cisatracurium 200 mg In 42.103 Sodium Chloride 0.9% 180 ml @ 0.5 MCG/KG/MIN 1.986 mls/hr IV .Q24H MARILYN Rx#: [id number] Sodium Chloride 0.9% 1, 60 000 ml @ 20 mls/hr IV . Q24H MARILYN Rx#:[id number] propofoL 1,000 mg In 40.316 100 55.112 Empty Bag 1 bag @ 5 MCG/ KG/MIN 1.986 mls/hr IV . Q24H MARILYN Rx#:[id number] Tube Feeding 236 Output: Oral Regurgitation 5 Other: # Voids 1 1 1 ABP, PAP, CO, CI - Last Documented Arterial Blood Pressure 147/87 - Exam Sedated and paralyzed. A very tiny obese -[place] female patient with significant abnormalities in her body habitus due to underlying spina bifida. The patient is a very short limbs in the lower extremity. She has a deformed spine, pelvis and short extremities. The patient was taken to the mechanical ventilator sedated yet arousable. The patient is off paralytics.. Head exam was generally normal. There was no scleral icterus or corneal arcus. Mucous membranes were moist. Neck was supple and without jugular venous distension, thyromegaly, or carotid bruits. Carotids were easily palpable bilaterally. There was no adenopathy. The patient had a tracheostomy #6 [address] tracheostomy tube in place and the patient has a left subclavian triple-lumen catheter in place Cardiovascular examination reveals regular rhythm rate. S1-S2 normal. No S3 or S4. No discernible murmur noted. Lungs reveal scattered bilateral rhonchi. No wheezes or crackles. Breath sounds equal. Abdomen is difficult to examine. No tenderness. Extremities are intact. No cyanosis clubbing or edema. Skin Examination of the skin revealed no evidence of significant rashes, suspicious appearing nevi or other concerning lesions. Neurologic examination is brief but nonfocal. She is paralyzed from the waist down. - Labs CBC & Chem 7: 10/22/21 05:45 10/22/21 05:45 Labs: Abnormal Lab Results - Last 24 Hours (Table) 10/22/21 10/22/21 10/22/21 Range/Units 05:45 05:45 06:06 RDW 18.6 H (11.5-15.5) % ABG pH 7.46 H (7.35-7.45) ABG pCO2 30 L (35-45) mmHg ABG pO2 121 H (83-108) mmHg ABG Total CO2 (19-24) mmol/L ABG O2 Saturation 99.1 H (94-97) % Chloride 114 H (98-107) mmol/L Carbon Dioxide 21 L (22-30) mmol/L Creatinine 0.28 L (0.52-1.04) mg/dL Glucose 122 H (74-99) mg/dL 10/22/21 Range/Units 12:00 RDW (11.5-15.5) % ABG pH (7.35-7.45) ABG pCO2 (35-45) mmHg ABG pO2 (83-108) mmHg ABG Total CO2 25 H (19-24) mmol/L ABG O2 Saturation 97.2 H (94-97) % Chloride (98-107) mmol/L Carbon Dioxide (22-30) mmol/L Creatinine (0.52-1.04) mg/dL Glucose (74-99) mg/dL Microbiology - Last 24 Hours (Table) 10/18/21 06:34 Blood Culture Gram Stain - Final Blood Blood Culture - Final Proteus mirabilis Staphylococcus epidermidis Coagulase Negative Staph 10/19/21 16:08 Gram Stain - Final Sputum Sputum Culture - Final Assessment and Plan Plan: Acute coronavirus infection, and possible coronavirus associated pneumonia. Patient has been previously vaccinated. The patient has diffuse but the pulmonary infiltration with apical sparing. Nevertheless, the chest exit findings are quite suboptimal as the patient has spina bifida. The patient remains on a mechanical ventilator. My understanding is that the patient has been on it showed a mechanical ventilator on outpatient basis and based on my check on the surgery ventilator, the patient has been on a pressure control mode of mechanical ventilation. As such, the appropriate adjustments were done on the hospital ventilator and the patient is stable and the patient developed a component of breast alkalosis on today's blood gas. Acute on chronic hypoxic and hypercapnic respiratory failure. The patient was utilizing a Trilogy ventilator on outpatient basis in a pressure control mode. The patient also has Proteus and coagulase-negative staph epidermidis in the sputum. This could be potentially a colonizer. The patient is currently on IV Rocephin. Status post tracheostomy, 2008, with chronic respiratory failure, currently maintained on a Trilogy ventilator. The patient's uncuffed tracheostomy tube was removed, and a cuffed #6 Shiley tube was placed. The patient was placed on a standard mechanical ventilator, on 10/20/2021. The patient is currently on a volume cycled mechanical ventilation with elevated troponin and static pressures. Status post bronchoscopy, 10/20/2021, as well as placement of a left radial art line, and a left internal jugular triple-lumen catheter. History of spina bifida. 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 Paraplegia. History of UTIs. History of GERD. [employer] shunt. History of constipation Plan Continue ventilator support. Dropped a respiratory rate down to 20 and drop the pressure control down to 30 and repeat another blood gas. Wean off the propofol and discontinue The patient is off paralytics Continue enteral feeding for nutritional support Peak and static pressures are quite elevated and the patient has significant r estriction which is a combination of pulmonary adnexa pulmonary restriction secondary to above-mentioned comorbidities. Continue IV Rocephin Continue Decadron Monitor inflammatory markers Continue Lovenox 40 mg subcu 40 prophylaxis Change IV fluids to KVO We'll continue to follow. Condition is critical and the evaluation was done and morning 30 minutes. Time with Patient: Greater than 30
--- NOTE | 2021-10-22 22:54 | P.PN ---
Subjective Progress Note Date: 10/22/21 Principal diagnosis: Bacteremia Patient is a 36-year-old -Beninese female with past medical history taken for spina bifida multiple deformities chronic respiratory failure status post tracheostomy and chronic vent at home was brought to the hospital for evaluation of increasing shortness of breath in this patient did have a low-grade fever on presentation hospital or have a positive covid 19 and also having a positive blood culture with Proteus. On today's evaluation that is 10/22/2021, the patient remains to be afebrile, the patient is hemodynamically stable not requiring any pressor support, the patient FiO2 is currently stable at 40%, no significant purulent secretions through the ET or diarrhea has been reported by the nursing staff Objective - Vital Signs Vital signs: Vital Signs Temp 98 F 10/22/21 12:00 Pulse 84 10/22/21 14:00 Resp 14 10/22/21 14:00 BP 103/66 10/20/21 20:00 Pulse Ox 97 10/22/21 14:00 Intake & Output 10/21/21 10/22/21 10/22/21 18:59 06:59 18:59 Intake Total 3747.471 2937 215.112 Output Total 5 Balance 5214.183 5763 215.112 Weight 80.3 kg 80.5 kg Intake: IV 1100 1200 40 .9 100 1100 1200 40 Intake, IV Titration 82.419 100 175.112 Amount Cisatracurium 200 mg In 42.103 Sodium Chloride 0.9% 180 ml @ 0.5 MCG/KG/MIN 1.986 mls/hr IV .Q24H MARILYN Rx#: [id number] Sodium Chloride 0.9% 1, 120 000 ml @ 20 mls/hr IV . Q24H MARILYN Rx#:[id number] propofoL 1,000 mg In 40.316 100 55.112 Empty Bag 1 bag @ 5 MCG/ KG/MIN 1.986 mls/hr IV . Q24H MARILYN Rx#:[id number] Tube Feeding 236 Output: Oral Regurgitation 5 Other: # Voids 1 1 1 ABP, PAP, CO, CI - Last Documented Arterial Blood Pressure 147/87 - Exam GENERAL DESCRIPTION: A middle-aged female intubated on the vent through the trach RESPIRATORY SYSTEM: Unlabored breathing , bilateral rhonchi HEART: S1 S2 regular rate and rhythm , ABDOMEN: Soft , no tenderness EXTREMITIES: No edema feet - Labs CBC & Chem 7: 10/22/21 05:45 10/22/21 05:45 Labs: Abnormal Lab Results - Last 24 Hours (Table) 10/22/21 10/22/21 10/22/21 Range/Units 05:45 05:45 06:06 RDW 18.6 H (11.5-15.5) % ABG pH 7.46 H (7.35-7.45) ABG pCO2 30 L (35-45) mmHg ABG pO2 121 H (83-108) mmHg ABG Total CO2 (19-24) mmol/L ABG O2 Saturation 99.1 H (94-97) % Chloride 114 H (98-107) mmol/L Carbon Dioxide 21 L (22-30) mmol/L Creatinine 0.28 L (0.52-1.04) mg/dL Glucose 122 H (74-99) mg/dL 10/22/21 Range/Units 12:00 RDW (11.5-15.5) % ABG pH (7.35-7.45) ABG pCO2 (35-45) mmHg ABG pO2 (83-108) mmHg ABG Total CO2 25 H (19-24) mmol/L ABG O2 Saturation 97.2 H (94-97) % Chloride (98-107) mmol/L Carbon Dioxide (22-30) mmol/L Creatinine (0.52-1.04) mg/dL Glucose (74-99) mg/dL Microbiology - Last 24 Hours (Table) 10/18/21 06:34 Blood Culture Gram Stain - Final Blood Blood Culture - Final Proteus mirabilis Staphylococcus epidermidis Coagulase Negative Staph Assessment and Plan (1) Pneumonia Current Visit: Yes Status: Acute Code(s): J18.9 - PNEUMONIA, UNSPECIFIED ORGANISM SNOMED Code(s): 813558195 Plan: 1patient with a Proteus mirabilis bacteremia source could be likely urinary tract infection, the patient did have positive UA however the urine culture has been negative, patient blood culture was also positive for staph epi and questio n of possible contamination antibiotic has been discontinued by pulmonary, infectious disease service will sign off Time with Patient: Less than 30
[2021-10-23 05:02] LABS: Anisocytosis Slight; Basophils % (A) 0 %; Eosinophils # (A) 0.1 k/uL (0-0.7); Eosinophils % (A) 1 %; HCT 37.9 % (34.0-46.0); HGB 12.1 gm/dL (11.4-16.0); Hypochromasia Slight; Lymphocytes # (A) 2.3 k/uL (1.0-4.8); Lymphocytes % (A) 23 %; MCHC 32.1 g/dL (31.0-37.0); MCV 90.5 fL (80.0-100.0); Mean Platelet Volume 7.7; Monocytes # (A) 0.5 k/uL (0-1.0); Monocytes % (A) 5 %; Neutrophils # (A) 7.1 k/uL (1.3-7.7); Neutrophils % (A) 70 %; Platelet Count 296 k/uL (150-450); RBC 4.18 m/uL (3.80-5.40); RDW 17.2 % (11.5-15.5); WBC 10.2 k/uL (3.8-10.6)
[2021-10-23 05:24] LABS: African American GFR (CKD) >90 (>60 ml/min/1.73 sqM); Anion Gap 5 mmol/L; Blood Urea Nitrogen 11 mg/dL (7-17); Calcium 8.4 mg/dL (8.4-10.2); Carbon Dioxide 26 mmol/L (22-30); Chloride 110 mmol/L (98-107); Glucose 109 mg/dL (74-99); Non-African American GFR(CKD) >90 (>60 ml/min/1.73 sqM); Potassium 3.9 mmol/L (3.5-5.1); Sodium 141 mmol/L (137-145)
[2021-10-23] MEDS ORDERED: Potassium Replacement Protocol 1 EACH MISC MISCELLANE PRN (05:36)
[2021-10-23] MEDS ORDERED: POTASSIUM BICARBONATE/CIT AC 20 MEQ TABLET.EFF NG-TUBE SCH (06:00)
--- NOTE | 2021-10-23 08:43 | XR ---
EXAMINATION TYPE: XR chest 1V portable DATE OF EXAM: 10/23/2021 COMPARISON: 10/22/2021 HISTORY: Tube placement TECHNIQUE: Single frontal view of the chest is obtained. FINDINGS: Motion artifacts, limited inspiration and rotation markedly limited exam. Grossly the hear t size stable. Cannot exclude perihilar lower lobe infiltrate. Tracheostomy tube is seen in the NG tu be extends in the left upper quadrant likely within the stomach. IMPRESSION: 1. Markedly limited exam. Perihilar infiltrates not excluded correlate clinically 2. NG tube appears in good position
[2021-10-23] MEDS: ALBUTEROL HFA INHALER INHALATION SCH ×4 (08:48→21:26)
[2021-10-23] MEDS: CHLORHEXIDINE GLUCONATE 15 ML CUP MUCOUS MEM SCH (09:15)
[2021-10-23] MEDS: DEXAMETHASONE SOD PHOSPHATE 10 MG/ML 1 ML VIAL IVP SCH (09:16)
[2021-10-23] MEDS: ZINC SULFATE 220 MG CAP PO SCH (09:16)
[2021-10-23] MEDS: ENOXAPARIN 40 MG/0.4 ML SYRINGE SQ SCH (09:16)
[2021-10-23] MEDS: CHOLECALCIFEROL 125 MCG (5000 IU) TABLET PO SCH (09:16)
[2021-10-23] MEDS: ASCORBIC ACID 500 MG TAB PO SCH (09:16)
--- NOTE | 2021-10-23 09:42 | PCN ---
PROCEDURE NOTE PROCEDURE: Bronchoscopy, airway examination, therapeutic lavage. PREOPERATIVE DIAGNOSIS: Hemoptysis. POSTOPERATIVE DIAGNOSIS: Hemoptysis. OPERATORS: 1. Dr. Engle. 2. Dr. Guevara. PROCEDURE DESCRIPTION: There was universal timeout and informed consent. We were called back to the intensive care unit for acute hemoptysis. The patient was found to have significant bleeding from the tracheostomy tube. It was bright red blood. There was no clear-cut reason for this. We again called the respiratory therapist to bring the bronchoscope into the patient's room, 254. The bronchoscope adapter was connected to the tracheostomy tube. The patient was sedated and paralyzed at that time. The bronchoscope was lubricated with silicon spray. The bronchoscope was inserted through the trachea at the bronchoscope adapter connected to the tracheostomy tube. There was blood noted in the tracheostomy tube. There was significant bleeding within the airway. We used saline lavage to suction the blood out. There were no clear-cut areas of active bleeding, and I did a thorough evaluation of the right upper lobe and its 3 segments, right middle lobe and its 2 segments, right lower lobe and its 5 segments, left upper lobe proper and its 2 segments, lingula and its 2 segments, and left lower lobe and its 4 segments. I stayed in the airway for quite some time to see if there was additional bleeding, and there was. Again this was suctioned with saline lavage. Again looking for any active areas of bleeding, I could not find any. Again I stayed in the airways for a period of time, and eventually when I saw no additional bleeding, the bronchoscope was removed. There was no immediate complication. The patient tolerated the procedure well. MMODL / IJN: [id number] /
--- NOTE | 2021-10-23 11:28 | P.PN ---
Subjective Progress Note Date: 10/23/21 36-year-old female patient with known history of spina bifida was currently in the intensive care unit and the patient is currently on a mechanical ventilator due to COVID 90 related pneumonia and respiratory insufficiency. The patient has significant anatomic deformities of the chest spine in lower extremities and the patient has underlying cognitive impairment and developmental delay. She has a permanent tracheostomy tube at home and she has been on the Trilogy ventilator at home that she had been utilizing for many years. I checked her ventilator and I started the patient was on a pressure control mode of mechanical ventilation which urology and her pressure control was at 35 cm of water with a EPAP minimum of 5. I also noted that the patient's tracheostomy tube has been switched to a cuffed #6 Shiley tracheostomy tube during this current hospital stay. The chest x-ray shows significant opacification of both lungs with some minimal sparing of the lung apices. Nevertheless, this is suboptimal chest x-ray because of the patient's impaired body habitus. This morning, I saw this patient in a follow-up on 10/21/2021. The patient is morning is on a motorcycle assist-control mode of mechanical ventilation with a rate of 36 with a tidal volume of 2 50 mL in a patient also has a PEEP of 500 FiO2 of 40%. Blood gases from this morning showed a pH of 7.49 with a pCO2 of 27 and pO2 of 77. The peak airway pressure was 44. Static pressure was 39. The patient was on propofol and the patient was sedated adequately and probable was running at 35 mg/kg per minute and the patient was also on the backs S2 microvascular kilogram per minute. The patient was being treated for COVID 19 pneumonia as the patient checked positive for COVID 19. Her pro-calcitonin level was 0.11. LDH level was 983, d-dimer was 1.15, and the patient is on Decadron 6 mg IV every 24 hours. NG tube is in place for enteral feeding and nutritional support. This will be started today. The patient was quite successful the mechanical ventilator. The white cell count today is at 7.3 with a hemoglobin of 11.8 and the patient also had a sodium level of 144 with a bicarb of 20 and a BUN of 10 and a creatinine of 0.3. 10/22/2021, the patient is being seen for a follow-up. The patient this morning is on a low dose of propofol which is running at around 25 microvascular kilogram per minute. Nevertheless, she is arousable and she is following simple commands. She is interactive. She remains on a mechanical ventilator. She is on a pressure control mode of mechanical ventilation. This morning, her pressure control is set at 35 with a rate of 36 with an FiO2 of 40% and a PEEP of 5. Blood gases shows a component of respiratory alkalosis with a pH of 7.46 and a pCO2 of 30 and pO2 of 121. The patient is a #6 Shiley cuffed tracheostomy tube. No evidence of leaks around the tracheostomy tube and no significant secretions. The chest x-rays obviously suboptimal due to an underlying spina b ifida. The patient is not receiving any paralytics for now. The patient's overall fluid balance is +2.7 L over the past 24 hours and a IV fluids are running at the rate of 100 mL an hour. She is also on vitalHP at the rate of 20 mL an hour. The patient otherwise is a white cell count of 7.7 with a hemoglobin of 12 and a platelet count of 279. Sodium is at 142 with a BUN of 12 and a creatinine of 0.28. No nausea. No emesis Charo abdominal distention. The patient has an NG tube in place. She is on Lovenox for DVT prophylaxis. The plan is to gradually wean the patient off sedation. Would also make some changes on a mechanical ventilator as the patient has a component of respiratory alkalosis. She remains on Decadron 6 mg IV every 24 hours. No other significant events otherwise for now. 10/23/2021, the patient is awake and alert. The patient remains off sedation for now she is off propofol. The patient remains on a pressure control mode of mechanical ventilation. She had a rate of 20, sugar control of 30, PEEP of 5 and FiO2 40%. No blood gases was obtained today due to technical difficulties. The patient's arterial line is nonfunctional. Meanwhile, the chest x-ray shows improvement in aeration bilaterally and the patient's blood gases from yesterday showed a pH of 7.36 with a pCO2 of 41 and pO2 of 97. No significant oral check a secretions and the patient remains on Decadron. The patient is receiving mechanical ventilation and her minute ventilation is around 60-70 per minute and she is able to generate tidal volumes ranging between 150 and 300 mL. She is receiving enteral feeding for nutritional support for an NG and this will be removed today. Her white cell count is at 10.2 with a hemoglobin of 1.1 and the plated count of 26. Sodium is at 141. BUN is at 11 creatinine 0.3. She is awake and alert and she follows simple commands. She is not agitated and she is quite pleasant at this point in time. No other significant events overnight. No fever. Alert, communicating and responsive. Objective - Vital Signs Vital signs: Vital Signs Temp 98.1 F 10/23/21 04:00 Pulse 97 10/23/21 07:00 Resp 22 10/23/21 07:00 BP 135/94 10/23/21 07:00 Pulse Ox 98 10/23/21 07:00 Intake & Output 10/22/21 10/23/21 10/23/21 18:59 06:59 18:59 Intake Total 275.112 596 Balance 275.112 596 Intake: IV 40 .9 100 40 Intake, IV Titration 235.112 260 Amount Sodium Chloride 0.9% 1, 180 260 000 ml @ 20 mls/hr IV . Q24H MARILYN Rx#:[id number] propofoL 1,000 mg In 55.112 Empty Bag 1 bag @ 5 MCG/ KG/MIN 1.986 mls/hr IV . Q24H MARILYN Rx#:[id number] Tube Feeding 336 Other: # Voids 1 1 ABP, PAP, CO, CI - Last Documented Arterial Blood Pressure 102/100 - Exam The patient is awake and alert A very tiny obese -Iranian female angel ent with significant abnormalities in her body habitus due to underlying spina bifida. The patient is a very short limbs in the lower extremity. She has a deformed spine, pelvis and short extremities. The patient was taken to the mechanical ventilator sedated yet arousable. The patient is off paralytics.. Head exam was generally normal. There was no scleral icterus or corneal arcus. Mucous membranes were moist. Neck was supple and without jugular venous distension, thyromegaly, or carotid bruits. Carotids were easily palpable bilaterally. There was no adenopathy. The patient had a tracheostomy #6 [address]ostomy tube in place and the patient has a left subclavian triple-lumen catheter in place Cardiovascular examination reveals regular rhythm rate. S1-S2 normal. No S3 or S4. No discernible murmur noted. Lungs reveal scattered bilateral rhonchi. No wheezes or crackles. Breath sounds equal. Abdomen is difficult to examine. No tenderness. Extremities are intact. No cyanosis clubbing or edema. Skin Examination of the skin revealed no evidence of significant rashes, suspicious appearing nevi or other concerning lesions. Neurologic examination is brief but nonfocal. 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 - Labs CBC & Chem 7: 10/23/21 04:40 10/23/21 04:40 Labs: Abnormal Lab Results - Last 24 Hours (Table) 10/22/21 10/23/21 10/23/21 Range/Units 12:00 04:40 04:40 RDW 17.2 H (11.5-15.5) % ABG Total CO2 25 H (19-24) mmol/L ABG O2 Saturation 97.2 H (94-97) % Chloride 110 H (98-107) mmol/L Creatinine 0.30 L (0.52-1.04) mg/dL Glucose 109 H (74-99) mg/dL Microbiology - Last 24 Hours (Table) 10/22/21 05:45 Blood Culture - Preliminary Blood No Growth after 24 hours Assessment and Plan Plan: Acute coronavirus infection, and possible coronavirus associated pneumonia. Patient has been previously vaccinated. The patient has diffuse but the pulmonary infiltration with apical sparing. Nevertheless, the chest exit findings are quite suboptimal as the patient has spina bifida. The patient remains on a mechanical ventilator. My understanding is that the patient has been on it showed a mechanical ventilator on outpatient basis and based on my check on the surgery ventilator, the patient has been on a pressure control mode of mechanical ventilation. As such, the appropriate adjustments were done on the hospital ventilator and the patient is stable and the patient developed a component of breast alkalosis on today's blood gas. The patient remains on a pressure control mode of mechanical ventilation. She is requiring a high pressure control pressure as the patient has significant extrapulmonary restriction related to spina bifida and skeletal abnormalities causing restriction on her lungs. For now, she is a pressure control of 30 with a rate of 20 and FiO2 of 40% with a PEEP of 5. Blood gases was noted. Chest x-ray was noted. COVID 19 infections also treated with Decadron. She is awake and alert. She is off sedation. She is off paralytics. Acute on chronic hypoxic and hypercapnic respiratory failure. The patient was utilizing a Trilogy ventilator on outpatient basis in a pressure control mode. The patient also has Proteus and coagulase-negative staph epidermidis in the sputum. This could be potentially a colonizer. The patient is currently on IV Rocephin. Status post tracheostomy, 2008, with chronic respiratory failure, currently maintained on a Trilogy ventilator. The patient's uncuffed tracheostomy tube was removed, and a cuffed #6 Shiley tube was placed. The patient was placed on a standard mechanical ventilator, on 10/20/2021. The patient is currently on a volume cycled mechanical ventilation with elevated troponin and static pressures. Status post bronchoscopy, 10/20/2021, as well as placement of a left radial art line, and a left internal jugular triple-lumen catheter. History of spina bifida. 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 Paraplegia. History of UTIs. History of GERD. GRE[employer]LL MAN shunt. History of constipation Plan Continue ventilator support. Keep the patient at the rate of 20, pressure control of 30 cm of water, FiO2 of 40% with a PEEP of 5 Patient has not required any sedation over the past 24-48 hours Discontinue the NG-tube Allow the patient to take oral diet and this later, she is taking oral intake Continue IV Rocephin Continue Decadron Continue Lovenox for prophylaxis Keep the patient IV fluids at KVO We'll continue to follow Discontinue the arterial line We'll continue to follow. Condition is critical and the evaluation was done and morning 30 minutes. Time with Patient: Greater than 30
[2021-10-23 13:26] VITALS: BMI 56.5
--- NOTE | 2021-10-23 18:59 | P.PN ---
Subjective Progress Note Date: 10/23/21 (Covid-19 pneumonia) Principal diagnosis: Diagnosis: #1: [id number] related to pneumonia #2 chronic respiratory failure with the acute exacerbation secondary to covid #3 patient on home respirator for years which started in [facility]. #4 developmental abnormality, paraplegia, spina bifida. #5 suprapubic urostomy with a urine come freely from the opening and padded no catheter. #6 currently on ventilator in the ICU with gradual improvement. #7 bilateral infiltrate by the chest x-ray #8 tracheostomy since 2008. #9 and she had at home Tri-Lock ventilatory for chronic use. #10 history of recurrent UTI with the anomaly for body structure. #11 she was in [facility] and mentally age of 66 years old child. This is a follow-up on the patient progress note. Patient admitted by Dr. Cunningham on 10/18/2021 and subsequently they did not follow the patient and the eye was out of state. Patient seen today evaluated and examined. I did discuss it also with her mother Mrs. Claudia Cárdenas on the phone in a significant time 15 minutes. History is patient was ill and sick for apparently more than 5 days and got worsening and at that time her mom brought her to the emergency room because of her ventilatory at home with the hypoxemia progressively worsening. In the ER patient evaluated and admitted to the ICU with direct with her current symptoms and underwent care the hospitalist on admission Dr. Mckee. Patient also treated by Dr. Engle and Dr. Light in the ICU with the laboratory testing on admission 10/18/2021, blood positive, patient had also mul tiple laxity on the chest x-ray she underwent a bronchoscopy on 10/20/2021 as well as arterial line in the left jugular. She has also changes with the placement on the regular ventilatory because of the acute respiratory failure. She had several laboratories and 1 blood culture indicating that Proteus mirabilis, staph epidermis, coagulase negative staph. Also the urine analysis was positive for 3+ protein 4+ ketone, and she had leukocyte moderately high, RBC 92 and WBC 66 and yeast is rare. Subsequently infectious disease was consulted and patient plays on antibiotic and through the hospitalization the antibiotic was discontinued by the pulmonary and Dr. Chaves infectious disease sign out. She underwent arterial line which currently discontinued and NG tube which she also discontinued and she had a speech therapy and they found that she able to eat and the deflated the cuff of the tracheostomy so patient can able to swallow with the throat. Able to drink as well as eating As patient progressively improved her vital sign today indicating pulse 79 respiratory rate 20 on the vent blood pressure 134/95, her CVP line 25 and oxygen saturation was stable on 40% with the the 40% FiO2. Patient seen today [id number] in the ICU: She able to answer questions and the she could not recall my name that she was alert oriented she had the tracheostomy with the ventilator and the the started her on the meal to try to eat today. That The head was normocephalic and atraumatic pupils equal reactive she able to see and and to feed herself with her arms. Neck she had the tracheostomy and the connection to the ventilator no lymph node. The chest was scattered rhonchi bilateral still significant. Still have some cough. The heart: Compensated regular sinus on admission she had tachycardia. Abdomen protuberant no tenderness with skeletal deformity as well. Extremities nondevelopment bilateral with the underlying lymphedema however positive pulses. 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 Assessment: #1 Covid19 pneumonia with acute respiratory failure on the top of chronic #2 patient already on chronic respiratory failure with the use of ventilator at home. #3 paraplegia. #4 suprapubic urostomy. #5 chest x-ray bilateral hilar infiltrate. Plan: #1 patient has been seen by Dr. Light pulmonary and critical care and there is improvement. #2 we'll continue the current treatment to her the program from the respiratory and critical care. #3 reviewed the laboratories today with the indicator of her sodium 141, potassium 3.9, chloride 110, carbon dioxide 25, BUN of 11, and creatinine 0.30 anion gap 5 and glucose 109, WBC 10.2, hemoglobin 12.1, hematocrit 37.9, platelet count 296. Objective - Vital Signs Vital signs: Vital Signs Temp 97.7 F 10/23/21 12:00 Pulse 79 10/23/21 18:00 Resp 20 10/23/21 18:00 BP 134/95 10/23/21 18:00 Pulse Ox 99 10/23/21 18:00 Intake & Output 10/22/21 10/23/2110/23/22 18:59 06:59 18:59 Intake Total 275.112 596 304 Balance 275.112 596 304 Weight 80.5 kg Intake: IV 40 220 .9 100 40 Sodium Chloride 0.9% 1, 220 000 ml @ 20 mls/hr IV . Q24H MARILYN Rx#:[id number] Intake, IV Titration 235.112 260 Amount Sodium Chloride 0.9% 1, 180 260 000 ml @ 20 mls/hr IV . Q24H MARILYN Rx#:[id number] propofoL 1,000 mg In 55.112 Empty Bag 1 bag @ 5 MCG/ KG/MIN 1.986 mls/hr IV . Q24H MARILYN Rx#:[id number] Tube Feeding 336 84 Other: # Voids 1 1 1 ABP, PAP, CO, CI - Last Documented Arterial Blood Pressure 102/100 - Labs CBC & Chem 7: 10/23/21 04:40 10/23/21 04:40 Labs: Abnormal Lab Results - Last 24 Hours (Table) 10/23/21 10/23/21 Range/Units 04:40 04:40 RDW 17.2 H (11.5-15.5) % Chloride 110 H (98-107) mmol/L Creatinine 0.30 L (0.52-1.04) mg/dL Glucose 109 H (74-99) mg/dL Microbiology - Last 24 Hours (Table) 10/22/21 05:45 Blood Culture - Preliminary Blood No Growth after 24 hours
[2021-10-24] MEDS: CHLORHEXIDINE GLUCONATE 15 ML CUP MUCOUS MEM SCH ×2 (00:53→08:08)
[2021-10-24] MEDS: SODIUM CHLORIDE 0.9% 1,000 ML IV SCH ×2 (00:53→20:40)
[2021-10-24] MEDS: ALBUTEROL HFA INHALER INHALATION SCH ×4 (07:12→20:03)
[2021-10-24] MEDS: ENOXAPARIN 40 MG/0.4 ML SYRINGE SQ SCH (08:08)
[2021-10-24] MEDS: CHOLECALCIFEROL 125 MCG (5000 IU) TABLET PO SCH (08:08)
[2021-10-24] MEDS: ZINC SULFATE 220 MG CAP PO SCH (08:08)
[2021-10-24] MEDS: ASCORBIC ACID 500 MG TAB PO SCH (08:08)
[2021-10-24] MEDS: DEXAMETHASONE SOD PHOSPHATE 10 MG/ML 1 ML VIAL IVP SCH (08:09)
--- NOTE | 2021-10-24 08:21 | XR ---
EXAMINATION TYPE: XR chest 1V portable DATE OF EXAM: 10/24/2021 COMPARISON: 10/23/2021 HISTORY: Tube placement TECHNIQUE: Single frontal view of the chest is obtained. FINDINGS: Cannot see it definitively NG tube due to low lung volumes and reduced inspiration with ar tifact and rotation. Tracheostomy tube difficult to visualize. Could not exclude bilateral infiltrate s. IMPRESSION: Nearly nondiagnostic exam. Bilateral lower lobe infiltrate is suspected.
--- NOTE | 2021-10-24 11:11 | P.PN ---
Subjective Progress Note Date: 10/24/21 36-year-old female patient with known history of spina bifida was currently in the intensive care unit and the patient is currently on a mechanical ventilator due to COVID 90 related pneumonia and respiratory insufficiency. The patient has significant anatomic deformities of the chest spine in lower extremities and the patient has underlying cognitive impairment and developmental delay. She has a permanent tracheostomy tube at home and she has been on the Trilogy ventilator at home that she had been utilizing for many years. I checked her ventilator and I started the patient was on a pressure control mode of mechanical ventilation which urology and her pressure control was at 35 cm of water with a EPAP minimum of 5. I also noted that the patient's tracheostomy tube has been switched to a cuffed #6 Shiley tracheostomy tube during this current hospital stay. The chest x-ray shows significant opacification of both lungs with some minimal sparing of the lung apices. Nevertheless, this is suboptimal chest x-ray because of the patient's impaired body habitus. This morning, I saw this patient in a follow-up on 10/21/2021. The patient is morning is on a motorcycle assist-control mode of mechanical ventilation with a rate of 36 with a tidal volume of 2 50 mL in a patient also has a PEEP of 500 FiO2 of 40%. Blood gases from this morning showed a pH of 7.49 with a pCO2 of 27 and pO2 of 77. The peak airway pressure was 44. Static pressure was 39. The patient was on propofol and the patient was sedated adequately and probable was running at 35 mg/kg per minute and the patient was also on the backs S2 microvascular kilogram per minute. The patient was being treated for COVID 19 pneumonia as the patient checked positive for COVID 19. Her pro-calcitonin level was 0.11. LDH level was 983, d-dimer was 1.15, and the patient is on Decadron 6 mg IV every 24 hours. NG tube is in place for enteral feeding and nutritional support. This will be started today. The patient was quite successful the mechanical ventilator. The white cell count today is at 7.3 with a hemoglobin of 11.8 and the patient also had a sodium level of 144 with a bicarb of 20 and a BUN of 10 and a creatinine of 0.3. 10/22/2021, the patient is being seen for a follow-up. The patient this morning is on a low dose of propofol which is running at around 25 microvascular kilogram per minute. Nevertheless, she is arousable and she is following simple commands. She is interactive. She remains on a mechanical ventilator. She is on a pressure control mode of mechanical ventilation. This morning, her pressure control is set at 35 with a rate of 36 with an FiO2 of 40% and a PEEP of 5. Blood gases shows a component of respiratory alkalosis with a pH of 7.46 and a pCO2 of 30 and pO2 of 121. The patient is a #6 Shiley cuffed tracheostomy tube. No evidence of leaks around the tracheostomy tube and no significant secretions. The chest x-rays obviously suboptimal due to an underlying spina b ifida. The patient is not receiving any paralytics for now. The patient's overall fluid balance is +2.7 L over the past 24 hours and a IV fluids are running at the rate of 100 mL an hour. She is also on vitalHP at the rate of 20 mL an hour. The patient otherwise is a white cell count of 7.7 with a hemoglobin of 12 and a platelet count of 279. Sodium is at 142 with a BUN of 12 and a creatinine of 0.28. No nausea. No emesis Charo abdominal distention. The patient has an NG tube in place. She is on Lovenox for DVT prophylaxis. The plan is to gradually wean the patient off sedation. Would also make some changes on a mechanical ventilator as the patient has a component of respiratory alkalosis. She remains on Decadron 6 mg IV every 24 hours. No other significant events otherwise for now. 10/23/2021, the patient is awake and alert. The patient remains off sedation for now she is off propofol. The patient remains on a pressure control mode of mechanical ventilation. She had a rate of 20, sugar control of 30, PEEP of 5 and FiO2 40%. No blood gases was obtained today due to technical difficulties. The patient's arterial line is nonfunctional. Meanwhile, the chest x-ray shows improvement in aeration bilaterally and the patient's blood gases from yesterday showed a pH of 7.36 with a pCO2 of 41 and pO2 of 97. No significant oral check a secretions and the patient remains on Decadron. The patient is receiving mechanical ventilation and her minute ventilation is around 60-70 per minute and she is able to generate tidal volumes ranging between 150 and 300 mL. She is receiving enteral feeding for nutritional support for an NG and this will be removed today. Her white cell count is at 10.2 with a hemoglobin of 1.1 and the plated count of 26. Sodium is at 141. BUN is at 11 creatinine 0.3. She is awake and alert and she follows simple commands. She is not agitated and she is quite pleasant at this point in time. No other significant events overnight. No fever. Alert, communicating and responsive. 10/24/2021, the patient is awake and alert. The patient remains on a mechanical ventilator at a pressure control mode at the rate of 20 with a pressure control 30 cm of water and a PEEP of 5 with an FiO2 of 40%. She is awake and alert and communicating. Infectious talk and over the ventilator. She did have a swallow evaluation today her swallow is within normal limits. The patient is getting regular oral intake. She will go 4 extremities. She is interactive. She is communicating. Hemodynamically stable. Afebrile. She remains on Decadron. The whites a cause of 10 with hemoglobin of 12 and a platelet count of 296, sodium is 141 with a potassium level of 3.9 and a BUN of 11 with a creatinine of 0.3. She remains on Lovenox 40 mg subcu 40 to prophylaxis. She remains on Decadron 6 mg IV every 24 hours. She is also on zinc sulfate and vitamin D3 and vitamin C. Objective - Vital Signs Vital signs: Vital Signs Temp 98.1 F 10/24/21 08:00 Pulse 86 10/24/21 10:00 Resp 24 10/24/21 10:00 BP 150/91 10/24/21 10:00 Pulse Ox 100 10/24/21 10:00 Intake & Output 10/23/21 10/24/21 10/24/21 18:59 06:59 18:59 Intake Total 304 510 180 Balance 304 510 180 Weight 80.5 kg Intake: IV 220 260 60 Sodium Chloride 0.9% 1, 220 260 60 000 ml @ 20 mls/hr IV . Q24H MARILYN Rx#:[id number] Oral 250 120 Tube Feeding 84 Other: # Voids 1 1 1 ABP, PAP, CO, CI - Last Documented Arterial Blood Pressure 102/100 - Exam The patient is awake and alert A very tiny obese -[place] female patient with significant abnormalities in her body habitus due to underlying spi na bifida. The patient is a very short limbs in the lower extremity. She has a deformed spine, pelvis and short extremities. She is awake and alert and she is communicating at this point in time. Head exam was generally normal. There was no scleral icterus or corneal arcus. Mucous membranes were moist. Neck was supple and without jugular venous distension, thyromegaly, or carotid bruits. Carotids were easily palpable bilaterally. There was no adenopathy. The patient had a tracheostomy #[address] tube in place and the patient has a left subclavian triple-lumen catheter in place Cardiovascular examination reveals regular rhythm rate. S1-S2 normal. No S3 or S4. No discernible murmur noted. Lungs reveal scattered bilateral rhonchi. No wheezes or crackles. Breath sound s equal. Abdomen is difficult to examine. No tenderness. Extremities are intact. No cyanosis clubbing or edema. Skin Examination of the skin revealed no evidence of significant rashes, suspicious appearing nevi or other concerning lesions. Neurologic examination is brief but nonfocal. 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 - Labs CBC & Chem 7: 10/23/21 04:40 10/23/21 04:40 Labs: Microbiology - Last 24 Hours (Table) 10/22/21 05:45 Blood Culture - Preliminary Blood No Growth after 48 hours Assessment and Plan Plan: Acute coronavirus infection, and possible coronavirus associated pneumonia. Patient has been previously vaccinated. The patient has diffuse but the pulmonary infiltration with apical sparing. Nevertheless, the chest exit findings are quite suboptimal as the patient has spina bifida. The patient remains on a mechanical ventilator. Clinically improved and the patient is currently back on her original pressure control settings as the patient has been ventilator dependent for several years and she has a Trilogy ventilator at home. She has a #6 tracheostomy Shiley tube. She is hemodynamically stable. She is afebrile. She is tolerating her diet. She is communicating. She remains on Decadron. She'll be completing a total of 10 day course of Decadron. Acute on chronic hypoxic and hypercapnic respiratory failure. The patient was utilizing a Trilogy ventilator on outpatient basis in a pressure control mode. The patient also has Proteus and coagulase-negative staph epidermidis in the sputum. This could be potentially a colonizer. The patient completed the course of Rocephin Status post tracheostomy, 2008, with chronic respiratory failure, currently maintained on a Trilogy ventilator. The patient's uncuffed tracheostomy tube was removed, and a cuffed #6 Shiley tube was placed. The patient was placed on a standard mechanical ventilator, on 10/20/2021. The patient is currently on a volume cycled mechanical ventilation with elevated troponin and static press ures. Status post bronchoscopy, 10/20/2021, as well as placement of a left radial art line, and a left internal jugular triple-lumen catheter. History of spina bifida. 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 Paraplegia. History of UTIs. History of GERD. 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 History of constipation Plan Continue ventilator support and keep the patient at the rate of 20, pressure control of 30 cm of water, FiO2 of 40% with a PEEP of 5 Continue with oral intake and NG tube has been removed The patient is appropriate swallow based on the patient's therapist The patient completed the course of Rocephin Continue Decadron, completed 10 day course Continue Lovenox for prophylaxis Keep the patient IV fluids at KVO We'll continue to follow Discontinue the central line We'll continue to follow.
--- NOTE | 2021-10-24 14:17 | P.PN ---
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 #6 underlying chronic obstructive pulmonary disease. #7 history of chronic recurrent infection of the urine. #8 underlying infection with multiple organisms. #9 and inability to ambulate a using wheelchair motorized. #10 currently on the vent monitored the by critical care and pulmonary Dr. Au. The progress note date of service 10/24/[address] Goodson Patient seen [id number] in ICU today Patient is conscious alert able to communicate however she still could not recall my name. She able to eat and speak. She is still connected with the ventilatory with the parameter has been mentioned by Dr. Au pulmonary and critical in his note in a.m. She has no specific complaint recovering from her Covid pneumonia. On the exam Conscious alert able to communicate vocally, she had tracheostomy tube and conne cted with the vent machine Neck was supple Chest was bilateral rhonchi's with deformity of the chest contour Heart regular sinus Abdomen is obese positive bowel sounds Extremities abnormal anomalies with the shortness lower extremities in comparison with the upper extremities with the underlying chromosomal anomaly and developmental anomaly. Neurologically no change. Assessment #1 acute respiratory failure on top of chronic number to use the ventilator at home however currently she is on hospital ventilator Progressive improvement. Plan we'll continue the current treatment designed by the pulmonary and critical care and subsequently we will discuss the fourth or planning after patient disc harged from the ICU Objective - Vital Signs Vital signs: Vital Signs Temp 98.1 F 10/24/21 08:00 Pulse 90 10/24/21 14:00 Resp 28 H 10/24/21 14:00 BP 135/109 10/24/21 14:00 Pulse Ox 98 10/24/21 14:00 Intake & Output 10/23/21 10/24/21 10/24/21 18:59 06:59 18:59 Intake Total 304 510 500 Balance 304 510 500 Weight 80.5 kg Intake: IV 220 260 140 Sodium Chloride 0.9% 1 220 260 140 000 ml @ 20 mls/hr IV . Q24H MARILYN Rx#:[id number] Oral 250 360 Tube Feeding 84 Other: # Voids 1 1 1 ABP, PAP, CO, CI - Last Documented Arterial Blood Pressure 102/100 - Labs CBC & Chem 7: 10/23/21 04:40 10/23/21 04:40 Labs: Microbiology - Last 24 Hours (Table) 10/22/21 05:45 Blood Culture - Preliminary Blood No Growth after 48 hours
[2021-10-25] MEDS: CHLORHEXIDINE GLUCONATE 15 ML CUP MUCOUS MEM SCH ×2 (00:46→07:50)
[2021-10-25] MEDS: DEXAMETHASONE SOD PHOSPHATE 10 MG/ML 1 ML VIAL IVP SCH (07:49)
[2021-10-25] MEDS: CHOLECALCIFEROL 125 MCG (5000 IU) TABLET PO SCH (07:49)
[2021-10-25] MEDS: ZINC SULFATE 220 MG CAP PO SCH (07:49)
[2021-10-25] MEDS: ASCORBIC ACID 500 MG TAB PO SCH (07:49)
[2021-10-25] MEDS: ENOXAPARIN 40 MG/0.4 ML SYRINGE SQ SCH (07:49)
[2021-10-25] MEDS: ALBUTEROL HFA INHALER INHALATION SCH ×2 (08:48→12:15)
--- NOTE | 2021-10-25 08:58 | XR ---
EXAMINATION TYPE: XR chest 1V portable DATE OF EXAM: 10/25/2021 COMPARISON: NONE HISTORY: Tube placement TECHNIQUE: Single frontal view of the chest is obtained. FINDINGS: There are very low lung volumes evidence of soft tissue overlying artifact. Evaluation non diagnostic. Suspect bilateral infiltrate. Cannot determine if there is an NG tube. Suspect there opal ins a tracheostomy. IMPRESSION: Nondiagnostic exam suspected bilaterally
--- NOTE | 2021-10-25 13:08 | P.PN ---
Subjective Progress Note Date: 10/25/21 36-year-old female patient with known history of spina bifida was currently in the intensive care unit and the patient is currently on a mechanical ventilator due to COVID 90 related pneumonia and respiratory insufficiency. The patient has significant anatomic deformities of the chest spine in lower extremities and the patient has underlying cognitive impairment and developmental delay. She has a permanent tracheostomy tube at home and she has been on the Trilogy ventilator at home that she had been utilizing for many years. I checked her ventilator and I started the patient was on a pressure control mode of mechanical ventilation which urology and her pressure control was at 35 cm of water with a EPAP minimum of 5. I also noted that the patient's tracheostomy tube has been switched to a cuffed #6 Shiley tracheostomy tube during this current hospital stay. The chest x-ray shows significant opacification of both lungs with some minimal sparing of the lung apices. Nevertheless, this is suboptimal chest x-ray because of the patient's impaired body habitus. This morning, I saw this patient in a follow-up on 10/21/2021. The patient is morning is on a motorcycle assist-control mode of mechanical ventilation with a rate of 36 with a tidal volume of 2 50 mL in a patient also has a PEEP of 500 FiO2 of 40%. Blood gases from this morning showed a pH of 7.49 with a pCO2 of 27 and pO2 of 77. The peak airway pressure was 44. Static pressure was 39. The patient was on propofol and the patient was sedated adequately and probable was running at 35 mg/kg per minute and the patient was also on the backs S2 microvascular kilogram per minute. The patient was being treated for COVID 19 pneumonia as the patient checked positive for COVID 19. Her pro-calcitonin level was 0.11. LDH level was 983, d-dimer was 1.15, and the patient is on Decadron 6 mg IV every 24 hours. NG tube is in place for enteral feeding and nutritional support. This will be started today. The patient was quite successful the mechanical ventilator. The white cell count today is at 7.3 with a hemoglobin of 11.8 and the patient also had a sodium level of 144 with a bicarb of 20 and a BUN of 10 and a creatinine of 0.3. 10/22/2021, the patient is being seen for a follow-up. The patient this morning is on a low dose of propofol which is running at around 25 microvascular kilogram per minute. Nevertheless, she is arousable and she is following simple commands. She is interactive. She remains on a mechanical ventilator. She is on a pressure control mode of mechanical ventilation. This morning, her pressure control is set at 35 with a rate of 36 with an FiO2 of 40% and a PEEP of 5. Blood gases shows a component of respiratory alkalosis with a pH of 7.46 and a pCO2 of 30 and pO2 of 121. The patient is a #6 Shiley cuffed tracheostomy tube. No evidence of leaks around the tracheostomy tube and no significant secretions. The chest x-rays obviously suboptimal due to an underlying spina b ifida. The patient is not receiving any paralytics for now. The patient's overall fluid balance is +2.7 L over the past 24 hours and a IV fluids are running at the rate of 100 mL an hour. She is also on vitalHP at the rate of 20 mL an hour. The patient otherwise is a white cell count of 7.7 with a hemoglobin of 12 and a platelet count of 279. Sodium is at 142 with a BUN of 12 and a creatinine of 0.28. No nausea. No emesis Charo abdominal distention. The patient has an NG tube in place. She is on Lovenox for DVT prophylaxis. The plan is to gradually wean the patient off sedation. Would also make some changes on a mechanical ventilator as the patient has a component of respiratory alkalosis. She remains on Decadron 6 mg IV every 24 hours. No other significant events otherwise for now. 10/23/2021, the patient is awake and alert. The patient remains off sedation for now she is off propofol. The patient remains on a pressure control mode of mechanical ventilation. She had a rate of 20, sugar control of 30, PEEP of 5 and FiO2 40%. No blood gases was obtained today due to technical difficulties. The patient's arterial line is nonfunctional. Meanwhile, the chest x-ray shows improvement in aeration bilaterally and the patient's blood gases from yesterday showed a pH of 7.36 with a pCO2 of 41 and pO2 of 97. No significant oral check a secretions and the patient remains on Decadron. The patient is receiving mechanical ventilation and her minute ventilation is around 60-70 per minute and she is able to generate tidal volumes ranging between 150 and 300 mL. She is receiving enteral feeding for nutritional support for an NG and this will be removed today. Her white cell count is at 10.2 with a hemoglobin of 1.1 and the plated count of 26. Sodium is at 141. BUN is at 11 creatinine 0.3. She is awake and alert and she follows simple commands. She is not agitated and she is quite pleasant at this point in time. No other significant events overnight. No fever. Alert, communicating and responsive. 10/24/2021, the patient is awake and alert. The patient remains on a mechanical ventilator at a pressure control mode at the rate of 20 with a pressure control 30 cm of water and a PEEP of 5 with an FiO2 of 40%. She is awake and alert and communicating. Infectious talk and over the ventilator. She did have a swallow evaluation today her swallow is within normal limits. The patient is getting regular oral intake. She will go 4 extremities. She is interactive. She is communicating. Hemodynamically stable. Afebrile. She remains on Decadron. The whites a cause of 10 with hemoglobin of 12 and a platelet count of 296, sodium is 141 with a potassium level of 3.9 and a BUN of 11 with a creatinine of 0.3. She remains on Lovenox 40 mg subcu 40 to prophylaxis. She remains on Decadron 6 mg IV every 24 hours. She is also on zinc sulfate and vitamin D3 and vitamin C. 10/25/2021, the patient is doing well. Condition is fully back to her baseline as the patient is awake and alert and communicating. She remains on a pressure control mode of mechanical ventilation and the patient is on a pressure control of 30 cm of water in addition to a rate of 20, PEEP of 5 and FiO2 of 40%. Chest x-ray suboptimal. Hemodynamically stable. Tolerating diet. Eating normally. Completing the course of Decadron. White cell count of 10.2 with hemoglobin 12.1 and a sodium level of 141. The arterial line has been discontinued and the central I will be also removed today. My plan is to make an 80 was for this patient to go home today along with a Trilogy ventilator home ventilator. She is hemodynamically stable. She has no issues for now. Objective - Vital Signs Vital signs: Vital Signs Temp 97.7 F 10/25/21 08:00 Pulse 90 10/25/21 12:00 Resp 28 H 10/25/21 12:00 BP 143/126 10/25/21 12:00 Pulse Ox 98 10/25/21 10:00 Intake & Output 10/24/21 10/25/21 10/25/21 18:59 06:59 18:59 Intake Total 700 690 302 Balance 700 690 302 Weight 80.5 kg Intake: IV 220 240 80 Sodium Chloride 0.9% 1, 220 240 80 000 ml @ 20 mls/hr IV . Q24H MARILYN Rx#:[id number] Oral 480 450 222 Other: # Voids 1 1 1 ABP, PAP, CO, CI - Last Documented Arterial Blood Pressure 102/100 - Exam The patient is awake and alert A very tiny obese -Ivorian female patient with significant abnormalities in her body habitus due to underlying spina bifida. The patient is a very short limbs in the lower extremity. She has a deformed spine, pelvis and short extremities. She is awake and alert and she is communicating at this point in time. Head exam was generally normal. There was no scleral icterus or corneal arcus. Mucous membranes were moist. Neck was supple and without jugular venous distension, thyromegaly, or carotid bruits. Carotids were easily palpable bilaterally. There was no adenopathy. The patient had a tracheostomy #[address] in [address] and the patient has a left subclavian triple-lumen catheter in place Cardiovascular examination reveals regular rhythm rate. S1-S2 normal. No S3 or S4. No discernible murmur noted. Lungs reveal scattered bilateral rhonchi. No wheezes or crackles. Breath sounds equal. Abdomen is difficult to examine. No tenderness. Extremities are intact. No cyanosis clubbing or edema. Skin Examination of the skin revealed no evidence of significant rashes, suspicious appearing nevi or other concerning lesions. Neurologic examination is brief but nonfocal. 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 - Labs CBC & Chem 7: 10/23/21 04:40 10/23/21 04:40 Labs: Microbiology - Last 24 Hours (Table) 10/22/21 05:45 Blood Culture - Preliminary Blood No Growth after 72 hours Assessment and Plan Plan: Acute coronavirus infection, and possible coronavirus associated pneumonia. Patient has been previously vaccinated. The patient has diffuse but the pulmonary infiltration with apical sparing. Nevertheless, the chest exit findings are quite suboptimal as the patient has spina bifida. The patient remains on a mechanical ventilator. Clinically improved and the patient is currently back on her original pressure control settings as the patient has been ventilator dependent for several years and she has a Trilogy ventilator at home. She has a #6 tracheostomy Shiley tube. She is hemodynamically stable. She is afebrile. She is tolerating her diet. She is communicating. She remains on Decadron. She'll be completing a total of 10 day course of Decadron. It seems that the patient's condition is back to her baseline. I have kept on a pressure control mode of mechanical ventilation which is the same more that she's been using for a Trilogy ventilator. Acute on chronic hypoxic and hypercapnic respiratory failure, recovered and the patient is back to baseline. The patient was utilizing a Trilogy ventilator on outpatient basis in a pressure control mode. The patient also has Proteus and coagulase-negative staph epidermidis in the sputum. This could be potentially a colonizer. The patient completed the course of Rocephin Status post tracheostomy, 2008, with chronic respiratory failure, currently maintained on a Trilogy ventilator. The patient's uncuffed tracheostomy tube was removed, and a cuffed #6 Shiley tube was placed. The patient was placed on a standard mechanical ventilator, on 10/20/2021. The patient is currently on a volume cycled mechanical ventilation with elevated troponin and static pres sures. Status post bronchoscopy, 10/20/2021, as well as placement of a left radial art line, and a left internal jugular triple-lumen catheter. History of spina bifida. 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 Paraplegia. History of UTIs. History of GERD. 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 History of constipation Plan Continue ventilator support and keep the patient at the rate of 20, pressure control of 30 cm of water, FiO2 of 40% with a PEEP of 5 We'll discharge this patient home on a Trilogy ventilator Patient is eating a regular diet Continue Decadron, completed 10 day course Continue Lovenox for prophylaxis Keep the patient IV fluids at KVO We'll continue to follow, will discuss with case management and make arrangements for this patient to go home today or within next 24 hours Discontinue the central line We'll continue to follow.
[2021-10-25 14:28] VITALS: TEMP 97.9
[2021-10-25] MEDS: SODIUM CHLORIDE 0.9% 1,000 ML IV SCH (14:36)
[2021-10-25] MEDS ORDERED: ALBUTEROL NEBULIZED 2.5 MG/3 ML INHALATION PRN (14:52)
[2021-10-25 15:05] VITALS: BP 136/104; PULSE 98; RESP 17
--- NOTE | 2021-10-25 15:20 | P.DS ---
Providers Date of admission: 10/18/21 07:31 Expected date of discharge: 10/25/21 (Stable for discharge) Attending physician: Isaac Goodson Consults: 10/18/21 11:51 Consult Physician Routine Consulting Provider: Vinicio Engle Consult Reason/Comments: pneumonia Do you want consulting provider notified?: Already Contacted 10/19/21 23:06 Consult Physician Routine Consulting Provider: Kalina Chaves Consult Reason/Comments: positive blood cultures, covid Do you want consulting provider notified?: Yes Primary care physician: Isaac Goodson Discharge summary date of service 10/25/[address] Hernandez Date of admission 10/18/2021 Date of discharge 10/25/2021 Patient stable on discharge, using her home ventilator Trilogy was normal oxygen saturation on room air 98% and blood pressure 122/86 and temperature exemplary 90 7.9F respiratory rate 20 Disposition discharged home today from ICU and cleared by Dr. Au pulmonary and critical care. Final diagnosis: #1 acute coronavirus infection with coronavirus associated pneumonia #2 status post bronchoscopy on 10/20/2021., Arterial line on the left radial and left internal jugular triple-lumen catheter by Dr. Engle critical care and pulmonary. #3 status post tracheostomy 2008 with the underlying chronic respiratory failure. #4 acute respiratory failure on the top of chronic. #5 uncuffed tracheostomy tube was removed on this admission replaced with coughed #6 Shiley tube placed #6 patient was placed on a standard the mechanical ventilator on for 10/06/2021. 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 The by her mother #13 history of recurrent UTIs since childhood. #14 history of blood infection seen and treated with Rocephin and seen by in fectious disease. #15 patient admitted by hospitalist group and followed by Dr. blank. History of the presentation Patient brought to the emergency room and [facility] ER with the severe shortness of breath and measurement for inhalation done by her mother with no success and she bruits heard through the emergency room where she was directly admitted to the ICU. Hospital course patient found that to the have Covid and the her symptoms started more than 5 days prior to the ER physical, the critical care did take care of the patient and started on a steroid as well as adjusted the tra cheostomy tube and removed the current one placed and 1 she can able to speak and they put her on the ventilator in the hospital patient also seen by Dr. Chaves infectious disease and placed on antibiotic because of the blood culture was multiple organism and subsequently pulmonary removed the antibiotic and patient monitored and seen and adjusted her ventilator, underwent bronchoscopy as mentioned above by Dr. Engle who is seen for his as well as the arterial line and the jugular line triple human. Patient progressively improved and with the weaning off the regular ventilator , today as evaluated by Dr. Au and discharged home with the clearance from the pulmonary and critical and started on her home ventilator [id number] physical on discharge: Patient is conscious alert and the she have no symptoms, no shortness of breath, able to eat and swallow normally able to communicate normally. The head was normocephalic and atraumatic pupil was equal reactive. She has a tracheostomy in place, able to eat and swallow normally with a crowded teeth associated with her anomaly Neck was short and supple and she had the tracheostomy in place. Chest she has baseline of scattered rhonchi with normal oxygen saturation on the ventilator machine Heart regular sinus rhythm The abdomen is obese with the short distance between the thorax and the and the pelvis with the body and normally and short extremities with the puffiness which is baseline continuously present No neurological deficit. Patient stable general condition to be discharged home today with the Covid precaution at home with the vent. Follow-up in the office after 10 days from isolation. Patient Condition at Discharge: Serious Plan - Discharge Summary Discharge Rx Participant: No New Discharge Prescriptions: No Action Albuterol Nebulized [Ventolin Nebulized] 2.5 mg INHALATION RT-BID PRN PRN Reason: Shortness Of Breath Budesonide [Pulmicort] 1 mg INHALATION RT-BID Discharge Medication List Albuterol Nebulized [Ventolin Nebulized] 2.5 mg INHALATION RT-BID PRN 10/07/17 [History] Budesonide [Pulmicort] 1 mg INHALATION RT-BID 05/07/21 [History] Follow up Appointment(s)/Referral(s): Isaac Goodson MD [Primary Care Provider] - 10 Days Discharge Disposition: HOME SELF-CARE
[2021-10-25] MEDS ORDERED: BUDESONIDE 1 MG/2 ML NEBU INHALATION SCH (20:00)
== END 2021-10-25 16:28 | disposition home or self-care (01) | DRG 207 ==
LOC: EC 03:34 → 3SCARD 07:31 → 2SICU 11:18
PROVIDERS: ADMIT Internal Medicine; ATTEND Internal Medicine
PROC: 0B21XFZ Change Tracheostomy Device in Trachea, External Approach (ICD-10-PCS; 2021-10-18)
PROC: 5A09357 Assistance with Respiratory Ventilation, Less than 24 Consecutive Hours, Continuous Positive Airway Pressure (ICD-10-PCS; 2021-10-18)
PROC: 05HD33Z Insertion of Infusion Device into Right Cephalic Vein, Percutaneous Approach (ICD-10-PCS; 2021-10-18)
PROC: 5A1955Z Respiratory Ventilation, Greater than 96 Consecutive Hours (ICD-10-PCS; principal; 2021-10-18 20:25)
PROC: 0BH17EZ Insertion of Endotracheal Airway into Trachea, Via Natural or Artificial Opening (ICD-10-PCS; principal; 2021-10-18 20:25)
PROC: 4A133J1 Monitoring of Arterial Pulse, Peripheral, Percutaneous Approach (ICD-10-PCS; 2021-10-20)
PROC: 0B918ZZ Drainage of Trachea, Via Natural or Artificial Opening Endoscopic (ICD-10-PCS; 2021-10-20)
PROC: 4A133B1 Monitoring of Arterial Pressure, Peripheral, Percutaneous Approach (ICD-10-PCS; 2021-10-20)
PROC: 0BJ08ZZ Inspection of Tracheobronchial Tree, Via Natural or Artificial Opening Endoscopic (ICD-10-PCS; 2021-10-20)
PROC: 02HV33Z Insertion of Infusion Device into Superior Vena Cava, Percutaneous Approach (ICD-10-PCS; 2021-10-20)
PROC: 03HY32Z Insertion of Monitoring Device into Upper Artery, Percutaneous Approach (ICD-10-PCS; 2021-10-20)
PROC: 0DH67UZ Insertion of Feeding Device into Stomach, Via Natural or Artificial Opening (ICD-10-PCS; 2021-10-20)
PROC: 3E0G76Z Introduction of Nutritional Substance into Upper GI, Via Natural or Artificial Opening (ICD-10-PCS; 2021-10-20)
DX: U07.1 COVID-19 (principal); J12.82 Pneumonia due to coronavirus disease 2019; J15.9 Unspecified bacterial pneumonia; J96.20 Acute and chronic respiratory failure, unspecified whether with hypoxia or hypercapnia; E87.1 Hypo-osmolality and hyponatremia; G82.20 Paraplegia, unspecified; E87.3 Alkalosis; J44.0 Chronic obstructive pulmonary disease with (acute) lower respiratory infection; R78.81 Bacteremia; Z68.43 Body mass index [BMI] 50.0-59.9, adult; R04.2 Hemoptysis; J96.12 Chronic respiratory failure with hypercapnia; Q99.9 Chromosomal abnormality, unspecified; I89.0 Lymphedema, not elsewhere classified; Q05.5 Cervical spina bifida without hydrocephalus; E66.9 Obesity, unspecified; F81.9 Developmental disorder of scholastic skills, unspecified; B96.4 Proteus (mirabilis) (morganii) as the cause of diseases classified elsewhere; J45.909 Unspecified asthma, uncomplicated; Z93.50 Unspecified cystostomy status; Z82.49 Family history of ischemic heart disease and other diseases of the circulatory system; Z93.0 Tracheostomy status; M26.31 Crowding of fully erupted teeth; Z82.5 Family history of asthma and other chronic lower respiratory diseases; K21.9 Gastro-esophageal reflux disease without esophagitis; Z83.3 Family history of diabetes mellitus; Z87.440 Personal history of urinary (tract) infections; M41.9 Scoliosis, unspecified; Z87.442 Personal history of urinary calculi; Z98.2 Presence of cerebrospinal fluid drainage device; Z99.3 Dependence on wheelchair; Z98.890 Other specified postprocedural states; Z87.01 Personal history of pneumonia (recurrent); Z79.51 Long term (current) use of inhaled steroids; Z28.39 Other underimmunization status; Z71.3 Dietary counseling and surveillance
CPT/HCPCS: 36410; 36415; 71045; 76937; 80048; 80053; 81001; 82805; 83605; 83615; 83735; 83880; 84145; 84484; 85025; 85379; 85610; 85730; 86140; 87040; 87070; 87077; 87086; 87186; 87205; 87635; 93005; 94002; 94003; 94640; 96365; 96367; 96375; 99285

== ENCOUNTER 2021-10-30 01:24 | Emergency (ER) | payer OTHER ==
[2021-10-30] MEDS ORDERED: MIDAZOLAM 1 MG/ML 5 ML VIAL IV STA (02:13)
[2021-10-30 02:28] LABS: Anisocytosis Slight; Basophils # (A) 0.1 k/uL (0-0.2); Basophils % (A) 1 %; Eosinophils # (A) 0.4 k/uL (0-0.7); Eosinophils % (A) 3 %; HCT 44.7 % (34.0-46.0); Hypochromasia Moderate; Lymphocytes # (A) 3.1 k/uL (1.0-4.8); Lymphocytes % (A) 25 %; MCH 29.2 pg (25.0-35.0); MCHC 31.3 g/dL (31.0-37.0); MCV 93.2 fL (80.0-100.0); Mean Platelet Volume 8.1; Monocytes # (A) 1.2 k/uL (0-1.0); Monocytes % (A) 9 %; Neutrophils # (A) 7.3 k/uL (1.3-7.7); Neutrophils % (A) 59 %; Platelet Count 580 k/uL (150-450); RDW 17.9 % (11.5-15.5); WBC 12.3 k/uL (3.8-10.6)
[2021-10-30 02:37] LABS: ALT 23 U/L (4-34); AST 32 U/L (14-36); African American GFR (CKD) >90 (>60 ml/min/1.73 sqM); Albumin 4.1 g/dL (3.5-5.0); Alkaline Phosphatase 73 U/L (38-126); Anion Gap 8 mmol/L; Blood Urea Nitrogen 5 mg/dL (7-17); Calcium 9.2 mg/dL (8.4-10.2); Carbon Dioxide 26 mmol/L (22-30); Chloride 105 mmol/L (98-107); Glucose 159 mg/dL (74-99); Non-African American GFR(CKD) >90 (>60 ml/min/1.73 sqM); Sodium 139 mmol/L (137-145); Total Bilirubin 0.8 mg/dL (0.2-1.3); Total Protein 7.5 g/dL (6.3-8.2)
[2021-10-30 02:38] VITALS: RESP 24
[2021-10-30 02:40] LABS: Potassium 5.5 mmol/L (3.5-5.1)
--- NOTE | 2021-10-30 03:47 | ED ---
General Adult HPI - General Chief complaint: Recheck/Abnormal Lab/Rx Stated complaint: SOB Time Seen by Provider: 10/30/21 01:33 Source: patient, family, EMS Mode of arrival: EMS Limitations: physical limitation (There is some developmental delay) - History of Present Illness Initial comments: This patient is a 36-year-old woman to have evaluation for tracheostomy problem. Patient had been in the hospital, being admitted October 18 for an episode of [place] [facility] pain and found to have code infection. Patient had an improvement after few days and was discharged. She has continued to have some coughing, no dyspnea. The patient had been having some coughing tonight at home that sounded as if there was sputum that needed suctioning. The patient's mother went to perform suctioning to the patient's chronic tracheostomy but was unable to pass the suction catheter. She therefore called EMS. -: minutes(s) Improves with: none Worsens with: none Associated Symptoms: denies other symptoms - Related Data Home Medications Medication Instructions Recorded Confirmed Albuterol Nebulized [Ventolin 2.5 mg INHALATION RT-BID PRN 10/07/17 10/18/21 Nebulized] Budesonide [Pulmicort] 1 mg INHALATION RT-BID 05/07/21 10/18/21 Allergies Allergy/AdvReac Type Severity Reaction Status Date / Time No Known Allergies Allergy Verified 10/18/21 06:47 Review of Systems ROS Statement: Those systems with pertinent positive or pertinent negative responses have been documented in the HPI. ROS Other: All systems not noted in ROS Statement are negative. Limitations: ROS unobtainable due to patients medical condition (Elemental delay) Constitutional: Denies: fever Respiratory: Reports: cough. Denies: dyspnea Cardiovascular: Denies: chest pain Gastrointestinal: Denies: vomiting Skin: Denies: rash Neurological: Denies: headache Past Medical History Past Medical History: Asthma, GERD/Reflux, Musculoskeletal Disorder Additional Past Medical History / Comment(s): Spina bifida with spina bifida deformities, paralyzed waist down, mentality approximately 6yr old, severe kyphoscoliosis with pectus deformity, chronic lung disease with chronic respiratory hypoxia/hypercpnia, trach/chronic vent, pneumonias, bronchospasms, cervical compression with surgery, nephrolithiasis, urostomy-wears depends, UTIs, constipation. 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, bilateral release/resection hamstrings proximal muscle, cervical decompression, surgery for "lazy eye." Shunt placed in brain 2020 Past Anesthesia/Blood Transfusion Reactions: No Reported Reaction Past Psychological History: No Psychological Hx Reported Smoking Status: Never smoker Past Alcohol Use History: None Reported Past Drug Use History: None Reported - Past Family History Father Family Medical History: Asthma Mother Family Medical History: Diabetes Mellitus, Hyperlipidemia, Hypertension General Exam General appearance: alert, in no apparent distress Head exam: Present: atraumatic, normocephalic Eye exam: Present: normal appearance. Absent: scleral icterus, conjunctival injection Neck exam: Present: other (Inspection of the patient's tracheostomy reveals that the trach cannula has nearly entirely come out. Only the distal 1 cm or so remains in place. The fenestration is at the level of the skin.) Respiratory exam: Present: respiratory distress (Mild tachypnea), rhonchi. Absent: wheezes, rales, stridor, accessory muscle use Cardiovascular Exam: Present: normal rhythm, tachycardia, normal heart sounds. Absent: systolic murmur, diastolic murmur, rubs, gallop GI/Abdominal exam: Present: soft. Absent: tenderness, guarding, rebound Extremities exam: Present: other (Chronic contractures) Neurological exam: Present: alert. Absent: motor sensory deficit Skin exam: Present: warm, dry, intact, normal color. Absent: rash Course Vital Signs 10/30/21 10/30/21 10/30/21 01:25 02:35 02:41 Pulse Rate 115 H 112 H Respiratory 28 H 24 24 Rate Blood Pressure 132/97 117/84 O2 Sat by Pulse 99 97 Oximetry Medical Decision Making - Medical Decision Making Shouldn't is 36-year-old woman with a tracheostomy who had the tracheostomy tube nearly entirely pull out prior to arrival here. The respiratory therapist and a replace the tube at the bedside. The trocar was inserted and the trach tube was advanced with only minimal pressure required. Following this, the patient was suctioned and then there was no further respiratory distress. The patient is feeling well, and the patient's mother states that she is at her baseline. They would like to go home. - Lab Data Result diagrams: 10/30/21 02:14 10/30/21 02:14 Lab Results 10/30/21 10/30/21 Range/Units 02:14 02:14 WBC 12.3 H (3.8-10.6) k/uL RBC 4.80 (3.80-5.40) m/uL Hgb 14.0 (11.4-16.0) gm/dL Hct 44.7 (34.0-46.0) % MCV 93.2 (80.0-100.0) fL MCH 29.2 (25.0-35.0) pg MCHC 31.3 (31.0-37.0) g/dL RDW 17.9 H (11.5-15.5) % Plt Count 580 H (150-450) k/uL MPV 8.1 Neutrophils % 59 % Lymphocytes % 25 % Monocytes % 9 % Eosinophils % 3 % Basophils % 1 % Neutrophils # 7.3 (1.3-7.7) k/uL Lymphocytes # 3.1 (1.0-4.8) k/uL Monocytes # 1.2 H (0-1.0) k/uL Eosinophils # 0.4 (0-0.7) k/uL Basophils # 0.1 (0-0.2) k/uL Hypochromasia Moderate Anisocytosis Slight Sodium 139 (137-145) mmol/L Potassium 5.5 H (3.5-5.1) mmol/L Chloride 105 (98-107) mmol/L Carbon Dioxide 26 (22-30) mmol/L Anion Gap 8 mmol/L BUN 5 L (7-17) mg/dL Creatinine 0.31 L (0.52-1.04) mg/dL Est GFR (CKD-EPI)AfAm >90 (>60 ml/min/1.73 sqM) Est GFR (CKD-EPI)NonAf >90 (>60 ml/min/1.73 sqM) Glucose 159 H (74-99) mg/dL Calcium 9.2 (8.4-10.2) mg/dL Total Bilirubin 0.8 (0.2-1.3) mg/dL AST 32 (14-36) U/L ALT 23 (4-34) U/L Alkaline Phosphatase 73 (38-126) U/L Total Protein 7.5 (6.3-8.2) g/dL Albumin 4.1 (3.5-5.0) g/dL Disposition Clinical Impression: Tracheostomy malfunction Disposition: HOME SELF-CARE Condition: Good Instructions (If sedation given, give patient instructions): Tracheostomy Care (ED) Is patient prescribed a controlled substance at d/c from ED?: No Referrals: Isaac Goodson MD [Primary Care Provider] - 1-2 days
[2021-10-30 04:32] VITALS: BP 112/84; PULSE 96
== END 2021-10-30 04:32 | disposition home or self-care (01) ==
LOC: EC 01:24
DX: J95.03 Malfunction of tracheostomy stoma (principal); J45.909 Unspecified asthma, uncomplicated; K21.9 Gastro-esophageal reflux disease without esophagitis; Z79.51 Long term (current) use of inhaled steroids; Z79.899 Other long term (current) drug therapy
CPT/HCPCS: 36415; 80053; 85025; 31502; 99283; J2250

== ENCOUNTER 2021-10-30 17:41 | Emergency (ER) | payer OTHER ==
--- NOTE | 2021-10-30 17:56 | ED ---
General Adult HPI - General Stated complaint: trach problems Time Seen by Provider: 10/30/21 17:43 - History of Present Illness Initial comments: Flores is a pleasant 36yo F with PMH of tracheostomy dependency, the patient was seen and evaluated in our emergency room this morning when her mother was and able to suction her tracheostomy. The tracheostomy was subsequently exchanged by respiratory therapy, patient was doing well and was discharged home. Mom reports that now the patient is complaining of pain in the left side of her neck and though the patient can usually speak she is not able to right now. - Related Data Home Medications Medication Instructions Recorded Confirmed Albuterol Nebulized [Ventolin 2.5 mg INHALATION RT-BID PRN 10/07/17 10/18/21 Nebulized] Budesonide [Pulmicort] 1 mg INHALATION RT-BID 05/07/21 10/18/21 Allergies Allergy/AdvReac Type Severity Reaction Status Date / Time No Known Allergies Allergy Verified 10/18/21 06:47 Review of Systems ROS Statement: Those systems with pertinent positive or pertinent negative responses have been documented in the HPI. ROS Other: All systems not noted in ROS Statement are negative. Past Medical History Past Medical History: Asthma, GERD/Reflux, Musculoskeletal Disorder Additional Past Medical History / Comment(s): Spina bifida with spina bifida deformities, paralyzed waist down, mentality approximately 6yr old, severe kyphoscoliosis with pectus deformity, chronic lung disease with chronic respiratory hypoxia/hypercpnia, trach/chronic vent, pneumonias, bronchospasms, cervical compression with surgery, nephrolithiasis, urostomy-wears depends, UTIs, constipation. History of Any Multi-Drug Resistant Organisms: None Reported Past Surgical History: Back Surgery, Orthopedic Surgery Additional Past Surgical History / Comment(s): 2009 trach, urostomy, BAKERY CLERK shunt, bilateral release/resection hamstrings proximal muscle, cervical decompression, surgery for "lazy eye." Shunt placed in brain 2020 Past Anesthesia/Blood Transfusion Reactions: No Reported Reaction Past Psychological History: No Psychological Hx Reported Smoking Status: Never smoker Past Alcohol Use History: None Reported Past Drug Use History: None Reported - Past Family History Father Family Medical History: Asthma Mother Family Medical History: Diabetes Mellitus, Hyperlipidemia, Hypertension General Exam - General Exam Comments Initial Comments: Physical Exam GENERAL: Patient is well-developed and well-nourished. Patient is nontoxic and well-hydrated and is in no distress. HENT: Atraumatic. EYES: PERRL, EOMI PULMONARY: Trach in place, Unlabored respirations. CARDIOVASCULAR: RRR ABDOMEN: Non-distended SKIN: No rashes or bruising : Deferred NEUROLOGIC: Alert and oriented MUSCULOSKELETAL: underdevelopment of lower extremities PSYCHIATRIC: No SI/HI Course Vital Signs 10/30/21 10/30/21 10/30/21 17:45 18:46 19:54 Temperature 98.2 F Pulse Rate 117 H 111 H 103 H Respiratory 28 H 30 H Rate Blood Pressure 125/85 125/85 131/91 O2 Sat by Pulse 93 L 92 L 98 Oximetry 10/30/21 20:39 Temperature Pulse Rate 104 H Respiratory 121 H Rate Blood Pressure 121/98 O2 Sat by Pulse 98 Oximetry Medical Decision Making - Medical Decision Making She was seen and evaluated history is obtained from patient, medical record and mother. Due to patient's onset of neck pain after having her tracheostomy replaced which was a somewhat difficult procedure here in the ER last night a computed tomography scan with contrast was ordered and completed. No acute findings were noted on CT. After relaxing in bed for a short period of time patient reported feeling much better mother reported she was much more at her baseline. She was able to whisper any answer questions. Mom is comfortable with plan for discharge home. Disposition Clinical Impression: Neck pain, Tracheostomy dependence Disposition: HOME SELF-CARE Condition: Stable Is patient prescribed a controlled substance at d/c from ED?: No Referrals: Isaac Goodson MD [Primary Care Provider] - 1-2 days
[2021-10-30 18:03] VITALS: TEMP 98.2
--- NOTE | 2021-10-30 19:57 | CT ---
EXAMINATION TYPE: CT soft tissue neck w con DATE OF EXAM: 10/30/2021 COMPARISON: None HISTORY: Neck pain after trach replacement CT DLP: 706.2 mGycm Automated exposure control for dose reduction was used. CONTRAST: Performed with IV Contrast, patient injected with 100 mL of Isovue 300. Images obtained from the mid heart to the bottom of the orbits with IV contrast. Examination limited by patient positioning. There is tracheostomy tube noted. Prevertebral soft tissu es are intact. The tongue is intact. Epiglottis has normal size. There is normal aeration of the maxi llary sinuses. Parotid glands are fairly symmetric. Submandibular salivary glands are symmetric. Ther e is some hypertrophy of the tonsils. I see no significant cervical adenopathy. The thyroid gland is symmetric. Superior mediastinum shows no adenopathy. There is no pathologic fluid collection. IMPRESSION: Tracheostomy tube in good position. No evidence of pathologic fluid collection. No evidence of a mass . Mild hypertrophy of the tonsils.
[2021-10-30 20:41] VITALS: BP 121/98; PULSE 104; RESP 121
== END 2021-10-30 23:03 | disposition home or self-care (01) ==
LOC: EC 17:41
DX: M54.2 Cervicalgia (principal); K21.9 Gastro-esophageal reflux disease without esophagitis; J45.909 Unspecified asthma, uncomplicated; Z93.0 Tracheostomy status; Z87.440 Personal history of urinary (tract) infections
CPT/HCPCS: 99284; 70491; Q9967

== ENCOUNTER 2022-03-19 08:43 | Inpatient (IN) | payer OTHER ==
[2022-03-19] MEDS ORDERED: SODIUM CHLORIDE 0.9% 1,000 ML IV STA (08:49)
[2022-03-19] MEDS ORDERED: IPRATROPIUM-ALBUTEROL 3 ML NEB INHALATION STA (08:49)
[2022-03-19] MEDS ORDERED: methylPREDNISolone SOD SUCCI 125 MG/2 ML VIAL IV STA (08:49)
--- NOTE | 2022-03-19 08:58 | ED ---
SOB HPI - General Chief Complaint: Shortness of Breath Stated Complaint: tabatha Time Seen by Provider: 03/19/22 08:43 Source: patient, EMS, RN notes reviewed, old records reviewed Mode of arrival: EMS Limitations: no limitations - History of Present Illness Initial Comments: 36-year-old female with a history of spina bifida who is ventilator dependent who is brought in by EMS today because of increased coughing with some yellow phlegm increased congestion and difficulty breathing. She had a treatment this morning which only helped her for a short period time. No chest pain reported no fevers or chills but she states she does have sweats. No other current complaints or modifying factors MD Complaint: shortness of breath, cough - Related Data Home Medications Medication Instructions Recorded Confirmed Albuterol Nebulized [Ventolin 2.5 mg INHALATION RT-BID 10/07/17 03/19/22 Nebulized] Budesonide [Pulmicort] 1 mg INHALATION RT-BID 05/07/21 03/19/22 Albuterol Nebulized [Ventolin 2.5 mg INHALATION RT-BID PRN 03/19/22 03/19/22 Nebulized] Metoprolol Tartrate [Lopressor] 25 mg PO BID 03/19/22 03/19/22 dilTIAZem HCL [Cardizem] 90 mg PO TID 03/19/22 03/19/22 Allergies Allergy/AdvReac Type Severity Reaction Status Date / Time No Known Allergies Allergy Verified 03/19/22 11:19 Review of Systems ROS Statement: Those systems with pertinent positive or pertinent negative responses have been documented in the HPI. ROS Other: All systems not noted in ROS Statement are negative. Past Medical History Past Medical History: Asthma, GERD/Reflux, Musculoskeletal Disorder Additional Past Medical History / Comment(s): Spina bifida with spina bifida deformities, paralyzed waist down, mentality approximately 6yr old, severe kyphoscoliosis with pectus deformity, chronic lung disease with chronic respiratory hypoxia/hypercpnia, trach/chronic vent, pneumonias, bronchospasms, cervical compression with surgery, nephrolithiasis, urostomy-wears depends, UTIs, constipation. 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, bilateral release/resection hamstrings proximal muscle, cervical decompression, surgery for "lazy eye." Shunt placed in brain 2020 Past Anesthesia/Blood Transfusion Reactions: No Reported Reaction Past Psychological History: No Psychological Hx Reported Smoking Status: Never smoker Past Alcohol Use History: None Reported Past Drug Use History: None Reported - Past Family History Father Family Medical History: Asthma Mother Family Medical History: Diabetes Mellitus, Hyperlipidemia, Hypertension General Exam - General Exam Comments Initial Comments: This is a 36-year-old female who is awake alert oriented 4 female Limitations: no limitations General appearance: alert, anxious ENT exam: Present: mucous membranes dry Neck exam: Present: full ROM, other (Tracheostomy in place) Respiratory exam: Present: decreased breath sounds Cardiovascular Exam: Present: regular rate, tachycardia GI/Abdominal exam: Present: soft Extremities exam: Present: normal inspection, normal capillary refill Back exam: Present: other (Stigmata of spina bifida). Absent: tenderness Neurological exam: Present: alert, oriented X3, CN II-XII intact Psychiatric exam: Present: normal affect, normal mood Skin exam: Present: warm, intact, normal color, diaphoretic Course Vital Signs 03/19/22 03/19/22 03/19/22 08:44 08:49 08:56 Temperature 98.3 F Pulse Rate 135 H Respiratory 20 Rate Blood Pressure 118/99 O2 Sat by Pulse 95 Oximetry Fraction of 21 21 Inspired Oxygen (FIO2) 03/19/22 03/19/22 03/19/22 08:57 09:14 10:19 Temperature Pulse Rate 128 H 129 H Respiratory 30 H 22 22 Rate Blood Pressure 121/89 O2 Sat by Pulse 94 L Oximetry Fraction of Inspired Oxygen (FIO2) 03/19/22 03/19/22 12:01 15:12 Temperature Pulse Rate Respiratory Rate Blood Pressure O2 Sat by Pulse Oximetry Fraction of 21 21 Inspired Oxygen (FIO2) Medical Decision Making - Medical Decision Making Reevaluation patient finds she feels improved somewhat I did discuss case with her and Dr. Goodson, patient will be admitted she does request Dr. Scott for pulmonary medicine. He is being covered by Dr. Park today. - Lab Data Result diagrams: 03/19/22 10:21 03/19/22 10:21 Lab Results 03/19/22 03/19/22 03/19/22 Range/Units 09:12 09:12 10:21 WBC 12.4 H (3.8-10.6) k/uL RBC 5.22 (3.80-5.40) m/uL Hgb 14.6 (11.4-16.0) gm/dL Hct 45.0 (34.0-46.0) % MCV 86.2 (80.0-100.0) fL MCH 27.9 (25.0-35.0) pg MCHC 32.4 (31.0-37.0) g/dL RDW 16.2 H (11.5-15.5) % Plt Count 305 (150-450) k/uL MPV 8.2 Neutrophils % 80 % Lymphocytes % 13 % Monocytes % 3 % Eosinophils % 3 % Basophils % 0 % Neutrophils # 10.0 H (1.3-7.7) k/uL Lymphocytes # 1.6 (1.0-4.8) k/uL Monocytes # 0.4 (0-1.0) k/uL Eosinophils # 0.4 (0-0.7) k/uL Basophils # 0.0 (0-0.2) k/uL Hypochromasia Slight Anisocytosis Slight PT (9.0-12.0) sec INR (<1.2) APTT (22.0-30.0) sec Sodium (137-145) mmol/L Potassium (3.5-5.1) mmol/L Chloride (98-107) mmol/L Carbon Dioxide (22-30) mmol/L Anion Gap mmol/L BUN (7-17) mg/dL Creatinine (0.52-1.04) mg/dL Est GFR (CKD-EPI)AfAm (>60 ml/min/1.73 sqM) Est GFR (CKD-EPI)NonAf (>60 ml/min/1.73 sqM) Glucose (74-99) mg/dL Plasma Lactic Acid Anson (0.7-2.0) mmol/L Calcium (8.4-10.2) mg/dL Magnesium (1.6-2.3) mg/dL Total Bilirubin (0.2-1.3) mg/dL AST (14-36) U/L ALT (4-34) U/L Alkaline Phosphatase (38-126) U/L Troponin I (0.000-0.034) ng/mL NT-Pro-B Natriuret Pep pg/mL Total Protein (6.3-8.2) g/dL Albumin (3.5-5.0) g/dL Coronavirus (PCR) Not Detected (Not Detectd) Influenza Type A RNA Not Detected (Not Detectd) Influenza Type B (PCR) Not Detected (Not Detectd) 03/19/22 03/19/22 03/19/22 Range/Units 10:21 10:21 10:21 WBC (3.8-10.6) k/uL RBC (3.80-5.40) m/uL Hgb (11.4-16.0) gm/dL Hct (34.0-46.0) % MCV (80.0-100.0) fL MCH (25.0-35.0) pg MCHC (31.0-37.0) g/dL RDW (11.5-15.5) % Plt Count (150-450) k/uL MPV Neutrophils % % Lymphocytes % % Monocytes % % Eosinophils % % Basophils % % Neutrophils # (1.3-7.7) k/uL Lymphocytes # (1.0-4.8) k/uL Monocytes # (0-1.0) k/uL Eosinophils # (0-0.7) k/uL Basophils # (0-0.2) k/uL Hypochromasia Anisocytosis PT 12.4 H (9.0-12.0) sec INR 1.2 H (<1.2) APTT 24.6 (22.0-30.0) sec Sodium 139 (137-145) mmol/L Potassium 4.2 (3.5-5.1) mmol/L Chloride 101 (98-107) mmol/L Carbon Dioxide 18 L (22-30) mmol/L Anion Gap 20 mmol/L BUN 9 (7-17) mg/dL Creatinine 0.46 L (0.52-1.04) mg/dL Est GFR (CKD-EPI)AfAm >90 (>60 ml/min/1.73 sqM) Est GFR (CKD-EPI)NonAf >90 (>60 ml/min/1.73 sqM) Glucose 64 L (74-99) mg/dL Plasma Lactic Acid Anson 1.5 (0.7-2.0) mmol/L Calcium 9.2 (8.4-10.2) mg/dL Magnesium 1.7 (1.6-2.3) mg/dL Total Bilirubin 1.0 (0.2-1.3) mg/dL AST 26 (14-36) U/L ALT 17 (4-34) U/L Alkaline Phosphatase 143 H (38-126) U/L Troponin I (0.000-0.034) ng/mL NT-Pro-B Natriuret Pep pg/mL Total Protein 7.3 (6.3-8.2) g/dL Albumin 4.2 (3.5-5.0) g/dL Coronavirus (PCR) (Not Detectd) Influenza Type A RNA (Not Detectd) Influenza Type B (PCR) (Not Detectd) 03/19/22 03/19/22 Range/Units 10:21 10:21 WBC (3.8-10.6) k/uL RBC (3.80-5.40) m/uL Hgb (11.4-16.0) gm/dL Hct (34.0-46.0) % MCV (80.0-100.0) fL MCH (25.0-35.0) pg MCHC (31.0-37.0) g/dL RDW (11.5-15.5) % Plt Count (150-450) k/uL MPV Neutrophils % % Lymphocytes % % Monocytes % % Eosinophils % % Basophils % % Neutrophils # (1.3-7.7) k/uL Lymphocytes # (1.0-4.8) k/uL Monocytes # (0-1.0) k/uL Eosinophils # (0-0.7) k/uL Basophils # (0-0.2) k/uL Hypochromasia Anisocytosis PT (9.0-12.0) sec INR (<1.2) APTT (22.0-30.0) sec Sodium (137-145) mmol/L Potassium (3.5-5.1) mmol/L Chloride (98-107) mmol/L Carbon Dioxide (22-30) mmol/L Anion Gap mmol/L BUN (7-17) mg/dL Creatinine (0.52-1.04) mg/dL Est GFR (CKD-EPI)AfAm (>60 ml/min/1.73 sqM) Est GFR (CKD-EPI)NonAf (>60 ml/min/1.73 sqM) Glucose (74-99) mg/dL Plasma Lactic Acid Anson (0.7-2.0) mmol/L Calcium (8.4-10.2) mg/dL Magnesium (1.6-2.3) mg/dL Total Bilirubin (0.2-1.3) mg/dL AST (14-36) U/L ALT (4-34) U/L Alkaline Phosphatase (38-126) U/L Troponin I <0.012 (0.000-0.034) ng/mL NT-Pro-B Natriuret Pep 105 pg/mL Total Protein (6.3-8.2) g/dL Albumin (3.5-5.0) g/dL Coronavirus (PCR) (Not Detectd) Influenza Type A RNA (Not Detectd) Influenza Type B (PCR) (Not Detectd) - EKG Data -: EKG Interpreted by [place] EKG shows normal: sinus rhythm EKG Comments: Sinus tachycardia rate 127. 01 35 QRS duration 67 daily since QTC 295/370 low- voltage - Radiology Data Radiology results: report reviewed, image reviewed (Imaging reviewed evidence of bilateral infiltrates) Disposition Clinical Impression: Pneumonia, Asthma attack, Leukocytosis, Ventilator dependent Disposition: ADMITTED IP TO [facility] Condition: Fair Referrals: Isaac Goodson MD [Primary Care Provider] - 1-2 days Decision Date: 03/19/22 Decision Time: 14:30
--- NOTE | 2022-03-19 09:50 | XR ---
EXAMINATION TYPE: XR chest 1V DATE OF EXAM: 03/19/2022 COMPARISON: 10/25/2021 HISTORY: Difficulty breathing TECHNIQUE: Single frontal view of the chest is obtained. FINDINGS: Diffuse bilateral opacities. Elevated hemidiaphragm limited aeration trachea noted. Sugges tion of the INTENSIVE CARE UNIT NURSE shunt catheter. No pneumothorax. Heart size difficult to assess. Chronic-appearing ske letal changes stable. IMPRESSION: 1. Diffuse bilateral opacification likely related bilateral airspace disease. Pulmonary edema, ARDS o r diffuse pneumonia differential diagnosis.
[2022-03-19 12:21] LABS: Anisocytosis Slight; Basophils % (A) 0 %; Eosinophils # (A) 0.4 k/uL (0-0.7); Eosinophils % (A) 3 %; HGB 14.6 gm/dL (11.4-16.0); Hypochromasia Slight; Lymphocytes # (A) 1.6 k/uL (1.0-4.8); Lymphocytes % (A) 13 %; MCH 27.9 pg (25.0-35.0); MCHC 32.4 g/dL (31.0-37.0); MCV 86.2 fL (80.0-100.0); Mean Platelet Volume 8.2; Monocytes # (A) 0.4 k/uL (0-1.0); Monocytes % (A) 3 %; Neutrophils % (A) 80 %; Platelet Count 305 k/uL (150-450); RBC 5.22 m/uL (3.80-5.40); RDW 16.2 % (11.5-15.5); WBC 12.4 k/uL (3.8-10.6)
[2022-03-19 12:25] LABS: ALT 17 U/L (4-34); AST 26 U/L (14-36); African American GFR (CKD) >90 (>60 ml/min/1.73 sqM); Albumin 4.2 g/dL (3.5-5.0); Alkaline Phosphatase 143 U/L (38-126); Anion Gap 20 mmol/L; Blood Urea Nitrogen 9 mg/dL (7-17); Calcium 9.2 mg/dL (8.4-10.2); Carbon Dioxide 18 mmol/L (22-30); Chloride 101 mmol/L (98-107); Glucose 64 mg/dL (74-99); Magnesium 1.7 mg/dL (1.6-2.3); Non-African American GFR(CKD) >90 (>60 ml/min/1.73 sqM); Potassium 4.2 mmol/L (3.5-5.1); Sodium 139 mmol/L (137-145); Total Protein 7.3 g/dL (6.3-8.2)
[2022-03-19 12:49] LABS: INR 1.2 (<1.2); Partial Thromboplastin Time 24.6 sec (22.0-30.0); Prothrombin Time 12.4 sec (9.0-12.0)
[2022-03-19] MEDS ORDERED: cefTRIAXone 1,000 MG VIAL (IM USE) IM STA (14:30)
[2022-03-19] MEDS ORDERED: PNEUMONIA PROTOCOL UTILIZED 1 EACH MISC PO PRN (15:36)
[2022-03-19] MEDS ORDERED: IPRATROPIUM-ALBUTEROL 3 ML NEB INHALATION PRN (15:36)
[2022-03-19] MEDS ORDERED: AZITHROMYCIN 500 MG in SODIUM CHLORIDE 0.9% 250 ML IVPB STA (15:36)
[2022-03-19] MEDS ORDERED: SODIUM CHLORIDE 0.9% 1,000 ML IV SCH (15:45)
[2022-03-19] MEDS ORDERED: PIPERACILLIN-TAZOBACTAM 3.375 GM in SODIUM CHLORIDE 0.9% 100 ML IVPB STA (15:58)
--- NOTE | 2022-03-19 16:16 | P.CNPUL ---
History of Present Illness Consult date: 03/19/22 Reason for consult: dyspnea History of present illness: A 36-year-old female patient with known history of spina bifida was currently on a home ventilator with a permanent tracheostomy. The patient was last seen in our hospital back in October 2021 when she was infected with COVID 19 for which she recovered and the patient was discharged home. The patient continues using Trilogy ventilator and the patient is currently on a pressure control mode of mechanical ventilation at a rate of 24, pressure control of 35, PEEP of 5. The patient has a #[address] tracheostomy tube in place and the mother does regular tracheostomy tube care for her. She was noted to have increased dyspnea, cough and congestion and for that reason the patient was brought into the hospital. Chest x-rays of his is suboptimal due to body habitus and the patient has diffuse haziness bilaterally. Her chest is deformed related to her spine bifida. She is afebrile at this point in time. She is awake and alert and communicating. She has been infected in the past with pseudomonas back in 2019. No recurrent infections since. No aspiration according to the family patient is able to swallow. She has a urostomy and the mother urine output is not known. On her blood work, the white cell count of 12.4 with a hemoglobin 14.6 and a platelet count of 305. Normal correlation profile. Serum bicarbonate of 18 with a anion gap of 20 and a creatinine of 0.4 and normal LFTs. Sodium level is at 139. Her COVID 19 testing was negative and influenza screen was also negative. She is afebrile for now. Her current pulse ox on 95% on a mechanical ventilator. However, she is having some sinus tachycardia. Review of Systems ROS unobtainable: due to mental status Past Medical History Past Medical History: Asthma, GERD/Reflux, Musculoskeletal Disorder Additional Past Medical History / Comment(s): Spina bifida with spina bifida deformities, paralyzed waist down, mentality approximately 6yr old, severe kyphoscoliosis with pectus deformity, chronic lung disease with chronic respiratory hypoxia/hypercpnia, trach/chronic vent, pneumonias, bronchospasms, cervical compression with surgery, nephrolithiasis, urostomy-wears depends, UTIs, constipation. 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, bilateral release/resection hamstrings proximal muscle, cervical decompression, surgery for "lazy eye." Shunt placed in brain 2020 Past Anesthesia/Blood Transfusion Reactions: No Reported Reaction Past Psychological History: No Psychological Hx Reported Smoking Status: Never smoker Past Alcohol Use History: None Reported Past Drug Use History: None Reported - Past Family History Father Family Medical History: Asthma Mother Family Medical History: Diabetes Mellitus, Hyperlipidemia, Hypertension Medications and Allergies Home Medications Medication Instructions Recorded Confirmed Type Albuterol Nebulized [Ventolin 2.5 mg INHALATION RT-BID 10/07/17 03/19/22 History Nebulized] Budesonide [Pulmicort] 1 mg INHALATION RT-BID 05/07/21 03/19/22 History Albuterol Nebulized [Ventolin 2.5 mg INHALATION RT-BID PRN 03/19/22 03/19/22 History Nebulized] Metoprolol Tartrate [Lopressor] 25 mg PO BID 03/19/22 03/19/22 History dilTIAZem HCL [Cardizem] 90 mg PO TID 03/19/22 03/19/22 History Allergies Allergy/AdvReac Type Severity Reaction Status Date / Time No Known Allergies Allergy Verified 03/19/22 11:19 Physical Exam Vitals: Vital Signs Temp Pulse Resp BP Pulse Ox FiO2 03/19/22 15:12 21 03/19/22 12:01 21 03/19/22 10:19 129 H 22 121/89 94 L 03/19/22 09:14 22 03/19/22 08:57 128 H 30 H 03/19/22 08:56 21 03/19/22 08:49 21 03/19/22 08:44 98.3 F 135 H 20 118/99 95 Intake and Output 03/19/22 03/19/22 03/19/22 06:59 14:59 22:59 Other: Weight 81.4 kg The patient is awake and alert A very tiny obese -Prydeinig female patient with significant abnormalities in her body habitus due to underlying spina bifida. The patient is a very short limbs in the lower extremity. She has a deformed spine, pelvis and short extremities. She is awake and alert and she is communicating at this point in time. She is quite comfortable on a mechanical ventilator. She is using his own Trilogy and she has a tracheostomy tube in place. Head exam was generally normal. There was no scleral icterus or corneal arcus. Mucous membranes were moist. Neck was supple and without jugular venous distension, thyromegaly, or carotid bruits. Carotids were easily palpable bilaterally. There was no adenopathy. The patient had a tracheostomy #[address] tube in place Cardiovascular examination reveals regular rhythm rate. S1-S2 normal. No S3 or S4. No discernible murmur noted. She does have sinus tachycardia. Lungs reveal scattered bilateral rhonchi. No wheezes or crackles. Breath sounds equal. Abdomen is difficult to examine. No tenderness. Extremities are intact. No cyanosis clubbing or edema. Skin Examination of the skin revealed no evidence of significant rashes, suspicious appearing nevi or other concerning lesions. Neurologic examination is brief but nonfocal. 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 Results - Laboratory Findings CBC and BMP: 03/19/22 10:21 03/19/22 10:21 PT/INR, D-dimer PT 12.4 sec (9.0-12.0) H 03/19/22 10:21 INR 1.2 (<1.2) H 03/19/22 10:21 Abnormal lab findings: Abnormal Labs 03/19/22 03/19/22 03/19/22 10:21 10:21 10:21 WBC 12.4 H RDW 16.2 H Neutrophils # 10.0 H PT 12.4 H INR 1.2 H Carbon Dioxide 18 L Creatinine 0.46 L Glucose 64 L Alkaline Phosphatase 143 H - Diagnostic Findings Chest x-ray: image reviewed Assessment and Plan Plan: Acute shortness of breath with chest congestion, wheezing. Likely with of an infection/pneumonia. The chest x-ray findings are suboptimal due to her body habitus as the patient has deformed chest wall related to spina bifida. The patient is hemodynamically stable. The patient is communicating. She is alert and interactive. She is still on a Trilogy ventilator with a pressure control mode of mechanical ventilation. Sinus tachycardia, currently under investigation, rule out underlying systemic inflammatory response syndrome related to respiratory tract infection. Alternative sources of infection cannot be ruled out Anion gap metabolic acidosis, rule out lactic acidosis Mild leukocytosis Previous history of COVID 19 infection back in October 2021 Status post tracheostomy, 2008, with chronic respiratory failure, currently maintained on a Trilogy ventilator. The patient's uncuffed tracheostomy tube was removed, and a cuffed #6 Shiley tube was placed. History of spina bifida. 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 Paraplegia. History of UTIs. History of GERD. DEVELOPER PROGRAMMER ANALYST shunt. History of constipation Plan IV fluids with normal state rate of 75 mL an hour Cover the patient with a combination of Zosyn and Zithromax Sputum Gram stain and culture Urine cultures if possible Blood cultures Resume metoprolol and Cardizem for rate control Heparin subcu for DVT prophylaxis 5000 units every 8 hours Aspiration precautions Continue using the Trilogy ventilator in the ICU Monitor the serum bicarbonate check a baseline lactic acid level Check a pro-calcitonin level Admit this patient to the ICU
[2022-03-19] MEDS: DILTIAZEM ORAL 30 MG TAB PO SCH ×2 (17:04→21:28)
[2022-03-19 17:48] LABS: Glucose,Whole Blood 69 mg/dL (70-110)
[2022-03-19 18:40] LABS: Glucose,Whole Blood 100 mg/dL (70-110)
--- NOTE | 2022-03-19 19:29 | P.HPIM ---
History of Present Illness H&P Date: 03/19/22 Chief Complaint: respiratory distress with wheezing and rhonchi's history and physical Date of service 03/19/[address] Goodson Patient in ICU on her event. Patient presented with the shortness of breath and cough and wheezes and her mother get concerned with the pneumonia protocol her to the emergency room. Patient in the emergency room seen by Dr. Dye emergency room physician where he evaluated the patient found that she hadleukocytosis on the laboratories as well as a chest x-ray considering pneumonia and ARDS. Patient also has respiratory distress and the laboratory in the ER was indicating metabolic acidosis as well and negative for coronavirus PCR as well as influenza A and B. Patient history : Flores Cárdenas 36 years old -[place] female with the chronic history of spina bifida chronic respiratory neurovascular failure on tracheostomy and mechanical ventilation dependence 24x 7. She had history of tracheostomy with mechanical ventilation [facility] at [facility] with the comorbidity of hydrocephalus and status post shunt with cognitive dysfunction and kyphoscoliosis as well as Arnold-chiari formation her [facility]. Patient has been today for the flareup of asthma and wheezes with bronchitis was suspicious of pneumonia and she was on Pulmicort rest pules 0.5 mg twice a day in addition to when necessary albuterol and also has Atrovent HFA. She uses Claritin for nasal ALLERGY as well as nasal steroid. Patient had history of COVID-19 on October 08 spent 5 days in the clear and hospital treated with antibiotic and antiviral with improvement. Patient on home respirator trilogy PC she had been on pressure control of 35 in the be of 5 and inspiratory time 0.8 and oxygen bleed in up to 1 L/m she had also [employer] supplies. Patient has able to eat without aspiration her weight 2019 was 147 and now increased to 178. Her [facility] where she was seen by Dr. Vinicio teixeira M.D. Patient unable to give any history. Single Multiple congenital abnormality Her mom able to take care of her at home ALLERGY unknown. Patient has abnormal body growth with short lower extremities and lymphedema associated with the spina bifida as well as the kyphoscoliosis deformity of the chest as well Review of system negative and the cough and expectoration and wheezing with the respiratory but also noted that she had tachycardia and metabolic acidosis the laboratory. On the physical examination Patient is conscious alert orientation very difficult to decide able to communicate Temperature F oral 98.5, heart rate 142 tachycardia cardiac respiratory rate 18/13 on the home ventilator her blood pressure 136/96 with the mean 106 she is on the vent FiO2 of 21. Laboratories WBC 12.4 hemoglobin 14.6 hematocrit 45 platelet count 304 Pro time 12.4/INR 1.2/PTT 24.6 GFR more than 90 Lactic acid 1.5, calcium 9.2, magnesium 1.7, alk phos 143, troponin less than 0.012, B-type natriuretic peptide 105 and total protein 7.3, albumin 4.2 The head was normocephalic and atraumatic pupils equal reactive and oropharynx present natural disease with 2 rows of these one of the abnormalities uvula midline Neck was short no lump or masses Chest deformity with severe kyphoscoliosis as symmetrical and the presence of inspiratory expiratory wheezes and rhonchi's bilateral decreased air entry on the basis Heart tachycardic. Abdomen is obese She is incontinent and incontinent of stools and she had LAD the osteotomy taking care of by the mom with no catheter Extremities she had lymphedema bilateral could not be corrected by [facility] Assessment Acute respiratory distress, acute asthmatic bronchitis, bilateral basilar pneumonia was considered Tachycardia History of asthma Spina bifida with other multiple congenital abnormalities Ventilator dependent. Patient unable to ambulate and she has motor chair that she drive at home. Plan: Patient in the ICU Thanks for Dr. Au who did see the patient immediately and approach medication with the antibiotic appreciated his work. Order lab tomorrow We'll follow up. Past Medical History Past Medical History: Asthma, GERD/Reflux, Musculoskeletal Disorder Additional Past Medical History / Comment(s): Spina bifida with spina bifida deformities, paralyzed waist down, mentality approximately 6yr old, severe kyphoscoliosis with pectus deformity, chronic lung disease with chronic respiratory hypoxia/hypercpnia, trach/chronic vent, pneumonias, bronchospasms, cervical compression with surgery, nephrolithiasis, urostomy-wears depends, UTIs, constipation. 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 Pt has trach and is vent dependent. Mother transfers pt to wheelchair. Getting to follow up appts (follow for vent at [facility]) is challenging-mother sets up thru pt's insurance and they use vendors to transport-vendors can opt out and have done so in the past. Mother states they have also been stranded at [facility] with no return ride home. No vendor available for last [facility] appointment so pt missed that appt. Smoking Status: Never smoker Past Alcohol Use History: None Reported Past Drug Use History: None Reported - Past Family History Father Family Medical History: Asthma Mother Family Medical History: Diabetes Mellitus, Hyperlipidemia, Hypertension Medications and Allergies Home Medications Medication Instructions Recorded Confirmed Type Albuterol Nebulized [Ventolin 2.5 mg INHALATION RT-BID 10/07/17 03/19/22 History Nebulized] Budesonide [Pulmicort] 1 mg INHALATION RT-BID 05/07/21 03/19/22 History Albuterol Nebulized [Ventolin 2.5 mg INHALATION RT-BID PRN 03/19/22 03/19/22 History Nebulized] Metoprolol Tartrate [Lopressor] 25 mg PO BID 03/19/22 03/19/22 History dilTIAZem HCL [Cardizem] 90 mg PO TID 03/19/22 03/19/22 History Allergies Allergy/AdvReac Type Severity Reaction Status Date / Time No Known Allergies Allergy Verified 03/19/22 11:19 Physical Exam Vitals: Vital Signs Temp Pulse Resp BP Pulse Ox FiO2 03/19/22 18:00 98.5 F 142 H 13 136/92 03/19/22 17:50 146 H 18 03/19/22 17:06 149 H 25 H 127/97 100 03/19/22 15:12 03/19/22 12:01 03/19/22 10:19 129 H 22 121/89 94 L 03/19/22 09:14 22 03/19/22 08:57 128 H 30 H 03/19/22 08:56 03/19/22 08:49 03/19/22 08:44 98.3 F 135 H 20 118/99 95 Intake and Output 03/19/22 03/19/22 03/19/22 06:59 14:59 22:59 Intake Total 75 Balance 75 Intake: IV 75 0.9 75 Other: Weight 81.4 kg 81.4 kg Results CBC & Chem 7: 03/19/22 10:21 03/19/22 10:21 Labs: Abnormal Lab Results - Last 24 Hours (Table) 03/19/22 03/19/22 03/19/22 Range/Units 10:21 10:21 10:21 WBC 12.4 H (3.8-10.6) k/uL RDW 16.2 H (11.5-15.5) % Neutrophils # 10.0 H (1.3-7.7) k/uL PT 12.4 H (9.0-12.0) sec INR 1.2 H (<1.2) Carbon Dioxide 18 L (22-30) mmol/L Creatinine 0.46 L (0.52-1.04) mg/dL Glucose 64 L (74-99) mg/dL POC Glucose (mg/dL) (70-110) mg/dL Alkaline Phosphatase 143 H (38-126) U/L 03/19/22 Range/Units 17:47 WBC (3.8-10.6) k/uL RDW (11.5-15.5) % Neutrophils # (1.3-7.7) k/uL PT (9.0-12.0) sec INR (<1.2) Carbon Dioxide (22-30) mmol/L Creatinine (0.52-1.04) mg/dL Glucose (74-99) mg/dL POC Glucose (mg/dL) 69 L (70-110) mg/dL Alkaline Phosphatase (38-126) U/L Microbiology - Last 24 Hours (Table) 03/19/22 09:24 Sputum Culture - Preliminary Sputum Thrombosis Risk Factor Assmnt - Choose All That Apply Any of the Below Risk Factors Present?: No Other Risk Factors: Yes Each Risk Factor Represents 2 Points: Patient confined to bed Other congenital or acquired thrombophilia - If yes, enter type in comment: No Thrombosis Risk Factor Assessment Total Risk Factor Score: 2 Thrombosis Risk Factor Assessment Level: Low Risk
[2022-03-19] MEDS: BUDESONIDE 1 MG/2 ML NEBU INHALATION SCH (19:50)
[2022-03-19] MEDS: IPRATROPIUM-ALBUTEROL 3 ML NEB INHALATION SCH (19:50)
[2022-03-19 20:27] LABS: Glucose,Whole Blood 68 mg/dL (70-110)
[2022-03-19 20:54] LABS: Glucose,Whole Blood 84 mg/dL (70-110)
[2022-03-19] MEDS: METOPROLOL TARTRATE 25 MG TAB PO SCH (21:28)
[2022-03-20] MEDS: IPRATROPIUM-ALBUTEROL 3 ML NEB INHALATION SCH ×6 (00:01→20:01)
[2022-03-20] MEDS: PIPERACILLIN-TAZOBACTAM 3.375 GM in SODIUM CHLORIDE 0.9% 100 ML IVPB SCH ×4 (00:40→23:29)
[2022-03-20] MEDS: HEPARIN SODIUM,PORCINE/PF 5,000 UNIT/0.5 ML SYRINGE SQ SCH ×4 (00:40→23:29)
[2022-03-20 01:05] LABS: Glucose,Whole Blood 141 mg/dL (70-110)
[2022-03-20] MEDS ORDERED: VANCOMYCIN IV PER PHARMACY 1 EACH MISC MISCELLANE PRN (03:19)
[2022-03-20] MEDS ORDERED: VANCOMYCIN 1,750 MG in SODIUM CHLORIDE 0.9% 500 ML 500 ML IVPB ONE (04:00)
[2022-03-20 06:31] LABS: Anisocytosis Slight; Basophils # (A) 0.1 k/uL (0-0.2); Basophils % (A) 1 %; Eosinophils # (A) 0.4 k/uL (0-0.7); Eosinophils % (A) 3 %; HCT 39.7 % (34.0-46.0); HGB 13.6 gm/dL (11.4-16.0); Lymphocytes # (A) 1.7 k/uL (1.0-4.8); Lymphocytes % (A) 16 %; MCH 29.3 pg (25.0-35.0); MCHC 34.3 g/dL (31.0-37.0); MCV 85.3 fL (80.0-100.0); Mean Platelet Volume 9.2; Monocytes # (A) 0.6 k/uL (0-1.0); Monocytes % (A) 6 %; Neutrophils # (A) 7.5 k/uL (1.3-7.7); Neutrophils % (A) 72 %; Platelet Count 268 k/uL (150-450); RBC 4.65 m/uL (3.80-5.40); RDW 17.3 % (11.5-15.5); WBC 10.4 k/uL (3.8-10.6)
[2022-03-20 06:33] LABS: Glucose,Whole Blood 116 mg/dL (70-110)
[2022-03-20 07:18] LABS: African American GFR (CKD) >90 (>60 ml/min/1.73 sqM); Anion Gap 11 mmol/L; Blood Urea Nitrogen 5 mg/dL (7-17); Calcium 8.4 mg/dL (8.4-10.2); Carbon Dioxide 19 mmol/L (22-30); Chloride 105 mmol/L (98-107); Glucose 113 mg/dL (74-99); Non-African American GFR(CKD) >90 (>60 ml/min/1.73 sqM); Sodium 135 mmol/L (137-145)
[2022-03-20 07:32] LABS: Potassium 5.3 mmol/L (3.5-5.1)
[2022-03-20] MEDS: BUDESONIDE 1 MG/2 ML NEBU INHALATION SCH ×2 (07:38→20:01)
--- NOTE | 2022-03-20 08:15 | XR ---
EXAMINATION TYPE: XR chest 1V DATE OF EXAM: 03/20/2022 COMPARISON: 03/19/2022 HISTORY: Difficulty breathing TECHNIQUE: Single frontal view of the chest is obtained. FINDINGS: Markedly limited exam. Diffuse bilateral opacities. Elevated hemidiaphragm limited aeratio n trachea noted. Suggestion of the MANAGER SALT shunt catheter. No pneumothorax. Heart size difficult to assess . Chronic-appearing skeletal changes stable. IMPRESSION: Persistent bilateral infiltrate correlate for pneumonia.
[2022-03-20] MEDS ORDERED: ACETAMINOPHEN TAB 500 MG TAB PO PRN (09:02)
[2022-03-20] MEDS: SODIUM CHLORIDE 0.9% 1,000 ML IV SCH (09:52)
[2022-03-20] MEDS: DILTIAZEM ORAL 30 MG TAB PO SCH ×3 (10:43→21:39)
[2022-03-20] MEDS: METOPROLOL TARTRATE 25 MG TAB PO SCH ×2 (10:43→20:07)
[2022-03-20] MEDS: AZITHROMYCIN 500 MG TAB PO SCH (11:20)
[2022-03-20 11:22] LABS: Glucose,Whole Blood 135 mg/dL (70-110)
--- NOTE | 2022-03-20 11:59 | P.PN ---
Subjective Progress Note Date: 03/20/22 A 36-year-old female patient with known history of spina bifida was currently on a home ventilator with a permanent tracheostomy. The patient was last seen in our hospital back in October 2021 when she was infected with COVID 19 for which she recovered and the patient was discharged home. The patient continues using Trilogy ventilator and the patient is currently on a pressure control mode of mechanical ventilation at a rate of 24, pressure control of 35, PEEP of 5. The patient has a #[address] tube in place and the mother does regular tracheostomy tube care for her. She was noted to have increased dyspnea, cough and congestion and for that reason the patient was brought into the hospital. Chest x-rays of his is suboptimal due to body habitus and the patient has diffuse haziness bilaterally. Her chest is deformed related to her spine bifida. She is afebrile at this point in time. She is awake and alert and communicating. She has been infected in the past with pseudomonas back in 2019. No recurrent infections since. No aspiration according to the family patient is able to swallow. She has a urostomy and the mother urine output is not known. On her blood work, the white cell count of 12.4 with a hemoglobin 14.6 and a platelet count of 305. Normal correlation profile. Serum bicarbonate of 18 with a anion gap of 20 and a creatinine of 0.4 and normal LFTs. Sodium level is at 139. Her COVID 19 testing was negative and influenza screen was also negative. She is afebrile for now. Her current pulse ox on 95% on a mechanical ventilator. However, she is having some sinus tachycardia. 03/20/2022, the patient is alert and awake and communicating. She remains on her regimen mechanical ventilator. She received IV fluid with normal saline at the rate of 75 mL an hour and the patient's tachycardia is improved and she does have some mild degree of sinus tachycardia for now. Blood cultures came back positive for gram-positive cocci in clusters and the patient was given a dose of vancomycin and she remains on IV Zosyn and Zithromax.. The chest x-ray from today is still showing bilateral perihilar pulmonary infiltrates and there sputum culture is still pending for now. The patient has scant rest or secretions which are being suctioned out by respiratory. In terms of blood work, the white cell count of 10.4 with hemoglobin 13.6 and a platelet count of 268. BUN is at 5 creatinine 0.33 and a sodium level is at 135. The patient also has a pro-calcitonin level of 0.86 . she is tolerating her diet.. She has no specific complaints. No lethargy. Serum bicarb is currently at 19 with an anion gap of 11 and a BUN is at 5 with a creatinine of 0.33. Blood sugars under adequate control for now. Objective - Vital Signs Vital signs: Vital Signs Temp 100.7 F H 03/20/22 08:00 Pulse 116 H 03/20/22 11:40 Resp 24 03/20/22 11:00 BP 142/112 03/20/22 11:00 Pulse Ox 98 03/20/22 11:00 FiO2 40 03/20/22 11:17 Intake & Output 03/19/22 03/20/22 03/20/22 18:59 06:59 18:59 Intake Total 75 1822 525 Balance 75 1822 525 Weight 81.4 kg 71 kg Intake: IV 75 1150 525 0.9 75 750 225 Piperacillin-Tazobactam 3 100 100 .375 gm In Sodium Chloride 0.9% 100 ml @ 200 mls/hr IVPB ONCE STA Rx#:[id number] Vancomycin 1,750 mg In 300 200 Sodium Chloride 0.9% 500 ml 500 ml @ 167 mls/hr IVPB ONCE ONE Rx#: [id number] Oral 672 Other: Voiding Method Diaper Diaper # Voids 2 1 # Bowel Movements 1 - Exam The patient is awake and alert A very tiny obese -[place] female patient with significant abnormalities in her body habitus due to underlying spina bifida. The patient is a very short limbs in the lower extremity. She has a deformed spine, pelvis and short extremities. She is awake and alert and she is communicating at this point in time. She is quite comfortable on a mechanical ventilator. She is using his own Trilogy and she has a tracheostomy tube in place. Head exam was generally normal. There was no scleral icterus or corneal arcus. Mucous membranes were moist. Neck was supple and without jugular venous distension, thyromegaly, or carotid bruits. Carotids were easily palpable bilaterally. There was no adenopathy. The patient had a tracheostomy #6 Shiley tracheostomy tube in place Cardiovascular examination reveals regular rhythm rate. S1-S2 normal. No S3 or S4. No discernible murmur noted. She does have sinus tachycardia. Lungs reveal scattered bilateral rhonchi. No wheezes or crackles. Breath sounds equal. Abdomen is difficult to examine. No tenderness. Extremities are intact. No cyanosis clubbing or edema. Skin Examination of the skin revealed no evidence of significant rashes, suspicious appearing nevi or other concerning lesions. Neurologic examination is brief but nonfocal. 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 - Labs CBC & Chem 7: 03/20/22 06:10 03/20/22 06:10 Labs: Abnormal Lab Results - Last 24 Hours (Table) 03/19/22 03/19/22 03/19/22 Range/Units 10:21 10:21 10:21 WBC 12.4 H (3.8-10.6) k/uL RDW 16.2 H (11.5-15.5) % Neutrophils # 10.0 H (1.3-7.7) k/uL PT 12.4 H (9.0-12.0) sec INR 1.2 H (<1.2) Sodium (137-145) mmol/L Potassium (3.5-5.1) mmol/L Carbon Dioxide 18 L (22-30) mmol/L BUN (7-17) mg/dL Creatinine 0.46 L (0.52-1.04) mg/dL Glucose 64 L (74-99) mg/dL POC Glucose (mg/dL) (70-110) mg/dL Alkaline Phosphatase 143 H (38-126) U/L Procalcitonin (0.02-0.09) ng/mL 03/19/22 03/19/22 03/19/22 Range/Units 10:21 17:47 20:26 WBC (3.8-10.6) k/uL RDW (11.5-15.5) % Neutrophils # (1.3-7.7) k/uL PT (9.0-12.0) sec INR (<1.2) Sodium (137-145) mmol/L Potassium (3.5-5.1) mmol/L Carbon Dioxide (22-30) mmol/L BUN (7-17) mg/dL Creatinine (0.52-1.04) mg/dL Glucose (74-99) mg/dL POC Glucose (mg/dL) 69 L 68 L (70-110) mg/dL Alkaline Phosphatase (38-126) U/L Procalcitonin 0.86 H (0.02-0.09) ng/mL 03/20/22 03/20/22 03/20/22 Range/Units 01:03 06:10 06:10 WBC (3.8-10.6) k/uL RDW 17.3 H (11.5-15.5) % Neutrophils # (1.3-7.7) k/uL PT (9.0-12.0) sec INR (<1.2) Sodium 135 L (137-145) mmol/L Potassium 5.3 H (3.5-5.1) mmol/L Carbon Dioxide 19 L (22-30) mmol/L BUN 5 L (7-17) mg/dL Creatinine 0.33 L (0.52-1.04) mg/dL Glucose 113 H (74-99) mg/dL POC Glucose (mg/dL) 141 H (70-110) mg/dL Alkaline Phosphatase (38-126) U/L Procalcitonin (0.02-0.09) ng/mL 03/20/22 03/20/22 Range/Units 06:32 11:20 WBC (3.8-10.6) k/uL RDW (11.5-15.5) % Neutrophils # (1.3-7.7) k/uL PT (9.0-12.0) sec INR (<1.2) Sodium (137-145) mmol/L Potassium (3.5-5.1) mmol/L Carbon Dioxide (22-30) mmol/L BUN (7-17) mg/dL Creatinine (0.52-1.04) mg/dL Glucose (74-99) mg/dL POC Glucose (mg/dL) 116 H 135 H (70-110) mg/dL Alkaline Phosphatase (38-126) U/L Procalcitonin (0.02-0.09) ng/mL Microbiology - Last 24 Hours (Table) 03/19/22 10:21 Blood Culture - Final Blood 08/31/22 09:24 Gram Stain - Preliminary Sputum Sputum Culture - Preliminary Assessment and Plan Plan: Acute shortness of breath with chest congestion, wheezing. Likely with of an infection/pneumonia. The chest x-ray findings are suboptimal due to her body habitus as the patient has deformed chest wall related to spina bifida. The patient is hemodynamically stable. The patient is communicating. She is alert and interactive. She is still on a Trilogy ventilator with a pressure control mode of mechanical ventilation. On today's evaluation, chest x-ray still showing perihilar pulmonary infiltrates although the chest x-ray findings essentially limited. Sputum Gram stain and cultures still pending. Blood cultures positive for gram-positive cocci in clusters. Patient remains on examination Zosyn and Zithromax and vancomycin. Sinus tachycardia, currently under investigation, rule out underlying systemic inflammatory response syndrome related to respiratory tract infection. Alternative sources of infection cannot be ruled out, improving Anion gap metabolic acidosis, rule out lactic acidosis, improving, and the gap is closed and 0 bicarb is up to 19 Mild leukocytosis, improving Previous history of COVID 19 infection back in October 2021 Status post tracheostomy, 2008, with chronic respiratory failure, currently maintained on a Trilogy ventilator. The patient's uncuffed tracheostomy tube was removed, and a cuffed #6 Shiley tube was placed. History of spina bifida. 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 Paraplegia. History of UTIs. History of GERD. 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 History of constipation Plan Continue IV fluids with normal state rate of 75 mL an hour Cover the patient with a combination of Zosyn and Zithromax and vancomycin was added due to positive gram-positive cocci in blood Sputum Gram stain and culture is still pending Urine cultures not collected Blood cultures still pending Resume metoprolol and Cardizem for rate control Heparin subcu for DVT prophylaxis 5000 units every 8 hours Aspiration precautions Continue using the Trilogy ventilator in the ICU Anion gap has closed Check a pro-calcitonin level was checked and Levaquin back at 0.86 We'll keep the patient following her progress in the ICU
[2022-03-20 16:47] LABS: Glucose,Whole Blood 142 mg/dL (70-110)
[2022-03-20] MEDS ORDERED: VANCOMYCIN 1,750 MG in SODIUM CHLORIDE 0.9% 500 ML 500 ML IVPB SCH (17:00)
[2022-03-20] MEDS: VANCOMYCIN 1,250 MG in SODIUM CHLORIDE 0.9% 250 ML IVPB SCH (17:14)
[2022-03-20] MEDS ORDERED: ENALAPRILAT 1.25 MG/ML 1 ML VIAL IVP PRN (18:07)
--- NOTE | 2022-03-20 18:23 | P.PN ---
Subjective Progress Note Date: 03/20/22 This is dictation on the progress note Date of service 03/20/[address] Hamzah Torres [facility] Patient seen and evaluated [id number] discussed with the mother of the patient as well. Patient found that she had gram-positive cocci coagulase negative bacteremia also in the sputum found that she had a gram-negative bacilli. T-max 101.2 oral His heart rate 113 and despite of diltiazem with sinus tach Patient on home respirator hair respiratory rate has been flecked duration with the max 31 Blood pressure 142/112 with the underlying hypertension She is on 21% room air. Laboratories today WBC 10.4 hemoglobin 13.6/hematocrit 39.7. Sodium 135 potassium 5.3 chloride 105 carbon dioxide 19 and her BUN is 5 creatinine 0.33, blood glucose 113 and her blood sugar 142 with elevation secondary to the steroid understandable. On the physical exam: Patient is conscious alert able to communicate she is on tracheostomy tube and home ventilator. She has multiple anomaly and cognitive function impaired . Neck was supple no JVD. Chest still present rhonchi's and wheezes bilateral improved from yesterday with a history of asthma with the probability of acute exacerbation as well as the chest x-ray showing bilateral pneumonia with the presence of gram-positive cocci bacteremia. The heart is regular sinus rhythm. Abdomen is obese with deformity of the chest and abdomen Extremities is edematous with the could be associated with lymphedema and short lower extremities with the spina bifida deformity. Assessment: #1 mild metabolic acidosis #2 renal function normal #3 she had today T-max of 101.2 and the blood culture was positive for home gram-positive cocci. And sputum was gram-negative bacillary Bilateral basilar pneumonia was considered associated with aspiration his IV suspicious. Hyperglycemia with the steroid. Hypertension Tachycardia. Volume overload is considered Mild hyperkalemia with a potassium 5.3. Plan: Will obtain lab tomorrow to assess the potassium #2 we'll start Vasotec small doses 1.25 mg IV push every 6 hours when necessary Insulin to scale to cover the steroid Lasix 1 dose of 20 mg IV push patient on currently Zosyn and azithromycin. Plan Objective - Vital Signs Vital signs: Vital Signs Temp 99.3 F 03/20/22 16:00 Pulse 109 H 03/20/22 17:00 Resp 37 H 03/20/22 17:00 BP 152/113 03/20/22 17:00 Pulse Ox 89 L 03/20/22 17:00 FiO2 40 03/20/22 16:02 Intake & Output 03/19/22 03/20/22 03/20/22 18:59 06:59 18:59 Intake Total 75 1822 1286 Balance 75 1822 1286 Weight 81.4 kg 71 kg Intake: IV 75 1150 1050 0.9 75 750 525 Piperacillin-Tazobactam 3 100 200 .375 gm In Sodium Chloride 0.9% 100 ml @ 200 mls/hr IVPB ONCE STA Rx#:[id number] Vancomycin 1,750 mg In 300 325 Sodium Chloride 0.9% 500 ml 500 ml @ 167 mls/hr IVPB ONCE ONE Rx#: [id number] Oral 672 236 Other: Voiding Method Diaper Diaper # Voids 2 1 # Bowel Movements 1 1 - Labs CBC & Chem 7: 03/20/22 06:10 03/20/22 06:10 Labs: Abnormal Lab Results - Last 24 Hours (Table) 03/19/22 03/19/22 03/20/22 Range/Units 10:21 20:26 01:03 RDW (11.5-15.5) % Sodium (137-145) mmol/L Potassium (3.5-5.1) mmol/L Carbon Dioxide (22-30) mmol/L BUN (7-17) mg/dL Creatinine (0.52-1.04) mg/dL Glucose (74-99) mg/dL POC Glucose (mg/dL) 68 L 141 H (70-110) mg/dL Procalcitonin 0.86 H (0.02-0.09) ng/mL 03/20/22 03/20/22 03/20/22 Range/Units 06:10 06:10 06:32 RDW 17.3 H (11.5-15.5) % Sodium 135 L (137-145) mmol/L Potassium 5.3 H (3.5-5.1) mmol/L Carbon Dioxide 19 L (22-30) mmol/L BUN 5 L (7-17) mg/dL Creatinine 0.33 L (0.52-1.04) mg/dL Glucose 113 H (74-99) mg/dL POC Glucose (mg/dL) 116 H (70-110) mg/dL Procalcitonin (0.02-0.09) ng/mL 03/20/22 03/20/22 Range/Units 11:20 16:45 RDW (11.5-15.5) % Sodium (137-145) mmol/L Potassium (3.5-5.1) mmol/L Carbon Dioxide (22-30) mmol/L BUN (7-17) mg/dL Creatinine (0.52-1.04) mg/dL Glucose (74-99) mg/dL POC Glucose (mg/dL) 135 H 142 H (70-110) mg/dL Procalcitonin (0.02-0.09) ng/mL Microbiology - Last 24 Hours (Table) 03/19/22 09:24 Gram Stain - Preliminary Sputum Sputum Culture - Preliminary Gram Neg Bacilli 03/19/22 10:21 Blood Culture Gram Stain - Preliminary Blood Blood Culture - Preliminary Coagulase Negative Staph 03/20/22 07:50 Sputum Culture - Preliminary Sputum 03/20/22 07:35 Eye Culture - Preliminary Eye - Left 03/19/22 10:21 Blood Culture - Final Blood
[2022-03-20] MEDS ORDERED: FUROSEMIDE 10 MG/ML 2 ML VIAL IV ONE (18:45)
[2022-03-20 22:19] LABS: Glucose,Whole Blood 124 mg/dL (70-110)
[2022-03-21] MEDS: IPRATROPIUM-ALBUTEROL 3 ML NEB INHALATION SCH ×7 (00:16→23:26)
[2022-03-21] MEDS: SODIUM CHLORIDE 0.9% 1,000 ML IV SCH (00:57)
[2022-03-21] MEDS: VANCOMYCIN 1,250 MG in SODIUM CHLORIDE 0.9% 250 ML IVPB SCH (05:09)
[2022-03-21 06:50] LABS: Glucose,Whole Blood 104 mg/dL (70-110)
[2022-03-21] MEDS: INSULIN ASPART (NovoLOG) 100 UNIT/ML VIAL SQ SCH ×4 (07:08→17:49)
[2022-03-21] MEDS ORDERED: INSULIN ASPART (NovoLOG) 100 UNIT/ML VIAL SQ PRN (07:30)
[2022-03-21] MEDS: BUDESONIDE 1 MG/2 ML NEBU INHALATION SCH ×2 (08:30→20:27)
[2022-03-21 09:03] LABS: Calcium 8.2 mg/dL (8.4-10.2); Potassium 5.1 mmol/L (3.5-5.1)
[2022-03-21 09:07] LABS: Anisocytosis Slight; Basophils # (A) 0.1 k/uL (0-0.2); Basophils % (A) 1 %; Eosinophils # (A) 0.3 k/uL (0-0.7); Eosinophils % (A) 2 %; HCT 40.3 % (34.0-46.0); HGB 12.5 gm/dL (11.4-16.0); Hypochromasia Slight; Lymphocytes # (A) 1.4 k/uL (1.0-4.8); Lymphocytes % (A) 10 %; MCH 26.8 pg (25.0-35.0); MCHC 31.1 g/dL (31.0-37.0); MCV 86.2 fL (80.0-100.0); Mean Platelet Volume 9.3; Monocytes # (A) 0.7 k/uL (0-1.0); Monocytes % (A) 6 %; Neutrophils # (A) 10.5 k/uL (1.3-7.7); Neutrophils % (A) 80 %; Platelet Count 262 k/uL (150-450); RBC 4.68 m/uL (3.80-5.40); WBC 13.1 k/uL (3.8-10.6)
--- NOTE | 2022-03-21 09:23 | XR ---
EXAMINATION TYPE: XR chest 1V portable DATE OF EXAM: 03/21/2022 COMPARISON: 03/20/2022 HISTORY: Shortness of breath TECHNIQUE: Single frontal view of the chest is obtained. FINDINGS: Markedly limited exam. Diffuse bilateral opacities. Elevated hemidiaphragm limited aeratio n trachea noted. Suggestion of the CHILD GUIDANCE COUNSELOR shunt catheter. No pneumothorax. Heart size difficult to assess . Chronic-appearing skeletal changes stable. IMPRESSION: Stable bilateral diffuse infiltrate.
[2022-03-21] MEDS: HEPARIN SODIUM,PORCINE/PF 5,000 UNIT/0.5 ML SYRINGE SQ SCH ×2 (09:53→16:40)
[2022-03-21] MEDS: DILTIAZEM ORAL 30 MG TAB PO SCH ×3 (09:53→21:11)
[2022-03-21] MEDS: AZITHROMYCIN 500 MG TAB PO SCH (09:53)
[2022-03-21] MEDS: METOPROLOL TARTRATE 25 MG TAB PO SCH ×2 (09:53→21:11)
[2022-03-21] MEDS: PIPERACILLIN-TAZOBACTAM 3.375 GM in SODIUM CHLORIDE 0.9% 100 ML IVPB SCH ×2 (09:53→16:41)
[2022-03-21] MEDS: DEXTROSE 5% IN WATER 1,000 ML with SODIUM BICARB (1 MEQ/ML) 150 ML IV SCH ×2 (11:23→23:47)
[2022-03-21 12:43] LABS: Glucose,Whole Blood 144 mg/dL (70-110)
--- NOTE | 2022-03-21 13:45 | P.PN ---
Subjective Progress Note Date: 03/21/22 A 36-year-old female patient with known history of spina bifida was currently on a home ventilator with a permanent tracheostomy. The patient was last seen in our hospital back in October 2021 when she was infected with COVID 19 for which she recovered and the patient was discharged home. The patient continues using Trilogy ventilator and the patient is currently on a pressure control mode of mechanical ventilation at a rate of 24, pressure control of 35, PEEP of 5. The patient has a #[address] in place and the mother does regular tracheostomy tube care for her. She was noted to have increased dyspnea, cough and congestion and for that reason the patient was brought into the hospital. Chest x-rays of his is suboptimal due to body habitus and the patient has diffuse haziness bilaterally. Her chest is deformed related to her spine bifida. She is afebrile at this point in time. She is awake and alert and communicating. She has been infected in the past with pseudomonas back in 2019. No recurrent infections since. No aspiration according to the family patient is able to swallow. She has a urostomy and the mother urine output is not known. On her blood work, the white cell count of 12.4 with a hemoglobin 14.6 and a platelet count of 305. Normal correlation profile. Serum bicarbonate of 18 with a anion gap of 20 and a creatinine of 0.4 and normal LFTs. Sodium level is at 139. Her COVID 19 testing was negative and influenza screen was also negative. She is afebrile for now. Her current pulse ox on 95% on a mechanical ventilator. However, she is having some sinus tachycardia. 03/20/2022, the patient is alert and awake and communicating. She remains on her regimen mechanical ventilator. She received IV fluid with normal saline at the rate of 75 mL an hour and the patient's tachycardia is improved and she does have some mild degree of sinus tachycardia for now. Blood cultures came back positive for gram-positive cocci in clusters and the patient was given a dose of vancomycin and she remains on IV Zosyn and Zithromax.. The chest x-ray from today is still showing bilateral perihilar pulmonary infiltrates and there sputum culture is still pending for now. The patient has scant rest or secretions which are being suctioned out by respiratory. In terms of blood work, the white cell count of 10.4 with hemoglobin 13.6 and a platelet count of 268. BUN is at 5 creatinine 0.33 and a sodium level is at 135. The patient also has a pro-calcitonin level of 0.86 . she is tolerating her diet.. She has no specific complaints. No lethargy. Serum bicarb is currently at 19 with an anion gap of 11 and a BUN is at 5 with a creatinine of 0.33. Blood sugars under adequate control for now. 2021, the patient is awake and alert and interactive. The patient remains on her shows a mechanical ventilator. The sputum sample is showing Proteus mirabilis and Haemophilus influenza and the patient is covered currently with IV Zosyn. The patient was also receiving vancomycin. This was discontinued and the patient was noted to have an acute kidney injury in the creatinine is up to 1.89 from a baseline of 0.33. The exact amount of urine output is not documented the patient has a urostomy and the urine is leaking into a diaper. In any rate, the patient's white cell count of 15.0 with hemoglobin of 4.5 and a platelet count of 262. Blood work from today shows a sodium level of 138 with a potassium level of 5.1, serum bicarbonate of 17 with a BUN of 19 and a cr of 1.8 Objective - Vital Signs Vital signs: Vital Signs Temp 98.8 F 03/21/22 12:00 Pulse 90 03/21/22 13:00 Resp 24 03/21/22 13:00 BP 145/92 03/21/22 13:00 Pulse Ox 92 L 03/21/22 13:00 FiO2 40 03/21/22 12:39 Intake & Output 03/20/22 03/21/22 03/21/22 18:59 06:59 18:59 Intake Total 1286 1293 560 Output Total 0 Balance 1286 1293 560 Weight 72.1 kg Intake: IV 1050 1175 560 0.9 525 825 160 Dextrose 5% in Water 1, 300 000 ml @ 100 mls/hr IV . [id number] [facility]ILYN with Sodium Bicarb (1 Meq/ml) 150 ml Rx#:[id number] Piperacillin-Tazobactam 3 200 .375 gm In Sodium Chloride 0.9% 100 ml @ 200 mls/hr IVPB ONCE STA Rx#:[id number] Piperacillin-Tazobactam 3 100 100 .375 gm In Sodium Chloride 0.9% 100 ml @ 200 mls/hr IVPB Q8HR [facility] Rx#:[id number] Vancomycin 1,250 mg In 250 Sodium Chloride 0.9% 250 ml @ 125 mls/hr IVPB Q12H [facility] Rx#:[id number] Vancomycin 1,750 mg In 325 Sodium Chloride 0.9% 500 ml 500 ml @ 167 mls/hr IVPB ONCE ONE Rx#: [id number] Oral 236 118 Output: Urine 0 Other: Voiding Method Diaper Diaper # Voids 1 1 0 # Bowel Movements 1 1 - Exam The patient is awake and alert A very tiny obese -[place] female patient with significant abnormalities in her body habitus due to underlying spina bifida. The patient is a very short limbs in the lower extremity. She has a deformed spine, pelvis and short extremities. She is awake and alert and she is communicating at this point in time. She is quite comfortable on a mechanical ventilator. She is using his own Trilogy and she has a tracheostomy tube in place. Head exam was generally normal. There was no scleral icterus or corneal arcus. Mucous membranes were moist. Neck was supple and without jugular venous distension, thyromegaly, or carotid bruits. Carotids were easily palpable bilaterally. There was no adenopathy. The patient had a tracheostomy #[address] tube in place Cardiovascular examination reveals regular rhythm rate. S1-S2 normal. No S3 or S4. No discernible murmur noted. She does have sinus tachycardia. Lungs reveal scattered bilateral rhonchi. No wheezes or crackles. Breath s ounds equal. Abdomen is difficult to examine. No tenderness. Extremities are intact. No cyanosis clubbing or edema. Skin Examination of the skin revealed no evidence of significant rashes, suspic ious appearing nevi or other concerning lesions. Neurologic examination is brief but nonfocal. 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 - Labs CBC & Chem 7: 03/21/22 07:58 03/21/22 08:03 Labs: Abnormal Lab Results - Last 24 Hours (Table) 03/20/22 03/20/22 03/21/22 Range/Units 16:45 22:18 07:58 WBC 13.1 H (3.8-10.6) k/uL RDW 16.0 H (11.5-15.5) % Neutrophils # 10.5 H (1.3-7.7) k/uL Chloride (98-107) mmol/L Carbon Dioxide (22-30) mmol/L BUN (7-17) mg/dL Creatinine (0.52-1.04) mg/dL POC Glucose (mg/dL) 142 H 124 H (70-110) mg/dL Calcium (8.4-10.2) mg/dL 03/21/22 03/21/22 Range/Units 08:03 12:42 WBC (3.8-10.6) k/uL RDW (11.5-15.5) % Neutrophils # (1.3-7.7) k/uL Chloride 109 H (98-107) mmol/L Carbon Dioxide 17 L (22-30) mmol/L BUN 19 H (7-17) mg/dL Creatinine 1.89 H (0.52-1.04) mg/dL POC Glucose (mg/dL) 144 H (70-110) mg/dL Calcium 8.2 L (8.4-10.2) mg/dL Microbiology - Last 24 Hours (Table) 03/19/22 10:21 Blood Culture Gram Stain - Preliminary Blood Blood Culture - Preliminary Coagulase Negative Staph Coagulase Negative Staph#2 03/19/22 09:24 Gram Stain - Final Sputum Sputum Culture - Final Proteus mirabilis Haemophilus influenzae 03/20/22 06:20 Blood Culture - Preliminary Blood No Growth after 24 hours 03/20/22 07:35 Gram Stain - Preliminary Eye - Left Eye Culture - Preliminary 03/20/22 07:50 Sputum Culture - Preliminary Sputum Assessment and Plan Plan: Acute shortness of breath with chest congestion, wheezing. Likely with of an infection/pneumonia. The chest x-ray findings are suboptimal due to her body habitus as the patient has deformed chest wall related to spina bifida. The patient is hemodynamically stable. The patient is communicating. She is alert and interactive. She is still on a Trilogy ventilator with a pressure control mode of mechanical ventilation. On today's evaluation, the patient remains on herTrilogy mechanical ventilator. The sputum sample is positive for Proteus mirabilis and Haemophilus influenza and the patient is still on IV Zosyn.repeat chest x-ray from today showing stable bilateral diffuse pulmonary infiltrates. Sinus tachycardia, currently under investigation, rule out underlying systemic i nflammatory response syndrome related to respiratory tract infection. Alternative sources of infection cannot be ruled out, improving Anion gap metabolic acidosis acute kidney injury Coagulase-negative staph in the blood given a dose of vancomycin Mild leukocytosis, improving Previous history of COVID 19 infection back in October 2021 Status post tracheostomy, 2008, with chronic respiratory failure, currently maintained on a Trilogy ventilator. The patient's uncuffed tracheostomy tube was removed, and a cuffed #6 Shiley tube was placed. History of spina bifida. 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 Paraplegia. History of UTIs. History of GERD. REGRADER shunt. History of constipation Plan Continue IV fluids with bicarb infusion at the rate of 75 an hour Monitor the electrolytes and renal function The patient another set of electrolytes by 4 PM Continue Zosyn/Stop the vancomycin metoprolol and Cardizem for rate control Heparin subcu for DVT prophylaxis 5000 units every 8 hours Aspiration precautions Continue using the Trilogy ventilator in the ICU Check a pro-calcitonin level was checked and Level at 0.86 We'll keep the patient following her progress in the ICU
--- NOTE | 2022-03-21 17:04 | P.PN ---
Subjective Progress Note Date: 03/21/22 Progress note dictation Date of service 03/21/[address] Goodson Location ICU 256-1 Patient seen and evaluated [id number] and discussed with Dr. Au Laboratories: WBC 13.1 neutrophils 10.59 Sodium 138, potassium 5.1 and chloride 109 carbon dioxide 17 with the underlying metabolic acidosis she started already on sodium bicarb. Her BUN is 19 and creatinine 1.89 with the significant jump from 0.331.89 probably falsely laboratories and Dr. Au repeated that again because unusual that jump of creatinine EGFR drop from more than 90today 34. His significant abnormalities we hope not lab error procalcitonin 1.39 also elevated. As patient seen and evaluated was crying because her mom left and she has congenital mental retardation as well in the age of 88 years old of the brain. Her vital sign indicating that pulse rate 92 respiratory rate fluctuating with the rate 24 she is on mechanical ventilation, blood pressure 112/86. Saturation 96 and FiO2 40. Patient is conscious alert sad because his mother left I did reassure the patient that her mom will come back tomorrow. Her head was normocephalic and atraumatic and the pupil is equal oropharynx was negative with the teeth into [place] short Chest was abnormally deformed still has expiratory wheezes very minimal and she had the x-ray indicating the atelectasis versus pneumonia on the lower lung field lateral Abdomen is soft positive bowel sounds and no complain with palpation. Extremities she has shortness extremity congenitally with the abnormalities of spina bifida. And she had blood pressure today dropped to 97/87 however repeat was 112/86. Assessment Pneumonia, sepsis, Abnormal renal function over [place] could be lab error versus event of acute kidney injury laboratory will be repeated as discussed by Dr. Au and it is a future indication for further investigation with computed tomography scan will be in order Plan we'll continue the current program by Dr. Au with the underlying critical care repeat the lab in a.m. as well was BMP and CBC with differential, and serum cortisone level Objective - Vital Signs Vital signs: Vital Signs Temp 98.8 F 03/21/22 12:00 Pulse 90 03/21/22 16:26 Resp 24 03/21/22 15:00 BP 112/86 03/21/22 15:00 Pulse Ox 96 03/21/22 15:00 FiO2 40 03/21/22 16:09 Intake & Output 03/20/22 03/21/22 03/21/22 18:59 06:59 18:59 Intake Total 1286 1293 760 Output Total 0 Balance 1286 1293 760 Weight 72.1 kg Intake: IV 1050 1175 760 0.9 525 825 160 Dextrose 5% in Water 1, 500 000 ml @ 100 mls/hr IV . [id number] [facility] with Sodium Bicarb (1 Meq/ml) 150 ml Rx#:[id number] Piperacillin-Tazobactam 3 200 .375 gm In Sodium Chloride 0.9% 100 ml @ 200 mls/hr IVPB ONCE STA Rx#:[id number] Piperacillin-Tazobactam 3 100 100 .375 gm In Sodium Chloride 0.9% 100 ml @ 200 mls/hr IVPB Q8HR [facility] Rx#:[id number] Vancomycin 1,250 mg In 250 Sodium Chloride 0.9% 250 ml @ 125 mls/hr IVPB Q12H [facility] Rx#:[id number] Vancomycin 1,750 mg In 325 Sodium Chloride 0.9% 500 ml 500 ml @ 167 mls/hr IVPB ONCE ONE Rx#: [id number] Oral 236 118 Output: Urine 0 Other: Voiding Method Diaper Diaper Diaper # Voids 1 1 1 # Bowel Movements 1 1 - Labs CBC & Chem 7: 03/21/22 07:58 03/21/22 08:03 Labs: Abnormal Lab Results - Last 24 Hours (Table) 03/20/22 03/21/22 03/21/22 Range/Units 22:18 07:58 07:58 WBC 13.1 H (3.8-10.6) k/uL RDW 16.0 H (11.5-15.5) % Neutrophils # 10.5 H (1.3-7.7) k/uL Chloride (98-107) mmol/L Carbon Dioxide (22-30) mmol/L BUN (7-17) mg/dL Creatinine (0.52-1.04) mg/dL POC Glucose (mg/dL) 124 H (70-110) mg/dL Calcium (8.4-10.2) mg/dL Procalcitonin 1.39 H (0.02-0.09) ng/mL 03/21/22 03/21/22 Range/Units 08:03 12:42 WBC (3.8-10.6) k/uL RDW (11.5-15.5) % Neutrophils # (1.3-7.7) k/uL Chloride 109 H (98-107) mmol/L Carbon Dioxide 17 L (22-30) mmol/L BUN 19 H (7-17) mg/dL Creatinine 1.89 H (0.52-1.04) mg/dL POC Glucose (mg/dL) 144 H (70-110) mg/dL Calcium 8.2 L (8.4-10.2) mg/dL Procalcitonin (0.02-0.09) ng/mL Microbiology - Last 24 Hours (Table) 03/19/22 10:21 Blood Culture Gram Stain - Preliminary Blood Blood Culture - Preliminary Coagulase Negative Staph Coagulase Negative Staph#2 03/19/22 09:24 Gram Stain - Final Sputum Sputum Culture - Final Proteus mirabilis Haemophilus influenzae 03/20/22 06:20 Blood Culture - Preliminary Blood No Growth after 24 hours 03/20/22 07:35 Gram Stain - Preliminary Eye - Left Eye Culture - Preliminary 03/20/22 07:50 Sputum Culture - Preliminary Sputum
[2022-03-21 17:45] LABS: Glucose,Whole Blood 161 mg/dL (70-110)
[2022-03-21 17:57] LABS: Calcium 8.4 mg/dL (8.4-10.2); Potassium 4.3 mmol/L (3.5-5.1)
[2022-03-21 20:40] LABS: Glucose,Whole Blood 115 mg/dL (70-110)
[2022-03-22] MEDS: PIPERACILLIN-TAZOBACTAM 3.375 GM in SODIUM CHLORIDE 0.9% 100 ML IVPB SCH ×3 (01:58→18:28)
[2022-03-22] MEDS: HEPARIN SODIUM,PORCINE/PF 5,000 UNIT/0.5 ML SYRINGE SQ SCH ×3 (01:58→18:28)
--- NOTE | 2022-03-22 02:07 | CT ---
EXAMINATION TYPE: CT abdomen pelvis wo con DATE OF EXAM: 03/22/2022 COMPARISON: 07/02/2010 HISTORY: possible kidney stone CT DLP: mGycm Automated exposure control for dose reduction was used. Images obtained from the diaphragm to the floor the pelvis without contrast There is severe thoracolumbar levoscoliotic deformity. There is some airspace infiltrate and atelecta sis at both lung bases. There is intact liver and spleen. The bile ducts are not dilated. Stomach is intact. Kidneys have normal size and contour. No hydronephrosis. Exam limited by patient size. Ureter s do not appear dilated. No sign of retroperitoneal adenopathy. No sign of pancreatic mass. There is ventricular peritoneal shunt catheter noted. There is significant deformity of the hip joints related to lack of ambulation and hip dysplasia. The uterus is anteverted. No pelvic mass. There is no mesenteric edema. No ascites or free air. No sign of a bowel obstruction. Urinary bladder is not distended and not well visualized. There is apparent right side suprapubic catheter but is no t well evaluated. IMPRESSION: No evidence of renal stone or obstruction. Significant spinal deformity and hip joint deformity. Bilateral lower lobe pneumonia and atelectasis which is significantly increased compared to the old e xam.
[2022-03-22] MEDS: IPRATROPIUM-ALBUTEROL 3 ML NEB INHALATION SCH ×6 (03:29→23:21)
[2022-03-22 06:44] LABS: African American GFR (CKD) 27 (>60 ml/min/1.73 sqM); Anion Gap 14 mmol/L; Blood Urea Nitrogen 23 mg/dL (7-17); Calcium 8.2 mg/dL (8.4-10.2); Carbon Dioxide 23 mmol/L (22-30); Chloride 99 mmol/L (98-107); Glucose 137 mg/dL (74-99); Non-African American GFR(CKD) 24 (>60 ml/min/1.73 sqM); Potassium 4.4 mmol/L (3.5-5.1); Sodium 136 mmol/L (137-145)
--- NOTE | 2022-03-22 07:02 | XR ---
EXAMINATION TYPE: XR chest 1V portable DATE OF EXAM: 03/22/2022 5:42 AM COMPARISON: Chest radiographs from 03/21/2022 TECHNIQUE: XR chest 1V portable Frontal view of the chest. CLINICAL INDICATION:Female, 36 years old with history of PNA; FINDINGS: Markedly limited examination. Slightly improved aeration of the lungs compared to prior examination. Continued diffuse bilateral airspace opacities. Elevated hemidiaphragm limits aeration. Tracheostomy cannula noted. Suggested PROJECT MANAGER/TEAM COACH shunt again demonstrated. No sizable pneumothorax. Heart is obscured. Chr onic appearing skeletal changes are stable. IMPRESSION: Slight improvement in bilateral diffuse airspace disease.
[2022-03-22 07:03] LABS: Glucose,Whole Blood 123 mg/dL (70-110)
[2022-03-22] MEDS: BUDESONIDE 1 MG/2 ML NEBU INHALATION SCH ×2 (07:29→19:57)
[2022-03-22 08:23] LABS: Anisocytosis Slight; Basophils # (A) 0.1 k/uL (0-0.2); Basophils % (A) 1 %; Eosinophils # (A) 0.2 k/uL (0-0.7); Eosinophils % (A) 2 %; HGB 12.5 gm/dL (11.4-16.0); Lymphocytes # (A) 1.2 k/uL (1.0-4.8); Lymphocytes % (A) 10 %; MCH 27.5 pg (25.0-35.0); MCHC 32.8 g/dL (31.0-37.0); MCV 83.8 fL (80.0-100.0); Mean Platelet Volume 8.8; Monocytes # (A) 0.6 k/uL (0-1.0); Monocytes % (A) 5 %; Neutrophils # (A) 9.4 k/uL (1.3-7.7); Neutrophils % (A) 80 %; Platelet Count 266 k/uL (150-450); RBC 4.53 m/uL (3.80-5.40); RDW 16.5 % (11.5-15.5); WBC 11.7 k/uL (3.8-10.6)
[2022-03-22] MEDS: INSULIN ASPART (NovoLOG) 100 UNIT/ML VIAL SQ SCH ×3 (08:39→18:31)
[2022-03-22] MEDS: DILTIAZEM ORAL 30 MG TAB PO SCH ×3 (08:42→21:45)
[2022-03-22] MEDS: METOPROLOL TARTRATE 25 MG TAB PO SCH (08:42)
[2022-03-22] MEDS: DEXTROSE 5% IN WATER 1,000 ML with SODIUM BICARB (1 MEQ/ML) 150 ML IV SCH (10:37)
--- NOTE | 2022-03-22 10:37 | P.NPCON ---
History of Present Illness - Reason for Consult acute renal failure - History of Present Illness Patient is a 36-year-old female with history of spina bifida entertained on home ventilator with permanent tracheostomy. Patient is admitted to the hospital with complaints of increased shortness of breath and cough and increased sputum production. Patient has a history of urostomy. She does not have a urostomy bag attached possibly related to her body habitus. Patient has had good urine output Serum creatinine was 0.4 on admission and has increased to 2.5 today. Patient has been hypotensive with systolic blood pressure as low as 87 mmHg yesterday. Currently maintained on IV fluids. CT abdomen done this morning shows no evidence of obstruction. Sputum culture this admission is growing Proteus and Haemophilus influenza. Blood cultures are growing Weigle is negative staph. UA has not been done as a believe it is difficult to obtain a sample from her ostomy Review of Systems As per HPI Past Medical History Past Medical History: Asthma, GERD/Reflux, Musculoskeletal Disorder Additional Past Medical History / Comment(s): Spina bifida with spina bifida deformities, paralyzed waist down, mentality approximately 6yr old, severe kyphoscoliosis with pectus deformity, chronic lung disease with chronic r espiratory hypoxia/hypercpnia, trach/chronic vent, pneumonias, bronchospasms, cervical compression with surgery, nephrolithiasis, urostomy-wears depends, UTIs, constipation. 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 Pt has trach and is vent dependent. Mother transfers pt to wheelchair. Getting to follow up appts (follow for vent at [facility]) is challenging-mother sets up thru pt's insurance and they use vendors to transport-vendors can opt out and have done so in the past. Mother states they have also been stranded at [facility] with no return ride home. No vendor available for last [facility] appointment so pt missed that appt. Smoking Status: Never smoker Past Alcohol Use History: None Reported Past Drug Use History: None Reported - Past Family History Father Family Medical History: Asthma Mother Family Medical History: Diabetes Mellitus, Hyperlipidemia, Hypertension Medications and Allergies Home Medications Medication Instructions Recorded Confirmed Type Albuterol Nebulized [Ventolin 2.5 mg INHALATION RT-BID 10/07/17 03/19/22 History Nebulized] Budesonide [Pulmicort] 1 mg INHALATION RT-BID 05/07/21 03/19/22 History Albuterol Nebulized [Ventolin 2.5 mg INHALATION RT-BID PRN 03/19/22 03/19/22 History Nebulized] Metoprolol Tartrate [Lopressor] 25 mg PO BID 03/19/22 03/19/22 History dilTIAZem HCL [Cardizem] 90 mg PO TID 03/19/22 03/19/22 History Allergies Allergy/AdvReac Type Severity Reaction Status Date / Time No Known Allergies Allergy Verified 03/19/22 11:19 Physical Exam Vitals: Vital Signs Temp Pulse Resp BP Pulse Ox FiO2 03/22/22 07:46 112 H 03/22/22 07:36 110 H 03/22/22 07:35 97 40 03/22/22 07:00 112 H 16 109/90 96 03/22/22 06:00 103 H 14 110/60 96 21 03/22/22 05:00 93 25 H 118/93 92 L 03/22/22 04:00 97.8 F 90 19 118/93 94 L 21 03/22/22 03:47 93 03/22/22 03:31 40 03/22/22 03:29 98 03/22/22 03:00 98 14 109/96 96 03/22/22 02:00 98 8 L 100/85 95 03/22/22 01:00 98/85 03/22/22 00:09 40 03/22/22 00:05 86 6 L 98/85 97 03/22/22 00:00 97.9 F 85 14 121/83 96 21 03/21/22 23:40 88 03/21/22 23:26 87 03/21/22 23:00 85 28 H 105/95 93 L 03/21/22 22:00 112 H 18 110/84 92 L 03/21/22 21:00 97.9 F 98 12 117/99 96 03/21/22 20:53 97 03/21/22 20:32 40 03/21/22 20:28 99 03/21/22 20:00 92 32 H 120/89 94 L 21 03/21/22 19:00 97 24 116/98 95 03/21/22 18:00 102 H 24 87/67 93 L 03/21/22 17:00 97.8 F 104 H 24 116/96 93 L 03/21/22 16:54 92 03/21/22 16:26 90 03/21/22 16:09 40 03/21/22 16:00 96 24 89/70 95 21 03/21/22 15:00 92 24 112/86 96 03/21/22 14:00 90 14 97/87 95 03/21/22 13:00 90 24 145/92 92 L 03/21/22 12:54 90 03/21/22 12:43 87 03/21/22 12:39 40 03/21/22 12:00 98.8 F 88 28 H 122/99 92 L 21 03/21/22 11:00 93 24 140/70 94 L Intake and Output 03/21/22 03/22/22 03/22/22 22:59 06:59 14:59 Intake Total 800 875 100 Output Total 0 Balance 800 875 100 Intake: IV 800 875 100 Dextrose 5% in Water 1, 800 800 100 000 ml @ 100 mls/hr IV . [id number] [facility] with Sodium Bicarb (1 Meq/ml) 150 ml Rx#:[id number] Piperacillin-Tazobactam 3 75 .375 gm In Sodium Chloride 0.9% 100 ml @ 200 mls/hr IVPB Q8HR [facility] Rx#:[id number] Output: Urine 0 Other: Voiding Method Diaper Diaper # Voids 0 1 Weight 76 kg Awake, comfortable, not in any acute distress Patient is maintained on home vent placed on her bed. She has a permanent tracheostomy. Upper respiratory sounds are audible Examination of the heart S1 and S2 Examination of the lungs bilateral breath sounds are heard Abdomen is soft Examination lower extremities shows edema trace bilaterally Patient has deformities with atrophy of her legs and very short extremities Results - Lab Results Most recent lab results Calcium 8.2 mg/dL (8.4-10.2) L 03/22/22 06:17 Magnesium 1.7 mg/dL (1.6-2.3) 03/19/22 10:21 03/22/22 07:36 03/22/22 06:17 Assessment and Plan Assessment: 1. Acute kidney injury nonoliguric secondary to ischemic ATN and sepsis. Maintained on IV fluids. Will try to obtain a UA. No evidence of obstruction noted on CAT scan. No nephrotoxic agents on board 2. Pneumonia with sputum culture growing Proteus and Haemophilus influenza, currently maintained on antibiotics 3. Status post tracheostomy 2008 with chronic respiratory failure maintained on a home ventilator 4. History of spina bifida with history of urostomy 5. Paraplegia 6. History of colon 19 infection in October 2021 7. Anion gap metabolic acidosis associated with acute kidney injury. Lactic acid is not elevated. Plan: Continue with the bicarb drip Consider decreasing Cardizem and can increase metoprolol if blood pressure remains low along with tachycardia Avoid nephrotoxic agents Try to obtain UA Repeat labs in a.m.
[2022-03-22 11:31] LABS: Glucose,Whole Blood 179 mg/dL (70-110)
--- NOTE | 2022-03-22 13:06 | P.PN ---
Subjective Progress Note Date: 03/22/22 (Acute kidney injury, coagulase-negative staph, Proteus mirabilis, Haemophilus influenza) This is a progress note in ICU Dictation by Annette Saunders. [facility]. Patient seen today [id number] Discussed with Dr. Au With the acute kidney injury secondary to 1 episode of hypotension with the underlying HTN seen by Dr. Whittington Bacteremia coagulase negative staph,f blood culture Sputum culture Proteus mirabilis and Haemophilus influenza. Consultation with Dr. Chaves infectious disease. Patient seen and evaluated [id number] She is conscious alert communicating with the underlying tracheostomy and respi rator dependent Bilateral pneumonia And acute renal failure. Vital sign heart rate 103 respiratory rate 14, blood pressure 110/60 oxygen saturation 96% mechanical ventilator FiO2 21 change it to 40%. Laboratories: WBC 11.7 hemoglobin of 12.5 hematocrit 38. Her platelet count is 266 and neutrophil 9.4. Chemistry indicating that sodium 136 potassium 4.4 and chloride 99, carbon dioxide 23 with the underlying metabolic acidosis and she is maintained on sodium bicarb perfusion BUN 23 creatinine 2.5 to with significant elevation with the underlying acute kidney injury probably with the episodic hypo-tension Her blood sugar is fluctuating however patient covered with insulin to scale. Full calcitonin 1.39 on 03/21/22 prior to that on 03/19 22 was 0.86., Serum cortisol level 22 and TSH 0.555 normal. On exam patient conscious alert with congenital abnormalities with the spina bifida deformity of the chest and deformity of the lower extremities and despite that her age 36 she stopped at age of 88 years old chart Head was normocephalic and atraumatic Neck was supple no JVD no thyromegaly Chest was has symmetrical with the decreased air entry at the bases Heart tachycardic And she had episode of hypotension Extremities before. Assessment and plan: 3 patient currently on Zosyn IV piggyback, insulin to scale, heparin protocol, IV with sodium bicarb Bilateral pneumonia Bacteremia Sputum Haemophilus influenza and Proteus mirabilis. Consultation with nephrology as well as infectious disease request. Objective - Vital Signs Vital signs: Vital Signs Temp 97.8 F 03/22/22 04:00 Pulse 100 03/22/22 11:34 Resp 16 03/22/22 07:00 BP 109/90 03/22/22 07:00 Pulse Ox 97 03/22/22 07:35 FiO2 40 03/22/22 11:14 Intake & Output 03/21/22 03/22/22 03/22/22 18:59 06:59 18:59 Intake Total 1060 1275 100 Output Total 0 0 Balance 1060 1275 100 Weight 76 kg Intake: IV 1060 1275 100 0.9 160 Dextrose 5% in Water 1, 800 1200 100 000 ml @ 100 mls/hr IV . [id number] MARILYN with Sodium Bicarb (1 Meq/ml) 150 ml Rx#:[id number] Piperacillin-Tazobactam 3 100 75 .375 gm In Sodium Chloride 0.9% 100 ml @ 200 mls/hr IVPB Q8HR MARILYN Rx#:[id number] Output: Urine 0 0 Other: Voiding Method Diaper Diaper # Voids 1 1 - Labs CBC & Chem 7: 03/22/22 07:36 03/22/22 06:17 Labs: Abnormal Lab Results - Last 24 Hours (Table) 03/21/22 03/21/22 03/21/22 Range/Units 07:58 17:23 17:44 WBC (3.8-10.6) k/uL RDW (11.5-15.5) % Neutrophils # (1.3-7.7) k/uL Sodium (137-145) mmol/L Carbon Dioxide 19 L (22-30) mmol/L BUN 21 H (7-17) mg/dL Creatinine 2.13 H (0.52-1.04) mg/dL Glucose 141 H (74-99) mg/dL POC Glucose (mg/dL) 161 H (70-110) mg/dL Calcium (8.4-10.2) mg/dL Procalcitonin 1.39 H (0.02-0.09) ng/mL 03/21/22 03/22/22 03/22/22 Range/Units 20:38 06:17 07:02 WBC (3.8-10.6) k/uL RDW (11.5-15.5) % Neutrophils # (1.3-7.7) k/uL Sodium 136 L (137-145) mmol/L Carbon Dioxide (22-30) mmol/L BUN 23 H (7-17) mg/dL Creatinine 2.52 H (0.52-1.04) mg/dL Glucose 137 H (74-99) mg/dL POC Glucose (mg/dL) 115 H 123 H (70-110) mg/dL Calcium 8.2 L (8.4-10.2) mg/dL Procalcitonin (0.02-0.09) ng/mL 03/22/22 03/22/22 Range/Units 07:36 11:29 WBC 11.7 H (3.8-10.6) k/uL RDW 16.5 H (11.5-15.5) % Neutrophils # 9.4 H (1.3-7.7) k/uL Sodium (137-145) mmol/L Carbon Dioxide (22-30) mmol/L BUN (7-17) mg/dL Creatinine (0.52-1.04) mg/dL Glucose (74-99) mg/dL POC Glucose (mg/dL) 179 H (70-110) mg/dL Calcium (8.4-10.2) mg/dL Procalcitonin (0.02-0.09) ng/mL Microbiology - Last 24 Hours (Table) 03/20/22 07:50 Gram Stain - Final Sputum Sputum Culture - Final 03/20/22 07:35 Gram Stain - Preliminary Eye - Left Eye Culture - Preliminary 03/20/22 06:20 Blood Culture - Preliminary Blood No Growth after 48 hours 03/19/22 10:21 Blood Culture Gram Stain - Preliminary Blood Blood Culture - Preliminary Coagulase Negative Staph Coagulase Negative Staph#2 03/19/22 09:24 Gram Stain - Final Sputum Sputum Culture - Final Proteus mirabilis Haemophilus influenzae
--- NOTE | 2022-03-22 13:14 | P.PN ---
Subjective Progress Note Date: 03/22/22 A 36-year-old female patient with known history of spina bifida was currently on a home ventilator with a permanent tracheostomy. The patient was last seen in our hospital back in October 2021 when she was infected with COVID 19 for which she recovered and the patient was discharged home. The patient continues using Trilogy ventilator and the patient is currently on a pressure control mode of mechanical ventilation at a rate of 24, pressure control of 35, PEEP of 5. The patient has a #[address] tube in place and the mother does regular tracheostomy tube care for her. She was noted to have increased dyspnea, cough and congestion and for that reason the patient was brought into the hospital. Chest x-rays of his is suboptimal due to body habitus and the patient has diffuse haziness bilaterally. Her chest is deformed related to her spine bifida. She is afebrile at this point in time. She is awake and alert and communicating. She has been infected in the past with pseudomonas back in 2019. No recurrent infections since. No aspiration according to the family patient is able to swallow. She has a urostomy and the mother urine output is not known. On her blood work, the white cell count of 12.4 with a hemoglobin 14.6 and a platelet count of 305. Normal correlation profile. Serum bicarbonate of 18 with a anion gap of 20 and a creatinine of 0.4 and normal LFTs. Sodium level is at 139. Her COVID 19 testing was negative and influenza screen was also negative. She is afebrile for now. Her current pulse ox on 95% on a mechanical ventilator. However, she is having some sinus tachycardia. 03/20/2022, the patient is alert and awake and communicating. She remains on her regimen mechanical ventilator. She received IV fluid with normal saline at the rate of 75 mL an hour and the patient's tachycardia is improved and she does have some mild degree of sinus tachycardia for now. Blood cultures came back positive for gram-positive cocci in clusters and the patient was given a dose of vancomycin and she remains on IV Zosyn and Zithromax.. The chest x-ray from today is still showing bilateral perihilar pulmonary infiltrates and there sputum culture is still pending for now. The patient has scant rest or secretions which are being suctioned out by respiratory. In terms of blood work, the white cell count of 10.4 with hemoglobin 13.6 and a platelet count of 268. BUN is at 5 creatinine 0.33 and a sodium level is at 135. The patient also has a pro-calcitonin level of 0.86 . she is tolerating her diet.. She has no specific complaints. No lethargy. Serum bicarb is currently at 19 with an anion gap of 11 and a BUN is at 5 with a creatinine of 0.33. Blood sugars under adequate control for now. 2021, the patient is awake and alert and interactive. The patient remains on her shows a mechanical ventilator. The sputum sample is showing Proteus mirabilis and Haemophilus influenza and the patient is covered currently with IV Zosyn. The patient was also receiving vancomycin. This was discontinued and the patient was noted to have an acute kidney injury in the creatinine is up to 1.89 from a baseline of 0.33. The exact amount of urine output is not documented the patient has a urostomy and the urine is leaking into a diaper. In any rate, the patient's white cell count of 15.0 with hemoglobin of 4.5 and a platelet count of 262. Blood work from today shows a sodium level of 138 with a potassium level of 5.1, serum bicarbonate of 17 with a BUN of 19 and a cr of 1.8 03/22/2022, the patient is clinically unchanged and stable still on her tube and the mechanical ventilator. Nevertheless, the active issue for now is developmen t of acute kidney injury. Creatinine was in the right and yesterday's was up to 1.8 and today the creatinine is s up to 2.3. The patient's presence of diaper and I'm assuming that she is producing urine output. CAT scan of the abdomen and pelvis was done and showed no evidence of any nephrolithiasis and there was no evidence of any hydronephrosis. There was some limited infiltrates and infiltrative changes bilaterally. The patient's has a combination of Haemophilus and Proteus in his sputum and the patient is currently on the same antibiotic coverage with IV Zosyn. No nephrotoxic agents. The patient had a bicarb deficit and the patient's serum bicarb was low and this was a pressure to day as the patient received a bicarb infusion and on today's evaluation serum back to 23. The sodium level is at 136. White cell count is 11.7 with a hemoglobin of 12.5. The patient is doing well. No new complaints clinically. No significant respiratory secretions. No active issue however there is development of an acute kidney injury and the patient is going to be seen by nephrology and nephrology consultation was placed. Objective - Vital Signs Vital signs: Vital Signs Temp 97.8 F 03/22/22 04:00 Pulse 100 03/22/22 11:34 Resp 16 03/22/22 07:00 BP 109/90 03/22/22 07:00 Pulse Ox 97 03/22/22 07:35 FiO2 21 03/22/22 12:00 Intake & Output 03/21/22 03/22/22 03/22/22 18:59 06:59 18:59 Intake Total 1060 1275 100 Output Total 0 0 Balance 1060 1275 100 Weight 76 kg Intake: IV 1060 1275 100 0.9 160 Dextrose 5% in Water 1, 800 1200 100 000 ml @ 100 mls/hr IV . [id number] MARILYN with Sodium Bicarb (1 Meq/ml) 150 ml Rx#:[id number] Piperacillin-Tazobactam 3 100 75 .375 gm In Sodium Chloride 0.9% 100 ml @ 200 mls/hr IVPB Q8HR MARILYN Rx#:[id number] Output: Urine 0 0 Other: Voiding Method Diaper Diaper # Voids 1 1 - Exam The patient is awake and alert A very tiny obese -[place] female patient with significant abnormalities in her body habitus due to underlying spina bifida. The patient is a very short limbs in the lower extremity. She has a deformed spine, pelvis and short extremities. She is awake and alert and she is communicating at this point in time. She is quite comfortable on a mechanical ventilator. She is using his own Trilogy and she has a tracheostomy tube in place. Head exam was generally normal. There was no scleral icterus or corneal arcus. Mucous membranes were moist. Neck was supple and without jugular venous distension, thyromegaly, or carotid bruits. Carotids were easily palpable bilaterally. There was no adenopathy. The patient had a tracheostomy #6 [address] tracheostomy tube in place Cardiovascular examination reveals regular rhythm rate. S1-S2 normal. No S3 or S4. No discernible murmur noted. She does have sinus tachycardia. Lungs reveal scattered bilateral rhonchi. No wheezes or crackles. Breath sounds equal. Abdomen is difficult to examine. No tenderness. Extremities are intact. No cyanosis clubbing or edema. Skin Examination of the skin revealed no evidence of significant rashes, suspicious appearing nevi or other concerning lesions. Neurologic examination is brief but nonfocal. 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 - Labs CBC & Chem 7: 03/22/22 07:36 03/22/22 06:17 Labs: Abnormal Lab Results - Last 24 Hours (Table) 03/21/22 03/21/22 03/21/22 Range/Units 07:58 17:23 17:44 WBC (3.8-10.6) k/uL RDW (11.5-15.5) % Neutrophils # (1.3-7.7) k/uL Sodium (137-145) mmol/L Carbon Dioxide 19 L (22-30) mmol/L BUN 21 H (7-17) mg/dL Creatinine 2.13 H (0.52-1.04) mg/dL Glucose 141 H (74-99) mg/dL POC Glucose (mg/dL) 161 H (70-110) mg/dL Calcium (8.4-10.2) mg/dL Procalcitonin 1.39 H (0.02-0.09) ng/mL 03/21/22 03/22/22 03/22/22 Range/Units 20:38 06:17 07:02 WBC (3.8-10.6) k/uL RDW (11.5-15.5) % Neutrophils # (1.3-7.7) k/uL Sodium 136 L (137-145) mmol/L Carbon Dioxide (22-30) mmol/L BUN 23 H (7-17) mg/dL Creatinine 2.52 H (0.52-1.04) mg/dL Glucose 137 H (74-99) mg/dL POC Glucose (mg/dL) 115 H 123 H (70-110) mg/dL Calcium 8.2 L (8.4-10.2) mg/dL Procalcitonin (0.02-0.09) ng/mL 03/22/22 03/22/22 Range/Units 07:36 11:29 WBC 11.7 H (3.8-10.6) k/uL RDW 16.5 H (11.5-15.5) % Neutrophils # 9.4 H (1.3-7.7) k/uL Sodium (137-145) mmol/L Carbon Dioxide (22-30) mmol/L BUN (7-17) mg/dL Creatinine (0.52-1.04) mg/dL Glucose (74-99) mg/dL POC Glucose (mg/dL) 179 H (70-110) mg/dL Calcium (8.4-10.2) mg/dL Procalcitonin (0.02-0.09) ng/mL Microbiology - Last 24 Hours (Table) 03/20/22 07:50 Gram Stain - Final Sputum Sputum Culture - Final 03/20/22 07:35 Gram Stain - Preliminary Eye - Left Eye Culture - Preliminary 03/20/22 06:20 Blood Culture - Preliminary Blood No Growth after 48 hours 03/19/22 10:21 Blood Culture Gram Stain - Preliminary Blood Blood Culture - Preliminary Coagulase Negative Staph Coagulase Negative Staph#2 03/19/22 09:24 Gram Stain - Final Sputum Sputum Culture - Final Proteus mirabilis Haemophilus influenzae Assessment and Plan Plan: Bilateral pneumonia with gram-negative bacteria including hemoglobin is normalized/Proteus. The patient's Gradually mechanical ventilator. The chest x-ray findings are suboptimal due to her body habitus as the patient has deformed chest wall related to spina bifida. The patient is hemodynamically stable. The patient is communicating. She is alert and interactive. She is still on a Trilogy ventilator with a pressure control mode of mechanical vent ilation. Sinus tachycardia, currently under investigation, rule out underlying systemic inflammatory response syndrome related to respiratory tract infection. The sinus tachycardia is improved and the heart rate has slowed down significantly Anion gap metabolic acidosis, recovered acute kidney injury, creatinine is on the rise Coagulase-negative staph in the blood , given a dose of vancomycin Mild leukocytosis, improving Previous history of COVID 19 infection back in October 2021 Status post tracheostomy, 2008, with chronic respiratory failure, currently maintained on a Trilogy ventilator. The patient's uncuffed tracheostomy tube was removed, and a cuffed #6 Shiley tube was placed. History of spina bifida. 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 Paraplegia. History of UTIs. History of GERD. 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 History of constipation Plan Continue IV fluids with saline at the rate of 75 mL an hour and discontinue the bicarb infusion CAT scan of the abdomen and pelvis was noted Nephrology consultation Continue Zosyn Continue metoprolol and Cardizem for rate control Heparin subcu for DVT prophylaxis 5000 units every 8 hours Aspiration precautions Continue using the Trilogy ventilator in the ICU Check a pro-calcitonin level was checked and Level at 0.86 and the subsequent level came back at 1.39 probably related to her underlying acute kidney injury We'll keep the patient following her progress in the ICU
[2022-03-22] MEDS: SODIUM CHLORIDE 0.9% 1,000 ML IV SCH ×2 (13:28→22:00)
[2022-03-22 18:32] LABS: Glucose,Whole Blood 121 mg/dL (70-110)
[2022-03-22 20:40] LABS: Glucose,Whole Blood 158 mg/dL (70-110)
[2022-03-22] MEDS: METOPROLOL TARTRATE 50 MG TAB PO SCH (21:45)
[2022-03-23] MEDS: PIPERACILLIN-TAZOBACTAM 3.375 GM in SODIUM CHLORIDE 0.9% 100 ML IVPB SCH ×4 (00:32→23:41)
[2022-03-23] MEDS: HEPARIN SODIUM,PORCINE/PF 5,000 UNIT/0.5 ML SYRINGE SQ SCH ×4 (00:32→23:41)
[2022-03-23] MEDS: IPRATROPIUM-ALBUTEROL 3 ML NEB INHALATION SCH ×7 (03:31→23:27)
[2022-03-23 06:34] LABS: Glucose,Whole Blood 102 mg/dL (70-110)
[2022-03-23 06:44] LABS: Anisocytosis Slight; Basophils # (A) 0.1 k/uL (0-0.2); Basophils % (A) 0 %; Eosinophils # (A) 0.3 k/uL (0-0.7); Eosinophils % (A) 2 %; HCT 38.5 % (34.0-46.0); Hypochromasia Moderate; Lymphocytes # (A) 1.5 k/uL (1.0-4.8); Lymphocytes % (A) 11 %; MCH 27.2 pg (25.0-35.0); MCHC 31.1 g/dL (31.0-37.0); MCV 87.2 fL (80.0-100.0); Mean Platelet Volume 8.2; Monocytes # (A) 0.8 k/uL (0-1.0); Monocytes % (A) 6 %; Neutrophils # (A) 11.5 k/uL (1.3-7.7); Neutrophils % (A) 80 %; Platelet Count 301 k/uL (150-450); RBC 4.41 m/uL (3.80-5.40); RDW 16.9 % (11.5-15.5); WBC 14.3 k/uL (3.8-10.6)
[2022-03-23 07:10] LABS: Calcium 7.9 mg/dL (8.4-10.2); Potassium 4.8 mmol/L (3.5-5.1)
[2022-03-23] MEDS: BUDESONIDE 1 MG/2 ML NEBU INHALATION SCH ×2 (07:42→19:18)
--- NOTE | 2022-03-23 07:44 | XR ---
EXAMINATION TYPE: XR chest 1V portable DATE OF EXAM: 03/23/2022 5:43 AM COMPARISON: Chest radiographs from 03/22/2022. TECHNIQUE: XR chest 1V portable Frontal view of the chest. CLINICAL INDICATION:Female, 36 years old with history of pna; FINDINGS: Markedly limited examination. Relatively unchanged aeration of the lungs compared to prior examinatio n. Continued diffuse bilateral airspace opacities. Elevated hemidiaphragm limits aeration. Tracheosto my cannula noted. Suggested CORPORATE ADMINISTRATIVE ASSISTANT shunt again demonstrated. No sizable pneumothorax. Heart is obscured. Chronic appearing skeletal changes are stable. IMPRESSION: Overall unchanged bilateral diffuse airspace disease.
[2022-03-23] MEDS: INSULIN ASPART (NovoLOG) 100 UNIT/ML VIAL SQ SCH ×4 (10:12→22:07)
[2022-03-23] MEDS: METOPROLOL TARTRATE 50 MG TAB PO SCH ×2 (10:13→19:59)
[2022-03-23] MEDS: SODIUM CHLORIDE 0.9% 1,000 ML IV SCH ×2 (10:14→14:57)
[2022-03-23] MEDS: DILTIAZEM ORAL 60 MG TAB PO SCH ×3 (10:17→19:59)
--- NOTE | 2022-03-23 10:40 | P.PN ---
Subjective Patient is seen for follow-up for acute kidney injury. Patient is a 36-year-old female with history of spina bifida maintained on home ventilator at home with permanent tracheostomy. Patient was admitted to the hospital with complaints of shortness of breath and cough and increased sputum production. Patient has a urostomy and we have not been able to obtain a urine specimen. Patient has had good urine output Patient's initial creatinine was 0.4 mg/dL and has increased to 2.8 mg today. Patient had been hypotensive with blood pressure as low as 70-80 mmHg. Currently maintained on IV fluids No evidence of obstruction noted on CT of the abdomen. Patient did receive vancomycin which is now discontinued Sputum culture is growing Proteus and Haemophilus influenza and blood cultures are growing gram-negative staph. Cardizem was decreased yesterday due to hypotension and Lopressor was increased to control heart rate. Patient seems to be tolerating that fairly well Patient is currently awake comfortable she's not in any acute distress. Objective - Vital Signs Vital signs: Vital Signs Temp 97.6 F 03/23/22 04:00 Pulse 120 H 03/23/22 07:54 Resp 11 L 03/23/22 07:00 BP 135/87 03/23/22 07:00 Pulse Ox 96 03/23/22 07:24 FiO2 40 03/23/22 07:24 Intake & Output 03/22/22 03/23/22 03/23/22 18:59 06:59 18:59 Intake Total 2194 1572 100 Balance 2194 1572 100 Weight 82.6 kg Intake: IV 1300 1350 100 Dextrose 5% in Water 1, 400 000 ml @ 100 mls/hr IV . [id number] MARILYN with Sodium Bicarb (1 Meq/ml) 150 ml Rx#:[id number] Piperacillin-Tazobactam 3 100 150 .375 gm In Sodium Chloride 0.9% 100 ml @ 200 mls/hr IVPB Q8HR MARILYN Rx#:[id number] Sodium Chloride 0.9% 1, 800 1200 100 000 ml @ 100 mls/hr IV . Q10H MARILYN Rx#:[id number] Oral [phone] Other: Voiding Method Diaper Diaper # Voids 1 1 1 - Exam Awake, comfortable, not in any acute distress Examination of the heart S1 and S2 Examination lungs bilateral breath sounds are heard Abdomen is soft with urostomy Examination lower extremities shows trace edema patient has short upper and lower extremities with underlying spina bifida - Labs CBC & Chem 7: 03/23/22 06:28 03/23/22 06:28 Labs: Abnormal Lab Results - Last 24 Hours (Table) 03/22/22 03/22/22 03/22/22 Range/Units 11:29 18:30 20:39 WBC (3.8-10.6) k/uL RDW (11.5-15.5) % Neutrophils # (1.3-7.7) k/uL BUN (7-17) mg/dL Creatinine (0.52-1.04) mg/dL Glucose (74-99) mg/dL POC Glucose (mg/dL) 179 H 121 H 158 H (70-110) mg/dL Calcium (8.4-10.2) mg/dL 03/23/22 03/23/22 Range/Units 06:28 06:28 WBC 14.3 H (3.8-10.6) k/uL RDW 16.9 H (11.5-15.5) % Neutrophils # 11.5 H (1.3-7.7) k/uL BUN 27 H (7-17) mg/dL Creatinine 2.82 H (0.52-1.04) mg/dL Glucose 113 H (74-99) mg/dL POC Glucose (mg/dL) (70-110) mg/dL Calcium 7.9 L (8.4-10.2) mg/dL Microbiology - Last 24 Hours (Table) 03/19/22 10:21 Blood Culture Gram Stain - Final Blood Blood Culture - Final Coagulase Negative Staph Coagulase Negative Staph#2 03/20/22 07:50 Gram Stain - Final Sputum Sputum Culture - Final 03/20/22 07:35 Gram Stain - Preliminary Eye - Left Eye Culture - Preliminary 03/20/22 06:20 Blood Culture - Preliminary Blood No Growth after 48 hours Assessment and Plan Assessment: 1. Acute kidney injury nonoliguric secondary to ischemic ATN and sepsis. Maintained on IV fluids. Will try to obtain a UA. No evidence of obstruction noted on CAT scan. No nephrotoxic agents on board. Off of Vancomycin. 2. Pneumonia with sputum culture growing Proteus and Haemophilus influenza, currently maintained on antibiotics 3. Status post tracheostomy 2008 with chronic respiratory failure maintained on a home ventilator 4. History of spina bifida with history of urostomy 5. Paraplegia 6. History of colon 19 infection in October 2021 7. Anion gap metabolic acidosis associated with acute kidney injury. Lactic acid is not elevated. Plan: Continue IV fluids Increase metoprolol Try to obtain urine sample for UA Avoid nephrotoxic agents Check random vancomycin level Repeat labs in a.m.
[2022-03-23 11:48] LABS: Glucose,Whole Blood 109 mg/dL (70-110)
--- NOTE | 2022-03-23 12:26 | P.PN ---
Subjective Progress Note Date: 03/23/22 A 36-year-old female patient with known history of spina bifida was currently on a home ventilator with a permanent tracheostomy. The patient was last seen in our hospital back in October 2021 when she was infected with COVID 19 for which she recovered and the patient was discharged home. The patient continues using Trilogy ventilator and the patient is currently on a pressure control mode of mechanical ventilation at a rate of 24, pressure control of 35, PEEP of 5. The patient has a #[address] tube in place and the mother does regular tracheostomy tube care for her. She was noted to have increased dyspnea, cough and congestion and for that reason the patient was brought into the hospital. Chest x-rays of his is suboptimal due to body habitus and the patient has diffuse haziness bilaterally. Her chest is deformed related to her spine bifida. She is afebrile at this point in time. She is awake and alert and communicating. She has been infected in the past with pseudomonas back in 2019. No recurrent infections since. No aspiration according to the family patient is able to swallow. She has a urostomy and the mother urine output is not known. On her blood work, the white cell count of 12.4 with a hemoglobin 14.6 and a platelet count of 305. Normal correlation profile. Serum bicarbonate of 18 with a anion gap of 20 and a creatinine of 0.4 and normal LFTs. Sodium level is at 139. Her COVID 19 testing was negative and influenza screen was also negative. She is afebrile for now. Her current pulse ox on 95% on a mechanical ventilator. However, she is having some sinus tachycardia. 03/20/2022, the patient is alert and awake and communicating. She remains on her regimen mechanical ventilator. She received IV fluid with normal saline at the rate of 75 mL an hour and the patient's tachycardia is improved and she does have some mild degree of sinus tachycardia for now. Blood cultures came back positive for gram-positive cocci in clusters and the patient was given a dose of vancomycin and she remains on IV Zosyn and Zithromax.. The chest x-ray from today is still showing bilateral perihilar pulmonary infiltrates and there sputum culture is still pending for now. The patient has scant rest or secretions which are being suctioned out by respiratory. In terms of blood work, the white cell count of 10.4 with hemoglobin 13.6 and a platelet count of 268. BUN is at 5 creatinine 0.33 and a sodium level is at 135. The patient also has a pro-calcitonin level of 0.86 . she is tolerating her diet.. She has no specific complaints. No lethargy. Serum bicarb is currently at 19 with an anion gap of 11 and a BUN is at 5 with a creatinine of 0.33. Blood sugars under adequate control for now. 2021, the patient is awake and alert and interactive. The patient remains on her shows a mechanical ventilator. The sputum sample is showing Proteus mirabilis and Haemophilus influenza and the patient is covered currently with IV Zosyn. The patient was also receiving vancomycin. This was discontinued and the patient was noted to have an acute kidney injury in the creatinine is up to 1.89 from a baseline of 0.33. The exact amount of urine output is not documented the patient has a urostomy and the urine is leaking into a diaper. In any rate, the patient's white cell count of 15.0 with hemoglobin of 4.5 and a platelet count of 262. Blood work from today shows a sodium level of 138 with a potassium level of 5.1, serum bicarbonate of 17 with a BUN of 19 and a cr of 1.8 03/22/2022, the patient is clinically unchanged and stable still on her tube and the mechanical ventilator. Nevertheless, the active issue for now is developmen t of acute kidney injury. Creatinine was in the right and yesterday's was up to 1.8 and today the creatinine is s up to 2.3. The patient's presence of diaper and I'm assuming that she is producing urine output. CAT scan of the abdomen and pelvis was done and showed no evidence of any nephrolithiasis and there was no evidence of any hydronephrosis. There was some limited infiltrates and infiltrative changes bilaterally. The patient's has a combination of Haemophilus and Proteus in his sputum and the patient is currently on the same antibiotic coverage with IV Zosyn. No nephrotoxic agents. The patient had a bicarb deficit and the patient's serum bicarb was low and this was a pressure to day as the patient received a bicarb infusion and on today's evaluation serum back to 23. The sodium level is at 136. White cell count is 11.7 with a hemoglobin of 12.5. The patient is doing well. No new complaints clinically. No significant respiratory secretions. No active issue however there is development of an acute kidney injury and the patient is going to be seen by nephrology and nephrology consultation was placed. 9 2021, I'm seeing the patient for follow-up. Unfortunately, there has been further worsening of the renal function and a creatinine currently is up to 2.8. Nephrology on the case. The patient was given a bicarb infusion to replace the bicarb deficit and the patient is currently off the bicarb fusion and currently on normal saline today to 100 mL's an hour and this was done by nephrology. The serum bicarb is at 27 with a creatinine of 2.8. Sodium is at 141. Normotensive. Still on a shortage mechanical ventilator. Still on IV Zosyn. No nephrotoxic agents. No hypotension. No need for pressors. CAT scan of the abdomen and pelvis showed no evidence of any hydronephrosis an ultrasound of the abdomen and the kidneys was somewhat suboptimal due to her body habitus. No significant secretions. She is awake and alert and she is communicating effect ively. No other fever. The patient on Cardizem for some sinus tachycardia. The white cell count is at 14.3 with hemoglobin of 12. The random vancomycin dose was 34.7. As such, the patient had an acute vancomycin toxicity and this was given to her as the patient had a positive blood culture that do not to be coagulase negative staph. Objective - Vital Signs Vital signs: Vital Signs Temp 97.6 F 03/23/22 04:00 Pulse 113 H 03/23/22 11:37 Resp 11 L 03/23/22 07:00 BP 135/87 03/23/22 07:00 Pulse Ox 96 03/23/22 07:24 FiO2 40 03/23/22 11:22 Intake & Output 03/22/22 03/23/22 03/23/22 18:59 06:59 18:59 Intake Total 2194 1572 600 Balance 2194 1572 600 Weight 82.6 kg Intake: IV 1300 1350 600 Dextrose 5% in Water 1, 400 000 ml @ 100 mls/hr IV . [id number] [facility]ILYN with Sodium Bicarb (1 Meq/ml) 150 ml Rx#:[id number] Piperacillin-Tazobactam 3 100 150 100 .375 gm In Sodium Chloride 0.9% 100 ml @ 200 mls/hr IVPB Q8HR [facility] Rx#:[id number] Sodium Chloride 0.9% 1, 800 1200 500 000 ml @ 100 mls/hr IV . Q10H [facility] Rx#:[id number] Oral [id number] Other: Voiding Method Diaper Diaper # Voids 1 1 1 - Exam The patient is awake and alert A very tiny obese -Beninese female patient with significant abnormalities in her body habitus due to underlying spina bifida. The patient is a very short limbs in the lower extremity. She has a deformed spine, pelvis and short extremities. She is awake and alert and she is communicating at this point in time. She is quite comfortable on a mechanical ventilator. She is using his own Trilogy and she has a tracheostomy tube in place. Head exam was generally normal. There was no scleral icterus or corneal arcus. Mucous membranes were moist. Neck was supple and without jugular venous distension, thyromegaly, or carotid bruits. Carotids were easily palpable bilaterally. There was no adenopathy. The patient had a tracheostomy #6 [address] tracheostomy tube in place Cardiovascular examination reveals regular rhythm rate. S1-S2 normal. No S3 or S4. No discernible murmur noted. She does have sinus tachycardia. Lungs reveal scattered bilateral rhonchi. No wheezes or crackles. Breath soun ds equal. Abdomen is difficult to examine. No tenderness. Extremities are intact. No cyanosis clubbing or edema. Skin Examination of the skin revealed no evidence of significant rashes, suspicious appearing nevi or other concerning lesions. Neurologic examination is brief but nonfocal. 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 - Labs CBC & Chem 7: 03/23/22 06:28 03/23/22 06:28 Labs: Abnormal Lab Results - Last 24 Hours (Table) 03/22/22 03/22/22 03/23/22 Range/Units 18:30 20:39 06:28 WBC 14.3 H (3.8-10.6) k/uL RDW 16.9 H (11.5-15.5) % Neutrophils # 11.5 H (1.3-7.7) k/uL BUN (7-17) mg/dL Creatinine (0.52-1.04) mg/dL Glucose (74-99) mg/dL POC Glucose (mg/dL) 121 H 158 H (70-110) mg/dL Calcium (8.4-10.2) mg/dL 03/23/22 Range/Units 06:28 WBC (3.8-10.6) k/uL RDW (11.5-15.5) % Neutrophils # (1.3-7.7) k/uL BUN 27 H (7-17) mg/dL Creatinine 2.82 H (0.52-1.04) mg/dL Glucose 113 H (74-99) mg/dL POC Glucose (mg/dL) (70-110) mg/dL Calcium 7.9 L (8.4-10.2) mg/dL Microbiology - Last 24 Hours (Table) 03/20/22 07:35 Gram Stain - Final Eye - Left Eye Culture - Final 03/20/22 06:20 Blood Culture - Preliminary Blood No Growth after 72 hours 03/19/22 10:21 Blood Culture Gram Stain - Final Blood Blood Culture - Final Coagulase Negative Staph Coagulase Negative Staph#2 03/20/22 07:50 Gram Stain - Final Sputum Sputum Culture - Final Assessment and Plan Plan: Bilateral pneumonia with gram-negative bacteria including hemoglobin is normalized/Proteus. The patient's Gradually mechanical ventilator. The chest x-ray findings are suboptimal due to her body habitus as the patient has deformed chest wall related to spina bifida. The patient is hemodynamically stable. The patient is communicating. She is alert and interactive. She is still on a Trilogy ventilator with a pressure control mode of mechanical ventilation. Sinus tachycardia, currently under investigation, rule out underlying systemic inflammatory response syndrome related to respiratory tract infection. The sinus tachycardia is improved and the heart rate has slowed down significantly and the patient is currently on oral Cardizem Anion gap metabolic acidosis, recovered acute kidney injury, creatinine is on the rise, rule out vancomycin toxicity. This is a nonoliguric renal failure and creatinine is up to 2.8 along with a component of non-anion gap metabolic acidosis and the bicarb deficit was replaced. Coagulase-negative staph in the blood , given a dose of vancomycin Mild leukocytosis, improving Previous history of COVID 19 infection back in October 2021 Status post tracheostomy, 2008, with chronic respiratory failure, currently maintained on a Trilogy ventilator. The patient's uncuffed tracheostomy tube was removed, and a cuffed #6 Shiley tube was placed. History of spina bifida. 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 Paraplegia. History of UTIs. History of GERD. STARCH CR[employer] shunt. History of constipation Plan Continue IV fluids with saline at the rate of 100 mL an hour This continue the bicarb infusion CAT scan of the abdomen and pelvis was noted Ultrasound the kidneys were noted Nephrology consultation Continue Zosyn Continue Cardizem for rate control Heparin subcu for DVT prophylaxis 5000 units every 8 hours Aspiration precautions Continue IV Zosyn Continue using the Trilogy ventilator in the ICU Check a pro-calcitonin level was checked and Level at 0.86 and the subsequent level came back at 1.39 probably related to her underlying acute kidney injury We'll keep the patient following her progress in the ICU
[2022-03-23] MEDS ORDERED: ALPRAZolam 0.25 MG TAB PO PRN (14:46)
[2022-03-23] MEDS: methylPREDNISolone SOD SUCCI 40 MG/ML 1 ML VIAL IV SCH ×2 (14:57→23:40)
--- NOTE | 2022-03-23 15:18 | P.PN ---
Subjective Progress Note Date: 03/23/22 (Bilateral wheezing with decrease air entry and grunting on the respirator. Anxious) Progress note, ICU 256 bed [address] Hamzah M.D. [facility]. Patient seen [id number], discussed with her mother as well as the patient. Patient on home respirator and grunting of her breathing and wheezing with the tight her entry. And anxious and her mother also was concerned of that I did see the patient and discussed with her RN 36 years old -[place] female with the multiple congenital abnormality and child mentality arrested had childhood 40 years and 8 years she had a [employer] shunt and struck the ostomy and also on triology respirator which monitored by Dr. Au. On the physical exam Patient is conscious alert but fighting with grunting and wheezing bilateral with the decreased air entry and despite of her vital sign is stable but she also had tachycardia with the possibility secondary to the lung and the pneumonia. She had bilateral pneumonia, she had history of asthma by the nurse Pedro Flores and and she is on home respirator with the underlying tachycardia, and acute kidney injury with the precipitation of HTN secondary to hypotension episode Her medication was cardiac exam 90 3 times a day and decreased to 60 3 times a day and then decreased to 30 with the hypotension currently back again on 60 mg 3 times a day her Dr. Au With the underlying acute renal injury and nonoliguric renal failure secondary to episodic hypo-tension and recovery it takes at least 3-4 days but currently she is in acute renal failure none oliguric Dr. Whittington did see the patient and patient was also acidotic and she continued on the sodium bicarb, also her metoprolol tartrate was 25 mg twice a day increased to 50 mg twice a day [place] patient still having tachycardia with the heart rate 128/121 sinus tach. If it is not helpful to control her heart rate my suggestion is to move to verapamil meal 80 mg 3 times a day with monitoring the blood pressure to avoid hypotension. Tell the renal recovery. In regard of the pneumonia, sputum showed Proteus mirabilis and Haemophilus influenza and blood culture showed bacteremia 9 coagulase negative staph 2 she had doses of vancomycin however that could be participate in the renal and discontinued. She had hyperglycemia with the steroid but at this time patient in need of a steroid with the severe wheezing bilateral and grunting and not radiated well with the spasm and will start small dose of Solu-Medrol 40 mg every 8 hours to see if any improvement in the status. She had already leukocytosis with white count 14.3, hemoglobin 12 and hematocrit 38.5, platelet count 301. Sodium 141, potassium 4.8, chloride 105, carbon dioxide 25, her be ON this 27 and expected to rise with the use of the steroid her creatinine 2.8 to with the associated with acute renal failure with a GFR estimated for -[place] 24. Blood sugar 113 with a steroid expected to be more elevated but patient has insulin to be covered to scale, blood sugar 109, calcium is 7.9 and the lower side. Her vital sign indicating temperature 97.6 F exemplary, heart rate 236002, respiratory rate 14 under a mechanical respiration, and a blood pressure 123/94 with the main one or 3 Her oxygen saturation 94% on FiO2 of 21. I did call Dr. Chaves on the phone and he stated that he will be here very soon and he will see the patient and I did inform him about the infection in the sputum and the blood and he will be coming here to adjust with the concern of the Zosyn has been given to the patient since to the ER admission but it doesn't appear to be helping and he will be adjusting the antibiotic if needed as well. And exam patient is conscious alert, her mother at bedside Patient is anxious and grunting with the shortness of breath despite that she has tracheostomy tube The lung is and respiratory expiratory wheezes bilateral with decreased air entry despite of vital sign appears to be stable Heart tachycardic sinus with the possible due to effect of the lung. 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 With the multiple deformities she had a [employer] shunt as well with the extremities a short period Assessment: And plan Bilateral wheezing with the underlying asthmatic exacerbation with bronchitis and associated pneumonia bilateral and bacteremia. Patient with multiple medical problem added to her congenital abnormalities and on home respirator Anxious Acute kidney injury, nonoliguric renal failure associated with ATN. With the episodes of hypotension. Xanax 0.25 mg every 6 hour when necessary was started Solu-Medrol 40 mg IV piggyback every 8 hour and monitor the improvement on her breathing Still continue monitoring the blood sugar with the expected elevation and covered with insulin to scale. The mother discussed with me if Dr. Au once to send her to [facility] and she will bring tomorrow her phone number that the contact in the [facility] in case of progression of worsening she wants to be transferred to [facility]. Dr. Chaves infectious disease will see the patient today and will see how much improvement tomorrow which is the Labor Day and very difficult to get hold of [facility]. Objective - Vital Signs Vital signs: Vital Signs Temp 97.6 F 03/23/22 04:00 Pulse 113 H 03/23/22 11:37 Resp 11 L 03/23/22 07:00 BP 135/87 03/23/22 07:00 Pulse Ox 96 03/23/22 07:24 FiO2 40 03/23/22 11:22 Intake & Output 03/22/22 03/23/22 03/23/22 18:59 06:59 18:59 Intake Total 2194 1572 600 Balance 2194 1572 600 Weight 82.6 kg Intake: IV 1300 1350 600 Dextrose 5% in Water 1, 400 000 ml @ 100 mls/hr IV . [id number] [facility] with Sodium Bicarb (1 Meq/ml) 150 ml Rx#:[id number] Piperacillin-Tazobactam 3 100 150 100 .375 gm In Sodium Chloride 0.9% 100 ml @ 200 mls/hr IVPB Q8HR [facility] Rx#:[id number] Sodium Chloride 0.9% 1, 800 1200 500 000 ml @ 100 mls/hr IV . Q10H [facility] Rx#:[id number] Oral [id number] Other: Voiding Method Diaper Diaper # Voids 1 1 1 - Labs CBC & Chem 7: 03/23/22 06:28 03/23/22 06:28 Labs: Abnormal Lab Results - Last 24 Hours (Table) 03/22/22 03/22/22 03/23/22 Range/Units 18:30 20:39 06:28 WBC 14.3 H (3.8-10.6) k/uL RDW 16.9 H (11.5-15.5) % Neutrophils # 11.5 H (1.3-7.7) k/uL BUN (7-17) mg/dL Creatinine (0.52-1.04) mg/dL Glucose (74-99) mg/dL POC Glucose (mg/dL) 121 H 158 H (70-110) mg/dL Calcium (8.4-10.2) mg/dL 03/23/22 Range/Units 06:28 WBC (3.8-10.6) k/uL RDW (11.5-15.5) % Neutrophils # (1.3-7.7) k/uL BUN 27 H (7-17) mg/dL Creatinine 2.82 H (0.52-1.04) mg/dL Glucose 113 H (74-99) mg/dL POC Glucose (mg/dL) (70-110) mg/dL Calcium 7.9 L (8.4-10.2) mg/dL Microbiology - Last 24 Hours (Table) 03/20/22 07:35 Gram Stain - Final Eye - Left Eye Culture - Final 03/20/22 06:20 Blood Culture - Preliminary Blood No Growth after 72 hours 03/19/22 10:21 Blood Culture Gram Stain - Final Blood Blood Culture - Final Coagulase Negative Staph Coagulase Negative Staph#2 03/20/22 07:50 Gram Stain - Final Sputum Sputum Culture - Final
[2022-03-23] MEDS: DEXMEDETOMIDINE/0.9% NACL(PMX) 400 MCG in EMPTY BAG 1 BAG IV SCH (18:41)
[2022-03-23 22:02] LABS: Glucose,Whole Blood 245 mg/dL (70-110)
[2022-03-23 22:28] LABS: Albumin 3.3 g/dL (3.5-5.0); Calcium 8.3 mg/dL (8.4-10.2); Potassium 4.8 mmol/L (3.5-5.1); Total Bilirubin 0.5 mg/dL (0.2-1.3); Total Protein 6.1 g/dL (6.3-8.2)
--- NOTE | 2022-03-23 23:03 | P.CONS ---
History of Present Illness - Reason for Consult Consult date: 03/23/22 Gram-positive bacteremia Requesting physician: Isaac Goodson - Chief Complaint Increasing shortness of breath and cough x few days - History of Present Illness Patient is a 36-year-old -Israeli female with a past medical history taken for spina bifid patient to have a history of permanent tracheostomy on home ventilator patient has been brought to the hospital 4 days ago for evaluation of increasing shortness of breath cough and congestion that has been getting worse for few days before presentation to the hospital on arrival to the ER patient was afebrile subsequently she did spike a fever of 100.8 and 101.2 degrees Fahrenheit, no fever have been recorded subsequently patient was hypoxic and is currently on the ventilator 50% FiO2 patient did have white count of 20.4 which initially normalized however is slowly trending up patient did have elevated BUN/creatinine procalcitonin was 0.86 influenza and perez PCR was negative patient did have a chest x-ray diffuse bilateral opacification likely to bilateral airspace disease patient also have a CT of abdominal pelvis no evidence of renal stone or obstruction bilateral lower lobe pneumonia patient has been treated with Zosyn sputum culture positive for Proteus and Haemophilus influenzae blood cultures are showing coagulase-negative staph infectious disease was consulted because of her bacteremia and need for further antibiotic therapy patient did have a elevated vancomycin level and has been discontinued Review of Systems Positive point has been mentioned in the HPI rest of the systems are negative Past Medical History Past Medical History: Asthma, GERD/Reflux, Musculoskeletal Disorder Additional Past Medical History / Comment(s): Spina bifida with spina bifida deformities, paralyzed waist down, mentality approximately 6yr old, severe kyphoscoliosis with pectus deformity, chronic lung disease with chronic respiratory hypoxia/hypercpnia, trach/chronic vent, pneumonias, bronchospasms, cervical compression with surgery, nephrolithiasis, urostomy-wears depends, UTIs, constipation. History of Any Multi-Drug Resistant Organisms: None Reported Past Surgical History: Back Surgery, Orthopedic Surgery Additional Past Surgical History / Comment(s): 2008 trach, urostomy, RN FIELD shunt, bilateral release/resection hamstrings proximal muscle, cervical decompression, surgery for "lazy eye." Shunt placed in brain 2020 Past Anesthesia/Blood Transfusion Reactions: No Reported Reaction Past Psychological History: No Psychological Hx Reported Additional Psychological History / Comment(s): Pt resides with her mother who is her caregiver. Pt has trach and is vent dependent. Mother transfers pt to wheelchair. Getting to follow up appts (follow for vent at [facility]) is challenging-mother sets up thru pt's insurance and they use vendors to transport-vendors can opt out and have done so in the past. Mother states they have also been stranded at [facility] with no return ride home. No vendor available for last [facility] appointment so pt missed that appt. Smoking Status: Never smoker Past Alcohol Use History: None Reported Past Drug Use History: None Reported - Past Family History Father Family Medical History: Asthma Mother Family Medical History: Diabetes Mellitus, Hyperlipidemia, Hypertension Medications and Allergies Home Medications Medication Instructions Recorded Confirmed Type Albuterol Nebulized [Ventolin 2.5 mg INHALATION RT-BID 10/07/17 03/19/22 History Nebulized] Budesonide [Pulmicort] 1 mg INHALATION RT-BID 05/07/21 03/19/22 History Albuterol Nebulized [Ventolin 2.5 mg INHALATION RT-BID PRN 03/19/22 03/19/22 History Nebulized] Metoprolol Tartrate [Lopressor] 25 mg PO BID 03/19/22 03/19/22 History dilTIAZem HCL [Cardizem] 90 mg PO TID 03/19/22 03/19/22 History Allergies Allergy/AdvReac Type Severity Reaction Status Date / Time No Known Allergies Allergy Verified 03/19/22 11:19 Physical Exam Vitals: Vital Signs Temp Pulse Resp BP Pulse Ox FiO2 03/23/22 11:37 113 H 03/23/22 11:27 112 H 03/23/22 11:22 40 03/23/22 08:00 03/23/22 07:54 120 H 03/23/22 07:42 120 H 03/23/22 07:24 96 40 03/23/22 07:00 122 H 11 L 135/87 03/23/22 06:00 121 H 13 124/103 89 L 03/23/22 05:00 122 H 10 L 124/87 91 L 03/23/22 04:00 97.6 F 128 H 14 123/94 96 21 03/23/22 03:51 120 H 03/23/22 03:33 40 03/23/22 03:32 120 H 03/23/22 03:00 120 H 16 131/89 96 03/23/22 02:00 111 H 11 L 104/77 93 L 03/23/22 01:00 98 14 89/66 94 L 21 03/23/22 00:00 105 H 24 106/53 96 21 03/22/22 23:34 106 H 03/22/22 23:26 40 03/22/22 23:21 106 H 03/22/22 23:00 108 H 25 H 114/75 97 21 03/22/22 22:52 110 H 25 H 114/75 97 03/22/22 22:00 123 H 22 121/75 98 21 03/22/22 21:00 128 H 14 85/71 96 03/22/22 20:10 133 H 03/22/22 20:00 98.4 F 121 H 12 107/97 96 21 03/22/22 19:57 117 H 03/22/22 19:00 115 H 19 107/97 98 03/22/22 18:00 114 H 9 L 125/110 96 03/22/22 17:00 125 H 42 H 116/80 96 03/22/22 16:00 97.7 F 126 H 19 111/83 96 21 03/22/22 15:39 112 H 03/22/22 15:29 112 H 03/22/22 15:19 40 Intake and Output 03/23/22 03/23/22 03/23/22 06:59 14:59 22:59 Intake Total 850 600 Balance 850 600 Intake: IV 850 600 Piperacillin-Tazobactam 3 50 100 .375 gm In Sodium Chloride 0.9% 100 ml @ 200 mls/hr IVPB Q8HR [facility] Rx#:[id number] Sodium Chloride 0.9% 1, 800 500 000 ml @ 100 mls/hr IV . Q10H [facility] Rx#:[id number] Other: Voiding Method Diaper # Voids 1 1 Weight 82.6 kg GENERAL DESCRIPTION: Middle-aged female lying in bed, no distress. No tachypnea or accessory muscle of respiration use. HEENT: Shows Pallor , no scleral icterus. Oral mucous membrane is dry. No pharyngeal erythema or thrush NECK: Trachea central, no thyromegaly. LUNGS: Unlabored breathing. Coarse breath sounds bilaterally. No wheeze or crackle. HEART: S1, S2, regular rate and rhythm. No loud murmur ABDOMEN: Soft, no tenderness , guarding or rigidity, no organomegaly EXTREMITIES: No edema of feet. SKIN: No rash, no masses palpable. NEUROLOGICAL: The patient is awake, alert, oriented x3, mood and affect normal. Results CBC & Chem 7: 03/23/22 06:28 03/23/22 20:57 Labs: Abnormal Lab Results - Last 24 Hours (Table) 03/22/22 03/22/22 03/23/22 Range/Units 18:30 20:39 06:28 WBC 14.3 H (3.8-10.6) k/uL RDW 16.9 H (11.5-15.5) % Neutrophils # 11.5 H (1.3-7.7) k/uL BUN (7-17) mg/dL Creatinine (0.52-1.04) mg/dL Glucose (74-99) mg/dL POC Glucose (mg/dL) 121 H 158 H (70-110) mg/dL Calcium (8.4-10.2) mg/dL 03/23/22 Range/Units 06:28 WBC (3.8-10.6) k/uL RDW (11.5-15.5) % Neutrophils # (1.3-7.7) k/uL BUN 27 H (7-17) mg/dL Creatinine 2.82 H (0.52-1.04) mg/dL Glucose 113 H (74-99) mg/dL POC Glucose (mg/dL) (70-110) mg/dL Calcium 7.9 L (8.4-10.2) mg/dL Microbiology - Last 24 Hours (Table) 03/20/22 07:35 Gram Stain - Final Eye - Left Eye Culture - Final 03/20/22 06:20 Blood Culture - Preliminary Blood No Growth after 72 hours 03/19/22 10:21 Blood Culture Gram Stain - Final Blood Blood Culture - Final Coagulase Negative Staph Coagulase Negative Staph#2 03/20/22 07:50 Gram Stain - Final Sputum Sputum Culture - Final Assessment and Plan (1) Leukocytosis Current Visit: Yes Status: Acute Code(s): D72.829 - ELEVATED WHITE BLOOD CELL COUNT, UNSPECIFIED SNOMED Code(s): 386837825 (2) Pneumonia Current Visit: Yes Status: Acute Code(s): J18.9 - PNEUMONIA, UNSPECIFIED ORGANISM SNOMED Code(s): 387588920 Plan: 1patient presented to hospital with sepsis and respiratory have a fever elevated white count source is likely pneumonia with a sputum showing haemophilus and Proteus which is sensitive pathogen and the patient seem to have some clinical improvement as she did have resolution of the fever. 2positive blood culture with staph epi likely skin contaminant. 3renal insufficiency and high risk of nephrotoxicity from vancomycin which has been discontinued. 4worsening white count more likely due to steroids patient is on. 5patient to continue with Zosyn and there is no need for vancomycin. We will follow on clinical condition and cultures to further adjust medication if needed Thank you for this consultation will follow this patient along with you
[2022-03-24] MEDS: IPRATROPIUM-ALBUTEROL 3 ML NEB INHALATION SCH ×4 (03:07→15:15)
[2022-03-24 05:55] LABS: Anisocytosis Slight; Basophils % (A) 0 %; Eosinophils % (A) 0 %; HCT 39.3 % (34.0-46.0); HGB 12.7 gm/dL (11.4-16.0); Hypochromasia Moderate; Lymphocytes # (A) 0.9 k/uL (1.0-4.8); Lymphocytes % (A) 8 %; MCH 28.2 pg (25.0-35.0); MCHC 32.3 g/dL (31.0-37.0); MCV 87.3 fL (80.0-100.0); Mean Platelet Volume 8.3; Monocytes # (A) 0.2 k/uL (0-1.0); Monocytes % (A) 2 %; Neutrophils # (A) 10.2 k/uL (1.3-7.7); Neutrophils % (A) 89 %; Platelet Count 301 k/uL (150-450); RDW 16.7 % (11.5-15.5); WBC 11.4 k/uL (3.8-10.6)
[2022-03-24 06:09] LABS: Glucose,Whole Blood 190 mg/dL (70-110)
[2022-03-24] MEDS: methylPREDNISolone SOD SUCCI 40 MG/ML 1 ML VIAL IV SCH ×2 (06:17→17:00)
[2022-03-24] MEDS: INSULIN ASPART (NovoLOG) 100 UNIT/ML VIAL SQ SCH ×2 (06:17→11:46)
[2022-03-24] MEDS: DEXMEDETOMIDINE/0.9% NACL(PMX) 400 MCG in EMPTY BAG 1 BAG IV SCH (06:18)
[2022-03-24 06:50] LABS: Calcium 8.6 mg/dL (8.4-10.2); Potassium 5.2 mmol/L (3.5-5.1)
--- NOTE | 2022-03-24 07:14 | XR ---
EXAMINATION TYPE: XR chest 1V portable DATE OF EXAM: 03/24/2022 6:02 AM COMPARISON: Chest radiographs from 03/23/2022 TECHNIQUE: XR chest 1V portable Frontal view of the chest. CLINICAL INDICATION:Female, 36 years old with history of pna; FINDINGS: Markedly limited examination. Relatively unchanged aeration of the lungs compared to prior examinatio n. Continued diffuse bilateral airspace opacities. Elevated hemidiaphragm and rotation limits aeratio n. Additionally the patient's head obscures the right lung apex. Tracheostomy cannula noted. Suggeste d [employer] shunt again demonstrated. No sizable pneumothorax. Heart is obscured. Chronic appearing skeletal changes are stable. IMPRESSION: Overall unchanged bilateral diffuse airspace disease.
[2022-03-24] MEDS: SODIUM CHLORIDE 0.9% 1,000 ML IV SCH (07:50)
[2022-03-24] MEDS: HEPARIN SODIUM,PORCINE/PF 5,000 UNIT/0.5 ML SYRINGE SQ SCH ×2 (08:11→17:00)
[2022-03-24] MEDS: PIPERACILLIN-TAZOBACTAM 3.375 GM in SODIUM CHLORIDE 0.9% 100 ML IVPB SCH (08:11)
[2022-03-24] MEDS: DILTIAZEM ORAL 60 MG TAB PO SCH (08:12)
[2022-03-24] MEDS: METOPROLOL TARTRATE 50 MG TAB PO SCH (08:12)
[2022-03-24] MEDS: BUDESONIDE 1 MG/2 ML NEBU INHALATION SCH (08:25)
--- NOTE | 2022-03-24 09:43 | P.PN ---
Subjective Progress Note Date: 03/24/22 A 36-year-old female patient with known history of spina bifida was currently on a home ventilator with a permanent tracheostomy. The patient was last seen in our hospital back in October 2021 when she was infected with COVID 19 for which she recovered and the patient was discharged home. The patient continues using Trilogy ventilator and the patient is currently on a pressure control mode of mechanical ventilation at a rate of 24, pressure control of 35, PEEP of 5. The patient has a #[address] tube in place and the mother does regular tracheostomy tube care for her. She was noted to have increased dyspnea, cough and congestion and for that reason the patient was brought into the hospital. Chest x-rays of his is suboptimal due to body habitus and the patient has diffuse haziness bilaterally. Her chest is deformed related to her spine bifida. She is afebrile at this point in time. She is awake and alert and communicating. She has been infected in the past with pseudomonas back in 2019. No recurrent infections since. No aspiration according to the family patient is able to swallow. She has a urostomy and the mother urine output is not known. On her blood work, the white cell count of 12.4 with a hemoglobin 14.6 and a platelet count of 305. Normal correlation profile. Serum bicarbonate of 18 with a anion gap of 20 and a creatinine of 0.4 and normal LFTs. Sodium level is at 139. Her COVID 19 testing was negative and influenza screen was also negative. She is afebrile for now. Her current pulse ox on 95% on a mechanical ventilator. However, she is having some sinus tachycardia. 03/20/2022, the patient is alert and awake and communicating. She remains on her regimen mechanical ventilator. She received IV fluid with normal saline at the rate of 75 mL an hour and the patient's tachycardia is improved and she does have some mild degree of sinus tachycardia for now. Blood cultures came back positive for gram-positive cocci in clusters and the patient was given a dose of vancomycin and she remains on IV Zosyn and Zithromax.. The chest x-ray from today is still showing bilateral perihilar pulmonary infiltrates and there sputum culture is still pending for now. The patient has scant rest or secretions which are being suctioned out by respiratory. In terms of blood work, the white cell count of 10.4 with hemoglobin 13.6 and a platelet count of 268. BUN is at 5 creatinine 0.33 and a sodium level is at 135. The patient also has a pro-calcitonin level of 0.86 . she is tolerating her diet.. She has no specific complaints. No lethargy. Serum bicarb is currently at 19 with an anion gap of 11 and a BUN is at 5 with a creatinine of 0.33. Blood sugars under adequate control for now. 2021, the patient is awake and alert and interactive. The patient remains on her shows a mechanical ventilator. The sputum sample is showing Proteus mirabilis and Haemophilus influenza and the patient is covered currently with IV Zosyn. The patient was also receiving vancomycin. This was discontinued and the patient was noted to have an acute kidney injury in the creatinine is up to 1.89 from a baseline of 0.33. The exact amount of urine output is not documented the patient has a urostomy and the urine is leaking into a diaper. In any rate, the patient's white cell count of 15.0 with hemoglobin of 4.5 and a platelet count of 262. Blood work from today shows a sodium level of 138 with a potassium level of 5.1, serum bicarbonate of 17 with a BUN of 19 and a cr of 1.8 03/22/2022, the patient is clinically unchanged and stable still on her tube and the mechanical ventilator. Nevertheless, the active issue for now is developmen t of acute kidney injury. Creatinine was in the right and yesterday's was up to 1.8 and today the creatinine is s up to 2.3. The patient's presence of diaper and I'm assuming that she is producing urine output. CAT scan of the abdomen and pelvis was done and showed no evidence of any nephrolithiasis and there was no evidence of any hydronephrosis. There was some limited infiltrates and infiltrative changes bilaterally. The patient's has a combination of Haemophilus and Proteus in his sputum and the patient is currently on the same antibiotic coverage with IV Zosyn. No nephrotoxic agents. The patient had a bicarb deficit and the patient's serum bicarb was low and this was a pressure to day as the patient received a bicarb infusion and on today's evaluation serum back to 23. The sodium level is at 136. White cell count is 11.7 with a hemoglobin of 12.5. The patient is doing well. No new complaints clinically. No significant respiratory secretions. No active issue however there is development of an acute kidney injury and the patient is going to be seen by nephrology and nephrology consultation was placed. 03 23 2022, I'm seeing the patient for follow-up. Unfortunately, there has been further worsening of the renal function and a creatinine currently is up to 2.8. Nephrology on the case. The patient was given a bicarb infusion to replace the bicarb deficit and the patient is currently off the bicarb fusion and currently on normal saline today to 100 mL's an hour and this was done by nephrology. The serum bicarb is at 27 with a creatinine of 2.8. Sodium is at 141. Normotensive. Still on a shortage mechanical ventilator. Still on IV Zosyn. No nephrotoxic agents. No hypotension. No need for pressors. CAT scan of the abdomen and pelvis showed no evidence of any hydronephrosis an ultrasound of the abdomen and the kidneys was somewhat suboptimal due to her body habitus. No significant secretions. She is awake and alert and she is communicating effect ively. No other fever. The patient on Cardizem for some sinus tachycardia. The white cell count is at 14.3 with hemoglobin of 12. The random vancomycin dose was 34.7. As such, the patient had an acute vancomycin toxicity and this was given to her as the patient had a positive blood culture that do not to be coagulase negative staph. 03/24/2022, the patient is a patient of our hospital mechanical ventilated and was discontinued Trilogy ventilator. She did have some issues with respiratory distress yesterday and I took her off the portable ventilator. Currently she is on a pressure control at the rate of 22 with a pressure control of 25 cm of water and FiO2 of 50% with a PEEP of 5. The peak airway pressure is around 35. Chest x-ray from today is obviously suboptimal due to her body habitus. Overall, the chest x-ray findings are unchanged and the patient continues to have bilateral pulmonary infiltrates. No fever. No hemodynamic instability. She remains in sinus tachycardia and a heart rate has slowed down to 120. Monitor blood work, the white cell count is at 11.4 with a hemoglobin of 12.7 and a platelet count of 301. The BUN is at 28 with a creatinine of 2.9 at the p atient developed an acute kidney injury which is probably related to vancomycin. Sodium is at 143 with a potassium level of 5.2. The patient remains on IV Zosyn for now. The respiratory secretions are scant. And the patient is able to tolerate her diet for now. Note that the patient was having some increased difficulty with restless S and agitation and synchrony with the mechanical ventilator. Based on that, she was started on low dose Precedex and currently Precedex is also running at a dose of 0.1 mg/kg/h. Objective - Vital Signs Vital signs: Vital Signs Temp 96.4 F L 03/24/22 09:00 Pulse 146 H 03/24/22 09:00 Resp 18 03/24/22 09:00 BP 131/71 03/24/22 09:00 Pulse Ox 97 03/24/22 09:00 FiO2 50 03/24/22 09:00 Intake & Output 03/23/22 03/24/22 03/24/22 18:59 06:59 18:59 Intake Total 2080 1366.149 271.564 Output Total 1 Balance 2080 1365.149 271.564 Weight 78 kg Intake: IV 1400 1300 260 Piperacillin-Tazobactam 3 200 100 .375 gm In Sodium Chloride 0.9% 100 ml @ 200 mls/hr IVPB Q8HR [facility] Rx#:[id number] Sodium Chloride 0.9% 1, 1200 1200 260 000 ml @ 60 mls/hr IV . [id number] [facility] Rx#:[id number] Intake, IV Titration 66.149 11.564 Amount Dexmedetomidine/0.9% NaCl 66.149 11.564 (Pmx) 400 mcg In Empty Bag 1 bag @ 0.2 MCG/KG/HR 4.13 mls/hr IV .Q24H [facility] Rx#:[id number] Oral 680 Output: Urine 1 Other: # Voids 1 1 1 - Exam The patient is awake and alert A very tiny obese -Swazi female pat ient with significant abnormalities in her body habitus due to underlying spina bifida. The patient is a very short limbs in the lower extremity. She has a deformed spine, pelvis and short extremities. She is awake and alert and she is communicating at this point in time. She is quite comfortable on a mechanical ventilator. She is using his own Trilogy and she has a tracheostomy tube in place. Head exam was generally normal. There was no scleral icterus or corneal arcus. Mucous membranes were moist. Neck was supple and without jugular venous distension, thyromegaly, or carotid bruits. Carotids were easily palpable bilaterally. There was no adenopathy. The patient had a tracheostomy #6 Shiley tracheostomy tube in place Cardiovascular examination reveals regular rhythm rate. S1-S2 normal. No S3 or S4. No discernible murmur noted. She does have sinus tachycardia. Lungs reveal scattered bilateral rhonchi. No wheezes or crackles. Breath sounds equal. Abdomen is difficult to examine. No tenderness. Extremities are intact. No cyanosis clubbing or edema. Skin Examination of the skin revealed no evidence of significant rashes, suspicious appearing nevi or other concerning lesions. Neurologic examination is brief but nonfocal. 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 - Labs CBC & Chem 7: 03/24/22 05:20 03/24/22 05:20 Labs: Abnormal Lab Results - Last 24 Hours (Table) 03/23/22 03/23/22 03/24/22 Range/Units 20:57 22:00 05:20 WBC 11.4 H (3.8-10.6) k/uL RDW 16.7 H (11.5-15.5) % Neutrophils # 10.2 H (1.3-7.7) k/uL Lymphocytes # 0.9 L (1.0-4.8) k/uL Potassium (3.5-5.1) mmol/L Chloride (98-107) mmol/L Carbon Dioxide 18 L (22-30) mmol/L BUN 26 H (7-17) mg/dL Creatinine 2.93 H (0.52-1.04) mg/dL Glucose 272 H (74-99) mg/dL POC Glucose (mg/dL) 245 H (70-110) mg/dL Calcium 8.3 L (8.4-10.2) mg/dL Total Protein 6.1 L (6.3-8.2) g/dL Albumin 3.3 L (3.5-5.0) g/dL 03/24/22 03/24/22 Range/Units 05:20 06:07 WBC (3.8-10.6) k/uL RDW (11.5-15.5) % Neutrophils # (1.3-7.7) k/uL Lymphocytes # (1.0-4.8) k/uL Potassium 5.2 H (3.5-5.1) mmol/L Chloride 111 H (98-107) mmol/L Carbon Dioxide 16 L (22-30) mmol/L BUN 28 H (7-17) mg/dL Creatinine 2.91 H (0.52-1.04) mg/dL Glucose 233 H (74-99) mg/dL POC Glucose (mg/dL) 190 H (70-110) mg/dL Calcium (8.4-10.2) mg/dL Total Protein (6.3-8.2) g/dL Albumin (3.5-5.0) g/dL Microbiology - Last 24 Hours (Table) 03/20/22 07:35 Gram Stain - Final Eye - Left Eye Culture - Final 03/20/22 06:20 Blood Culture - Preliminary Blood No Growth after 72 hours Assessment and Plan Plan: Bilateral pneumonia with gram-negative bacteria including Haemophilus influenza/Proteus. The chest x-ray findings are suboptimal due to her body habitus as the patient has deformed chest wall related to spina bifida. The patient is hemodynamically stable. The patient is communicating. She is alert and interactive. She is on a regular mechanical ventilator, pressure control mode and the patient was taken off that showed G mechanical ventilator. Chest x-ray showing bilateral airspace disease and the patient is still on antibiotics. Sinus tachycardia, currently under investigation, rule out underlying systemic inflammatory response syndrome related to respiratory tract infection. The sinus tachycardia is improved and the heart rate has slowed down significantly and the patient is currently on oral Cardizem and the patient is currently on Cardizem 60 mg by mouth twice a day and Lopressor 50 mg by mouth twice a day. Anion gap metabolic acidosis, serum bicarb is currently down to 16 and is essentially and anion gap metabolic acidosis. acute kidney injury, creatinine is on the rise, rule out vancomycin toxicity. This is a nonoliguric renal failure and creatinine is stable today at 2.9 Coagulase-negative staph in the blood , given a dose of vancomycin Mild leukocytosis, improving Previous history of COVID 19 infection back in October 2021 Status post tracheostomy, 2008, with chronic respiratory failure, currently maintained on a Trilogy ventilator. The patient's uncuffed tracheostomy tube was removed, and a cuffed #6 Shiley tube was placed. History of spina bifida. 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 Paraplegia. History of UTIs. History of GERD. HEEL FORMER shunt. History of constipation Plan Wean off Precedex and discontinue Continue IV fluids switch this patient to a bicarb infusion at the rate of 75 mL an hour and give the patient to amps of sodium bicarb 50 mEq each Replaced the bicarb deficits Keep hospital mechanical ventilator at the same rate Continue the Cardizem and the metoprolol CAT scan of the abdomen and pelvis was noted Ultrasound the kidneys were noted Continue Zosyn Continue Cardizem for rate control and continue metoprolol Heparin subcu for DVT prophylaxis 5000 units every 8 hours Aspiration precautions Continue IV Zosyn Check a pro-calcitonin level was checked and Level at 0.86 and the subsequent level came back at 1.39 probably related to her underlying acute kidney injury We'll keep the patient following her progress in the ICU Time with Patient: Greater than 30
[2022-03-24] MEDS ORDERED: SODIUM BICARB 8.4% 50 ML SYR (1 MEQ/ML) IV STA (09:45)
[2022-03-24] MEDS ORDERED: DEXTROSE 5% IN WATER 1,000 ML with SODIUM BICARB (1 MEQ/ML) 150 ML IV SCH (09:45)
--- NOTE | 2022-03-24 09:49 | P.PN ---
Subjective Patient is seen for follow-up for acute kidney injury. Patient is a 36-year-old female with history of spina bifida maintained on home ventilator at home with permanent tracheostomy. Patient was admitted to the hospital with complaints of shortness of breath and cough and increased sputum production. Patient has a urostomy and we have not been able to obtain a urine specimen. Patient has had good urine output Patient's initial creatinine was 0.4 mg/dL and has been staying at 2.9 for last 2 days. Patient had been hypotensive with blood pressure as low as 70-80 mmHg. Currently maintained on IV fluids No evidence of obstruction noted on CT of the abdomen. Patient did receive vancomycin which is now discontinued Sputum culture is growing Proteus and Haemophilus influenza and blood cultures are growing gram-negative staph. Cardizem was decreased yesterday due to hypotension and Lopressor was increased to control heart rate. Patient seems to be tolerating that fairly well Patient is currently awake comfortable she's not in any acute distress. Vancomycin random level was 34.7 Objective - Vital Signs Vital signs: Vital Signs Temp 96.4 F L 03/24/22 09:00 Pulse 146 H 03/24/22 09:00 Resp 18 03/24/22 09:00 BP 131/71 03/24/22 09:00 Pulse Ox 97 03/24/22 09:00 FiO2 50 03/24/22 09:00 Intake & Output 03/23/22 03/24/22 03/24/22 18:59 06:59 18:59 Intake Total 2080 1366.149 271.564 Output Total 1 Balance 2080 1365.149 271.564 Weight 78 kg Intake: IV 1400 1300 260 Piperacillin-Tazobactam 3 200 100 .375 gm In Sodium Chloride 0.9% 100 ml @ 200 mls/hr IVPB Q8HR MARILYN Rx#:[id number] Sodium Chloride 0.9% 1, 1200 1200 260 000 ml @ 60 mls/hr IV . [id number] MARILYN Rx#:[id number] Intake, IV Titration 66.149 11.564 Amount Dexmedetomidine/0.9% NaCl 66.149 11.564 (Pmx) 400 mcg In Empty Bag 1 bag @ 0.2 MCG/KG/HR 4.13 mls/hr IV .Q24H MARILYN Rx#:[id number] Oral 680 Output: Urine 1 Other: # Voids 1 1 1 - Exam Awake, comfortable, not in any acute distress Examination of the heart S1 and S2 Examination lungs bilateral breath sounds are heard Abdomen is soft with urostomy Examination lower extremities shows trace edema patient has short upper and lower extremities with underlying spina bifida - Labs CBC & Chem 7: 03/24/22 05:20 03/24/22 05:20 Labs: Abnormal Lab Results - Last 24 Hours (Table) 03/23/22 03/23/22 03/24/22 Range/Units 20:57 22:00 05:20 WBC 11.4 H (3.8-10.6) k/uL RDW 16.7 H (11.5-15.5) % Neutrophils # 10.2 H (1.3-7.7) k/uL Lymphocytes # 0.9 L (1.0-4.8) k/uL Potassium (3.5-5.1) mmol/L Chloride (98-107) mmol/L Carbon Dioxide 18 L (22-30) mmol/L BUN 26 H (7-17) mg/dL Creatinine 2.93 H (0.52-1.04) mg/dL Glucose 272 H (74-99) mg/dL POC Glucose (mg/dL) 245 H (70-110) mg/dL Calcium 8.3 L (8.4-10.2) mg/dL Total Protein 6.1 L (6.3-8.2) g/dL Albumin 3.3 L (3.5-5.0) g/dL 03/24/22 03/24/22 Range/Units 05:20 06:07 WBC (3.8-10.6) k/uL RDW (11.5-15.5) % Neutrophils # (1.3-7.7) k/uL Lymphocytes # (1.0-4.8) k/uL Potassium 5.2 H (3.5-5.1) mmol/L Chloride 111 H (98-107) mmol/L Carbon Dioxide 16 L (22-30) mmol/L BUN 28 H (7-17) mg/dL Creatinine 2.91 H (0.52-1.04) mg/dL Glucose 233 H (74-99) mg/dL POC Glucose (mg/dL) 190 H (70-110) mg/dL Calcium (8.4-10.2) mg/dL Total Protein (6.3-8.2) g/dL Albumin (3.5-5.0) g/dL Microbiology - Last 24 Hours (Table) 03/20/22 07:35 Gram Stain - Final Eye - Left Eye Culture - Final 03/20/22 06:20 Blood Culture - Preliminary Blood No Growth after 72 hours Assessment and Plan Assessment: 1. Acute kidney injury nonoliguric secondary to ischemic ATN and sepsis as well as vancomycin toxicity. Maintained on IV fluids. Will try to obtain a UA. No evidence of obstruction noted on CAT scan. No nephrotoxic agents on board. Off of Vancomycin. 2. Pneumonia with sputum culture growing Proteus and Haemophilus influenza, currently maintained on antibiotics 3. Status post tracheostomy 2008 with chronic respiratory failure maintained on a home ventilator 4. History of spina bifida with history of urostomy 5. Paraplegia 6. History of colon 19 infection in October 2021 7. Anion gap metabolic acidosis associated with acute kidney injury. Lactic acid is not elevated. Plan: Continue IV fluids, decrease rate Increase metoprolol Try to obtain urine sample for UA Avoid nephrotoxic agents Repeat labs in a.m.
[2022-03-24 11:45] LABS: Glucose,Whole Blood 267 mg/dL (70-110)
[2022-03-24] MEDS ORDERED: ATROPINE SULFATE 0.1 MG/ML 10ML SYRINGE ONE (14:40)
[2022-03-24] MEDS ORDERED: EPINEPHrine 10 ML SYRINGE (0.1 MG/ML) ONE (14:40)
[2022-03-24] MEDS ORDERED: DEXMEDETOMIDINE/0.9% NACL(PMX) 400 MCG in EMPTY BAG 1 BAG IV SCH (15:00)
--- NOTE | 2022-03-24 15:16 | P.EN ---
CODE BLUE Indication: Hypoxia Arrived on Scene to find: Patient being bagged with ROSC Initial Rhythm: Sinus Bradycardia Code Course: Patient was having difficulty with low O2 stats, unable to increase oxygen sats, she then became angélica and was given atropine X 1 and was taken off the vent bagged, She lost pulses in that process, and then recieved 1 of epi with ROSC. Total Down Time: <5 mins Vital signs reviewed General: nontoxic, no distress, appears at stated age Cardiovascular: S1S2 reg, no murmur, positive posterior tibial pulse bilateral, Lungs: CTA bilateral, no rhonchi, no rales , no accessory muscle use Abdominal: soft, nontender to palpation, no guarding, no appreciable organomegaly Ext: no gross muscle atrophy, no edema, no contractures Neuro: CN II-XI grossly intact, no focal neuro deficits Psych: Alert, oriented, appropriate affect Assessment: Hypoxemia Cardaic arrest Plan: check CBC, BMP CXR checked and without pneumonthorax or complete opacification End tidal CO2 monitor ABG if able Notified: Dr. Park was on the phone with nursing when I arrived A Total of 20 Minutes of critical care time was spent on the complex care of this patient.
--- NOTE | 2022-03-24 15:23 | XR ---
EXAMINATION TYPE: XR chest 1V portable DATE OF EXAM: 03/24/2022 3:02 PM COMPARISON: Chest radiographs from earlier today. TECHNIQUE: XR chest 1V portable Frontal view of the chest. CLINICAL INDICATION:Female, 36 years old with history of assess post code; FINDINGS: Markedly limited examination. Improved aeration from prior examination. Tracheostomy cannula noted. H eart is obscured by adjacent airspace opacities. Bilateral patchy airspace opacities redemonstrated. No pneumothorax. No sizable pleural effusion. Suggested [employer] shunt again demonstrated. Chronic appearin g skeletal changes are stable. IMPRESSION: Improved aeration from prior examination with redemonstration of multifocal bilateral patchy airspace disease concerning for pneumonia.
[2022-03-24 15:51] LABS: Anisocytosis Slight; HCT 44.2 % (34.0-46.0); HGB 13.5 gm/dL (11.4-16.0); Hypochromasia Marked; MCH 26.9 pg (25.0-35.0); MCHC 30.4 g/dL (31.0-37.0); MCV 88.4 fL (80.0-100.0); Platelet Count 376 k/uL (150-450); RDW 16.8 % (11.5-15.5); WBC 15.9 k/uL (3.8-10.6)
[2022-03-24 16:05] LABS: Calcium 8.2 mg/dL (8.4-10.2)
[2022-03-24 16:10] LABS: Glucose,Whole Blood 169 mg/dL (70-110)
--- NOTE | 2022-03-24 17:01 | P.PN ---
Subjective Progress Note Date: 03/24/22 (Patient coded) Dictation for progress note Date of service 03/24/2022. Dictation by Dr. sebastien M.D. [facility]. Patient seen [id number] and discussed with her mother. As well as her father. Today I came to make around and I found that patient in code was run by [facility] Ana Webb Her note indicating that patient had sinus bradycardia was hypoxemia on the vent, removed the tube ambo bag and given atropine one amp and bagged off the ventilator. With the assessment hypoxemia and a cardiac arrest Patient recovered and the communicated with Dr. Au the motor coach driver and pulmonary critical care as well as they started her on Precedex to calm the patient with the drip 0.3 mcg/kg. 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 Patient with underlying pneumonia she had a chest x-ray on the "with the picture of worsening and infiltrate with a questionable ARDS. New The vent pressure control 25 and 70% FiO2 with a PEEP of 5. I spoke to the mother and her ex- who is a father and they request patient to be transferred to under care of Dr. Cervantes. I did communicate with the [facility] #[phone] with significant difficulties until I reach the transfer center which I requested transfer the patient to and I did left a message for Dr. Cervantes in his office [phone] and I left my cell phone number as well as well [facility] number After long process I was able to reach the physician that who will be responsible for accepting the patient or not Dr. Jarod spangler and after significant discussion and question answered to him and giving him the information of the patient condition which is critical as patient 8 days in the hospital, today escorted and still with the respiratory distress on the vent of the hospital we discussed her vital sign, and a congenital abnormalities that patient dealing with with a history of [employer] shunt, short stature and paraplegia abnormal upper extremities, spina bifida severe kyphoscoliosis with abnormal chest on respirator dependent. With the abnormal mentality as brain age of 4 or 8 as her mother state Dr. spangler in [facility] P stated that he will check out and call us back if he will accept the patient or not, I discussed the answers from [facility] with the mother in detail. I did give transfer center the main hospital number [facility] as well as ICU number [phone] as well as the personal cell phone number. To contact me for the purposes of transfer the patient to . This patient seen subsequently in the ICU patient is awake alert smiling and able to Blease on her own The CBC done on the code found that her white count 15.9 and platelet count 276 with a hemoglobin 13.5 and the hematocrit 44.2. Chemistry sodium 141 potassium is 5 and chloride 105 Batsheva dioxide 19 she is on bicarb her BUNs 27 and creatinine 2.92 Chest x-ray patchy airspace disease with the tracheostomy in place. Currently on exam head was normocephalic atraumatic pupil is equal reactive Short neck no JVD Chest severe kyphoscoliosis with deformity and inspiratory expiratory wheezes and rhonchi's worse than the x-ray Heart tachycardic however on the code she was bradycardic and the give her atropine 1 amp. Abdomen she had a urostomy Extremities short edematous with the possibility of lymphedema more than edema and paraplegia with the spina bifida Assessment #1 hypoxemia and respiratory distress coded with bradycardia #2 bilateral pneumonia questionable ARDS #3 acute kidney injury, nonoliguric renal failure #4 on the respirator with congenital abnormalities. #5 bronchospasm on steroid with a history of asthma #6 hyperglycemia induced by steroids. #7 tachycardia. Plan #1 I did extensive discussion with [facility] transfer Department with the discussion with Jarod Brenardo for transfer the patient with the no [facility], [facility] physician he will check up and call us back if he able to accept to the patient or not, meanwhile I did related that to her mother. Meanwhile We'll continue the current treatment designed by pulmonary and critical care, nephrology, infectious disease. Time spent in ICU with the patient and [facility] nursing staff total of 90 minutes. We will wait for answer from Objective - Vital Signs Vital signs: Vital Signs Temp 97.0 F L 03/24/22 12:00 Pulse 131 H 03/24/22 15:25 Resp 26 H 03/24/22 15:25 BP 146/115 03/24/22 13:00 Pulse Ox 98 03/24/22 14:00 FiO2 70 03/24/22 15:30 Intake & Output 03/23/22 03/24/22 03/24/22 18:59 06:59 18:59 Intake Total 0 1366.149 732.214 Output Total 1 Balance 0 1365.149 732.214 Weight 78 kg Intake: IV 1400 1300 720 Dextrose 5% in Water 1, 300 000 ml @ 75 mls/hr IV . [id number] MARILYN with Sodium Bicarb (1 Meq/ml) 150 ml Rx#:[id number] Piperacillin-Tazobactam 3 200 100 100 .375 gm In Sodium Chloride 0.9% 100 ml @ 200 mls/hr IVPB Q8HR MARILYN Rx#:[id number] Sodium Chloride 0.9% 1, 1200 1200 320 000 ml @ 60 mls/hr IV . [id number] MARILYN Rx#:[id number] Intake, IV Titration 66.149 12.214 Amount Dexmedetomidine/0.9% NaCl 0.65 (Pmx) 400 mcg In Empty Bag 1 bag @ 0.2 MCG/KG/HR 3.9 mls/hr IV .Q24H MARILYN Rx#:[id number] Dexmedetomidine/0.9% NaCl 66.149 11.564 (Pmx) 400 mcg In Empty Bag 1 bag @ 0.2 MCG/KG/HR 4.13 mls/hr IV .Q24H MARILYN Rx#:[id number] Oral 680 Output: Urine 1 Other: # Voids 1 1 1 - Labs CBC & Chem 7: 03/24/22 15:34 03/24/22 15:34 Labs: Abnormal Lab Results - Last 24 Hours (Table) 03/23/22 03/23/22 03/24/22 Range/Units 20:57 22:00 05:20 WBC 11.4 H (3.8-10.6) k/uL MCHC (31.0-37.0) g/dL RDW 16.7 H (11.5-15.5) % Neutrophils # 10.2 H (1.3-7.7) k/uL Lymphocytes # 0.9 L (1.0-4.8) k/uL Potassium (3.5-5.1) mmol/L Chloride (98-107) mmol/L Carbon Dioxide 18 L (22-30) mmol/L BUN 26 H (7-17) mg/dL Creatinine 2.93 H (0.52-1.04) mg/dL Glucose 272 H (74-99) mg/dL POC Glucose (mg/dL) 245 H (70-110) mg/dL Calcium 8.3 L (8.4-10.2) mg/dL Total Protein 6.1 L (6.3-8.2) g/dL Albumin 3.3 L (3.5-5.0) g/dL 03/24/22 03/24/22 03/24/22 Range/Units 05:20 06:07 11:44 WBC (3.8-10.6) k/uL MCHC (31.0-37.0) g/dL RDW (11.5-15.5) % Neutrophils # (1.3-7.7) k/uL Lymphocytes # (1.0-4.8) k/uL Potassium 5.2 H (3.5-5.1) mmol/L Chloride 111 H (98-107) mmol/L Carbon Dioxide 16 L (22-30) mmol/L BUN 28 H (7-17) mg/dL Creatinine 2.91 H (0.52-1.04) mg/dL Glucose 233 H (74-99) mg/dL POC Glucose (mg/dL) 190 H 267 H (70-110) mg/dL Calcium (8.4-10.2) mg/dL Total Protein (6.3-8.2) g/dL Albumin (3.5-5.0) g/dL 03/24/22 03/24/22 03/24/22 Range/Units 15:34 15:34 16:08 WBC 15.9 H (3.8-10.6) k/uL MCHC 30.4 L (31.0-37.0) g/dL RDW 16.8 H (11.5-15.5) % Neutrophils # (1.3-7.7) k/uL Lymphocytes # (1.0-4.8) k/uL Potassium (3.5-5.1) mmol/L Chloride (98-107) mmol/L Carbon Dioxide 19 L (22-30) mmol/L BUN 27 H (7-17) mg/dL Creatinine 2.92 H (0.52-1.04) mg/dL Glucose 181 H (74-99) mg/dL POC Glucose (mg/dL) 169 H (70-110) mg/dL Calcium 8.2 L (8.4-10.2) mg/dL Total Protein (6.3-8.2) g/dL Albumin (3.5-5.0) g/dL Microbiology - Last 24 Hours (Table) 03/20/22 06:20 Blood Culture - Preliminary Blood No Growth after 96 hours
[2022-03-24 18:03] VITALS: TEMP 97.2
[2022-03-24 19:14] VITALS: BP 94/62; PULSE 134; RESP 20
[2022-03-24] MEDS ORDERED: PIPERACILLIN-TAZOBACTAM 3.375 GM in SODIUM CHLORIDE 0.9% 100 ML IVPB SCH (20:00)
--- NOTE | 2022-03-28 11:40 | P.DS ---
Providers Date of admission: 03/19/22 15:36 Expected date of discharge: 03/24/22 Attending physician: Isaac Goodson Consults: 03/19/22 15:32 Consult Physician Urgent Consulting Provider: Alin Park Consult Reason/Comments: Vent dependent Do you want consulting provider notified?: Already Contacted 03/22/22 08:44 Consult Physician Routine Consulting Provider: Gerry Brooks Consult Reason/Comments: Elevated BUN/creat Do you want consulting provider notified?: Yes 03/22/22 12:35 Consult Physician Stat Consulting Provider: Kalina Chaves Consult Reason/Comments: Gram-positive cocci bacteremia in the blood, gram-negative bacilli in the s Do you want consulting provider notified?: Yes Primary care physician: Isaac Goodson Discharge summary: Dictation by Dr. Hamzah Fisher M.D. FACP Disposition: Transferred to [facility] Excepted by Dr. aníbal Dale. #1 respiratory distress on ventilator, tracheostomy. #2 bilateral pneumonia on the basis #3 history of asthma, with acute asthmatic bronchitis not resolving #4 sputum indicate Proteus mirabilis and Haemophilus influenza #5 blood culture indicate coagulase negative staph. Infectious disease indicating it is contact examination. #6 acute renal failure, nonoliguric renal failure, acute kidney injury secondary to ATN with episode of hypo-tension #7 leukocytosis. 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 #9 tracheostomy and 9 mechanical ventilation dependent has [facility]. With home ventilator. #10 chronic respiratory neuromuscular failure. [facility] #11 seen in the past by Dr. Vinicio Cervantes in the adult assisted ventilation clinic date 03/05/2022. #12 history of [id number] treated with anti-viral was 5 days and a hospitalization. #13 corded on date of 03/24/2022 with the acute hypoxemia with low oxygen stat and bradycardia given atropine one amp. Code done by Dr. Flores Lee And then nicholas and pulmonary and critical care Dr. Au And nephrology Dr. Whittington Infectious disease Dr. Chaves. Patient stable at the time of discharge to [facility] ER presentation with pneumonia and acute distress respiratory and she was on [facility] home address. Her with mechanical ventilation Patient admitted to the ICU 256 bed 1 with the monitor with the intensive care pulmonary and critical care Patient developed acute renal failure consultation with nephrology Dr. Whittington With the fever and pyrexia blood culture obtain sputum culture and x-rays and found that she had the sputum of Haemophilus influenza and Proteus mirabilis, blood culture was coagulase negative staph, infectious disease Dr. Chaves did see the patient. Patient coded and her respiratory symptoms continued and worsened . Family the mother and the father requested the patient to be transferred to [facility] as the patient has been treated there is a several occasions as the patient was severely L and the I did call the [facility] and a did call Dr. Cervantes and left a message no answers and then subsequently I did speak to Dr. aníbal Dale through the #[phone] and from there to transfer office and I did dictate extensive progress note on 03/24/22 available on the computer. Subsequently patient accepted at [facility] for the transfer and patient transferred Patient blood pressure at the time was 131/101 after febrile she has globin negative and flu negative and her FiO2 was 70% on vent and mechanical ventilation with O2 90% she had tachycardia at the time with heart rate 138 and she was medication for it. Patient stable for discharge and transfer to [facility] Patient Condition at Discharge: Fair Plan - Discharge Summary Discharge Rx Participant: No New Discharge Prescriptions: Continue Albuterol Nebulized [Ventolin Nebulized] 2.5 mg INHALATION RT-BID Budesonide [Pulmicort] 1 mg INHALATION RT-BID dilTIAZem HCL [Cardizem] 90 mg PO TID Metoprolol Tartrate [Lopressor] 25 mg PO BID No Action Albuterol Nebulized [Ventolin Nebulized] 2.5 mg INHALATION RT-BID PRN PRN Reason: Shortness Of Breath Discharge Medication List Albuterol Nebulized [Ventolin Nebulized] 2.5 mg INHALATION RT-BID 10/07/17 [History] Budesonide [Pulmicort] 1 mg INHALATION RT-BID 05/07/21 [History] Albuterol Nebulized [Ventolin Nebulized] 2.5 mg INHALATION RT-BID PRN 03/19/22 [History] Metoprolol Tartrate [Lopressor] 25 mg PO BID 03/19/22 [History] dilTIAZem HCL [Cardizem] 90 mg PO TID 03/19/22 [History] Follow up Appointment(s)/Referral(s): Isaac Goodson MD [Primary Care Provider] - 1-2 days Discharge Disposition: TRANSFER TO [facility]
--- NOTE | 2022-03-31 22:28 | P.PN ---
Subjective Progress Note Date: 03/24/22 Principal diagnosis: Pneumonia and Bacteremia Patient is a 36-year-old -[place] female with a past medical history significant for spina bifida presenting to the hospital for increasing shortness of breath cough and congestion has been diagnosed with a pneumonia and the p atient did have a fever patient sputum has been positive for Proteus and haemophilus blood culture positive for coagulase-negative staph. On today's evaluation there is 03/24/2022 the patient is afebrile, the patient is breathing slightly comfortably, denies having any chest pain or worsening coverlets production abdominal pain or diarrhea. Objective - Vital Signs Vital signs: Vital Signs Temp 97.2 F L 03/24/22 16:00 Pulse 134 H 03/24/22 19:00 Resp 20 03/24/22 19:00 BP 94/62 03/24/22 19:00 Pulse Ox 92 L 03/24/22 19:00 FiO2 70 03/24/22 16:00 Intake & Output 03/24/22 03/24/22 03/25/22 06:59 18:59 06:59 Intake Total 2833.896 5922.524 75 Output Total 1 Balance 4598.497 2604.524 75 Weight 78 kg Intake: IV 1300 1020 75 Dextrose 5% in Water 1, 600 75 000 ml @ 75 mls/hr IV . [id number] MARILYN with Sodium Bicarb (1 Meq/ml) 150 ml Rx#:[id number] Piperacillin-Tazobactam 3 100 100 .375 gm In Sodium Chloride 0.9% 100 ml @ 200 mls/hr IVPB Q8HR MARILYN Rx#:[id number] Sodium Chloride 0.9% 1, 1200 320 000 ml @ 60 mls/hr IV . [id number] MARILYN Rx#:[id number] Intake, IV Titration 66.149 23.524 Amount Dexmedetomidine/0.9% NaCl 11.96 (Pmx) 400 mcg In Empty Bag 1 bag @ 0.2 MCG/KG/HR 3.9 mls/hr IV .Q24H MARILYN Rx#:[id number] Dexmedetomidine/0.9% NaCl 66.149 11.564 (Pmx) 400 mcg In Empty Bag 1 bag @ 0.2 MCG/KG/HR 4.13 mls/hr IV .Q24H MARILYN Rx#:[id number] Output: Urine 1 Other: # Voids 1 1 - Exam GENERAL DESCRIPTION: Middle-aged female lying in bed, no distress. No tachypnea or accessory muscle of respiration use. LUNGS: Unlabored breathing. Coarse breath sounds bilaterally HEART: S1, S2, regular rate and rhythm. No loud murmur ABDOMEN: Soft, no tenderness , guarding or rigidity, no organomegaly EXTREMITIES: No edema of feet. - Labs CBC & Chem 7: 03/24/22 15:34 03/24/22 15:34 Labs: Abnormal Lab Results - Last 24 Hours (Table) 03/23/22 03/23/22 03/24/22 Range/Units 20:57 22:00 05:20 WBC 11.4 H (3.8-10.6) k/uL MCHC (31.0-37.0) g/dL RDW 16.7 H (11.5-15.5) % Neutrophils # 10.2 H (1.3-7.7) k/uL Lymphocytes # 0.9 L (1.0-4.8) k/uL Potassium (3.5-5.1) mmol/L Chloride (98-107) mmol/L Carbon Dioxide 18 L (22-30) mmol/L BUN 26 H (7-17) mg/dL Creatinine 2.93 H (0.52-1.04) mg/dL Glucose 272 H (74-99) mg/dL POC Glucose (mg/dL) 245 H (70-110) mg/dL Calcium 8.3 L (8.4-10.2) mg/dL Total Protein 6.1 L (6.3-8.2) g/dL Albumin 3.3 L (3.5-5.0) g/dL 03/24/22 03/24/22 03/24/22 Range/Units 05:20 06:07 11:44 WBC (3.8-10.6) k/uL MCHC (31.0-37.0) g/dL RDW (11.5-15.5) % Neutrophils # (1.3-7.7) k/uL Lymphocytes # (1.0-4.8) k/uL Potassium 5.2 H (3.5-5.1) mmol/L Chloride 111 H (98-107) mmol/L Carbon Dioxide 16 L (22-30) mmol/L BUN 28 H (7-17) mg/dL Creatinine 2.91 H (0.52-1.04) mg/dL Glucose 233 H (74-99) mg/dL POC Glucose (mg/dL) 190 H 267 H (70-110) mg/dL Calcium (8.4-10.2) mg/dL Total Protein (6.3-8.2) g/dL Albumin (3.5-5.0) g/dL 03/24/22 03/24/22 03/24/22 Range/Units 15:34 15:34 16:08 WBC 15.9 H (3.8-10.6) k/uL MCHC 30.4 L (31.0-37.0) g/dL RDW 16.8 H (11.5-15.5) % Neutrophils # (1.3-7.7) k/uL Lymphocytes # (1.0-4.8) k/uL Potassium (3.5-5.1) mmol/L Chloride (98-107) mmol/L Carbon Dioxide 19 L (22-30) mmol/L BUN 27 H (7-17) mg/dL Creatinine 2.92 H (0.52-1.04) mg/dL Glucose 181 H (74-99) mg/dL POC Glucose (mg/dL) 169 H (70-110) mg/dL Calcium 8.2 L (8.4-10.2) mg/dL Total Protein (6.3-8.2) g/dL Albumin (3.5-5.0) g/dL Microbiology - Last 24 Hours (Table) 03/20/22 06:20 Blood Culture - Preliminary Blood No Growth after 96 hours Assessment and Plan (1) Leukocytosis Status: Acute Code(s): D72.829 - ELEVATED WHITE BLOOD CELL COUNT, UNSPECIFIED SNOMED Code(s): 741691585 (2) Pneumonia Status: Acute Code(s): J18.9 - PNEUMONIA, UNSPECIFIED ORGANISM SNOMED Code(s): 460653672 Plan: 1patient presented to hospital with sepsis and respiratory have a fever elevated white count source is likely pneumonia with a sputum showing haemophilus and Proteus which is sensitive pathogen and the patient seem to have some clinical improvement as she did have resolution of the fever. 2positive blood culture with staph epi likely skin contaminant blood cultures has been repeated and pending. 3renal insufficiency and high risk of nephrotoxicity from vancomycin which was discontinued. 4worsening white count more likely due to steroids patient is on. 5patient to continue with Zosyn and monitor clinical course closely Time with Patient: Less than 30
--- NOTE | 2022-04-03 21:08 | CDI ---
Documentation Clarification Form Date: 04/03/22 From: RENATO Limon Admit Date: 03/19/2022 03:36:00 PM Patient Name: Flores Cárdenas Visit Number: [id number] Discharge Date: 03/24/2022 07:28:00 PM ATTENTION: The Clinical Documentation Specialists (CDI) and [facility] Coding Staff appreciate your assistance in clarifying documentation. Please respond to the clarification below the line at the bottom and electronically sign. The CDI & [facility] Coding staff will review the response and follow-up if needed. Please note: Queries are made part of the Legal Health Record. If you have any questions, please contact the author of this message via ITS. Dr. Isaac Goodson The patient presented with the following clinical indicators. Additional clarification regarding the etiology/cause of the clinical indicators is requested. History/Risk Factors: 36 year old female with a history of spina bifida who is ventilator dependent, brought in by EMS because of increased coughing with some yellow phlegm, increased congestion and difficulty breathing. Progress Notes 03/21-03/24 documents that the patient presented to the hospital with sepsis and a fever elevated white count source is likely pneumonia. Patient also has documentation of ischemic ATN and vancomycin toxicity. Consult 03/23 states: Patient presented to the hospital with sepsis. DC Summary states: Bilateral pneumonia and blood culture indicates coagulase negative staph. Infectious disease indicating it is contact skin contamination Patient coded and her respiratory symptoms continued to worsen. She is transferred to [facility]. Clinical Indicators: WBC: 12.4 Lactic acid: 1.5 Blood cultures: Gram-negative staph Vitals signs @ER: T 98.3, Pulse 135, RR 20, BP 118/99 Treatment: Antibiotics: IV Zosyn and zithromax IV Bolus: 75 mL/hr and then 100mL/hour In your professional opinion, please clarify if these findings signify one of the following conditions: [ ] Sepsis POA [ ] Sepsis, Not POA [ ] Sepsis ruled out [ x ] Severe Sepsis with organ failure [ ] Septic Shock [ ] SIRS, without underlying infectious process [ ] Other, please specify [ ] Unable to determine SIRS Criteria: 2 or more of the following may indicate SIRS -Temperature < 96.8F (36C) or > 101.0F (38.3C) -Heart Rate > 90 bpm -Respiratory Rate > 20 breaths/min or PaCO2 < 32 mmHg -White Blood Cell Count > 12,000 or < 4,000 cells/mm3 or > 10% bands Sepsis highly considered with the underlying sputum infected and acute kidney injury and basilar pneumonia MTDD
== END 2022-03-24 19:28 | disposition short-term general hospital (02) | DRG 870 ==
LOC: EC 08:43 → 2SICU 15:36
PROVIDERS: ADMIT Internal Medicine; ATTEND Internal Medicine
PROC: 5A1955Z Respiratory Ventilation, Greater than 96 Consecutive Hours (ICD-10-PCS; principal; 2022-03-19)
DX: A41.50 Gram-negative sepsis, unspecified (principal); J14 Pneumonia due to Hemophilus influenzae; I46.8 Cardiac arrest due to other underlying condition; N17.0 Acute kidney failure with tubular necrosis; J15.6 Pneumonia due to other Gram-negative bacteria; J96.11 Chronic respiratory failure with hypoxia; E87.2 Acidosis; G82.20 Paraplegia, unspecified; Z99.11 Dependence on respirator [ventilator] status; J45.901 Unspecified asthma with (acute) exacerbation; B96.4 Proteus (mirabilis) (morganii) as the cause of diseases classified elsewhere; F79 Unspecified intellectual disabilities; R15.9 Full incontinence of feces; T36.8X5A Adverse effect of other systemic antibiotics, initial encounter; I89.0 Lymphedema, not elsewhere classified; R65.20 Severe sepsis without septic shock; E87.5 Hyperkalemia; I10 Essential (primary) hypertension; Q07.01 Arnold-Chiari syndrome with spina bifida; M41.9 Scoliosis, unspecified; M95.4 Acquired deformity of chest and rib; Z98.2 Presence of cerebrospinal fluid drainage device; Z93.0 Tracheostomy status; Z86.16 Personal history of COVID-19; Z79.899 Other long term (current) drug therapy; Z93.6 Other artificial openings of urinary tract status; Z20.822 Contact with and (suspected) exposure to COVID-19
CPT/HCPCS: 36415; 71045; 74176; 80048; 80053; 80202; 82533; 83605; 83735; 83880; 84145; 84443; 84484; 85025; 85027; 85610; 85730; 87040; 87070; 87077; 87186; 87205; 87502; 87635; 92950; 93005; 94002; 94003; 94640; 96361; 96365; 99285

== ENCOUNTER 2022-12-06 11:37 | Emergency (ER) | payer OTHER ==
[2022-12-06 11:49] VITALS: BP 117/77; TEMP 98.4
--- NOTE | 2022-12-06 13:07 | XR ---
EXAMINATION TYPE: XR chest 1V portable DATE OF EXAM: 12/06/2022 COMPARISON: Prior chest x-ray August 31, 2022. HISTORY: Dyspnea TECHNIQUE: Single AP portable frontal upright view of the chest is obtained. FINDINGS: Suboptimal due to portable technique and patient's marked underlying rotary scoliosis . Per sistent low lung volumes. No obvious new focal airspace opacity. The cardiac silhouette size is stab le and within normal limits. Overlying tracheostomy tube is redemonstrated IMPRESSION: Suboptimal study. Low lung volumes without definitive new focal consolidation. No signif icant change from most recent prior.
--- NOTE | 2022-12-06 13:16 | ED ---
General Adult HPI - General Chief complaint: Upper Respiratory Infection Stated complaint: Respiratory issue Time Seen by Provider: 12/06/22 11:53 Source: patient, family, EMS Mode of arrival: EMS Limitations: physical limitation - History of Present Illness Initial comments: Patient is a 36-year-old female who presents to the emergency department for di scolored sputum. Patient has permanent tracheostomy on home ventilator secondary to spina bifida. Patient has no concerns she denies fever, chills, coughing, chest pain, shortness of breath, nausea, vomiting. Patient was admitted at the end of February last year for pneumonia she did call and ultim ately she was transferred [facility] where her chronic illness is managed. Mother did come to the emergency department during visit states sputum has been yellow today. - Related Data Home Medications Medication Instructions Recorded Confirmed Albuterol Nebulized [Ventolin 2.5 mg INHALATION RT-BID 10/07/17 03/19/22 Nebulized] Budesonide [Pulmicort] 1 mg INHALATION RT-BID 05/07/21 03/19/22 Albuterol Nebulized [Ventolin 2.5 mg INHALATION RT-BID PRN 03/19/22 03/19/22 Nebulized] Metoprolol Tartrate [Lopressor] 25 mg PO BID 03/19/22 03/19/22 dilTIAZem HCL [Cardizem] 90 mg PO TID 03/19/22 03/19/22 Previous Rx's Medication Instructions Recorded Amoxic-Pot Clav 875-125Mg 1 tab PO BID #14 tab 12/06/22 [Augmentin 875-125] Azithromycin [Zithromax] 250 mg PO DAILY #7 tab 12/06/22 Allergies Allergy/AdvReac Type Severity Reaction Status Date / Time No Known Allergies Allergy Verified 08/24/22 13:22 Review of Systems ROS Statement: Those systems with pertinent positive or pertinent negative responses have been documented in the HPI. ROS Other: All systems not noted in ROS Statement are negative. Past Medical History Past Medical History: Asthma, GERD/Reflux, Musculoskeletal Disorder Additional Past Medical History / Comment(s): Spina bifida with spina bifida deformities, paralyzed waist down, mentality approximately 6yr old, severe kyphoscoliosis with pectus deformity, chronic lung disease with chronic respiratory hypoxia/hypercpnia, trach/chronic vent, pneumonias, bronchospasms, cervical compression with surgery, nephrolithiasis, urostomy-wears depends, UTIs, constipation. 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 Absent: scleral icterus, conjunctival injection, periorbital swelling Neck exam: Present: normal inspection, full ROM, other (trachea central) Respiratory exam: Present: normal lung sounds bilaterally, rhonchi (upper airways), decreased breath sounds. Absent: respiratory distress, wheezes, rales, stridor, chest wall tenderness, accessory muscle use Cardiovascular Exam: Present: regular rate, normal rhythm, normal heart sounds. Absent: systolic murmur, diastolic murmur, rubs, gallop, clicks Neurological exam: Present: alert Skin exam: Present: warm, dry, intact, normal color. Absent: rash Course Vital Signs 12/06/22 12/06/22 11:45 14:37 Temperature 98.4 F Pulse Rate 99 83 Respiratory 20 18 Rate Blood Pressure 117/77 O2 Sat by Pulse 98 98 Oximetry Medical Decision Making - Medical Decision Making Was pt. sent in by a medical professional or institution (, PA, BASIC SCIENCES PROFESSOR, urgent care, hospital, or fci...) When possible be specific @ -No Did you speak to anyone other than the patient for history (EMS, parent, family, police, friend...)? What history was obtained from this source @ -Yes, patient's mother helped provide history about sputum Did you review nursing and triage notes (agree or disagree)? Why? @ -I reviewed and agree with nursing and triage notes Were old charts reviewed (outside hosp., previous admission, EMS record, old EKG, old radiological studies, urgent care reports/EKG's, fci records)? Report findings @ -No old charts were reviewed Differential Diagnosis (chest pain, altered mental status, abdominal pain women, abdominal pain men, vaginal bleeding, weakness, fever, dyspnea, syncope, headache, dizziness, GI bleed, back pain, seizure, CVA, palpatations, mental health)? @ -Upper respiratory infection, pneumonia, bronchitis. This list is not meant to be all-inclusive EKG interpreted by me (3pts min.). @ -As above X-rays interpreted by me (1pt min.). @ -Yes, chest x-ray negative for pneumonia CT interpreted by me (1pt min.). @ -None done U/S interpreted by me (1pt. min.). @ -None done What testing was considered but not performed or refused? (CT, X-rays, U/S, labs)? Why? @ -None What meds were considered but not given or refused? Why? @ -None Did you discuss the management of the patient with other professionals (professionals i.e. , PA, BASIC SCIENCES PROFESSOR, lab, RT, psych nurse, oncology social worker, net front end developer, teacher, chief school finance officer, family independence case manager)? Give summary @ -No Was smoking cessation discussed for >3mins.? @ -No Was critical care preformed (if so, how long)? @ -No Were there social determinants of health that impacted care today? How? (Homelessness, low income, unemployed, alcoholism, drug addiction, transportation, low edu. Level, literacy, decrease access to med. care, penitentiary, rehab)? @ -No Was there de-escalation of care discussed even if they declined (Discuss DNR or withdrawal of care, Hospice)? DNR status @ -No What co-morbidities impacted this encounter? (DM, HTN, Smoking, COPD, CAD, Cancer, CVA, ARF, Chemo, Hep., AIDS, mental health diagnosis, sleep apnea, morbid obesity)? @ -None Was patient admitted / discharged? Hospital course, mention meds given and route, prescriptions, significant lab abnormalities, going to OR and other pertinent info. @ -Patient presenting for colored sputum. Patient resting comfortably no evidence respiratory distress. No hypoxia or fever. COVID-19, RSV, influenza not detected.. Chest x-ray negative for pneumonia. I did hear patient coughing during my visit. Given this is an immunosuppressed patient with tracheostomy I will treat for early pneumonia. Patient given Rocephin and azithromycin in the emergency department. She will be discharged with antibiotic treatment. We discussed strict return parameters. Undiagnosed new problem with uncertain prognosis? @ -No Drug Therapy requiring intensive monitoring for toxicity (Heparin, Nitro, Insulin, Cardizem)? @ -No Were any procedures done? @ -No Diagnosis/symptom? @ -Colored sputum Acute, or Chronic, or Acute on Chronic? @ -Acute Uncomplicated (without systemic symptoms) or Complicated (systemic symptoms)? @ -Uncomplicated Side effects of treatment? @ -No Exacerbation, Progression, or Severe Exacerbation? @ -No Poses a threat to life or bodily function? How? (Chest pain, USA, [place], pneumonia, PE, COPD, DKA, ARF, appy, cholecystitis, CVA, Diverticulitis, Homicidal, Suicidal, threat to staff... and all critical care pts) @ -No Dr. Fenton is my attending - Lab Data Result diagrams: 12/06/22 12:05 12/06/22 12:05 Lab Results 12/06/22 12/06/22 12/06/22 Range/Units 12:05 12:05 12:05 WBC 5.9 (3.8-10.6) k/uL RBC 4.91 (3.80-5.40) m/uL Hgb 14.0 (11.4-16.0) gm/dL Hct 42.3 (34.0-46.0) % MCV 86.2 (80.0-100.0) fL MCH 28.4 (25.0-35.0) pg MCHC 33.0 (31.0-37.0) g/dL RDW 16.9 H (11.5-15.5) % Plt Count 296 (150-450) k/uL MPV 8.3 Neutrophils % 59 % Lymphocytes % 29 % Monocytes % 6 % Eosinophils % 5 % Basophils % 0 % Neutrophils # 3.5 (1.3-7.7) k/uL Lymphocytes # 1.7 (1.0-4.8) k/uL Monocytes # 0.3 (0-1.0) k/uL Eosinophils # 0.3 (0-0.7) k/uL Basophils # 0.0 (0-0.2) k/uL Anisocytosis Slight Sodium 139 (137-145) mmol/L Potassium 4.4 (3.5-5.1) mmol/L Chloride 103 (98-107) mmol/L Carbon Dioxide 29 (22-30) mmol/L Anion Gap 7 mmol/L BUN 5 L (7-17) mg/dL Creatinine 0.30 L (0.52-1.04) mg/dL Est GFR (CKD-EPI)AfAm >90 (>60 ml/min/1.73 sqM) Est GFR (CKD-EPI)NonAf >90 (>60 ml/min/1.73 sqM) Glucose 81 (74-99) mg/dL Plasma Lactic Acid Anson 1.0 (0.7-2.0) mmol/L Calcium 9.0 (8.4-10.2) mg/dL Total Bilirubin 0.6 (0.2-1.3) mg/dL AST 24 (14-36) U/L ALT 21 (4-34) U/L Alkaline Phosphatase 97 (38-126) U/L Total Protein 7.0 (6.3-8.2) g/dL Albumin 4.1 (3.5-5.0) g/dL Influenza Type A (PCR) (Not Detectd) Influenza Type B (PCR) (Not Detectd) RSV (PCR) (Not Detectd) SARS-CoV-2 (PCR) (Not Detectd) 12/06/22 Range/Units 12:05 WBC (3.8-10.6) k/uL RBC (3.80-5.40) m/uL Hgb (11.4-16.0) gm/dL Hct (34.0-46.0) % MCV (80.0-100.0) fL MCH (25.0-35.0) pg MCHC (31.0-37.0) g/dL RDW (11.5-15.5) % Plt Count (150-450) k/uL MPV Neutrophils % % Lymphocytes % % Monocytes % % Eosinophils % % Basophils % % Neutrophils # (1.3-7.7) k/uL Lymphocytes # (1.0-4.8) k/uL Monocytes # (0-1.0) k/uL Eosinophils # (0-0.7) k/uL Basophils # (0-0.2) k/uL Anisocytosis Sodium (137-145) mmol/L Potassium (3.5-5.1) mmol/L Chloride (98-107) mmol/L Carbon Dioxide (22-30) mmol/L Anion Gap mmol/L BUN (7-17) mg/dL Creatinine (0.52-1.04) mg/dL Est GFR (CKD-EPI)AfAm (>60 ml/min/1.73 sqM) Est GFR (CKD-EPI)NonAf (>60 ml/min/1.73 sqM) Glucose (74-99) mg/dL Plasma Lactic Acid Anson (0.7-2.0) mmol/L Calcium (8.4-10.2) mg/dL Total Bilirubin (0.2-1.3) mg/dL AST (14-36) U/L ALT (4-34) U/L Alkaline Phosphatase (38-126) U/L Total Protein (6.3-8.2) g/dL Albumin (3.5-5.0) g/dL Influenza Type A (PCR) Not Detected (Not Detectd) Influenza Type B (PCR) Not Detected (Not Detectd) RSV (PCR) Not Detected (Not Detectd) SARS-CoV-2 (PCR) Not Detected (Not Detectd) Disposition Clinical Impression: Abnormal sputum color, Tracheostomy dependence Disposition: HOME SELF-CARE Condition: Good Instructions (If sedation given, give patient instructions): Upper Respiratory Infection (ED), Bacterial Pneumonia (ED) Additional Instructions: Take medication as directed. Please follow-up with your primary care provider in 1-2 days. Return to the emergency department if you experience new, conc erning, or worsening symptoms. Prescriptions: Amoxic-Pot Clav 875-125Mg [Augmentin 875-125] 1 tab PO BID #14 tab Azithromycin [Zithromax] 250 mg PO DAILY #7 tab Is patient prescribed a controlled substance at d/c from ED?: No Referrals: None,Stated [Primary Care Provider] - 1-2 days
[2022-12-06 13:20] LABS: Anisocytosis Slight; Basophils % (A) 0 %; Eosinophils # (A) 0.3 k/uL (0-0.7); Eosinophils % (A) 5 %; HCT 42.3 % (34.0-46.0); Lymphocytes # (A) 1.7 k/uL (1.0-4.8); Lymphocytes % (A) 29 %; MCH 28.4 pg (25.0-35.0); MCV 86.2 fL (80.0-100.0); Mean Platelet Volume 8.3; Monocytes # (A) 0.3 k/uL (0-1.0); Monocytes % (A) 6 %; Neutrophils # (A) 3.5 k/uL (1.3-7.7); Neutrophils % (A) 59 %; Platelet Count 296 k/uL (150-450); RBC 4.91 m/uL (3.80-5.40); RDW 16.9 % (11.5-15.5); WBC 5.9 k/uL (3.8-10.6)
[2022-12-06 13:30] LABS: ALT 21 U/L (4-34); AST 24 U/L (14-36); African American GFR (CKD) >90 (>60 ml/min/1.73 sqM); Albumin 4.1 g/dL (3.5-5.0); Alkaline Phosphatase 97 U/L (38-126); Anion Gap 7 mmol/L; Blood Urea Nitrogen 5 mg/dL (7-17); Carbon Dioxide 29 mmol/L (22-30); Chloride 103 mmol/L (98-107); Glucose 81 mg/dL (74-99); Non-African American GFR(CKD) >90 (>60 ml/min/1.73 sqM); Potassium 4.4 mmol/L (3.5-5.1); Sodium 139 mmol/L (137-145); Total Bilirubin 0.6 mg/dL (0.2-1.3)
[2022-12-06] MEDS ORDERED: cefTRIAXone IN SWFI 1,000 MG/10 ML SYRINGE IVP STA (13:48)
[2022-12-06] MEDS ORDERED: AZITHROMYCIN 250 MG TAB PO STA (13:56)
[2022-12-06] MEDS ORDERED: CEPHALEXIN 500 MG CAP PO STA (14:06)
[2022-12-06 14:38] VITALS: PULSE 83; RESP 18
== END 2022-12-06 14:38 | disposition home or self-care (01) ==
LOC: EC 11:37
DX: R09.3 Abnormal sputum (principal); Z43.0 Encounter for attention to tracheostomy; J45.909 Unspecified asthma, uncomplicated; Z79.899 Other long term (current) drug therapy; Z20.822 Contact with and (suspected) exposure to COVID-19
CPT/HCPCS: 36415; 80053; 83605; 85025; 87636; 71045; 99284; 96374; J0696

== ENCOUNTER 2023-03-05 14:45 | Emergency (ER) | payer OTHER ==
[2023-03-05 14:53] VITALS: TEMP 98.2
--- NOTE | 2023-03-05 15:22 | ED ---
General Adult HPI - General Chief complaint: Shortness of Breath Stated complaint: ANTHONY Time Seen by Provider: 03/05/23 14:49 Source: EMS Mode of arrival: EMS Limitations: no limitations - History of Present Illness Initial comments: Flores is a pleasant 37-year-old female with history of spina bifida, wheelchair bound, ventilator dependent chronic respiratory failure. She is brought to the emergency department today via ambulance from her D time care facility. Apparently the patient became quite anxious and they noted there was mucous plug in her event, the exchange the tubing and suction her she then improved however due to the event they called EMS for transport to the hospital. Upon arrival the patient reports she is feeling much better. Mom at bedside reports that they were in the vent clinic at [facility] earlier this week however mom had the wrong trach with her and they were not able to exchange her mom was planning to exchange her trach today. - Related Data Home Medications Medication Instructions Recorded Confirmed Albuterol Nebulized [Ventolin 2.5 mg INHALATION RT-BID 10/07/17 03/05/23 Nebulized] Budesonide [Pulmicort] 1 mg INHALATION RT-BID 05/07/21 03/05/23 Albuterol Nebulized [Ventolin 2.5 mg INHALATION RT-BID PRN 03/19/22 03/05/23 Nebulized] Metoprolol Tartrate [Lopressor] 25 mg PO BID 03/19/22 03/05/23 Cetirizine HCl 10 mg PO DAILY 03/05/23 03/05/23 Cholecalciferol [Vitamin D3 (25 50 mcg PO DAILY 03/05/23 03/05/23 Mcg = 1000 Iu)] polyethylene glycoL 3350 [Miralax] 17 gm PO DAILY PRN 03/05/23 03/05/23 Allergies Allergy/AdvReac Type Severity Reaction Status Date / Time No Known Allergies Allergy Verified 03/05/23 17:25 Review of Systems ROS Statement: Those systems with pertinent positive or pertinent negative responses have been documented in the HPI. ROS Other: All systems not noted in ROS Statement are negative. Past Medical History Past Medical History: Asthma, GERD/Reflux, Musculoskeletal Disorder Additional Past Medical History / Comment(s): Spina bifida with spina bifida deformities, paralyzed waist down, mentality approximately 6yr old, severe kyphoscoliosis with pectus deformity, chronic lung disease with chronic respiratory hypoxia/hypercpnia, trach/chronic vent, pneumonias, bronchospasms, cervical compression with surgery, nephrolithiasis, urostomy-wears depends, UTIs, constipation. 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 EYES: PERRL, EOMI PULMONARY: Crackles on right CARDIOVASCULAR: Tachycardic, regular ABDOMEN: Non-distended SKIN: No rashes or bruising : Deferred NEUROLOGIC: Alert and oriented MUSCULOSKELETAL: chronic deformities consistent with disease process No acute injuries PSYCHIATRIC: No SI/HI Limitations: no limitations Course Vital Signs 03/05/23 03/05/23 03/05/23 14:48 14:53 14:55 Temperature 98.2 F Pulse Rate 140 H Respiratory 32 H 32 H Rate Blood Pressure 127/101 O2 Sat by Pulse 89 L 98 Oximetry 03/05/23 03/05/23 03/05/23 16:33 17:52 18:37 Temperature Pulse Rate 138 H 132 H 138 H Respiratory 32 H 22 22 Rate Blood Pressure O2 Sat by Pulse 98 97 98 Oximetry EKG Findings - EKG Comments: EKG Findings:: EKG interpreted by me, EKG obtained due to persistent tachycardia, EKG obtained at 1730 rate is 1:30 rhythm is in her complex regular tachycardia with a P-wave before each QRS this is a sinus tachycardia with rightward axis normal intervals CO 161 QRS [address] QTC [address] elevations or depressions or evidence of ischemia or infarction. Medical Decision Making - Medical Decision Making Was pt. sent in by a medical professional or institution (, PA, AUXILIARY POWERPLANT OPERATOR, urgent care, hospital, or retirement...) When possible be specific @ -No Did you speak to anyone other than the patient for history (EMS, parent, family, police, friend...)? What history was obtained from this source @ -EMS, mother Did you review nursing and triage notes (agree or disagree)? Why? @ -I reviewed and agree with nursing and triage notes Were old charts reviewed (outside hosp., previous admission, EMS record, old EKG, old radiological studies, urgent care reports/EKG's, retirement records)? Report findings @ -Previous admission notes were reviewed previous EKG reviewed Differential Diagnosis (chest pain, altered mental status, abdominal pain women, abdominal pain men, vaginal bleeding, weakness, fever, dyspnea, syncope, headache, dizziness, GI bleed, back pain, seizure, CVA, palpatations, mental health, musculoskeletal)? @ Differential Dyspnea: Mucous plug, Coronary syndrome, arrhythmia, tamponade, asthma, COPD, pulmonary embolism, pneumonia, pneumothorax, pulmonary effusion, anaphylaxis, diabetic ketoacidosis, flailed chest, pulmonary contusion, diaphragmatic rupture, anemia, neuromuscular, this is not meant to be an all- inclusive list. EKG interpreted by me (3pts min.). @ -As above X-rays interpreted by me (1pt min.). @ -I reviewed this 1 view chest x-ray and I see no significant change from previous no obvious consolidations no pneumothorax CT interpreted by me (1pt min.). @ -None done U/S interpreted by me (1pt. min.). @ -None done What testing was considered but not performed or refused? (CT, X-rays, U/S, labs)? Why? @ -Blood work - declined due to difficult IV access What meds were considered but not given or refused? Why? @ -The fluids were considered but not given due to lack of IV access Did you discuss the management of the patient with other professionals (professionals i.e. , PA, AUXILIARY POWERPLANT OPERATOR, lab, RT, psych nurse, older adult social work specialist, theatrical performer, teacher, staff electronic warfare officer, major case detective)? Give summary @ -S with the ER physician at [facility] Was smoking cessation discussed for >3mins.? @ -No Was critical care preformed (if so, how long)? @ -No Were there social determinants of health that impacted care today? How? (Homelessness, low income, unemployed, alcoholism, drug addiction, transportation, low edu. Level, literacy, decrease access to med. care, snf, rehab)? @ -Cognitive impairment Was there de-escalation of care discussed even if they declined (Discuss DNR or withdrawal of care, Hospice)? DNR status @ -No What co-morbidities impacted this encounter? (DM, HTN, Smoking, COPD, CAD, Cancer, CVA, ARF, Chemo, Hep., AIDS, mental health diagnosis, sleep apnea, morbid obesity)? @ -Chronic ventilator dependent respiratory failure Was patient admitted / discharged? Hospital course, mention meds given and route, prescriptions, significant lab abnormalities, going to OR and other pertinent info. @ -Patient was seen and evaluated immediately upon arrival emergency department, respiratory therapy was paged at bedside they were able to deep suction remove a mucous plug, patient's oxygen was able to be weaned down from 6 L to 2 which is what she typically wears at night her oxygen saturation soon low 90s however she remained persistently tachycardic despite having no other signs of anxiety or emotional upset. Multiple attempts at ultrasound guided IV placement were performed and were unsuccessful. Mom will likely patient transferred to [facility] for evaluation by her ENT team who placed her trach. Patient care was discussed with the ER physician Dr. White at [facility] who accepts the transfer Undiagnosed new problem with uncertain prognosis? @ -No Drug Therapy requiring intensive monitoring for toxicity (Heparin, Nitro, Insulin, Cardizem)? @ -No Were any procedures done? @ -No Diagnosis/symptom? @ -Tachycardia Acute, or Chronic, or Acute on Chronic? @ -Acute Uncomplicated (without systemic symptoms) or Complicated (systemic symptoms)? @ -default Side effects of treatment? @ -No Exacerbation, Progression, or Severe Exacerbation? @ -No Poses a threat to life or bodily function? How? (Chest pain, USA, [place], pneumonia, PE, COPD, DKA, ARF, appy, cholecystitis, CVA, Diverticulitis, Homicidal, Suicidal, threat to staff... and all critical care pts) @ -No Diagnosis/symptom? @ -Hypoxic respiratory failure Acute, or Chronic, or Acute on Chronic? @ -Acute on chronic Uncomplicated (without systemic symptoms) or Complicated (systemic symptoms)? @ -default Side effects of treatment? @ -none Exacerbation, Progression, or Severe Exacerbation] @ -no Poses a threat to life or bodily function? @ -YES Disposition Clinical Impression: Tracheostomy dependence, Ventilator dependent, Tachycardia Disposition: OTHER INSTITUTION NOT DEFINED Condition: Serious Is patient prescribed a controlled substance at d/c from ED?: No Referrals: None,Stated [Primary Care Provider] - 1-2 days - Out of Hospital Transfer - Req. Specs Out of Hospital Transfer - Requested Specifics: Other Emergency [facility] ([facility]
--- NOTE | 2023-03-05 15:45 | XR ---
EXAMINATION TYPE: XR chest 1V DATE OF EXAM: 03/05/2023 3:27 PM COMPARISON: Chest radiographs from 12/06/2022 TECHNIQUE: XR chest 1V Frontal view of the chest. CLINICAL INDICATION:Female, 37 years old with history of cough; FINDINGS: Suboptimal due to portable technique and patient's marked underlying rotary scoliosis again. Persiste nt low lung volumes. Prominent perihilar opacities. The cardiac silhouette size is stable and within normal limits. Overlying tracheostomy tube is redemonstrated IMPRESSION: Suboptimal study. Low lung volumes with prominent perihilar opacities which may be due t o low lung volumes.
[2023-03-05] MEDS ORDERED: SODIUM CHLORIDE 0.9% 500 ML 500 ML IV STA (17:00)
[2023-03-05 20:05] VITALS: RESP 26
[2023-03-05 20:29] VITALS: BP 138/105; PULSE 131
== END 2023-03-05 20:28 | disposition other institution (70) ==
LOC: EC 14:45
DX: Z93.0 Tracheostomy status (principal); Z99.11 Dependence on respirator [ventilator] status; R00.0 Tachycardia, unspecified; J45.909 Unspecified asthma, uncomplicated; Z79.51 Long term (current) use of inhaled steroids
CPT/HCPCS: 71045; 93005; 99285

== ENCOUNTER 2023-08-15 11:18 | Emergency (ER) | payer OTHER ==
[2023-08-15] MEDS ORDERED: IPRATROPIUM-ALBUTEROL 3 ML NEB INHALATION STA (11:28)
--- NOTE | 2023-08-15 11:35 | ED ---
General Adult HPI - General Chief complaint: ENT Stated complaint: Congestion Time Seen by Provider: 08/15/23 11:21 Source: patient, EMS, RN notes reviewed Mode of arrival: EMS Limitations: no limitations - History of Present Illness Initial comments: Patient is a pleasant 37-year-old female presenting to the emergency department with concerns with congestion. Onset of symptoms was last day or 2. Patient is somewhat a poor historian. Patient denies any dyspnea. Patient denies any problems with her trach or with breathing. Patient denies fever. Patient denies cough. Patient feels symptoms are mild. - Related Data Home Medications Medication Instructions Recorded Confirmed Albuterol Nebulized [Ventolin 2.5 mg INHALATION RT-BID 10/07/17 03/05/23 Nebulized] Budesonide [Pulmicort] 1 mg INHALATION RT-BID 05/07/21 03/05/23 Albuterol Nebulized [Ventolin 2.5 mg INHALATION RT-BID PRN 03/19/22 03/05/23 Nebulized] Metoprolol Tartrate [Lopressor] 25 mg PO BID 03/19/22 03/05/23 Cetirizine HCl 10 mg PO DAILY 03/05/23 03/05/23 Cholecalciferol [Vitamin D3 (25 50 mcg PO DAILY 03/05/23 03/05/23 Mcg = 1000 Iu)] polyethylene glycoL 3350 [Miralax] 17 gm PO DAILY PRN 03/05/23 03/05/23 Previous Rx's Medication Instructions Recorded Nirmatrelvir/Ritonavir [Paxlovid 3 each PO BID #30 each 08/15/23 300-100 mg Dose Pack] Allergies Allergy/AdvReac Type Severity Reaction Status Date / Time No Known Allergies Allergy Verified 08/15/23 11:30 Review of Systems ROS Statement: Those systems with pertinent positive or pertinent negative responses have been documented in the HPI. ROS Other: All systems not noted in ROS Statement are negative. Constitutional: Denies: fever, chills Eyes: Denies: eye pain ENT: Reports: congestion. Denies: ear pain, throat pain Respiratory: Reports: as per HPI. Denies: cough, dyspnea Cardiovascular: Denies: chest pain Endocrine: Denies: fatigue Gastrointestinal: Denies: abdominal pain Past Medical History Past Medical History: Asthma, GERD/Reflux, Musculoskeletal Disorder Additional Past Medical History / Comment(s): Spina bifida with spina bifida deformities, paralyzed waist down, mentality approximately 6yr old, severe kyphoscoliosis with pectus deformity, chronic lung disease with chronic respiratory hypoxia/hypercpnia, trach/chronic vent, pneumonias, bronchospasms, cervical compression with surgery, nephrolithiasis, urostomy-wears depends, UTIs, constipation. 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 Past Anesthesia/Blood Transfusion Reactions: No Reported Reaction Past Psychological History: No Psychological Hx Reported Smoking Status: Never smoker Past Alcohol Use History: None Reported Past Drug Use History: None Reported - Past Family History Father Family Medical History: Asthma Mother Family Medical History: Diabetes Mellitus, Hyperlipidemia, Hypertension General Exam Limitations: no limitations General appearance: alert, in no apparent distress Head exam: Present: normocephalic Eye exam: Present: normal appearance ENT exam: Present: normal oropharynx Neck exam: Present: normal inspection Respiratory exam: Present: wheezes. Absent: respiratory distress Cardiovascular Exam: Present: regular rate, normal rhythm GI/Abdominal exam: Present: soft. Absent: tenderness Extremities exam: Present: other (Bilateral congenital leg malformation) Neurological exam: Present: alert Psychiatric exam: Present: normal affect, normal mood Skin exam: Present: normal color Course Vital Signs 08/15/23 08/15/23 08/15/23 11:20 12:23 12:43 Temperature 98.2 F Pulse Rate 104 H 109 H 106 H Respiratory 20 Rate Blood Pressure 145/108 O2 Sat by Pulse 93 L Oximetry Fraction of Inspired Oxygen (FIO2) 08/15/23 08/15/23 12:46 12:47 Temperature Pulse Rate Respiratory Rate Blood Pressure O2 Sat by Pulse Oximetry Fraction of 21 21 Inspired Oxygen (FIO2) Medical Decision Making - Medical Decision Making Was pt. sent in by a medical professional or institution (, PA, [employer], urgent care, hospital, or prison...) When possible be specific @ -No Did you speak to anyone other than the patient for history (EMS, parent, family, police, friend...)? What history was obtained from this source @ -EMS helped provide history as patient is a poor historian. Mother arrives later and helps provide additional history. Did you review nursing and triage notes (agree or disagree)? Why? @ -I reviewed and agree with nursing and triage notes Were old charts reviewed (outside hosp., previous admission, EMS record, old EKG, old radiological studies, urgent care reports/EKG's, prison records)? Report findings @ -Previous chest x-ray reviewed Differential Diagnosis (chest pain, altered mental status, abdominal pain women, abdominal pain men, vaginal bleeding, weakness, fever, dyspnea, syncope, headache, dizziness, GI bleed, back pain, seizure, CVA, palpatations, mental health, musculoskeletal)? @ -Differential Dyspnea: Coronary syndrome, arrhythmia, tamponade, asthma, COPD, pulmonary embolism, pneumonia, pneumothorax, pulmonary effusion, anaphylaxis, diabetic ketoacidosis, flailed chest, pulmonary contusion, diaphragmatic rupture, anemia, neuromuscular, this is not meant to be an all-inclusive list. EKG interpreted by me (3pts min.). @ -As above X-rays interpreted by me (1pt min.). @ -Chest x-ray shows no acute process CT interpreted by me (1pt min.). @ -None done U/S interpreted by me (1pt. min.). @ -None done What testing was considered but not performed or refused? (CT, X-rays, U/S, labs)? Why? @ -None What meds were considered but not given or refused? Why? @ -None Did you discuss the management of the patient with other professionals (professionals i.e. , PA, [employer] REPAIRER, lab, RT, psych nurse, nursing home social worker, housing case manager, teacher, postal delivery officer, rn case management)? Give summary @ -Case was discussed with Dr. Alegre who is also comfortable with discharge of patient. Was smoking cessation discussed for >3mins.? @ -No Was critical care preformed (if so, how long)? @ -No Were there social determinants of health that impacted care today? How? (Homelessness, low income, unemployed, alcoholism, drug addiction, transportation, low edu. Level, literacy, decrease access to med. care, penitentiary, rehab)? @ -No Was there de-escalation of care discussed even if they declined (Discuss DNR or withdrawal of care, Hospice)? DNR status @ -No What co-morbidities impacted this encounter? (DM, HTN, Smoking, COPD, CAD, Cancer, CVA, ARF, Chemo, Hep., AIDS, mental health diagnosis, sleep apnea, morbid obesity)? @ -Patient has chronic trach and respirator at home Was patient admitted / discharged? Hospital course, mention meds given and route, prescriptions, significant lab abnormalities, going to OR and other pertinent info. @ -Patient reevaluated and resting comfortably in bed. No respiratory distress. Patient and mother updated on results and plan and need for close follow-up. Undiagnosed new problem with uncertain prognosis? @ -No Drug Therapy requiring intensive monitoring for toxicity (Heparin, Nitro, Insulin, Cardizem)? @ -No Were any procedures done? @ -No Diagnosis/symptom? @ -COVID-19, viral sinusitis Acute, or Chronic, or Acute on Chronic? @ -Acute, acute Uncomplicated (without systemic symptoms) or Complicated (systemic symptoms)? @ -default Side effects of treatment? @ -No Exacerbation, Progression, or Severe Exacerbation? @ -No Poses a threat to life or bodily function? How? (Chest pain, [place], [place], pneumonia, PE, COPD, DKA, ARF, appy, cholecystitis, CVA, Diverticulitis, Homicidal, Suicidal, threat to staff... and all critical care pts) @ -No - Lab Data Lab Results 08/15/23 Range/Units 11:40 Influenza Type A (PCR) Not Detected (Not Detectd) Influenza Type B (PCR) Not Detected (Not Detectd) RSV (PCR) Not Detected (Not Detectd) SARS-CoV-2 (PCR) Detected A (Not Detectd) Disposition Clinical Impression: COVID-19 Disposition: HOME SELF-CARE Condition: Stable Instructions (If sedation given, give patient instructions): COVID-19 (Coronavirus Disease 2019) (ED) Additional Instructions: Prescription sent to pharmacy, please start today. Please do follow-up with primary care physician and lung doctor beginning of the week. Return for uncontrolled fevers, difficulty breathing, worsening or change in symptoms or any other concerns. Tvon-fuy-uavdgyo vitamin C and vitamin D. Xnki-wtx-eyolcqc zinc. Prescriptions: Nirmatrelvir/Ritonavir [Paxlovid 300-100 mg Dose Pack] 3 each PO BID #30 each Is patient prescribed a controlled substance at d/c from ED?: No Referrals: Isaac Goodson MD [Primary Care Provider] - 1-2 days Sonia Alegre MD [STAFF PHYSICIAN] - 1-2 days Time of Disposition: 14:10
[2023-08-15 11:59] VITALS: RESP 20; TEMP 98.2
--- NOTE | 2023-08-15 11:59 | XR ---
EXAMINATION TYPE: XR chest 2V DATE OF EXAM: 08/15/2023 COMPARISON: 03/05/2023 INDICATION: Congestion TECHNIQUE: Frontal and lateral views of the chest are obtained. FINDINGS: The heart size is normal. The pulmonary vasculature is normal. The lungs are clear. Severe scoliosis and deformity of the rib cage. Findings appear stable over the interval. IMPRESSION: 1. No acute pulmonary process. 2. Chronic deformity
[2023-08-15 17:57] VITALS: BP 151/108; PULSE 99
== END 2023-08-15 17:36 | disposition home or self-care (01) ==
LOC: EC 11:18
DX: U07.1 COVID-19 (principal); J45.909 Unspecified asthma, uncomplicated; Z79.899 Other long term (current) drug therapy; Z79.51 Long term (current) use of inhaled steroids
CPT/HCPCS: 71046; 87636; 94640; 99285

== ENCOUNTER 2023-10-14 13:17 | Emergency (ER) | payer OTHER ==
--- NOTE | 2023-10-14 13:54 | ED ---
General Adult HPI - General Source: patient, family, RN notes reviewed <Adrianna Light - Last Filed: 10/15/23 20:27> - History of Present Illness Onset/Timin -: days(s) Consistency: constant Improves with: none Worsens with: none Associated Symptoms: denies other symptoms Treatments Prior to Arrival: none <Timmy Sung - Last Filed: 10/17/23 08:55> - General Stated complaint: Rule out DVT in L Leg, sent by PCP Time Seen by Provider: 10/14/23 13:32 - History of Present Illness Initial comments: Quick Note- 8-year-old female with a history of spina bifida presents emergency department chief complaint of unilateral right leg swelling. States that she went to her primary care provider this morning who states she be evaluated the emergency department to rule out potential DVT. Patient denies history of DVT. Does have a trach, but she denies worsening shortness of breath, weakness, chest pressure or pain. (Adrianna Light) As above this patient is a 38-year-old woman with history of spina bifida who is here to have evaluation for possible left leg DVT. History is mainly from the patient's mother although the patient does answer as well. The foot has been swollen between 1 and 2 weeks. They state that the swelling came on had [facility] ed briefly and then recurred. They followed with Dr. Lara today who sent her here to have further evaluation. The patient is denying pain in the leg or foot. She does not have good lower extremity sensation. They have not noted fevers. No change in respiratory status, no dyspnea, cough, hemoptysis. No chest pain or palpitations noted. (Timmy Sung) - Related Data Home Medications Medication Instructions Recorded Confirmed Albuterol Nebulized [Ventolin 2.5 mg INHALATION RT-BID 10/07/17 10/14/23 Nebulized] Budesonide [Pulmicort] 1 mg INHALATION RT-BID 05/07/21 10/14/23 Albuterol Nebulized [Ventolin 2.5 mg INHALATION RT-BID PRN 03/19/22 10/14/23 Nebulized] Metoprolol Tartrate [Lopressor] 50 mg PO BID 03/19/22 10/14/23 Cetirizine HCl 10 mg PO DAILY 03/05/23 10/14/23 Cholecalciferol [Vitamin D3 (25 50 mcg PO DAILY 03/05/23 10/14/23 Mcg = 1000 Iu)] Allergies Allergy/AdvReac Type Severity Reaction Status Date / Time latex AdvReac Unknown Verified 10/14/23 21:16 Review of Systems ROS Other: All systems not noted in ROS Statement are negative. <Adrainna Light - Last Filed: 10/15/23 20:27> ROS Other: All systems not noted in ROS Statement are negative. Constitutional: Denies: fever Respiratory: Denies: cough, dyspnea, hemoptysis Cardiovascular: Reports: edema. Denies: chest pain, palpitations Gastrointestinal: Denies: abdominal pain, vomiting Musculoskeletal: Denies: back pain Skin: Denies: rash Neurological: Reports: numbness (Chronic) Hematological/Lymphatic: Denies: easy bleeding <Timmy Sung - Last Filed: 10/17/23 08:55> ROS Statement: Those systems with pertinent positive or pertinent negative responses have been documented in the HPI. Past Medical History Past Medical History: Asthma, GERD/Reflux, Musculoskeletal Disorder Additional Past Medical History / Comment(s): Spina bifida with spina bifida deformities, paralyzed waist down, mentality approximately 6yr old, severe kyphoscoliosis with pectus deformity, chronic lung disease with chronic respiratory hypoxia/hypercpnia, trach/chronic vent, pneumonias, bronchospasms, cervical compression with surgery, nephrolithiasis, urostomy-wears depends, UTIs, constipation. 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 Past Anesthesia/Blood Transfusion Reactions: No Reported Reaction Past Psychological History: No Psychological Hx Reported Smoking Status: Never smoker Past Alcohol Use History: None Reported Past Drug Use History: None Reported - Past Family History Father Family Medical History: Asthma Mother Family Medical History: Diabetes Mellitus, Hyperlipidemia, Hypertension <Adrianna Light - Last Filed: 10/15/23 20:27> General Exam <Adrianna Light - Last Filed: 10/15/23 20:27> General appearance: alert, in no apparent distress Head exam: Present: atraumatic, normocephalic Eye exam: Present: normal appearance. Absent: scleral icterus, conjunctival injection Neck exam: Present: other (Tracheostomy present) Respiratory exam: Present: rhonchi. Absent: respiratory distress, wheezes, rales, stridor, accessory muscle use Cardiovascular Exam: Present: regular rate, normal rhythm, normal heart sounds. Absent: systolic murmur, diastolic murmur, rubs, gallop GI/Abdominal exam: Present: soft. Absent: distended, tenderness, guarding Extremities exam: Present: pedal edema, other (Marked left lower leg and foot edema. Nontender but there is no sensation). Absent: tenderness Neurological exam: Present: alert, motor sensory deficit (Chronic) Skin exam: Present: warm, dry, intact, erythema. Absent: rash <Timmy Sung - Last Filed: 10/17/23 08:55> - General Exam Comments Initial Comments: Visual Physical Exam Vital signs reviewed General: Well-appearing, nontoxic, no acute distress. Head: Normocephalic, atraumatic Eyes: PERRLA, EOMI ENT: Airway patent Chest: Nonlabored breathing Skin: No visual rash, normal skin tone Neuro: Alert and oriented 3 Musculoskeletal: No gross abnormalities (Stieler,Adrianna) Course <Timmy Sung - Last Filed: 10/17/23 08:55> Vital Signs 10/14/23 10/14/23 14:01 19:46 Temperature 98.3 F Pulse Rate 79 88 Respiratory 18 20 Rate Blood Pressure 133/92 142/98 O2 Sat by Pulse 97 90 L Oximetry - Reevaluation(s) Reevaluation #1: 10/14/23 20:50 I discussed the patient's case with [facility] transfer team and they stated that there are currently no beds available on the stable vent unit and that they were declining to accept transfer at this point. I discussed the case with Dr. Lex Florez, to inquire about admission here and he states that as the patient was too complicated to be seen by vascular surgery (he had previously discussed with that department today) that the patient would require transfer to a tertiary care center. I discussed this news with the patient's family and requested if they had an alternate to [facility] and the patient's mother states that she will call other family members and then make decision and inform me shortly. (Timmy Sung) Medical Decision Making - Lab Data Result diagrams: 10/14/23 20:01 10/14/23 19:10 <Adrianna Light - Last Filed: 10/15/23 20:27> - Lab Data Result diagrams: 10/14/23 20:01 10/14/23 19:10 <Timmy Sung - Last Filed: 10/17/23 08:55> - Medical Decision Making I completed the quick note portion of this chart signed Adrianna Light PA-C (Adrianna Light) This patient is a 38-year-old woman presenting with 2 weeks of left lower extremity edema, progressively worse. The patient had duplex Doppler of the left leg that was extremely limited due to habitus but does not show definite DVT. The patient clinically appears to have early cellulitis, she is given initial dose of antibiotics after some delay in obtaining IV start. Lovenox is administered as DVT prophylaxis Subsequent to family decision, case discussed with Wendell Jennie and Dr. Avila will accept transfer, for higher level of care. Was pt. sent in by a medical professional or institution ([facility], IMAGER, urgent care, hospital, or fci...) When possible be specific @ -Patient was sent for further evaluation by Dr. Lex Hernandez Did you speak to anyone other than the patient for history (EMS, parent, family, police, friend...)? What history was obtained from this source @ -[The patient's mother gave most of the history Did you review nursing and triage notes (agree or disagree)? Why? @ -[I reviewed and agree with nursing and triage notes] Were old charts reviewed (outside hosp., previous admission, EMS record, old EKG, old radiological studies, urgent care reports/EKG's, fci records)? Report findings @ -[yes old charts were reviewed] Differential Diagnosis (chest pain, altered mental status, abdominal pain women, abdominal pain men, vaginal bleeding, weakness, fever, dyspnea, syncope, headache, dizziness, GI bleed, back pain, seizure, CVA, palpatations, mental health, musculoskeletal)? @ -[Differential Musculoskeletal Muscular strain, contusion, ligament sprain, fracture, arthritis, septic arthritis, bursitis, cellulitis, muscle spasm, nerve compression, DVT, arterial occlusion, lymphangitis, electrolyte abnormality, tumor.... This is not meant to be in all inclusive list EKG interpreted by me (3pts min.). @ -[As above] X-rays interpreted by me (1pt min.). @ -[None done] CT interpreted by me (1pt min.). @ -[None done] U/S interpreted by me (1pt. min.). @ -[None done] What testing was considered but not performed or refused? (CT, X-rays, U/S, labs)? Why? @ -[None] What meds were considered but not given or refused? Why? @ -[None] Did you discuss the management of the patient with other professionals (professionals i.e. , PA, IMAGER, lab, RT, psych nurse, social psychologist, diagnostics sales developer, teacher, parking officer, nurse case management)? Give summary @ -[Case discussed with the patient's primary care physician Was smoking cessation discussed for >3mins.? @ -[No] Was critical care preformed (if so, how long)? @ -[yes 40 minutes Were there social determinants of health that impacted care today? How? (Homelessness, low income, unemployed, alcoholism, drug addiction, transportation, low edu. Level, literacy, decrease access to med. care, detention, rehab)? @ -[No] Was there de-escalation of care discussed even if they declined (Discuss DNR or withdrawal of care, Hospice)? DNR status @ -[No] What co-morbidities impacted this encounter? (DM, HTN, Smoking, COPD, CAD, Cancer, CVA, ARF, Chemo, Hep., AIDS, mental health diagnosis, sleep apnea, morbid obesity)? @ -[History of spina bifida, history of pressure support ventilator with tracheostomy Was patient admitted / discharged? Hospital course, mention meds given and rou te, prescriptions, significant lab abnormalities, going to OR and other pertinent info. @ -[The patient is transferred to [facility] for higher level of care Undiagnosed new problem with uncertain prognosis? @ -[No] Drug Therapy requiring intensive monitoring for toxicity (Heparin, Nitro, I nsulin, Cardizem)? @ -[No] Were any procedures done? @ -[No] Diagnosis/symptom? @ -[Acute left leg edema Acute, or Chronic, or Acute on Chronic? @ -[Acute Uncomplicated (without systemic symptoms) or Complicated (systemic symptoms)? @ -Uncomplicated Side effects of treatment? @ -[No] Exacerbation, Progression, or Severe Exacerbation? @ -[No] Poses a threat to life or bodily function? How? (Chest pain, [place], [place], pneumonia, PE, COPD, DKA, ARF, appy, cholecystitis, CVA, Diverticulitis, Homicidal, Suicidal, threat to staff... and all critical care pts) @ -[yes (Timmy Sung) - Lab Data Lab Results 10/14/23 10/14/23 10/14/23 Range/Units 19:10 19:10 19:10 WBC (3.8-10.6) k/uL RBC (3.80-5.40) m/uL Hgb (11.4-16.0) gm/dL Hct (34.0-46.0) % MCV (80.0-100.0) fL MCH (25.0-35.0) pg MCHC (31.0-37.0) g/dL RDW (11.5-15.5) % Plt Count (150-450) k/uL MPV Neutrophils % % Lymphocytes % % Monocytes % % Eosinophils % % Basophils % % Neutrophils # (1.3-7.7) k/uL Lymphocytes # (1.0-4.8) k/uL Monocytes # (0-1.0) k/uL Eosinophils # (0-0.7) k/uL Basophils # (0-0.2) k/uL D-Dimer 1.54 H (<0.60) mg/L FEU Sodium 140 (137-145) mmol/L Potassium 4.6 (3.5-5.1) mmol/L Chloride 108 H (98-107) mmol/L Carbon Dioxide 21 L (22-30) mmol/L Anion Gap 11 mmol/L BUN 8 (7-17) mg/dL Creatinine 0.26 L (0.52-1.04) mg/dL Est GFR (CKD-EPI)AfAm >90 (>60 ml/min/1.73 sqM) Est GFR (CKD-EPI)NonAf >90 (>60 ml/min/1.73 sqM) Glucose 71 L (74-99) mg/dL Plasma Lactic Acid Anson 1.2 (0.7-2.0) mmol/L Calcium 9.1 (8.4-10.2) mg/dL Total Bilirubin 0.7 (0.2-1.3) mg/dL AST 22 (14-36) U/L ALT 15 (4-34) U/L Alkaline Phosphatase 96 (38-126) U/L C-Reactive Protein 2.9 H (<1.0) mg/dL Total Protein 7.1 (6.3-8.2) g/dL Albumin 4.2 (3.5-5.0) g/dL 10/14/23 Range/Units 20:01 WBC 7.6 (3.8-10.6) k/uL RBC 4.86 (3.80-5.40) m/uL Hgb 13.9 (11.4-16.0) gm/dL Hct 43.1 (34.0-46.0) % MCV 88.7 (80.0-100.0) fL MCH 28.5 (25.0-35.0) pg MCHC 32.1 (31.0-37.0) g/dL RDW 15.5 (11.5-15.5) % Plt Count 267 (150-450) k/uL MPV 8.0 Neutrophils % 55 % Lymphocytes % 31 % Monocytes % 5 % Eosinophils % 7 % Basophils % 1 % Neutrophils # 4.2 (1.3-7.7) k/uL Lymphocytes # 2.4 (1.0-4.8) k/uL Monocytes # 0.4 (0-1.0) k/uL Eosinophils # 0.5 (0-0.7) k/uL Basophils # 0.0 (0-0.2) k/uL D-Dimer (<0.60) mg/L FEU Sodium (137-145) mmol/L Potassium (3.5-5.1) mmol/L Chloride (98-107) mmol/L Carbon Dioxide (22-30) mmol/L Anion Gap mmol/L BUN (7-17) mg/dL Creatinine (0.52-1.04) mg/dL Est GFR (CKD-EPI)AfAm (>60 ml/min/1.73 sqM) Est GFR (CKD-EPI)NonAf (>60 ml/min/1.73 sqM) Glucose (74-99) mg/dL Plasma Lactic Acid Anson (0.7-2.0) mmol/L Calcium (8.4-10.2) mg/dL Total Bilirubin (0.2-1.3) mg/dL AST (14-36) U/L ALT (4-34) U/L Alkaline Phosphatase (38-126) U/L C-Reactive Protein (<1.0) mg/dL Total Protein (6.3-8.2) g/dL Albumin (3.5-5.0) g/dL Disposition <Adrianna Light - Last Filed: 10/15/23 20:27> Is patient prescribed a controlled substance at d/c from ED?: No - Out of Hospital Transfer - Req. Specs Out of Hospital Transfer - Requested Specifics: Other Emergency Center <Timmy Sung - Last Filed: 10/17/23 08:55> Clinical Impression: Cellulitis, D-dimer, elevated Disposition: OTHER INSTITUTION NOT DEFINED Condition: Fair Referrals: Isaac Lara MD [Primary Care Provider] - 1-2 days
[2023-10-14 14:39] VITALS: TEMP 98.3
--- NOTE | 2023-10-14 14:54 | US ---
EXAMINATION TYPE: US venous doppler duplex LE LT DATE OF EXAM: 10/14/2023 2:36 PM COMPARISON: US 2019 CLINICAL INDICATION: Female, 38 years old with history of unilateral swelling; SIDE PERFORMED: Left TECHNIQUE: The lower extremity deep venous system is examined utilizing real time linear array sonog austen with graded compression, doppler sonography and color-flow sonography. VESSELS IMAGED: Nondiagnostic assessment of the venous structures due to patient's clinical condition. Extremely difficult and limited study due to morbidly obese patient with spina bifida with no mobil ity in her legs, exam done with patient sitting up in her wheelchair Left Leg: Small portion of possible popliteal vein appears patent IMPRESSION: 1. Nondiagnostic exam. DVT not excluded by this study.
[2023-10-14 19:47] VITALS: BP 142/98; PULSE 88; RESP 20
[2023-10-14 19:54] LABS: ALT 15 U/L (4-34); AST 22 U/L (14-36); African American GFR (CKD) >90 (>60 ml/min/1.73 sqM); Albumin 4.2 g/dL (3.5-5.0); Alkaline Phosphatase 96 U/L (38-126); Anion Gap 11 mmol/L; Blood Urea Nitrogen 8 mg/dL (7-17); Calcium 9.1 mg/dL (8.4-10.2); Carbon Dioxide 21 mmol/L (22-30); Chloride 108 mmol/L (98-107); Glucose 71 mg/dL (74-99); Non-African American GFR(CKD) >90 (>60 ml/min/1.73 sqM); Potassium 4.6 mmol/L (3.5-5.1); Sodium 140 mmol/L (137-145); Total Bilirubin 0.7 mg/dL (0.2-1.3); Total Protein 7.1 g/dL (6.3-8.2)
[2023-10-14 20:11] LABS: C Reactive Protein 2.9 mg/dL (<1.0)
[2023-10-14 20:13] LABS: Basophils % (A) 1 %; Eosinophils # (A) 0.5 k/uL (0-0.7); Eosinophils % (A) 7 %; HCT 43.1 % (34.0-46.0); HGB 13.9 gm/dL (11.4-16.0); Lymphocytes # (A) 2.4 k/uL (1.0-4.8); Lymphocytes % (A) 31 %; MCH 28.5 pg (25.0-35.0); MCHC 32.1 g/dL (31.0-37.0); MCV 88.7 fL (80.0-100.0); Monocytes # (A) 0.4 k/uL (0-1.0); Monocytes % (A) 5 %; Neutrophils # (A) 4.2 k/uL (1.3-7.7); Neutrophils % (A) 55 %; Platelet Count 267 k/uL (150-450); RBC 4.86 m/uL (3.80-5.40); RDW 15.5 % (11.5-15.5); WBC 7.6 k/uL (3.8-10.6)
[2023-10-14] MEDS: ENOXAPARIN 80 MG/0.8 ML SYRINGE SQ STA (20:27)
== END 2023-10-14 23:00 | disposition other institution (70) ==
LOC: EC 13:17
DX: L03.115 Cellulitis of right lower limb (principal); R79.1 Abnormal coagulation profile; Z91.040 Latex allergy status
CPT/HCPCS: 96372; 96365; 36415; 85379; 80053; 83605; 85025; 86140; 87040; 93971; 99291; J0696; J1650; 99284

== ENCOUNTER 2023-11-15 19:34 | Emergency (ER) | payer OTHER ==
--- NOTE | 2023-11-15 19:51 | ED ---
SOB HPI - General Chief Complaint: ENT Stated Complaint: ANTHONY Time Seen by Provider: 11/15/23 19:49 Source: EMS, RN notes reviewed, old records reviewed, Caregiver Mode of arrival: EMS Limitations: no limitations - History of Present Illness Initial Comments: This is a 38-year-old female who presents for difficulty breathing cough and congestion that began just prior to arrival presents by EMS but currently in good spirits states she feels well here in the ER and has no complaints MD Complaint: shortness of breath, cough, "asthma attack", anxiety -: hour(s) Severity: severe Quality: sharp, stabbing Consistency: constant Improves With: nothing Worsens With: nothing Known History Of: COPD, congestive heart failure - Related Data Home Medications Medication Instructions Recorded Confirmed Albuterol Nebulized [Ventolin 2.5 mg INHALATION RT-BID 10/07/17 10/14/23 Nebulized] Budesonide [Pulmicort] 1 mg INHALATION RT-BID 05/07/21 10/14/23 Albuterol Nebulized [Ventolin 2.5 mg INHALATION RT-BID PRN 03/19/22 10/14/23 Nebulized] Metoprolol Tartrate [Lopressor] 50 mg PO BID 03/19/22 10/14/23 Cetirizine HCl 10 mg PO DAILY 03/05/23 10/14/23 Cholecalciferol [Vitamin D3 (25 50 mcg PO DAILY 03/05/23 10/14/23 Mcg = 1000 Iu)] Allergies Allergy/AdvReac Type Severity Reaction Status Date / Time latex AdvReac Unknown Verified 11/15/23 19:50 Review of Systems ROS Statement: Those systems with pertinent positive or pertinent negative responses have been documented in the HPI. ROS Other: All systems not noted in ROS Statement are negative. Past Medical History Past Medical History: Asthma, GERD/Reflux, Musculoskeletal Disorder Additional Past Medical History / Comment(s): Spina bifida with spina bifida deformities, paralyzed waist down, mentality approximately 6yr old, severe kyphoscoliosis with pectus deformity, chronic lung disease with chronic respiratory hypoxia/hypercpnia, trach/chronic vent, pneumonias, bronchospasms, cervical compression with surgery, nephrolithiasis, urostomy-wears depends, UTIs, constipation. 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 Absent: scleral icterus, conjunctival injection, periorbital swelling ENT exam: Present: normal exam, mucous membranes moist Neck exam: Present: normal inspection. Absent: tenderness, meningismus, lymphadenopathy Respiratory exam: Present: normal lung sounds bilaterally. Absent: respiratory distress, wheezes, rales, rhonchi, stridor Cardiovascular Exam: Present: regular rate, normal rhythm, normal heart sounds. Absent: systolic murmur, diastolic murmur, rubs, gallop, clicks GI/Abdominal exam: Present: soft, normal bowel sounds. Absent: distended, tenderness, guarding, rebound, rigid Extremities exam: Present: normal inspection, full ROM, normal capillary refill. Absent: tenderness, pedal edema, joint swelling, calf tenderness Back exam: Present: normal inspection Neurological exam: Present: alert, oriented X3, CN II-XII intact Psychiatric exam: Present: normal affect, normal mood Skin exam: Present: warm, dry, intact, normal color. Absent: rash Course Vital Signs 11/15/23 11/15/23 11/15/23 19:46 20:49 21:00 Temperature 98.4 F Pulse Rate 126 H 126 H 85 Respiratory 18 Rate Blood Pressure 141/117 140/101 O2 Sat by Pulse 97 96 Oximetry 11/15/23 11/15/23 11/15/23 21:15 21:36 22:48 Temperature 98.9 F Pulse Rate 87 135 H 128 H Respiratory 22 20 Rate Blood Pressure 136/96 128/89 O2 Sat by Pulse 96 96 Oximetry - Reevaluation(s) Reevaluation #1: 11/15/23 21:54 Medical records reviewed Reevaluation #2: 11/15/23 21:54 Patient symptoms improved and remain resolved on arrival Reevaluation #3: 11/15/23 21:54 Patient informed of results and questions answered Reevaluation #4: Was pt. sent in by a medical professional or institution (, [facility], PI/SENIOR RESEARCH ASSOCIATE, urgent care, hospital, or care home...) When possible be specific @ -no Did you speak to anyone other than the patient for history (EMS, parent, family, police, friend...)? What history was obtained from this source @ -no Did you review nursing and triage notes (agree or disagree)? Why? @ -agree Are old charts reviewed (outside hosp., previous admission, EMS record, old EKG, old radiological studies, urgent care reports/EKG's, care home records)? Report findings @ -yes Differential Diagnosis (chest pain, altered mental status, abdominal pain women, abdominal pain men, vaginal bleeding, weakness, fever, dyspnea, syncope, headache, dizziness, GI bleed, back pain, seizure, CVA, palpatations, mental health, musculoskeletal)? @ -prior EKG interpreted by me (3pts min.). @ -no X-rays interpreted by me (1pt min.). @ -yes negative for acute disease CT interpreted by me (1pt min.). @ -no U/S interpreted by me (1pt. min.). @ -no What testing was considered but not performed or refused? (CT, X-rays, U/S, labs)? Why? @ -none What meds were considered but not given or refused? Why? @ -none Did you discuss the management of the patient with other professionals (professionals i.e. CODY Alexis, PI/SENIOR RESEARCH ASSOCIATE, lab, RT, psych nurse, social worker palliative care, chipper feeder, teacher, security officer supervisor, case repairer)? Give summary @ -no Was smoking cessation discussed for >3mins.? @ -no Was critical care preformed (if so, how long)? @ -no Were there social determinants of health that impacted care today? How? (Homelessness, low income, unemployed, alcoholism, drug addiction, transportation, low edu. Level, literacy, decrease access to med. care, prison, rehab)? @ -none Was there de-escalation of care discussed even if they declined (Discuss DNR or withdrawal of care, Hospice)? DNR status @ -no What co-morbidities impacted this encounter? (DM, HTN, Smoking, COPD, CAD, Cancer, CVA, ARF, Chemo, Hep., AIDS, mental health diagnosis, sleep apnea, morbid obesity)? @ -none Was patient admitted / discharged? Hospital course, mention meds given and route, prescriptions, significant lab abnormalities, going to OR and other pertinent info. @ - 38 female to the ER for evaluation at this time patient feels well and can be discharged home Discharge Undiagnosed new problem with uncertain prognosis? @ -no Drug Therapy requiring intensive monitoring for toxicity (Heparin, Nitro, Insulin, Cardizem)? @ -no Were any procedures done? @ -no Diagnosis/symptom? @ -Bronchospasm respiratory distress resolved Acute, or Chronic, or Acute on Chronic? @ -Acute Uncomplicated (without systemic symptoms) or Complicated (systemic symptoms)? @ -Complicated Side effects of treatment? @ -no Exacerbation, Progression, or Severe Exacerbation? @ -exacerbation Poses a threat to life or bodily function? How? (Chest pain, [place], [place], pneumonia, PE, COPD, DKA, ARF, appy, cholecystitis, CVA, Diverticulitis, Homicidal, S uicidal, threat to staff... and all critical care pts) @ -yes with significant history of respiratory illness Reevaluation #5: Differential Dyspnea: Coronary syndrome, arrhythmia, tamponade, asthma, COPD, pulmonary embolism, pneumonia, pneumothorax, pulmonary effusion, anaphylaxis, diabetic ketoacidosis, flailed chest, pulmonary contusion, diaphragmatic rupture, anemia, neuromuscular, this is not meant to be an all-inclusive list. Medical Decision Making - Medical Decision Making 38 female to the ER for evaluation at this time patient feels well and can be discharged home - Radiology Data Radiology results: report reviewed (Chest x-ray is unremarkable with no acute c hanges), image reviewed Disposition Clinical Impression: Asthma attack, Ventilator dependent Disposition: HOME SELF-CARE Condition: Fair Instructions (If sedation given, give patient instructions): Asthma (ED) Is patient prescribed a controlled substance at d/c from ED?: No Referrals: Isaac Goodson MD [Primary Care Provider] - 1-2 days
[2023-11-15] MEDS: IPRATROPIUM-ALBUTEROL 3 ML NEB INHALATION STA (21:00)
--- NOTE | 2023-11-15 21:56 | XR ---
EXAMINATION TYPE: XR chest 2V DATE OF EXAM: 11/15/2023 9:24 PM CLINICAL INDICATION:Female, 38 years old with history of cough; [facility] COMPARISON: 09/06/2019 CT. Radiograph 08/15/2023 TECHNIQUE: XR chest 2V Frontal and lateral views of the chest. FINDINGS: Extremely limited exam due to patient body habitus and positioning. No obvious acute process. IMPRESSION: Extremely limited exam secondary to patient body habitus. No obvious acute process. Consider cross-se ctional imaging given patient body habitus.
[2023-11-15 22:56] VITALS: BP 128/89; PULSE 128; RESP 20; TEMP 98.9
== END 2023-11-15 22:55 | disposition home or self-care (01) ==
LOC: EC 19:34
DX: J45.909 Unspecified asthma, uncomplicated (principal); Z91.040 Latex allergy status; Z99.11 Dependence on respirator [ventilator] status
CPT/HCPCS: 71046; 94640; 99285

== ENCOUNTER 2024-03-15 12:42 | Emergency (ER) | payer OTHER ==
[2024-03-15 12:52] VITALS: TEMP 98.2
--- NOTE | 2024-03-15 13:39 | ED ---
General Adult HPI - General Chief complaint: Wound/Laceration Stated complaint: L foot wound Time Seen by Provider: 03/15/24 13:02 Source: patient Mode of arrival: ambulatory Limitations: no limitations - History of Present Illness Initial comments: Dictation was produced using [employer] dictation software. please excuse any grammatical, word or spelling errors. Chief Complaint: 38-year-old female with debility secondary to spina bifida presents to the ER for left heel ulcer History of Present Illness: 38-year-old bedbound female who ambulates with power chair presents to the ER with family for left heel ulcer. Family member noticed heel ulcer recently. She has had a special wrap around her left foot. Wrap was removed and patient was noted to have a left heel ulcer. Patient otherwise has behaving normally. Patient has appointment with wound care in March The ROS documented in this emergency department record has been reviewed and c onfirmed by me. Those systems with pertinent positive or negative responses have been documented in the HPI. All other systems are other negative and/or noncontributory. - Related Data Home Medications Medication Instructions Recorded Confirmed Albuterol Nebulized [Ventolin 2.5 mg INHALATION RT-BID 10/07/17 10/14/23 Nebulized] Budesonide [Pulmicort] 1 mg INHALATION RT-BID 05/07/21 10/14/23 Albuterol Nebulized [Ventolin 2.5 mg INHALATION RT-BID PRN 03/19/22 10/14/23 Nebulized] Metoprolol Tartrate [Lopressor] 50 mg PO BID 03/19/22 10/14/23 Cetirizine HCl 10 mg PO DAILY 03/05/23 10/14/23 Cholecalciferol [Vitamin D3 (25 50 mcg PO DAILY 03/05/23 10/14/23 Mcg = 1000 Iu)] Allergies Allergy/AdvReac Type Severity Reaction Status Date / Time latex AdvReac Unknown Verified 03/15/24 12:50 Review of Systems ROS Statement: Those systems with pertinent positive or pertinent negative responses have been documented in the HPI. ROS Other: All systems not noted in ROS Statement are negative. Past Medical History Past Medical History: Asthma, GERD/Reflux, Musculoskeletal Disorder Additional Past Medical History / Comment(s): Spina bifida with spina bifida deformities, paralyzed waist down, mentality approximately 6yr old, severe kyphoscoliosis with pectus deformity, chronic lung disease with chronic respiratory hypoxia/hypercpnia, trach/chronic vent, pneumonias, bronchospasms, cervical compression with surgery, nephrolithiasis, urostomy-wears depends, UTIs, constipation. 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 Past Anesthesia/Blood Transfusion Reactions: No Reported Reaction Past Psychological History: No Psychological Hx Reported Smoking Status: Never smoker Past Alcohol Use History: None Reported Past Drug Use History: None Reported - Past Family History Father Family Medical History: Asthma Mother Family Medical History: Diabetes Mellitus, Hyperlipidemia, Hypertension General Exam - General Exam Comments Initial Comments: PHYSICAL EXAM: General Impression: Alert and oriented x3, not in acute distress HEENT: Normocephalic atraumatic, extra-ocular movements intact, pupils equal and reactive to light bilaterally, mucous membranes moist. Cardiovascular: Heart regular rate and rhythm Chest: Able to complete full sentences, no retractions, no tachypnea Abdomen: abdomen soft, non-tender, non-distended, no organomegaly Musculoskeletal: Pulses present and equal in all extremities, no peripheral edema Motor: no focal deficits noted Neurological: CN II-XII grossly intact, no focal motor or sensory deficits noted Skin: Intact with no visualized rashes, 1 and half centimeter left heel ulcer with no extension into the bone, no surrounding induration or erythema Psych: Normal affect and mood Limitations: no limitations Course Vital Signs 03/15/24 12:50 Temperature 98.2 F Pulse Rate 84 Respiratory 22 Rate Blood Pressure 138/80 O2 Sat by Pulse 95 Oximetry Medical Decision Making - Medical Decision Making Was pt. sent in by a medical professional or institution (, PA, ASSOCIATE PROGRAMMER, urgent care, hospital, or care home...) When possible be specific @ -No Did you speak to anyone other than the patient for history (EMS, parent, family, police, friend...)? What history was obtained from this source @ -No Did you review nursing and triage notes (agree or disagree)? Why? @ -I reviewed and agree with nursing and triage notes Were old charts reviewed (outside hosp., previous admission, EMS record, old EKG, old radiological studies, urgent care reports/EKG's, care home records)? Report findings @ -No old charts were reviewed Differential Diagnosis (chest pain, altered mental status, abdominal pain women, abdominal pain men, vaginal bleeding, musculoskeletal, weakness, fever, dyspnea, syncope, headache, dizziness, GI bleed, back pain, seizure, CVA, palpatations, mental health)? @ -Osteomyelitis, cellulitis, pressure ulcer EKG interpreted by me (3pts min.). @ -None done X-rays interpreted by me (1pt min.). @ -The left heel shows no bone involvement CT interpreted by me (1pt min.). @ -None done U/S interpreted by me (1pt. min.). @ -None done What testing was considered but not performed or refused? (CT, X-rays, U/S, labs)? Why? @ -None What meds were considered but not given or refused? Why? @ -None Was smoking cessation discussed for >3mins.? @ -No Were there social determinants of health that impacted care today? How? (Homelessness, low income, unemployed, alcoholism, drug addiction, transportation, low edu. Level, literacy, decrease access to med. care, skilled nursing, rehab)? @ -No Was there de-escalation of care discussed even if they declined (Discuss DNR or withdrawal of care, Hospice)? DNR status @ -No What co-morbidities impacted this encounter? (DM, HTN, Smoking, COPD, CAD, Cancer, CVA, ARF, Chemo, Hep., AIDS, mental health diagnosis, sleep apnea, morbid obesity)? @ -None Was patient admitted / discharged? Hospital course, mention meds given and route, prescriptions, significant lab abnormalities, going to OR and other pertinent info. @ -38-year-old female with left heel pressure ulcer. Vital signs stable. Patient at baseline according to member. Patient well-appearing no acute distress. X-ray shows no bony involvement. Pressure ulcer precautions were discussed. Patient discharged encouraged to follow-up with smart energy specialist. Did you discuss the management of the patient with other professionals (professionals i.e. , PA, ASSOCIATE PROGRAMMER, lab, RT, psych nurse, social work professor, ribbon sweatband operator, teacher, traffic division commanding officer, director case)? Give summary @ -No Was critical care preformed (if so, how long)? @ -No Undiagnosed new problem with uncertain prognosis? @ -No Drug Therapy requiring intensive monitoring for toxicity (Heparin, Nitro, Insulin, Cardizem)? @ -No Were any procedures done? @ -No Diagnosis/symptom? Acute, or Chronic, or Acute on Chronic? Uncomplicated (without systemic symptoms) or Complicated (systemic symptoms)? @ -Heel pressure ulcer Side effects of treatment? @ -No Exacerbation, Progression, or Severe Exacerbation? @ -No Poses a threat to life or bodily function? How? (Chest pain, [place], [place], pneumonia, PE, COPD, DKA, ARF, appy, cholecystitis, CVA, Diverticulitis, Homicidal, Suicidal, threat to staff... and all critical care pts) @ -No Disposition Clinical Impression: Pressure ulcer Disposition: HOME SELF-CARE Condition: Good Instructions (If sedation given, give patient instructions): Pressure Injury (ED), How to Prevent Pressure Injuries (ED) Is patient prescribed a controlled substance at d/c from ED?: No Referrals: Isaac Goodson MD [Primary Care Provider] - 1-2 days Time of Disposition: 14:39
[2024-03-15] MEDS: BACITRACIN OINT 1 EACH PACKET TOPICAL ONE (14:09)
--- NOTE | 2024-03-15 14:18 | XR ---
EXAMINATION TYPE: XR foot limited LT DATE OF EXAM: 03/15/2024 1:51 PM CLINICAL INDICATION: Female, 38 years old with history of heel ulcer; [facility] COMPARISON: None TECHNIQUE: XR foot limited LT examined in the AP, oblique, and lateral projections. FINDINGS/IMPRESSION: 1. Diffuse abnormal appearance of the foot with soft tissue swelling throughout and heel ulcer. No e vidence for osseous erosion. There is poor positioning of the foot due to patient body habitus. 2. No evidence of fracture.
[2024-03-15 15:00] VITALS: BP 126/82; PULSE 82; RESP 16
== END 2024-03-15 14:59 | disposition home or self-care (01) ==
LOC: EC 12:42
CPT/HCPCS: 99283

== ENCOUNTER → 2024-04-01 | Outpatient (CLI) | payer OTHER ==
[2024-04-01 15:33] LABS: Blood Urea Nitrogen 10.4 mg/dL (9.0-27.0); Carbon Dioxide 21.6 mmol/L (21.6-31.8); Chloride 106 mmol/L (96-109); Glucose 95 mg/dL (70-110); Potassium 4.5 mmol/L (3.5-5.5); Sodium 142 mmol/L (135-145)
[2024-04-01 15:34] LABS: ALT 15 U/L (8-44); AST 18 U/L (13-35); Albumin 4.5 g/dL (3.8-4.9); Albumin/Globulin Ratio 1.36 Ratio (1.60-3.17); Alkaline Phosphatase 128 U/L (41-126); Calcium 9.3 mg/dL (8.7-10.3); Globulin 3.3 g/dL (1.6-3.3); Total Bilirubin <0.2 mg/dL (0.3-1.2); Total Protein 7.8 g/dL (6.2-8.2)
[2024-04-01 16:14] LABS: Basophils # (A) 0.05 X 10*3/uL (0.00-0.10); Basophils % (A) 0.6 %; Eosinophils # (A) 0.46 X 10*3/uL (0.04-0.35); Eosinophils % (A) 5.6 %; HCT 44.7 % (37.2-46.3); HGB 14.8 g/dL (12.0-15.0); Lymphocytes # (A) 2.09 X 10*3/uL (0.90-5.00); Lymphocytes % (A) 25.4 %; MCH 29.7 pg (27.0-32.0); MCHC 33.1 g/dL (32.0-37.0); MCV 89.6 FL (80.0-97.0); Mean Platelet Volume 11.2 FL (9.5-12.2); Monocytes # (A) 0.53 X 10*3/uL (0.20-1.00); Monocytes % (A) 6.4 %; NRBC Per 100 WBC 0 X 10*3/uL (0.00-0.01); Neutrophils # (A) 5.06 X 10*3/uL (1.80-7.70); Neutrophils % (A) 61.6 %; Platelet Count 270 X 10*3/uL (140-440); RBC 4.99 X 10*6/uL (4.10-5.20); RDW 18.5 % (11.5-14.5); WBC 8.22 X 10*3/uL (4.50-10.00)
== END | disposition home or self-care (01) ==
LOC: LABWHC1 10:15
PROVIDERS: ATTEND Podiatrist
DX: L97.421 Non-pressure chronic ulcer of left heel and midfoot limited to breakdown of skin
CPT/HCPCS: 36415; 80053; 84134; 85025

== ENCOUNTER → 2024-06-10 | Outpatient (CLI) | payer OTHER ==
--- NOTE | 2024-06-10 09:28 | US ---
EXAMINATION TYPE: US kidneys/renal and bladder DATE OF EXAM: 06/10/2024 COMPARISON: NONE CLINICAL INDICATION: Female, 38 years old with history of N21.0 CALCULUS IN BLADDER; Hx of stones. Pa tient in wheel chair paralyzed unable to get into bed. Study is not diagnostic. TECHNIQUE: Grayscale imaging of the bilateral kidneys and urinary bladder: FINDINGS: EXAM MEASUREMENTS: Right Kidney: Unable to visualized. Left Kidney: Unable to visualized. Right Kidney: Obscured by overlying bowel gas Left Kidney: Obscured by overlying bowel gas Bladder: Not full. There is no evidence for hydronephrosis at this point in time. No nephrolithiasis is seen. No girish s are identified. The urinary bladder is anechoic. IMPRESSION: Unremarkable study [facility], , 06/10/2024 9:26 AM
== END | disposition home or self-care (01) ==
LOC: RADUSWWP 08:37
PROVIDERS: ATTEND Urology
DX: N21.0 Calculus in bladder (principal)
CPT/HCPCS: 76770

== ENCOUNTER 2024-08-14 10:09 | Emergency (ER) | payer OTHER ==
[2024-08-14 10:22] VITALS: RESP 24; TEMP 97.8
--- NOTE | 2024-08-14 10:52 | ED ---
General Adult HPI - General Chief complaint: Skin/Abscess/Foreign Body Stated complaint: Bed sore Time Seen by Provider: 08/14/24 10:22 Source: patient, family, EMS, RN notes reviewed Mode of arrival: EMS Limitations: physical limitation - History of Present Illness Initial comments: Patient is a 38-year-old female oxygen dependent with congenital abnormalities presenting to the emergency department with concern for bedsores. Mother has had recent knee surgery and difficulty moving the patient lately and therefore has been sitting more on her bottom. Patient denies any discomfort. Mother has noticed some redness. No drainage. No fevers. No history of similar symptoms previously. - Related Data Home Medications Medication Instructions Recorded Confirmed Albuterol Nebulized [Ventolin 2.5 mg INHALATION RT-BID 10/07/17 10/14/23 Nebulized] Budesonide [Pulmicort] 1 mg INHALATION RT-BID 05/07/21 10/14/23 Albuterol Nebulized [Ventolin 2.5 mg INHALATION RT-BID PRN 03/19/22 10/14/23 Nebulized] Metoprolol Tartrate [Lopressor] 50 mg PO BID 03/19/22 10/14/23 Cetirizine HCl 10 mg PO DAILY 03/05/23 10/14/23 Cholecalciferol [Vitamin D3 (25 50 mcg PO DAILY 03/05/23 10/14/23 Mcg = 1000 Iu)] Allergies Allergy/AdvReac Type Severity Reaction Status Date / Time latex AdvReac Unknown Verified 08/14/24 10:22 Review of Systems ROS Statement: Those systems with pertinent positive or pertinent negative responses have been documented in the HPI. ROS Other: All systems not noted in ROS Statement are negative. Constitutional: Denies: fever Eyes: Denies: eye pain Respiratory: Denies: dyspnea Cardiovascular: Denies: chest pain Endocrine: Denies: fatigue Skin: Reports: as per HPI Past Medical History Past Medical History: Asthma, GERD/Reflux, Musculoskeletal Disorder Additional Past Medical History / Comment(s): Spina bifida with spina bifida deformities, paralyzed waist down, mentality approximately 6yr old, severe kyphoscoliosis with pectus deformity, chronic lung disease with chronic respiratory hypoxia/hypercpnia, trach/chronic vent, pneumonias, bronchospasms, cervical compression with surgery, nephrolithiasis, urostomy-wears depends, UTIs, constipation. 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 Past Anesthesia/Blood Transfusion Reactions: No Reported Reaction Past Psychological History: No Psychological Hx Reported Smoking Status: Never smoker Past Alcohol Use History: None Reported Past Drug Use History: None Reported - Past Family History Father Family Medical History: Asthma Mother Family Medical History: Diabetes Mellitus, Hyperlipidemia, Hypertension General Exam Limitations: no limitations General appearance: alert Eye exam: Present: normal appearance Neck exam: Present: other (Trach) Respiratory exam: Present: rhonchi Cardiovascular Exam: Present: regular rate, normal rhythm GI/Abdominal exam: Present: soft. Absent: tenderness Extremities exam: Present: normal inspection Neurological exam: Present: alert Psychiatric exam: Present: normal affect, normal mood Skin exam: Present: erythema (Sacral region stage I) Course Vital Signs 08/14/24 08/14/24 10:11 10:50 Temperature 97.8 F Pulse Rate 74 Respiratory 24 Rate Blood Pressure 133/103 O2 Sat by Pulse 96 Oximetry Fraction of 21 Inspired Oxygen (FIO2) Medical Decision Making - Medical Decision Making Was pt. sent in by a medical professional or institution ([facility], SWING SAW OPERATOR, urgent care, hospital, or skilled nursing...) When possible be specific @ -No Did you speak to anyone other than the patient for history (EMS, parent, family, police, friend...)? What history was obtained from this source @ -Mother is present and provides majority of history as patient is a poor historian Did you review nursing and triage notes (agree or disagree)? Why? @ -I reviewed and agree with nursing and triage notes Were old charts reviewed (outside hosp., previous admission, EMS record, old EKG, old radiological studies, urgent care reports/EKG's, skilled nursing records)? Report findings @ -No old charts were reviewed Differential Diagnosis (chest pain, altered mental status, abdominal pain women, abdominal pain men, vaginal bleeding, weakness, fever, dyspnea, syncope, headache, dizziness, GI bleed, back pain, seizure, CVA, palpatations, mental health, musculoskeletal)? @ -Differential Dyspnea: Coronary syndrome, arrhythmia, tamponade, asthma, COPD, pulmonary embolism, pneumonia, pneumothorax, pulmonary effusion, anaphylaxis, diabetic ketoacidosis, flailed chest, pulmonary contusion, diaphragmatic rupture, anemia, neuromuscular, this is not meant to be an all-inclusive list. EKG interpreted by me (3pts min.). @ -As above X-rays interpreted by me (1pt min.). @ -Chest x-ray interpreted by myself is limited and shows no acute abnormality CT interpreted by me (1pt min.). @ -None done U/S interpreted by me (1pt. min.). @ -None done What testing was considered but not performed or refused? (CT, X-rays, U/S, labs)? Why? @ -None What meds were considered but not given or refused? Why? @ -None Did you discuss the management of the patient with other professionals (professionals i.e. , PA, SWING SAW OPERATOR, lab, RT, psych nurse, executive secretary social welfare, polysomnographic technologist, teacher, strategic debriefing officer, case managers)? Give summary @ -No Was smoking cessation discussed for >3mins.? @ -No Was critical care preformed (if so, how long)? @ -No Were there social determinants of health that impacted care today? How? (Homelessness, low income, unemployed, alcoholism, drug addiction, transportation, low edu. Level, literacy, decrease access to med. care, longterm, rehab)? @ -No Was there de-escalation of care discussed even if they declined (Discuss DNR or withdrawal of care, Hospice)? DNR status @ -No What co-morbidities impacted this encounter? (DM, HTN, Smoking, COPD, CAD, Cancer, CVA, ARF, Chemo, Hep., AIDS, mental health diagnosis, sleep apnea, morbid obesity)? @ -History of trach. Limited mobility Was patient admitted / discharged? Hospital course, mention meds given and route, prescriptions, significant lab abnormalities, going to OR and other pertinent info. @ -Patient presents with concern for redness on her bottom. There is concern for stage I breakdown on exam. Patient will need continued wound care and this is discussed with mother. Recommended close follow-up with primary care physician and if symptoms worsen patient may need to go to wound center. Undiagnosed new problem with uncertain prognosis? @ -No Drug Therapy requiring intensive monitoring for toxicity (Heparin, Nitro, Insulin, Cardizem)? @ -No Were any procedures done? @ -No Diagnosis/symptom? @ -Sacral decubitus stage I Acute, or Chronic, or Acute on Chronic? @ -Acute Uncomplicated (without systemic symptoms) or Complicated (systemic symptoms)? @ -Default Side effects of treatment? @ -No Exacerbation, Progression, or Severe Exacerbation? @ -No Poses a threat to life or bodily function? How? (Chest pain, [place], [place], pneumonia, PE, COPD, DKA, ARF, appy, cholecystitis, CVA, Diverticulitis, Homicidal, Clari cidal, threat to staff... and all critical care pts) @ -No Disposition Clinical Impression: Stage I pressure ulcer of sacral region Disposition: HOME SELF-CARE Condition: Stable Instructions (If sedation given, give patient instructions): How to Prevent Pressure Injuries (ED) Additional Instructions: Turn frequently and keep patient off of her bottom. Keep area dry. Please follow-up with primary care physician in the next day or 2 for recheck. If symptoms continue or worsen you may need to go to the wound center. Return for pain, increased skin breakdown, fever, worsening symptoms or other concerns. Is patient prescribed a controlled substance at d/c from ED?: No Referrals: Isaac Goodson MD [Primary Care Provider] - 1-2 days Time of Disposition: 11:30
--- NOTE | 2024-08-14 11:12 | XR ---
Chest, 2 view. HISTORY: Cough. COMPARISON: 11/07/2023 TECHNIQUE: PA and lateral views the chest are obtained. The exam is extremely limited due to the angel ent's body habitus. FINDINGS: Grossly, there is no lung consolidation in the visualized portions of the lungs which are markedly h ypoinflated.. There is no pneumothorax. There is a trach tube. IMPRESSION: Markedly limited study on both current and prior studies. Within limitations there is no gross lung c onsolidation. [facility], , 08/14/2024 11:10 AM
[2024-08-14 12:29] VITALS: BP 130/70; PULSE 76
== END 2024-08-14 12:29 | disposition home or self-care (01) ==
LOC: EC 10:09
DX: L89.151 Pressure ulcer of sacral region, stage 1 (principal); Z93.0 Tracheostomy status; Z91.040 Latex allergy status
CPT/HCPCS: 71046; 99283